=== PATIENT | male | born 1950 | race Caucasian/White ===

== ENCOUNTER 2023-04-26 14:16 | Inpatient (IN) | payer OTHER, SELFPAY ==
[2023-04-26 14:17] VITALS: BP 133/81; PULSE 74; RESP 14; TEMP 36.2; O2SAT 98; BMI 23.1
--- NOTE | 2023-04-26 14:26 | RAD_ITS ---
INDICATION: injury EXAMINATION/TECHNIQUE: X-RAY - XR Hip Unilateral with Pelvis when performed; 2-3 Views COMPARISON: No relevant prior comparison study available FINDINGS: PELVIC BONES: No displaced fracture, destructive or sclerotic lesions. Note that overlapping bowel shadows may however obscure fine detail. Sacroiliac joints are unremarkable. No widening of the pubic symphysis. HIPS: Intertrochanteric impacted displaced fracture of the right hip. No evidence of dislocation. SOFT TISSUES: No soft tissue swelling or gas. RAD/HIP, UNI W/ Pelvis 2-3 Views IMPRESSION: Intertrochanteric fracture of the right hip. Electronically Signed: Oleg Reyes MD at 15:08 EST ,
--- NOTE | 2023-04-26 14:26 | EKG12_ITS ---
Test Reason : FALL Blood Pressure : / mmHG Vent. Rate : 073 BPM Atrial Rate : 073 BPM P-R Int : 148 ms QRS Dur : 106 ms QT Int : 414 ms P-R-T Axes : 055 -11 095 degrees QTc Int : 456 ms Sinus rhythm with occasional Premature ventricular complexes Inferior infarct , age undetermined Abnormal ECG Confirmed by NICOLÁS COOK, KAREN ([id number]), index editor JERMAINE ZAVALA ([id number]) on 04/28/2023 6:08:39 AM Referred By: Confirmed By:KAREN MONZON MD
--- NOTE | 2023-04-26 14:27 | RAD_ITS ---
INDICATION: preop clearance EXAMINATION/TECHNIQUE: X-RAY - XR Chest 1 View COMPARISON: No relevant prior comparison study available FINDINGS: LINES/DEVICES: None. LUNGS: No consolidation, edema or effusion. No pneumothorax. Right retrocardiac opacity difficult to evaluate on this exam. Could represent confluence of pulmonary veins. No evidence of pleural effusions. MEDIASTINUM AND CARDIOVASCULAR STRUCTURES: Normal cardiac silhouette. BONES AND SOFT TISSUES: Unremarkable. RAD/Chest 1 View (Portable) IMPRESSION: Right retrocardiac opacity could represent confluence of pulmonary veins better evaluated with CT scan. Otherwise no active pulmonary disease. Electronically Signed: Oleg Reyes MD at 15:07 EST ,
--- NOTE | 2023-04-26 14:28 | EDS_ITS ---
HPI HPI - Fall History of Present Illness Chief Complaint: Fall Informant: patient Occured/Mechanism Occurred: Today (JPTA) Mechanism/Context: Yes same level fall Narrative: fell while indoor-roller skating Usually ambulates: Without assistance Pain/Injury Location: R hip Narrative Narrative: Fell onto his right hip while rollerskating, not able to move it or ambulate subsequently, requiring EMS to bring him to the hospital. Denies any other pain or injury did not hit his head. Takes no anticoagulants or antiplatelets that he knows of. PFSH PFS Medical History CHF (congestive heart failure) Enlarged prostate Suprapubic catheter Allergy/AdvReac Type Severity Reaction Status Date / Time No Known Allergies Allergy Verified 04/26/23 14:21 Social History Smoking Status: Never smoker ROS ROS ED Constitutional Constitutional ED: Denies chills or fever(s) Musculoskeletal Musculoskeletal: Reports extremity pain; Denies neck pain Integumentary Denies Abrasions, rash or wounds Neurologic Neurologic: Denies paresthesias or weakness EXAM Physical Exam Const Vital Signs: 04/26/23 14:17 04/26/23 14:29 Temperature 97.1 F L Temperature Source Temporal Pulse Rate 74 Respiratory Rate 14 Respiratory Effort Normal Non-Labored Respiratory Depth Normal Respiratory Pattern Normal Blood Pressure 133/81 H Blood Pressure Mean 98 Pulse Ox 98 Oxygen Delivery Method Room Air Positive well nourished and well developed General Appearance ED: well developed and NAD HEENT Reports normocephalic atraumatic Eyes PERRL and EOMs intact bilaterally Neck full ROM and supple Chest Wall inspection of chest normal and palpation of chest normal Resp normal respiratory effort, no retractions and clear to auscultation bilaterally Cardio regular rate and regular rhythm Rate: Negative for tachycardic GI non-tender and non-distended Back/Spine normal ROM and normal to inspection Extremity Extremity Narrative: Limited range of motion right hip due to pain, there is shortening of the extremity and it is externally rotated. Tender to greater trochanter, nontender at the ASIS, pelvis is stable. Limited range of motion of the knee due to pain as well, but the ankle moves well, and the other 3 extremities move fully without difficulty. The right thigh compartments are soft and nondistended and nontender otherwise. Neuro oriented x3, no focal motor deficits and no sensory deficits noted Anoop Coma Scale: document GCS findings Spontaneous Obeys Commands Oriented 15 Sensorium / Orientation: alert Psych mental status grossly normal and thought process normal Skin no wounds Rashes: no rashes MDM MDM MDM Narrative Medical decision making narrative: Three-view right hip series of my interpretation shows displaced trochanteric hip fracture. 1 view preoperative chest x-ray my interpretation shows no acute CHF or pneumonia. His EKG is noted, shows sinus rhythm with a PVC. His pain was treated with morphine. Discussed with [facility] who will see the patient consultation, discussed with hospitalist for admission. Lab Data Attestation: I reviewed the patient's lab results. Labs: Laboratory Results - last 24 hr 04/26/23 14:40 WBC 5.8 RBC 5.30 Hgb 16.1 Hct 47.8 MCV 90.2 MCH 30.4 MCHC 33.7 RDW Std Deviation 43.1 RDW Coeff of Vicente 13.0 Plt Count 306 MPV 10.0 Immature Gran % (Auto) 0.300 Neut % (Auto) 55.0 Lymph % (Auto) 30.1 [place] % (Auto) 11.3 H Eos % (Auto) 2.4 Baso % (Auto) 0.9 Absolute Neuts (auto) 3.2 Absolute Lymphs (auto) 1.75 Nucleated RBC % 0 Rhythm Strip Rhythm Strip: Sinus Rhythm Rate: 75 Ectopy: PVC(s) EKG Initial EKG: Attestation: I personally reviewed and interpreted this EKG as follows: Interpretation: Sinus Rhythm and No Acute Injury Pattern Comments: PVC Prior: No Prior Management Discussion w/another healthcare provider: Hospitalist and Telephone [employer] ([facility]) Discharge Plan Triage Chief Complaint: Fall ED Provider: Ganga Loco Dx/Rx/DC Orders Clinical Impression: Closed intertrochanteric fracture of right hip Primary Care Provider: Hesham Andrade Referrals: Hesham Andrade DO [Primary Care Provider] - Disposition Disposition: Acute Care [facility]
[2023-04-26] MEDS: Ondansetron 4 MG/2 ML Vial IV (14:35)
[2023-04-26] MEDS: Morphine 4 MG/ML Syringe IV ×2 (14:35→15:33)
[2023-04-26 14:48] LABS: Absolute Lymphocyte Count 1.75 X10^3/uL (0.83-4.51); Absolute Neutrophil Count 3.2 X10^3/uL (2.0-7.7); Basophil# 0.05 X10^3/uL; Basophil% 0.9 % (0-1); Eosinophil# 0.14 X10^3/uL; Eosinophils% 2.4 % (0-5); Hematocrit 47.8 % (40-54); Hemoglobin 16.1 g/dL (13.0-16.5); Lymphocyte # 1.75 X10^3/ul (0.83-4.51); Lymphocyte % 30.1 % (19-41); Mean Corp Hgb Conc 33.7 g/dL (32-36); Mean Corpuscular Hgb 30.4 pg (27.0-32.0); Mean Corpuscular Volume 90.2 fL (80-94); Monocyte# 0.66 X10^3/uL; Monocyte% 11.3 % (0-10); NRBC Flagged by Analyzer 0 % (0-5); Platelet Count 306 K/mm3 (150-450); RBC Distribution Width SD 43.1 fl (35.1-43.9); White Blood Count 5.8 K/mm3 (4.4-11.0)
[2023-04-26 15:08] LABS: Anion Gap 6 (5-15); BUN 15 mg/dL (7-18); BUN/Creat Ratio 11.9 RATIO (10-20); Chloride 103 mmol/L (98-107); Creatinine, Serum 1.26 mg/dL (0.70-1.30); EST Glomerular Filtration Rate 60 mL/min (>60); Est Glom Filt Rate - Afr Amer 72 mL/min (>60); Estimated Creatinine Clearance 52.99 ml/min; Glucose 101 mg/dL (74-106); Potassium 4.1 mmol/L (3.5-5.1); Sodium Level 139 mmol/L (136-145)
[2023-04-26 15:51] VITALS: BP 115/50; PULSE 75; RESP 13; O2SAT 96
--- NOTE | 2023-04-26 15:53 | HP.PCM.HOS_ITS ---
HPI - General General Date of Admission: 04/26/23 Date of Service: 04/26/23 Chief Complaint: Fall, R hip pain HPI Narrative The patient is a 72 y/o M w/ PMHx: HF unclear type, BPH, HTN, HLD, BPH w/ outlet obstruction s/p suprapubic catheter and s/p TURP from description presents to the [facility] ED on 04/26/2023 with history of mechanical fall at same level while indoor roller skating normally walking without assistance or issue however falling and significant right hip pain and debility as well as external rotation prompting EMS call with no reported head trauma or loss of consciousness. Patient does report discomfort as expected to the right hip but notes it is less if he does not move however if he moves it is at least 6-7 out of 10 in severity. He has been roller skating several times a week for nearly 70 years he reports and has had no issues with dyspnea or chest pain. Workup in the ED included T97.1, heart rate 74, BP 133/81, respiratory rate 14, 98% on room air, CBC with WBC 5.8, DOMINGO 16.1, platelet 306 without marked shift, unremarkable BMP, chest x-ray with right retrocardiac opacity possibly confluence of pulmonary ve ins otherwise no acute cardiopulmonary disease, plain film with an intertrochanteric impacted displaced fracture of the right hip with no evidence of dislocation, EKG SR with PVC without acute evidence of ischemia. In the ED patient ministered morphine 4 mg IV x 2 as well as Zofran 4 mg IV x 1. ED discussed case with Dr. Anna. [facility] Medical History (Updated 04/26/23 @ 17:[address] Sachi Urias MD) BPH (benign prostatic hyperplasia) Heart failure HLD (hyperlipidemia) HTN (hypertension) Suprapubic catheter Home Medications atorvastatin 10 mg tablet mg PO QHS HLD 04/26/23 [History Last Taken Unknown] carvedilol 3.125 mg tablet mg PO BID HTN, CHF 04/26/23 [History Last Taken Unknown] furosemide 20 mg tablet mg PO DAILY HTN, CHF 04/26/23 [History Last Taken Unknown] lisinopril 2.5 mg tablet mg PO DAILY HTN, CHF 04/26/23 [History Last Taken Unknown] Allergy/AdvReac Type Severity Reaction Status Date / Time No Known Allergies Allergy Verified 04/26/23 14:21 Family History (Updated 04/26/23 @ 17:[address] Sachi Urias MD) Mother Heart disease Hypertension Heart failure Father Heart failure Hypertension Heart disease Surgical History (Updated 04/26/23 @ 17:[address] Sachi Urias MD) History of suprapubic catheter S/P TURP Social History (Updated 04/26/23 @ 17:[address] Sachi Urias MD) household members: other details: Lives with his brother. Smoking Status: Never smoker alcohol intake: current alcohol intake frequency: holidays/special occasions only substance use type: does not use ROS ROS Narrative Admission Review of Systems: CONSTITUTIONAL: No weight loss, fever, chills, + weakness or fatigue. HEENT: Eyes: No visual loss, blurred vision, double vision or yellow sclerae. Ears, Nose, Throat: No hearing loss, sneezing, congestion, runny nose or sore throat. SKIN: No rash or itching, lesions, wounds. CARDIOVASCULAR: No chest pain, chest pressure or chest discomfort, palpitations, edema, orthopnea, syncopal events. RESPIRATORY: No shortness of breath, cough or sputum, wheezing, hemoptysis. GASTROINTESTINAL: No anorexia, nausea, vomiting or diarrhea, abdominal pain, melena, BRBPR. GENITOURINARY: + History of outlet obstruction with BPH status post suprapubic catheter placement, functioning appropriately. NEUROLOGICAL: No headache, dizziness, syncope, paralysis, ataxia, numbness or tingling in the extremities, focal weakness, change in bowel or bladder control, seizure. MUSCULOSKELETAL: + muscle, back pain, joint pain or stiffness. HEMATOLOGIC: No anemia, bleeding or bruising. LYMPHATICS: No enlarged nodes. No history of splenectomy. PSYCHIATRIC: No history of depression or anxiety. ENDOCRINOLOGIC: No reports of sweating, cold or heat intolerance. No polyuria or polydipsia. ALLERGIES: No history of asthma, hives, eczema or rhinitis. Vital Signs Vital Signs Vital Signs: 04/26/23 14:17 04/26/23 14:29 04/26/23 15:51 Temperature 97.1 F L Temperature Source Temporal Pulse Rate 74 75 Respiratory Rate 14 13 Respiratory Effort Normal Non-Labored Respiratory Depth Normal Respiratory Pattern Normal Blood Pressure 133/81 H 115/50 L Blood Pressure Mean 98 71 Pulse Ox 98 96 Oxygen Delivery Method Room Air Weight Weight: 157 lb Body Mass Index (BMI) 23.1 Physical Exam Narrative Physical Examination: General: Awake, alert, oriented x 3 and cooperative, seated upright in the ED bed, well-appearing, currently notes without movement pain is controlled and not severe. Skin: Normal color, normal turgor, no icterus, no cyanosis except for occasional staged ecchymoses. HEENT: AT/NC, EOMI, PERRLA, mildly dry MM, no carotid bruits or JVD noted. Lungs: CTA bilaterally, moderate effort, mild decrease BL bases, no rales, ronchi or wheezing. Heart: Regular rate and rhythm; no gallop, rub audible. Abdomen: Soft, NTTP, ND, mildly hyperactive BS, no HSM. Extremities: No cyanosis, no clubbing, mild peripheral ankle not markedly pitting edema, peripheral pulses intact, right lower extremity externally rotated with hip fracture. Neurological: Patient awake, alert, oriented as noted, cognitive function intact; pupils equally reactive to light and accommodation, cranial nerves grossly normal, moving extremities except expected limitation right lower extremity given fall with right hip fracture, strength accordingly severely globally decreased. Psychiatric: Affect appears normal, no acute evidence of depressive or anxiety feelings. Results Lab / Micro Data 04/26/23 14:40 04/26/23 14:40 Labs: Laboratory Results - last 24 hr 04/26/23 14:40: WBC 5.8, RBC 5.30, Hgb 16.1, Hct 47.8, MCV 90.2, MCH 30.4, MCHC 33.7, RDW Std Deviation 43.1, RDW Coeff of Vicente 13.0, Plt Count 306, MPV 10.0, Immature Gran % (Auto) 0.300, Neut % (Auto) 55.0, Lymph % (Auto) 30.1, [place] % (Auto) 11.3 H, Eos % (Auto) 2.4, Baso % (Auto) 0.9, Absolute Neuts (auto) 3.2, Absolute Lymphs (auto) 1.75, Nucleated RBC % 0, Sodium 139, Potassium 4.1, Chloride 103, Carbon Dioxide 30.0, Anion Gap 6, BUN 15, Creatinine 1.26, Estim Creat Clear Calc 52.99, Est GFR (MDRD) Af Amer 72, Est GFR (MDRD) Non-Af 60, BUN/Creatinine Ratio 11.9, Glucose 101, Calcium 9.0 Rhythm Strip Rhythm Strip: Sinus Rhythm Rate: 75 Ectopy: PVC(s) Imagaing Radiology Impression Hip/Pelvis X-Ray 04/26/23 14:26 IMPRESSION: Intertrochanteric fracture of the right hip. Electronically Signed: Oleg Reyes MD at 15:08 EST , Chest X-Ray 04/26/23 14:27 IMPRESSION: Right retrocardiac opacity could represent confluence of pulmonary veins better evaluated with CT scan. Otherwise no active pulmonary disease. Electronically Signed: Oleg Reyes MD at 15:07 EST , Assessment & Plan Assessment/Plan (1) Closed intertrochanteric fracture of right hip: PLAN: Plan The patient is a 72 y/o M w/ PMHx: HF unclear type, BPH, HTN, HLD, BPH w/ outlet obstruction s/p suprapubic catheter and s/p TURP from description presents to the [facility] ED on 04/26/2023 with history of mechanical fall at same level while indoor roller skating normally walking without assistance or issue however falling and significant right hip pain and debility as well as external rotation prompting EMS call with no reported head trauma or loss of consciousness. #1. General debility, R hip pain s/p mechanical fall w/ intertrochanteric impacted displaced fracture of the right hip: Orthopedic surgery consulted from ED. Will admit to MS, maintain NPO, continue gentle IVFs, continue suprapubic catheter Gerardo care, monitor I/Os, frequent positioning, fall precautions, as needed pain, anti-emetic regimen. PT/OT following operative intervention. CM consulted for discharge planning. Per NSQIP patient given history does carry at least moderate risk however he is extremely active and has no concerning symptoms of shortness of breath or chest discomfort and appears well-managed with an appropriate blood pressure and well- appearing labs as well as EKG with no acute concerning findings. Discussed with patient and also updated orthopedic surgery that BMP and troponin would be obtained and if these were unremarkable then would agree to proceed to OR. If they were considerably abnormal then echocardiogram and further cardiology workup would be obtained. #2. HF unclear type: Will temporally hold aspirin, continue patient home statin , Coreg, lisinopril, Lasix home regimen with judicious hydration only if necessary but still clarifying regimen. BNP and trop requested as noted. EKG with sinus rhythm with PVC with nonspecific changes with no comparison. #3. Hypertension: Continue home regimen including Coreg, Lasix, lisinopril once clarified, PRN hydralazine. #4. Hyperlipidemia: We will continue patient on statin therapy. #5. BPH with history of outlet obstruction: Status post from description TURP and eventual suprapubic catheter placement, will continue routine catheter care. #6. DVT prophylaxis: SCDs given presentation with need for OR. #7. CODE status: Patient HCPOA and living will are not in place currently but he notes his brother with whom he lives would be his decision maker if necessary. Discussed CODE status at length including difference between FULL code, DNR-CCA and DNR-CC status. Following discussions about the differences in these status, requested Full Code status. Advanced Care Planning Face to Face Time: 16 minutes. Charges/Coding Visit Charges Inpatient E&M: 66253 Init Hosp L3 Procedures Hospitalists Procedures: 69211 Advncd Care Plan 30 Min
--- NOTE | 2023-04-26 15:54 | CON.PCM.OR_ITS ---
HPI Consult Data Date of Consult: 04/26/23 HPI Narrative HPI Narrative: KAUSHIK MARINELLI, is a 72 M who presents with a right hip fracture, fell roller skating today at [employer]. no HI/loc/cp /sob. Lives with his brother, no ambulatory aids. [facility] Medical History CHF (congestive heart failure) Enlarged prostate Suprapubic catheter Allergy/AdvReac Type Severity Reaction Status Date / Time No Known Allergies Allergy Verified 04/26/23 14:21 Social History Smoking Status: Never smoker Vital Signs Vital Signs Vital Signs: 04/26/23 14:17 04/26/23 14:29 04/26/23 15:51 Temperature 97.1 F L Temperature Source Temporal Pulse Rate 74 75 Respiratory Rate 14 13 Respiratory Effort Normal Non-Labored Respiratory Depth Normal Respiratory Pattern Normal Blood Pressure 133/81 H 115/50 L Blood Pressure Mean 98 71 Pulse Ox 98 96 Oxygen Delivery Method Room Air Weight Weight: 157 lb Body Mass Index (BMI) 23.1 Physical Exam Const alert, oriented x3, no apparent distress and well nourished Extremity normal capillary refill, no clubbing, cyanosis or edema, no calf tenderness and no pedal edema Extremity Narrative: closed, externally rotated and short, pain to right hip, normal motor and sens to foot, df and pf the foot, normal sens plantar and dorsum, strong pedal pulses, foot warm well perfused. Lab / Micro Data 04/26/23 14:40 04/26/23 14:40 Labs: Laboratory Results - last 24 hr 04/26/23 14:40: WBC 5.8, RBC 5.30, Hgb 16.1, Hct 47.8, MCV 90.2, MCH 30.4, MCHC 33.7, RDW Std Deviation 43.1, RDW Coeff of Vicente 13.0, Plt Count 306, MPV 10.0, Immature Gran % (Auto) 0.300, Neut % (Auto) 55.0, Lymph % (Auto) 30.1, [place] % (Auto) 11.3 H, Eos % (Auto) 2.4, Baso % (Auto) 0.9, Absolute Neuts (auto) 3.2, Absolute Lymphs (auto) 1.75, Nucleated RBC % 0, Sodium 139, Potassium 4.1, Chloride 103, Carbon Dioxide 30.0, Anion Gap 6, BUN 15, Creatinine 1.26, Estim Creat Clear Calc 52.99, Est GFR (MDRD) Af Amer 72, Est GFR (MDRD) Non-Af 60, BUN/Creatinine Ratio 11.9, Glucose 101, Calcium 9.0 Rhythm Strip Rhythm Strip: Sinus Rhythm Rate: 75 Ectopy: PVC(s) Imagaing Radiology Impression Hip/Pelvis X-Ray 04/26/23 14:26 IMPRESSION: Intertrochanteric fracture of the right hip. Electronically Signed: Oleg Reyes MD at 15:08 EST , agree 3 part unstable IT fracture right hip Chest X-Ray 04/26/23 14:27 IMPRESSION: Right retrocardiac opacity could represent confluence of pulmonary veins better evaluated with CT scan. Otherwise no active pulmonary disease. Electronically Signed: Oleg Reyes MD at 15:07 EST , Assessment & Plan Assessment/Plan (1) Closed intertrochanteric fracture of right hip: PLAN: 72 yr M with right hip IT fracture, indicated for open reduction internal fixation with long cephalomedullary nail. I have talked to the anesthesia on- call provider let them know about the case and the hospitalist is currently seeing and assessing the patient for suitability to proceed to the OR. I talked the patient about the pros and cons risk and benefits of doing nothing versus surgical intervention here. Typically surgery is indicated due to lower risk profile the nonoperative treatment that being said there is risks involved with surgery like infection damage to other structures anesthetic complications and other risks detailed below. Patient wished to proceed with a right hip open r eduction internal fixation signed the consent form for surgery possible need for blood products. I marked the right hip. They can be diet as tolerated currently and n.p.o. overnight in preparation for surgery tomorrow ideally at 8 AM. Pros and cons risks and benefits were discussed with the patient including but not limited to infection, pain, stiffness, bleeding, damage to surrounding structures, neurovascular injury, recurrence or retear, failure or wear of hardware or fixation, instability, fracture, deep vein thrombosis and pulmonary embolism, anesthetic risks, , patient dissatisfaction, need for further surgery and other risks. Patient understood and wished to proceed with surgery, and signed the informed consent documentation.
[2023-04-26 17:00] VITALS: BP 115/70; PULSE 84; RESP 18; TEMP 37.2; O2SAT 96; BMI 23.2
--- NOTE | 2023-04-26 17:00 | ED.RN ---
CALLED [facility] TO MAKE [facility] AWARE [facility] AD[facility], WAS NOT ABLE TO SPEAK TO ANYONE. THERE WAS NO OPTION TO LEAVE A CONFIDENTIAL VOICEMAIL, SO I LEFT A CALLBACK NUMBER.
[2023-04-26 17:07] LABS: BNP,B-Type NATRIURETIC PEPTIDE 57.9 pg/mL (0-100)
[2023-04-26 17:20] LABS: Magnesium 1.9 mg/dL (1.6-2.6); Troponin-I HS 18 pg/mL (3.0-78.0)
--- NOTE | 2023-04-26 18:24 | NURSING ---
pt received influenza and covid booster both in 01/2023
[2023-04-26 19:30] VITALS: O2SAT 97
[2023-04-26] MEDS: Acetaminophen 325 MG Tablet 650 MG PO (19:45)
[2023-04-26] MEDS: oxyCODONE 5 MG Tablet PO (19:45)
[2023-04-26] MEDS: Morphine 2 MG/ML Syringe IV (20:57)
[2023-04-26 21:00] VITALS: BP 122/63; PULSE 107; RESP 16; TEMP 36.6; O2SAT 96
--- NOTE | 2023-04-26 21:06 | NURSING ---
called pts brother for pts med list to be verified. no answer, left a voicemail.
[2023-04-26] MEDS: Carvedilol 3.125 MG TABLET PO (23:01)
[2023-04-26] MEDS: 0.9% Normal Saline (1000mL) 1,000 ML 60 ML IV (23:02)
[2023-04-27] VITALS (15 sets, daily range): BP systolic 98–112; BP diastolic 54–73; PULSE 72–97; RESP 16–20; TEMP 36.6–37.5; O2SAT 92–99; BMI 23.9; BMI 23.8
[2023-04-27] MEDS: Morphine 2 MG/ML Syringe IV (03:21)
[2023-04-27 06:25] LABS: Absolute Lymphocyte Count 1.27 X10^3/uL (0.83-4.51); Absolute Neutrophil Count 7.2 X10^3/uL (2.0-7.7); Basophil# 0.06 X10^3/uL; Basophil% 0.6 % (0-1); Eosinophil# 0.06 X10^3/uL; Eosinophils% 0.6 % (0-5); Hemoglobin 13.7 g/dL (13.0-16.5); Lymphocyte # 1.27 X10^3/ul (0.83-4.51); Lymphocyte % 13.1 % (19-41); Mean Corp Hgb Conc 32.6 g/dL (32-36); Mean Corpuscular Hgb 29.6 pg (27.0-32.0); Mean Corpuscular Volume 90.7 fL (80-94); Mean Platelet Vol. 10.5 fl (6.2-12.0); Monocyte% 11.3 % (0-10); NRBC Flagged by Analyzer 0 % (0-5); Neutrophil # 7.19 X10^3/uL (2.7-7.7); Neutrophil % 74.1 % (47-70); Platelet Count 249 K/mm3 (150-450); RBC Distribution Width CV 13.1 % (11.6-14.6); RBC Distribution Width SD 42.9 fl (35.1-43.9); Red Blood Count 4.63 M/mm3 (4.6-6.2); White Blood Count 9.7 K/mm3 (4.4-11.0)
[2023-04-27] MEDS: Carvedilol 3.125 MG TABLET PO ×2 (06:38→17:40)
[2023-04-27 06:41] LABS: ALB/GLOB Ratio 1.1 RATIO (0.9-2.4); AST(SGOT) 23 U/L (15-37); Alanine Aminotransfer ALT/SGPT 23 U/L (16-61); Alkaline Phosphatase 55 U/L (45-117); Anion Gap 6 (5-15); BUN 16 mg/dL (7-18); Calcium,Total 8.4 mg/dL (8.5-10.1); Chloride 105 mmol/L (98-107); Creatinine, Serum 1.07 mg/dL (0.70-1.30); EST Glomerular Filtration Rate 72 mL/min (>60); Est Glom Filt Rate - Afr Amer 87 mL/min (>60); Globulin 2.7 g/dL (2.2-4.2); Glucose 103 mg/dL (74-106); Potassium 4.1 mmol/L (3.5-5.1); Protein, Total 5.7 g/dL (6.4-8.2); Sodium Level 137 mmol/L (136-145)
--- NOTE | 2023-04-27 07:34 | EKG12_ITS ---
Test Reason : R/O AFIB Blood Pressure : / mmHG Vent. Rate : 078 BPM Atrial Rate : 078 BPM P-R Int : 154 ms QRS Dur : 106 ms QT Int : 420 ms P-R-T Axes : 032 -18 040 degrees QTc Int : 478 ms Sinus rhythm with occasional Premature ventricular complexes Otherwise normal ECG When compared with ECG of 26-APR-2023 14:39, MANUAL COMPARISON REQUIRED, DATA IS UNCONFIRMED Confirmed by NICOLÁS COOK, KAREN ([id number]), electronic news gathering editor JAVON PARDO ([id number]) on 04/28/2023 1:59:09 PM Referred By: TASHA Confirmed By:KAREN MONZON MD
--- NOTE | 2023-04-27 07:36 | NURSING ---
DAWSON , spoke with Neena for stat EKG.
--- NOTE | 2023-04-27 07:50 | RAD_ITS ---
EXAM: XR RIGHT HIP WITH PELVIS WHEN PERFORMED, 2 OR 3 VIEWS CLINICAL INDICATION: FX TECHNIQUE: Two or three views of the right hip with pelvis when performed. COMPARISON: 04/26/2019 FINDINGS: BONES/JOINTS: Helical blade with long trochanteric nail following open reduction of the acute right femoral intertrochanteric fracture. There is improvement of the alignment of the fracture fragments. No destructive or sclerotic lesions. Note that overlapping bowel shadows may however obscure fine detail. Sacroiliac joint is unremarkable. No widening of the pubic symphysis. The articular structures are unremarkable. SOFT TISSUES: Unremarkable. No soft tissue swelling or gas. RAD/Hip Min 2 Views (Portable) IMPRESSION: Successful open reduction and fixation of the right femoral intertrochanteric fracture using helical blade and trochanteric nail. Electronically Signed: Kenan Orozco MD at 12:12 EST ,
[2023-04-27] MEDS: Cefazolin 2 GM in 0.9% Normal Saline (100mL Bag) 100 ML IV (08:18)
[2023-04-27] MEDS: TRANEXAMIC ACID 1,000 MG in 0.9% Normal Saline (100mL Bag) 100 ML 440 MG IV (08:37)
--- NOTE | 2023-04-27 09:41 | OP.PCM_ITS ---
Problems Associated Problem List Diagnoses (1) Closed intertrochanteric fracture of right hip: Report of Operation Date of Procedure: 04/27/23 Pre-Operative Diagnosis: Right hip intertrochanteric fracture Post-Operative Diagnosis: Same Surgery/Procedure Performed:: Right hip open reduction internal fixation long nail Surgeon: Tashi Anna Type of Anesthesia: General Anesthesiologist: Mateus Soliman Estimated Blood Loss (mL): 100 Description of Procedure: Patient brought to the operating room theater. Placed supine on the fracture table. General anesthesia induced. 2 g IV Ancef given prior to the start of the case. 1 g of tranexamic acid given prior to the start of the case. Right lower extremity in traction and internal rotation. Left lower extremity attached to the center post the bed scissoring position appropriately padded on both sides. Right lower extremity prepped and draped in usual sterile fashion with chlorhexidine-based prep solution allowing over 3 minutes drying time prior to draping. Shower curtain style Ioban drape was used. Preoperative timeout performed to confirm the site patient and surgery. Began by taking AP and lateral radiographs to ensure appropriate reduction. Use the partially-threaded guidewire to begin the entry point at the tip of the gre ater trochanter and down to the towards the lesser trochanter on the AP radiograph and in line with the femur on the lateral radiograph. Used a soft tissue protector. Reamed to an appropriate depth. Past ball-tipped guidewire down to the distal aspect of the femur at the superior pole the patella. Put a slight bend of the guidewire. Guide removed. I measured this to be 380 long nail. I used sequential reaming up to a size 13.5 with good chatter. I then attached the nail size twelve 380 mm long to the guide inserted this in the femur following the bow. Inserted this to an appropriate depth. Use the drop- down guide with the sleeve insert. Removed the ball-tipped guidewire. Passed a partially-threaded guide wire up into the center of the femoral head on both AP and lateral radiographs keeping the guidewire slightly inferior and posterior in the femoral neck. This measured 118 mm. I reamed to 115 mm and inserted a 150 mm helical blade. Fixated this proximally and backed off the set screw by quarter turn to allow for some compression and then used the hockey-stick tool to then apply some gentle compression across the fracture site. This achieved good reduction and no varus at the fracture. I then turned my attention distally. The guides were removed. I used perfect cahto technique to insert 2 fully threaded cortical screws through the oblong hole and the proximal hole at the distal end of the nail. This was 48 mm long and 42 mm long. I took final radiographs AP and lateral. This achieved good reduction of the fracture and securing the nail distally. All guides were removed. Final radiographs taken proximally and distally. Wound thoroughly irrigated. Subcutaneous tissue closed with 2-0 Vicryl suture and skin with 3-0 Monocryl. Skin cleaned with wet and dry dressing followed application of Steri-Strips and gauze dressing. Patient woken up from the general anesthetic transferred off the operating table and taken to postanesthetic care unit in stable condition. All sponge needle instrument counts were correct complications. Plan for the patient weightbearing as tolerated readmitted under the hospitalist service PT and OT to assess send Xarelto 10 mg once daily starting 24 hours after surgery for the next 30 days for VTE prophylaxis. cpt 84063 Complications none Admit VTE Documentation VTE Present on Admission: No VTE Mechan Device Prophylaxis: SCD's VTE Pharm Prophylaxis ordered?: Yes Procedures Musculoskeletal 20xxx-29xxx: Other Procedure See Report
[2023-04-27] MEDS: Acetaminophen 325 MG Tablet 650 MG PO ×2 (12:55→21:13)
[2023-04-27] MEDS: Furosemide 20 MG Tablet PO (14:40)
[2023-04-27] MEDS: Lisinopril 2.5 MG Tablet PO (14:40)
[2023-04-27] MEDS: oxyCODONE 5 MG Tablet PO (16:25)
--- NOTE | 2023-04-27 18:40 | PCM.PN.HOSP ---
Reason for Visit Reason for Visit: Diagnoses Displaced intertrochanteric fracture of right femur, initial encounter for closed fracture (04/26/23) Subjective Subjective Patient was seen and examined today, he underwent ORIF of his right intertrochanteric fracture using an internal fixation long nail. Patient tolerated the procedure well, he is alert and appropriate. I talked him about possibly going to a rehab unit or custodial for skilled care, I told him it would depend on how well he did with physical therapy and Occupational Therapy tomorrow. Patient initially told me he had no medical problems but then he told me he takes medication, it appears he has essential hypertension and hyperlipidemia. Objective Data Objective Data Vital Signs: Vital Signs Temp Pulse Resp BP Pulse Ox O2 Del Method O2 Flow Rate 98.5 F 91 20 H 105/64 96 Room Air 3.5 04/27/23 17:31 04/27/23 17:31 04/27/23 17:31 04/27/23 17:31 04/27/23 17:31 04/27/23 17:31 04/27/23 12:33 Oxygen Flow Rate (L/min) 3.5 Oxygen Delivery Method Room Air Weight: 73.298 kg Body Mass Index (BMI) 23.8 Intake & Output: Intake and Output for Last 24 Hours 04/25/23 04/26/23 04/27/23 23:59 23:59 23:59 Intake Total 550 / 550 1046 / 1046 Output Total 250 / 675 1200 / 1200 Balance 300 / -125 -154 / -154 Lab / Micro Data 04/27/23 05:42 04/27/23 05:42 Labs: Laboratory Results - last 24 hr 04/27/23 05:42: WBC 9.7, RBC 4.63, Hgb 13.7, Hct 42.0, MCV 90.7, MCH 29.6, MCHC 32.6, RDW Std Deviation 42.9, RDW Coeff of Vicente 13.1, Plt Count 249, MPV 10.5, Immature Gran % (Auto) 0.300, Neut % (Auto) 74.1 H, Lymph % (Auto) 13.1 L, Maverick % (Auto) 11.3 H, Eos % (Auto) 0.6, Baso % (Auto) 0.6, Absolute Neuts (auto) 7.2, Absolute Lymphs (auto) 1.27, Nucleated RBC % 0, Sodium 137, Potassium 4.1, Chloride 105, Carbon Dioxide 26.0, Anion Gap 6, BUN 16, Creatinine 1.07, Estim Creat Clear Calc 62.40, Est GFR (MDRD) Af Amer 87, Est GFR (MDRD) Non-Af 72, BUN/Creatinine Ratio 15.0, Glucose 103, Calcium 8.4 L, Total Bilirubin 2.70 H, AST 23, ALT 23, Alkaline Phosphatase 55, Total Protein 5.7 L, Albumin 3.0 L, Globulin 2.7, Albumin/Globulin Ratio 1.1, Blood Type O POSITIVE, Antibody Screen NEGATIVE Radiography Diagnostic Testing: Radiology Impression Hip X-Ray 04/27/23 07:50 IMPRESSION: Successful open reduction and fixation of the right femoral intertrochanteric fracture using helical blade and trochanteric nail. Electronically Signed: Kenan Orozco MD at 12:12 EST Reading Location ID and State: [address] [place] [address] , Service support , Rhythm Strip Rhythm Strip: Sinus Rhythm Rate: 75 Ectopy: PVC(s) Physical Exam Const alert, oriented x3, no apparent distress, average body habitus and healthy appearing General Appearance: cooperative, well kempt and well developed Orientation / Consciousness: awake, oriented to person, oriented to place and oriented to time HEENT normocephalic and moist oral mucous membranes Eyes PERRL, EOMs intact bilaterally and conjunctivae normal Neck supple, no JVD, thyroid normal and no carotid bruits General: trachea midline Resp normal respiratory effort and clear to auscultation bilaterally Auscultation: Negative for rales, rhonchi or wheezes Cardio regular rate, regular rhythm, no murmurs, no rub and no gallops GI normal to inspection, nondistended, normoactive bowel sounds, soft to palpation, non-tender and non-distended Neuro oriented x3, CN's II-XII intact bilaterally, no focal motor deficits and no sensory deficits noted Sensorium / Orientation: awake and alert Speech: speech normal Psych affect normal Assessment & Plan Assessment/Plan (1) Closed intertrochanteric fracture of right hip: PLAN: Plan 1. Right intertrochanteric hip fracture-postop day 0 intramedullary nail insertion-PT and OT will see the patient, he may need to go to a skilled facility for short-term rehab services based on his performance after surgery. #2 hypertension-patient will remain on his present medications, blood pressure will be monitored #3 hyperlipidemia-patient is on a statin Total clinical time spent by myself addressing the patient's medical issues, reviewing all of his data, and collaborating with patient's care team: 35 minutes Charges/Coding Visit Charges Inpatient E&M: 50154 Subs Hosp L2
[2023-04-27] MEDS: Atorvastatin Calcium 10 MG Tablet PO (21:08)
[2023-04-28 02:35] VITALS: BP 99/53; PULSE 79; RESP 16; TEMP 36.6; O2SAT 95
[2023-04-28] MEDS: Acetaminophen 325 MG Tablet 650 MG PO ×2 (05:57→10:15)
[2023-04-28 06:30] VITALS: BP 100/60; PULSE 72; RESP 16; TEMP 36.8; O2SAT 96
[2023-04-28 08:43] VITALS: BMI 24.3
[2023-04-28 08:46] VITALS: BP 91/50; PULSE 74; RESP 16; TEMP 36.8; O2SAT 95
--- NOTE | 2023-04-28 09:52 | CASEMGMT ---
Discharge Planning A list of?SNF providers including quality and resource use data and consistent with the patient's preferred geographic region, medical needs, and insurance network was created in [employer]Port Guide.? This list was provided to the SW. Pinky Wheat Discharge Planning Asst.
[2023-04-28 09:53] VITALS: BP 92/62; PULSE 89
[2023-04-28] MEDS: Lisinopril 2.5 MG Tablet PO (10:15)
[2023-04-28] MEDS: Carvedilol 3.125 MG TABLET PO ×2 (10:17→17:09)
--- NOTE | 2023-04-28 11:24 | CASEMGMT ---
Addendum entered by Alka Parry 04/28/23 13:36: Social Work Return call from Cheryl in TCU and TCU is now able to accept pt. Pt notified and would prefer TCU. Referral to [facility] cancelled. Precrobert started for TCU. Plan: TCU, pending precert Y[facility]GENIY [facility] Original Note: Social Work SW?to room to meet with patient for initial transition planning/care coordination?assessment.?SW?introduced self and role at [facility].? Pt voices understanding and consents to?assessment.? Pt is A/Ox4 and answers all questions appropriately.?? Care providers, pharmacy, and demographics verified. PCP: Lupe Specialists: [facility] Preferred Pharmacy: [facility] Insurance: [employer] Prescription Benefit:? yes Living Will/HPOA:? none. Pt educated that SW can assist pt in completing if pt so desires. Pt not interested at this time. LNOK: Thomas Rosales, brother Living Arrangements: Pt lives in a two story home with his brother. 7 steps into his home and first floor living. pts bathroom is on the lower level with 6 steps down. Pt is independent with ADLS and IADLS except brother does the cooking. Transportation:? Pt drives self DME: ? none HHC/SNF: none SW spoke with pt regarding discharge plan. Physician and therapy is recommending short term rehab prior to return home. A list of SNF providers including quality and resource use data and consistent with the patient?s preferred geographic region, medical needs, and insurance network were provided from the CarePort Guide. Pt preferred provider is 1. TCU and 2. [facility]. Referral to TCU and they are unable to accept. DC assistant business manager updated and to send referral to [facility]. PLAN: [facility], pending acceptance and precert YEVGENI[facility]
--- NOTE | 2023-04-28 12:44 | CASEMGMT ---
Discharge Planning Referral sent to [facility] then cancelled d/t patient choosing another snf. Pinky Wheat, Discharge Planning Asst.
[2023-04-28 13:10] VITALS: O2SAT 95
--- NOTE | 2023-04-28 15:00 | TREXTCAR_ITS ---
Diet Diet Order/Speech Therapy: 04/27/23 12:45 Diet: Regular - General Is pt able to select menu?: Yes Routine Orders/Code Status Change Gerardo Catheter: do not remove suprapubic catheter Routine Lab Work: - (liver profile on 05/01/23) Code Status: Full Code Wound(s) right elbow: Wound Type: Skin Tear RIGHT HIP: Wound Type: Surgical Incision Therapies Weight Bearing: Weight bearing as tolerated Physical Therapy: Eval and Treat Occupational Therapy: Eval and Treat Problem/Diagnosis (1) Closed intertrochanteric fracture of right hip: Status: Acute Code(s): S72.141A - Displaced intertrochanteric fracture of right femur, initial encounter for closed fracture Plan 1. Right intertrochanteric hip fracture-postop day 1 intramedullary nail insertion-PT and OT will see the patient, he may need to go to a skilled facility for short-term rehab services based on his performance after surgery. #2 hypertension-patient will remain on his present medications, blood pressure will be monitored #3 hyperlipidemia-patient is on a statin Total clinical time spent by myself addressing the patient's medical issues, reviewing all of his data, and collaborating with patient's care team: 35 minutes Allergies/Procedures Done in Hospital Allergies No Known Allergies Allergy (Verified 04/26/23 14:21) Procedures: - (ORIF right hip 04/27/23) Type of Care/Length of Stay Estimated LOS: Convalescent Care Less Than 30 days Type of Care Needed: Skilled Rehab Potential: Good Prognosis: Good Additional Orders/Day of Discharge H&P will serve as current which was dated: 04/26/23 Day of Discharge: 04/28/23 Discharge Plan Admission Admit Date/Time: 04/26/23 16:11 Primary Reason for Your Visit: right hip fracture Attending Provider: Quinton Waller Primary Care Provider: Hesham Andrade Consulting Providers: Tashi Anna; Sachi Urias Discharge Orders/Prescriptions Prescriptions: New acetaminophen 325 mg Tablet 650 mg PO Q4H PRN PRN (Reason: Fever, pain 1-10/10) Qty: 0 0RF oxycodone 5 mg Tablet 2.5 - 5 mg PO Q4H PRN PRN (Reason: Pain Score 4-10) 3 Days Qty: 6 0RF Xarelto 10 mg Tablet 10 mg PO DINNER Qty: 0 0RF Continued atorvastatin 10 mg tablet 10 mg PO DAILY Patient Comments: TAKE 1 TABLET (10 MG) BY MOUTH DAILY. carvedilol 3.125 mg tablet 3.125 mg PO BID Patient Comments: TAKE 1 TABLET BY MOUTH TWICE DIALY furosemide 20 mg tablet 20 mg PO DAILY Patient Comments: TAKE 1 TABLET BY MOUTH EVERY DAY lisinopril 2.5 mg tablet 2.5 mg PO DAILY Patient Comments: TAKE 1 TABLET BY MOUTH EVERY DAY Referrals / Follow Up: Hesham Andrade DO [Primary Care Provider] - Tashi Anna MD [Med Staff - Active Staff] - See Referral Note (in two weeks) Disposition Disposition (needs filled in before D/C Order can be placed): Residential Facility
--- NOTE | 2023-04-28 15:11 | PCM.PN.ORT ---
Subjective Subjective POD 1 right hip IM nail. doing well per Dr. Cunningham hospitalist. Objective Data Objective Data Vital Signs: Vital Signs Temp Pulse Resp BP Pulse Ox O2 Del Method O2 Flow Rate 98.2 F 89 16 92/62 95 Room Air 3.5 04/28/23 08:46 04/28/23 09:53 04/28/23 08:46 04/28/23 09:53 04/28/23 13:10 04/28/23 13:10 04/27/23 12:33 Oxygen Flow Rate (L/min) 3.5 Oxygen Delivery Method Room Air Weight: 165 lb 1.6 oz Body Mass Index (BMI) 24.3 Intake & Output: Intake and Output for Last 24 Hours 04/26/23 04/27/23 04/28/23 23:59 23:59 23:59 Intake Total 550 / 550 1046 / 1046 300 / 300 Output Total 250 / 675 1200 / 1500 875 / 875 Balance 300 / -125 -154 / -454 -575 / -575 Lab / Micro Data 04/27/23 05:42 04/27/23 05:42 Rhythm Strip Rhythm Strip: Sinus Rhythm Rate: 75 Ectopy: PVC(s) Assessment & Plan Assessment/Plan (1) Closed intertrochanteric fracture of right hip: PLAN: 72 M right hip IM nail ORIF for IT hip fracture, ok to transfer to TCU. WBAT. FU [address] Cunningham hospitalist will arrange and in agreement with plan. OK to change dressing q2-3 days. Capacity Legal Outside Plant Field Engineer Reflex Medical hold order details:: IF a medical hold is selected below, a suggested order for a MEDICAL HOLD will reflex upon signing the document. Next of kin: [place] law dictates a PRIORITY LIST for identifying legal decision-maker/legal next of kin in the following order (LNOK): 1st: The patient?s legal guardian, if any 2nd: The patient's spouse (if status is questionable, consult Risk Management) 3rd: The patient?s adult child(phan) (majority, if multiple children) 4th: The patient?s parents 5th: The patient?s adult siblings (majority, if multiple children siblings)
--- NOTE | 2023-04-28 15:26 | PCM.DC.SUM ---
Providers Date of Admission: 04/26/23 Date of Discharge: 04/28/23 Primary Care Physician: Dr. Hesham Andrade, Consultations 04/26/23 17:44 Consult: Orthopedics Routine Consulting Provider: Tashi Anna Reason for Consult: Fall, hip fracture EMERGENT Consult: No MD Notified: Yes Date Notified: 04/26/23 Time Notified: 16:13 Method of Notification: ED Physician Initiated Reason For Visit: FALL, R HIP FRACTURE Diagnosis Discharge Diagnosis (1) Closed intertrochanteric fracture of right hip: Status: Acute Code(s): S72.141A - Displaced intertrochanteric fracture of right femur, initial encounter for closed fracture Plan 1. Right intertrochanteric hip fracture-postop day 1 intramedullary nail insertion-PT and OT will see the patient, he may need to go to a skilled facility for short-term rehab services based on his performance after surgery. #2 hypertension-patient will remain on his present medications, blood pressure will be monitored #3 hyperlipidemia-patient is on a statin Total clinical time spent by myself addressing the patient's medical issues, reviewing all of his data, and collaborating with patient's care team: 35 minutes Medications at Discharge Home Medications atorvastatin 10 mg tablet 10 mg PO DAILY HLD 04/26/23 carvedilol 3.125 mg tablet 3.125 mg PO BID HTN, CHF 04/26/23 furosemide 20 mg tablet 20 mg PO DAILY HTN, CHF 04/26/23 lisinopril 2.5 mg tablet 2.5 mg PO DAILY HTN, CHF 04/26/23 acetaminophen 325 mg tablet 650 mg (2 x 325 mg) PO Q4H PRN PRN Fever, pain 1-10/10 #0 tabs 04/28/23 oxycodone 5 mg tablet 2.5 - 5 mg (0.5 - 1 x 5 mg) PO Q4H PRN PRN Pain Score 4-10 3 days #6 tabs 04/28/23 rivaroxaban 10 mg tablet (Xarelto) 10 mg PO DINNER Anticoagulant #0 tabs 04/28/23 Hospital Course Operations None Procedures - (ORIF right hip) Summary of Care Provided Minutes Spent on Discharge: 31 Hospital Course: This 72-year-old white male was seen in the emergency room at [facility] after sustaining a fall while rollAccess [employer], he landed on his right hip and he was unable to ambulate. Workup in the emergency room showed an intertrochanteric fracture of the right hip, patient was admitted to [place] [address], seen by orthopedic surgery in consultation and he underwent intramedullary nail insertion in the right hip. Patient was seen by PT and OT postop, he did well during his hospital stay but it was felt he would benefit from inpatient skilled services at TCU, patient agreed. On 04/27/2023, patient was seen and examined: On examination he appeared in good health and spirits. Vital signs as documented. Skin warm and dry and without overt rashes. Neck without JVD, neck was supple, trachea midline, thyroid was normal. Lungs clear bilaterally, normal air movement was noted. Heart exam notable for regular rhythm, normal sounds and absence of murmurs, rubs or gallops. Abdomen unremarkable and without evidence of organomegaly, masses, or abdominal aortic enlargement. Patient has a chronic indwelling suprapubic catheter. Bowel sounds are present, abdomen is not distended. Extremities nonedematous, no cyanosis was noted, no clubbing was noted. Neuro: Cranial nerves II through XII are grossly intact, no focal motor deficits were noted, sensation to light touch and pinprick intact, motor exam 5/5 throughout. Psych: Patient is alert and oriented x3, he does not appear anxious or depressed, he does not appear agitated. Patient was transferred to TCU in stable condition on 04/27/2023 Weight / BMI Weight Weight: 74.888 kg Body Mass Index (BMI) 24.3 ABG / Lab / Microbiology Data 04/27/23 05:42 04/27/23 05:42 Meaningful Use Info Meaningful Use Diagnoses (Choose all that apply): None applicable Discharge Plan Admission Admit Date/Time: 04/26/23 16:11 Primary Reason for Your Visit: right hip fracture Attending Provider: Quinton Waller Primary Care Provider: Hesham Andrade Consulting Providers: Tashi Anna; Sachi Urias Discharge Orders/Prescriptions Prescriptions: New acetaminophen 325 mg Tablet 650 mg PO Q4H PRN PRN (Reason: Fever, pain 1-10/10) Qty: 0 0RF oxycodone 5 mg Tablet 2.5 - 5 mg PO Q4H PRN PRN (Reason: Pain Score 4-10) 3 Days Qty: 6 0RF Xarelto 10 mg Tablet 10 mg PO DINNER Qty: 0 0RF Continued atorvastatin 10 mg tablet 10 mg PO DAILY Patient Comments: TAKE 1 TABLET (10 MG) BY MOUTH DAILY. carvedilol 3.125 mg tablet 3.125 mg PO BID Patient Comments: TAKE 1 TABLET BY MOUTH TWICE DIALY furosemide 20 mg tablet 20 mg PO DAILY Patient Comments: TAKE 1 TABLET BY MOUTH EVERY DAY lisinopril 2.5 mg tablet 2.5 mg PO DAILY Patient Comments: TAKE 1 TABLET BY MOUTH EVERY DAY Referrals / Follow Up: Hesham Andrade DO [Primary Care Provider] - Tashi Anna MD [Med Staff - Active Staff] - See Referral Note (in two weeks) Disposition Disposition (needs filled in before D/C Order can be placed): [facility] Charges/Coding Visit Charges Inpatient E&M: 69711 Disch Hosp >30min
--- NOTE | 2023-04-28 15:35 | CASEMGMT ---
Social Work Precert has been obtained for pt to admit to the TCU. Physician updated and pt is ready for dc. SW met with pt and updated that he will move to TCU today and pt is agreeable. With pt request, phone call to pt brother and updated on dc plan and he is agreeable. DC orders faxed to TCU. Disposition: TCU, skilled level of care YEVGENIY Griffith
--- NOTE | 2023-04-28 15:41 | PHA.DC_ITS ---
Pharmacy [place] Med Reconciliation Pharmacy Service has performed discharge medication reconciliation for this patient. The patient's discharge medication list was reviewed for discrepancies and discrepancies were resolved. Medications at Discharge Home Medications atorvastatin 10 mg tablet 10 mg PO DAILY HLD 04/26/23 carvedilol 3.125 mg tablet 3.125 mg PO BID HTN, CHF 04/26/23 furosemide 20 mg tablet 20 mg PO DAILY HTN, CHF 04/26/23 lisinopril 2.5 mg tablet 2.5 mg PO DAILY HTN, CHF 04/26/23 acetaminophen 325 mg tablet 650 mg (2 x 325 mg) PO Q4H PRN PRN Fever, pain 1- 10/10 #0 tabs 04/28/23 oxycodone 5 mg tablet 2.5 - 5 mg (0.5 - 1 x 5 mg) PO Q4H PRN PRN Pain Score 4-10 3 days #6 tabs 04/28/23 rivaroxaban 10 mg tablet (Xarelto) 10 mg PO DINNER #0 tabs 04/28/23
--- NOTE | 2023-04-28 15:48 | CHAPLAIN ---
Type of Pastoral Visit _x__ Initial Visit ___ Follow-up Visit ___ On-call Visit ___ General Patient Visit ___ Spiritual Assessment ___ Family Conference ___ Bereavement ___ Rapid Response ___ Code Blue ___ Other (describe below) Pastoral Care Referral From _x__ Patient ___ Family ___ Nurse ___ Physician ___ Combine Operator ___ Duplex Trimmer ___ Other (describe below) Sacrament/Intervention _x__ Active listening ___ Anointing ___ Restorationist ___ Bereavement ___ Communion ___ Kanchan exploration ___ _x__ Life review _x__ Prayer ___ Reconciliation ___ Sacrament of Sick _x__ Supportive presence ___ Wedding ___ Other (describe below) Pastoral Comments patient is quiet and soft spoken but answers all the questions appropriately; pt is able to speak about his issue and admits to falling down roller skating; pt has a brother that is helpful and they live together; pt is waiting on confirmation about rehab and expects to spend some days/weeks in therapy for his healing and recovery; pt is appropriate in his understanding and expectations; pt welcomes prayer for his support
[2023-04-28 16:54] VITALS: BP 98/66; PULSE 82; RESP 16; TEMP 36.5; O2SAT 99
[2023-04-28] MEDS: Rivaroxaban 10 MG Tablet PO (17:09)
== END 2023-04-28 17:15 | DRG 482 ==
LOC: ED 15:33 → MS3 16:12
PROVIDERS: Orthopaedic Surgery Sports Medicine; Admitting Provider Family Medicine; Emergency Provider Emergency Medicine; PCP Family Medicine; Visit Provider Internal Medicine
PROC: 0QS606Z Reposition Right Upper Femur with Intramedullary Internal Fixation Device, Open Approach (ICD-10-PCS; CPT 27245; principal; 2023-04-27 08:00)
DX: S72.141A Displaced intertrochanteric fracture of right femur, initial encounter for closed fracture (principal); I11.0 Hypertensive heart disease with heart failure; E78.5 Hyperlipidemia, unspecified; I50.9 Heart failure, unspecified; V00.121A Fall from non-in-line roller-skates, initial encounter; I49.3 Ventricular premature depolarization; R53.81 Other malaise; Z90.79 Acquired absence of other genital organ(s)
CPT/HCPCS: 36415; 71045; 73502; 76000; 80048; 80053; 83735; 83880; 84484; 85025; 86850; 86900; 86901; 93005; 94668; 97162; 97166; 99284; C1776; J7030; J7120; A4216; J2405

== ENCOUNTER 2023-04-28 17:44 | Inpatient (IN) | payer MEDICARE, MEDICAID, SELFPAY ==
--- OUTSIDE RECORDS SUMMARY | 2023-04-28 17:50 | XMS RPT_ITS | CCD ---
Author Name Unknown Address [address] [place] [address] Organization [facility] Care Team Providers Care Technology Coordinator Name Role Phone No Doctor Assigned, Nodr Unavailable Unavail able Sarthak Claudio Unavailable Unavailable Sarthak Claudio Unavailable Unavailable Sander Hanna Primary Care Provider Ivána, Hesham F Primary Care Provider Sander Hanna Primary Care Provider SARTHAK CLAUDIO Attending Unavailable SANDER HANNA Primary Care Unavailable Petrilla, Hesham F Primary Care Provider Petrilla DO, Hesham F Primary Care Provider Petrilla, Hesham Primary Care Unavailable PROVIDER, UNKNOWN Referring Unavailable Kurt Hodges Attending Unavailable Petrilla, Hesham Primary Care Unavailable PROVIDER, UNKNOWN Referring Unavailable BARRETT WEBER Attending Unavailable Petrilla, Hesham Primary Care Unavailable SHERIE BURKS Attending Unavailable PROVIDER, UNKNOWN Referring Unavailable Petrilla DO, Hesham F Primary Care Provider [phone] Dale Sepulveda MD Unavailable Petrilla DO, Hesham F Primary Care Provider Dale Sepulveda MD Unavailable Petrilla DO, Hesham F Primary Care Provider MARGARITA BERRY Attending Unavailable PETRILLA, HESHAM Primary Care Unavailable PETRILLA, HESHAM Primary Care Unavailable SHERIE BURKS Attending Unavailable PETRILLA, HESHAM Primary Care Unavailable SHERIE BURKS Attending Unavailable PETRILLA, HESHAM Primary Care Unavailable MARGARITA BERRY Attending Unavailable MARGARITA BERRY Attending Unavailable PETRILLA, HESHAM Primary Care Unavailable TED HOLDEN Attending Unavailable PETRILLA, HESHAM Primary Care Unavailable SHERIE BURKS Attending Unavailable PETRILLA, HESHAM Primary Care Unavailable ANTONELLA GUY Attending Unavailable PETRILLA, [facility] Primary Care Unavailable RONAN BLACK Attending Unavailable PETRILLA, HESHAM Referring Unavailable PETRILLA, HESHAM Primary Care Unavailable PETRILLA, HESHAM Attending Unavailable PETRILLA, HESHAM Referring Unavailable PETRILLA, HESHAM Primary Care Unavailable DAXA, ALEXANDRO Attending Unavailable DAXA, ALEXANDRO Referring Unavailable PETRILLA, HESHAM Primary Care Unavailable GUYANTONELLA Camacho Attending Unavailable PETRILLA, HESHAM Primary Care Unavailable PETRILLA, HESHAM Primary Care Unavailable PETRILLA, HESHAM Attending Unavailable PETRILLA, HESHAM Primary Care Unavailable PETRILLA, HESHAM Attending Unavailable PETRILLA, HESHAM Primary Care Unavailable PETRILLA, HESHAM Attending Unavailable PETRILLA, [facility] Primary Care Unavailable VITALIY, SHERIE Attending Unavailable PETRILLA, HESHAM Primary Care Unavailable PETRILLA, HESHAM Attending Unavailable PETRILLA, HESHAM Primary Care Unavailable PETRILLA, [facility] Primary Care Unavailable ZHAO HE Attending Unavailable Allergies Allergy Classification Reported Allergen(s) Allergy Type Date of Onset Reaction(s) Facility (1 source) No Known Allergies; Translations: [No Known Allergies] Propensity to adverse reactions to drug (disorder) [facility] Repository (1 source) No Known Medication Allergies; Translations: [No Known Medication Allergies] Propensity to adverse reactions to drug (disorder) [facility] Repository Medications Current Medications Medication Drug Class(es) Dates Sig (Normalized) Sig (Original) Acetaminophen (2 sources) Start: 02-04-2020 acetaminophen (TYLENOL) tablet 650 mg Completed/Discontinued Medications Medication Drug Class(es) Dates Sig (Normalized) Sig (Original) b complex vitamins capsule (1 source) End: 04-27-2018 take 1 capsule by mouth once daily b complex vitamins capsule Take 1 capsule by mouth daily. 0 04/27/2018 Discontinued betamethasone 3 mg/ml / betamethasone acetate 3 mg/ml injectable suspension (6 sources) Corticosteroid Start: 01-30-2023 End: 01-30-2023 betamethasone acetate-betamethas one sodium phosphate (Celestone) injection 12 mg bupivacaine hydrochloride 5 mg/ml injectable solution (6 sources) Amide Local Anesthetic Start: 01-30-2023 End: 01-30-2023 bupivacaine (Marcaine) 0.5 % injection 8 mL famotidine 20 mg oral tablet (1 source) Histamine-2 Receptor Antagonist Start: 02-04-2020 End: 02-04-2020 famotidine (PEPCID) tablet 20 mg Problems Active Problems Problem Classification Problem Date Documented Da te Episodic/Chronic Congestive heart failure; nonhypertensive (20 sources) Congestive heart failure; Translations: [Heart failure, unspecified] Onset: 02-08-2015 02-08-2015 Chronic Disorders of lipid metabolism (20 sources) Hypercholesterolemia ; Translations: [Pure hypercholesterolemia , unspecified] Onset: 05-03-2021 05-03-2021 Chronic Genitourinary symptoms and ill-defined conditions (20 sources) Other cystostomy status; Translations: [Suprapubic urinary catheter in situ] Onset: 01-28-2022 Chronic Hyperplasia of prostate (20 sources) Benign prostatic hypertrophy with outflow obstruction; Translations: [Benign prostatic hyperplasia with lower urinary tract symptoms] Onset: 01-06-2019 Resolved: 12-27-2020 05-26-2019 Chronic Hypertension with complications and secondary hypertension (2 sources) Hypertensive heart disease with heart failure; Translations: [Hypertensive heart disease with heart failure] Onset: 01-28-2022 Chronic Other diseases of bladder and urethra (20 sources) Neurogenic bladder; Translations: [Neuromuscular dysfunction of bladder, unspecified] Onset: 05-26-2019 05-26-2019 Chronic Other diseases of bladder and urethra (2 sources) Neuromuscular dysfunction of bladder, unspecified; Translations: [Neuromuscular dysfunction of bladder, unspecified] Onset: 01-25-2022 Chronic Other nervous system disorders (4 sources) Chronic pain; Translations: [Other chronic pain] Onset: 01-30-2023 12-30-2022 Chronic Other nervous system disorders (1 source) Other chronic pain; Translations: [Other chronic pain] Onset: 01-30-2023 Chronic Other non-traumatic joint disorders (12 sources) Pain in left knee; Translations: [Pain in joint, lower leg] Onset: 01-30-2023 12-24-2022 Episodic Other screening for suspected conditions (not mental disorders or infectious disease) (20 sources) Raised prostate specific antigen; Translations: [Elevated prostate specific antigen [PSA]] Onset: 01-06-2019 01-06-2019 Episodic Other skin disorders (1 source) Ingrowing nail of toe of right foot; Translations: [Ingrowing nail] 01-08-2023 Episodic Nyla-; endo-; and myocarditis; cardiomyopathy (except that caused by tuberculosis or sexually transmitted disease) (20 sources) Cardiomyopathy; Translations: [Dilated cardiomyopathy] Onset: 06-26-2015 06-26-2015 Chronic Past or Other Problems Problem Classification Problem Date Documented Date Episodic/Chronic Complication of device; implant or graft (4 sources) Mechanical complication of suprapubic catheter; Translations: [Breakdown (mechanical) of cystostomy catheter, initial encounter] Onset: 08-24-2022 Episodic Complications of surgical procedures or medical care (3 sources) Drug-induced hypotension; Translations: [Hypotension due to drugs] Onset: 06-20-2022 Episodic Genitourinary symptoms and ill-defined conditions (20 sources) Nocturia; Translations: [Retention of urine] Onset: 01-06-2019 Resolved: 12-27-2020 01-06-2019 Episodic Other and unspecified benign neoplasm (7 sources) Benign neoplasm of skin of trunk; Translations: [Melanocytic nevi of trunk] Onset: 10-22-2018 Resolved: 12-27-2020 10-22-2018 Episodic Other circulatory disease (2 sources) Hypotension, unspecified; Translations: [Hypotension, unspecified] Onset: 08-06-2022 Episodic Other connective tissue disease (2 sources) Other bursitis of knee, left knee; Translations: [Other bursitis of knee, left knee] Onset: 10-23-2022 Episodic Other diseases of kidney and ureters (3 sources) Hydronephrosis; Translations: [Other hydronephrosis] Onset: 05-26-2019 Resolved: 12-27-2020 05-26-2019 Episodic Other diseases of kidney and ureters (1 source) Bilateral hydronephrosis ; Translations: [Bilateral hydronephrosis] Episodic Other skin disorders (2 sources) Ingrowing nail; Translations: [Ingrowing nail] Onset: 01-08-2023 Episodic Results Test Name Value Interpretation Reference Range Facil ity Vital Signs Date Time Vital Sign Value Performing Clinician Facgaby woodsy 04-24-2023 13:19-0500 Body height 175.3 cm Sherie Claudio CNP Work Phone: [facility] 04-24-2023 13:19-0500 Body mass index (BMI) [Ratio] 23.18 kg/m2 Sherie Burks FINISHED CARPET INSPECTOR - INDUSTRIAL EDUCATION TEACHER Work Phone: [facility] 04-24-2023 13:19-0500 Body weight 71.22 kg Sherie Burks FINISHED CARPET INSPECTOR - INDUSTRIAL EDUCATION TEACHER Work Phone: [facility] 03-03-2023 14:12-0500 Body height 175.3 cm Ted Holden FINISHED CARPET INSPECTOR - INDUSTRIAL EDUCATION TEACHER Work Phone: [facility] 03-03-2023 14:12-0500 Body mass index (BMI) [Ratio] 23.18 kg/m2 Ted Holden FINISHED CARPET INSPECTOR - INDUSTRIAL EDUCATION TEACHER Work Phone: [facility] 03-03-2023 14:12-0500 Body weight 71.22 kg Ted Holden FINISHED CARPET INSPECTOR - INDUSTRIAL EDUCATION TEACHER Work Phone: [facility] 03-03-2023 14:12-0500 Diastolic blood pressure 66 mm[Hg] Ted Holden FINISHED CARPET INSPECTOR - INDUSTRIAL EDUCATION TEACHER Work Phone: [facility] 03-03-2023 14:12-0500 Heart rate 76 /min Ted Holden FINISHED CARPET INSPECTOR - INDUSTRIAL EDUCATION TEACHER Work Phone: [facility] 03-03-2023 14:12-0500 Systolic blood pressure 121 mm[Hg] Ted Holden FINISHED CARPET INSPECTOR - INDUSTRIAL EDUCATION TEACHER Work Phone: [facility] 02-06-2023 14:41-0400 Body height 175.3 cm Antonella HONG-C Work Phone: [facility] 02-06-2023 14:41-0400 Body mass index (BMI) [Ratio] 24.07 kg/m2 Antonella HONG-C Work Phone: [facility] 02-06-2023 14:41-0400 Body temperature 98.01 [degF] Antonella Guy PA-C Work Phone: [facility] 02-06-2023 14:41-0400 Body weight 73.94 kg Antonella HONG-C Work Phone: [facility] 02-06-2023 14:41-0400 Diastolic blood pressure 71 mm[Hg] Antonella HONG-C Work Phone: [facility] 02-06-2023 14:41-0400 Heart rate 73 /min Antonella HONG-C Work Phone: [facility] 02-06-2023 14:41-0400 SaO2% (BldA) [Mass fraction] 97 % Antonella HONG-C Work Phone: [facility] 02-06-2023 14:41-0400 Systolic blood pressure 117 mm[Hg] Antonella HONG-C Work Phone: [facility] 01-30-2023 13:02-0400 Diastolic blood pressure 80 mm[Hg] Ronan Black MD Work Phone: [facility] 01-30-2023 13:02-0400 Systolic blood pressure 122 mm[Hg] Ronan Black MD Work Phone: [facility] 01-30-2023 12:53-0400 Body height 175.3 cm Ronan Black MD Work Phone: [facility] 01-30-2023 12:53-0400 Body mass index (BMI) [Ratio] 22.89 kg/m2 Ronan Black MD Work Phone: [facility] 01-30-2023 12:53-0400 Body weight 70.31 kg Ronan Black MD Work Phone: [facility] 01-16-2023 14:40-0400 Body height 175.3 cm Sherie Burks APRN - INDUSTRIAL EDUCATION TEACHER Work Phone: [facility] 01-16-2023 14:40-0400 Body mass index (BMI) [Ratio] 22.89 kg/m2 Sherie Burks APRN - INDUSTRIAL EDUCATION TEACHER Work Phone: [facility] 01-16-2023 14:40-0400 Body weight 70.31 kg Thapasya Vitaliy FINISHED CARPET INSPECTOR - INDUSTRIAL EDUCATION TEACHER Work Phone: [facility] 01-16-2023 14:40-0400 Diastolic blood pressure 68 mm[Hg] Sherie Burks FINISHED CARPET INSPECTOR - INDUSTRIAL EDUCATION TEACHER Work Phone: [facility] 01-16-2023 14:40-0400 Heart rate 80 /min Sherie Burks FINISHED CARPET INSPECTOR - INDUSTRIAL EDUCATION TEACHER Work Phone: [facility] 01-16-2023 14:40-0400 Systolic blood pressure 110 mm[Hg] Sherie Burks FINISHED CARPET INSPECTOR - INDUSTRIAL EDUCATION TEACHER Work Phone: [facility] 01-08-2023 08:11-0400 Body height 175.3 cm Antonella Matthewso PA-C Work Phone: [facility] 01-08-2023 08:11-0400 Body mass index (BMI) [Ratio] 23.78 kg/m2 Antonella Guy PA-C Work Phone: [facility] 01-08-2023 08:11-0400 Body temperature 99.5 [degF] Antonella Guy PA-C Work Phone: [facility] 01-08-2023 08:11-0400 Body weight 73.03 kg Antonella Guy PA-C Work Phone: [facility] 01-08-2023 08:11-0400 Diastolic blood pressure 79 mm[Hg] Antonella Guy PA-C Work Phone: [facility] 01-08-2023 08:11-0400 Heart rate 83 /min Antonella Guy PA-C Work Phone: [facility] 01-08-2023 08:11-0400 SaO2% (BldA) [Mass fraction] 97 % Antonella Guy PA-C Work Phone: [facility] 01-08-2023 08:11-0400 Systolic blood pressure 118 mm[Hg] Antonella Guy PA-C Work Phone: [facility] 12-24-2022 16:09-0400 Body height 175.3 cm Hesham Andrade DO Work Phone: [facility] 12-24-2022 16:09-0400 Body mass index (BMI) [Ratio] 24.07 kg/m2 Hesham Andrade DO Work Phone: [facility] 12-24-2022 16:09-0400 Body temperature 97.11 [degF] Hesham Andrade DO Work Phone: [facility] 12-24-2022 16:09-0400 Body weight 73.94 kg Hesham Andrade DO Work Phone: [facility] 12-24-2022 16:09-0400 Diastolic blood pressure 76 mm[Hg] Hesham Andrade DO Work Phone: [facility] 12-24-2022 16:09-0400 Heart rate 81 /min Hesham Andrade DO Work Phone: [facility] 12-24-2022 16:09-0400 SaO2% (BldA) [Mass fraction] 96 % Hesham Andrade DO Work Phone: [facility] 12-24-2022 16:09-0400 Systolic blood pressure 113 mm[Hg] Hesham Andrade DO Work Phone: [facility] 11-21-2022 13:09-0400 Body height 175.3 cm Sherie Burks FINISHED CARPET INSPECTOR - INDUSTRIAL EDUCATION TEACHER Work Phone: [facility] [place] 11-21-2022 13:09-0400 Body mass index (BMI) [Ratio] 22.45 kg/m2 Sherie Burks FINISHED CARPET INSPECTOR - INDUSTRIAL EDUCATION TEACHER Work Phone: [facility] 11-21-2022 13:09-0400 Body weight 68.95 kg Sherie Burks FINISHED CARPET INSPECTOR - INDUSTRIAL EDUCATION TEACHER Work Phone: [facility] 11-21-2022 13:09-0400 Diastolic blood pressure 78 mm[Hg] Sherie Burks FINISHED CARPET INSPECTOR - INDUSTRIAL EDUCATION TEACHER Work Phone: [facility] 11-21-2022 13:09-0400 Heart rate 78 /min Sherie Burks FINISHED CARPET INSPECTOR - INDUSTRIAL EDUCATION TEACHER Work Phone: [facility] 11-21-2022 13:09-0400 Systolic blood pressure 121 mm[Hg] Sherie Burks FINISHED CARPET INSPECTOR - INDUSTRIAL EDUCATION TEACHER Work Phone: [facility] 09-26-2022 09:46-0400 Body height 175.3 cm Sherie Burks FINISHED CARPET INSPECTOR - INDUSTRIAL EDUCATION TEACHER Work Phone: [facility] 09-26-2022 09:46-0400 Body mass index (BMI) [Ratio] 22.59 kg/m2 Sherie Burks FINISHED CARPET INSPECTOR - INDUSTRIAL EDUCATION TEACHER Work Phone: [facility] 09-26-2022 09:46-0400 Body weight 69.4 kg Sherie Burks FINISHED CARPET INSPECTOR - INDUSTRIAL EDUCATION TEACHER Work Phone: [facility] 09-26-2022 09:46-0400 Diastolic blood pressure 57 mm[Hg] Sherie Burks FINISHED CARPET INSPECTOR - INDUSTRIAL EDUCATION TEACHER Work Phone: [facility] 09-26-2022 09:46-0400 Heart rate 80 /min Sherie Burks FINISHED CARPET INSPECTOR - INDUSTRIAL EDUCATION TEACHER Work Phone: [facility] 09-26-2022 09:46-0400 Systolic blood pressure 116 mm[Hg] Sherie Burks FINISHED CARPET INSPECTOR - INDUSTRIAL EDUCATION TEACHER Work Phone: [facility] 08-24-2022 09:16-0400 Diastolic blood pressure 63 mm[Hg] Zhao He MD Work Phone: [facility] 08-24-2022 09:16-0400 Heart rate 88 /min Zhao He MD Work Phone: [facility] 08-24-2022 09:16-0400 Respiratory rate 16 /min Zhao He MD Work Phone: [facility] 08-24-2022 09:16-0400 SaO2% (BldA) [Mass fraction] 99 % Zhao He MD Work Phone: [facility] 08-24-2022 09:16-0400 Systolic blood pressure 100 mm[Hg] Zhao He MD Work Phone: [facility] 08-24-2022 08:12-0400 Body height 175.3 cm Zhao He MD Work Phone: [facility] 08-24-2022 08:12-0400 Body mass index (BMI) [Ratio] 22.59 kg/m2 Zhao He MD Work Phone: [facility] 08-24-2022 08:12-0400 Body temperature 97.5 [degF] Zhao He MD Work Phone: [facility] 08-24-2022 08:12-0400 Body weight 69.4 kg Zhao He MD Work Phone: [facility] 08-07-2022 13:02-0400 Body height 175.3 cm Margarita Berry FINISHED CARPET INSPECTOR - SEWING SUPERVISOR Work Phone: [facility] 08-07-2022 13:02-0400 Body mass index (BMI) [Ratio] 22.3 kg/m2 Margarita Berry FINISHED CARPET INSPECTOR - SEWING SUPERVISOR Work Phone: [facility] 08-07-2022 13:02-0400 Body weight 68.49 kg Margarita Monastowski FINISHED CARPET INSPECTOR - SEWING SUPERVISOR Work Phone: [facility] 08-07-2022 13:02-0400 Diastolic blood pressure 65 mm[Hg] Margarita Monastowski FINISHED CARPET INSPECTOR - SEWING SUPERVISOR Work Phone: [facility] 08-07-2022 13:02-0400 Heart rate 81 /min Margarita Berry FINISHED CARPET INSPECTOR - SEWING SUPERVISOR Work Phone: [facility] 08-07-2022 13:02-0400 Systolic blood pressure 108 mm[Hg] Margarita Dunnstowski FINISHED CARPET INSPECTOR - SEWING SUPERVISOR Work Phone: [facility] 06-20-2022 12:12-0500 Body height 175.3 cm Hesham Andrade DO Work Phone: [facility] 06-20-2022 12:12-0500 Body mass index (BMI) [Ratio] 23.18 kg/m2 Hesham Andrade DO Work Phone: [facility] 06-20-2022 12:12-0500 Body temperature 97.3 [degF] Hesham Andrade DO Work Phone: [facility] 06-20-2022 12:12-0500 Body weight 71.22 kg Hesham Andrade DO Work Phone: [facility] 06-20-2022 12:12-0500 Diastolic blood pressure 56 mm[Hg] Hesham Andrade DO Work Phone: [facility] 06-20-2022 12:12-0500 Heart rate 70 /min Hesham Andrade DO Work Phone: [facility] 06-20-2022 12:12-0500 SaO2% (BldA) [Mass fraction] 98 % Hesham Andrade DO Work Phone: [facility] 06-20-2022 12:12-0500 Systolic blood pressure 96 mm[Hg] Hesham Andrade DO Work Phone: [facility] 02-05-2020 10:30-0400 BP Diastolic 66 mm[Hg] [employer] [place] 02-05-2020 10:30-0400 BP Systolic 100 mm[Hg] [facility] [place] 02-05-2020 05:58-0400 Body Temperature 98.4 [degF] [facility], [place] 02-05-2020 05:58-0400 Pulse (Heart Rate) 72 /min Dale [facility] [place] 02-05-2020 05:58-0400 Pulse Oximetry 92 % Dale [facility] [place] 02-05-2020 05:58-0400 Respiratory Rate 18 /min DaleReDent [employer] PriceBaba [facility], [place] 02-04-2020 14:15-0400 BMI (Body Mass Index) 23.04 kg/m2 Dale Data [facility] [place] 02-04-2020 14:15-0400 Body weight 70.[address] [facility] [place] 02-04-2020 14:15-0400 [facility] [place] 01-28-2020 12:20-0400 Height 175.[address] [facility] [place] 01-28-2020 12:18-0400 BMI (Body Mass Index) 24.1 kg/m2 [facility] [place] 01-28-2020 12:18-0400 Body Temperature 96.91 [degF] [facility] [place] 01-28-2020 12:18-0400 Body weight 74.03 [facility] [place] 01-28-2020 12:18-0400 BP Diastolic 69 mm[Hg] [facility] , [place] 01-28-2020 12:18-0400 BP Systolic 116 mm[Hg] [facility] [place] 01-28-2020 12:18-0400 Pulse (Heart Rate) 73 /min [facility], [place] 01-28-2020 12:18-0400 Pulse Oximetry 96 % [facility] [place] 01-28-2020 12:18-0400 Respiratory Rate 16 /min Chi [facility], [place] 01-26-2019 10:40-0400 BP Diastolic 79 mm[Hg] [facility] , [place] 01-26-2019 10:40-0400 BP Systolic 138 mm[Hg] [facility] , [place] 01-26-2019 10:40-0400 Pulse (Heart Rate) 67 /min [facility], [place] 01-26-2019 10:40-0400 Pulse Oximetry 97 % [facility] [place] 01-26-2019 10:15-0400 Body Temperature 98.8 [degF] [facility], [place] 01-26-2019 10:09-0400 Respiratory Rate 16 /min [facility], [place] 04-27-2018 13:19-0500 BMI (Body Mass Index) 23.33 kg/m2 Sarthak Claudio [facility] 04-27-2018 13:19-0500 BP Diastolic 78 mm[Hg] Sarthak Claudio [facility] 04-27-2018 13:19-0500 BP Systolic 126 mm[Hg] Sarthak Claudio [facility] 04-27-2018 13:19-0500 Height 175.3 cm Sarthak Claudio [facility] 04-27-2018 13:19-0500 Pulse (Heart Rate) 72 /min Sarthak Claudio [facility] 04-27-2018 13:19-0500 Pulse Oximetry 98 % Sarthak Claudio [facility] 04-27-2018 13:19-0500 Weight 71.67 kg Sarthak Steven [facility] Encounters Encounter Date Encounter Type Care Provider Facility Start: 04-24-2023 End: 04-24-2023 ambulatory SHERIE BURKS [facility] Start: 04-24-2023 End: 04-24-2023 Office outpatient visit 15 minutes Sherie Burks FINISHED CARPET INSPECTOR - INDUSTRIAL EDUCATION TEACHER Work Phone: [facility] Urology Procedures Date Procedure Procedure Detail Performing Clinician Start: 02-06-2023 Adult depression scr eening assessment Antonella Guy PA-C Work Phone: Start: 01-27-2023 Colonoscopy Ronan cornejo MD Work Phone: Start: 10-21-2022 Colonoscopy Sherie griffith FINISHED CARPET INSPECTOR - INDUSTRIAL EDUCATION TEACHER Work Phone: Start: 08-24-2022 Basic metabolic pane l calcium total Zhao He MD Work Phone: Start: 07-24-2022 Lipid 1996 panel - S julian or Plasma Margarita Berry FINISHED CARPET INSPECTOR - SEWING SUPERVISOR Work Phone: Start: 12-29-2020 Lipid 1996 panel - S julian or Plasma Hesham Andrade DO Work Phone: Start: 02-04-2020 OPERATIVE REPORT 3m Sca nning Start: 01-28-2020 Blood count hemoglobin Luly Lynnette Plascencia Work Phone: Start: 01-28-2020 BASIC METABOLIC PANE L W/ REFLEX TO MG FOR LOW K Luly Plascencia Work Phone: Start: 01-28-2020 Ecg routine ecg w/le ast 12 lds w/i&r Luly Plascencia Work Phone: Start: 03-22-2019 Colonoscopy Barrett wiggins MD Work Phone: Start: 02-22-2019 Us retroperitoneal r eal time w/image limited Hugh Van Work Phone: Start: 01-26-2019 Colonoscopy 3m Scannin g Start: 12-24-2018 Us abdominal real ti me w/image documentation Sofie Deshpandeyear Work Phone: Start: 04-27-2018 12 lead ECG Sarthak hill Work Phone: Plan of Treatment Date Care Activity Detail Author Start: 01-27-2033 Screening for malign ant neoplasm of colon [facility] Start: 10-21-2032 Screening for malign ant neoplasm of colon [facility] Start: 03-22-2029 Screening for malign ant neoplasm of colon [facility] Start: 01-26-2029 Colon cancer screen colonoscopy Colon cancer screen colonoscopy [place], [place] Start: 07-25-2027 Lipid panel Lipid Panel [facility] Start: 12-29-2025 Lipid panel Lipid Panel [facility] Start: 03-08-2024 Medicare Advantage Annual Wellness Visit (AWV) Medicare Advantage Annual Wellness Visit (AWV) [facility] Start: 02-09-2024 End: 02-09-2024 Patient encounter procedure 02/09/2024 1:00 PM EDT Office Visit [facility] [address] [place] [address] Antonella Guy PA-C [address] [place] [address] [facility] Start: 02-07-2024 Depression Screening Depression Scre ening [facility] Start: 10-24-2023 Lipid panel Lipid screen [place], [place] Start: 10-24-2023 Lipid screen Lipid screen Mercsharon Louis th- [place], [place] Start: 08-25-2023 Creatinine measurement Creatinine Le sarwat [facility] [place] Start: 08-25-2023 Potassium measurement Potassium Leve l [facility] Start: 07-25-2023 Creatinine measurement Creatinine Le sarwat [facility] Start: 07-25-2023 Potassium measurement Potassium Leve l [facility] [place] Start: 06-09-2023 End: 06-09-2023 Patient encounter procedure 06/09/2023 8:30 AM EST Office Visit [facility] [address] [place] [id number] Ted Holden FINISHED CARPET INSPECTOR - INDUSTRIAL EDUCATION TEACHER [address] [place] [address] [facility] Start: 05-22-2023 COVID-19 Vaccine (5 - Moderna series) COVID-19 Vaccine (5 - Moderna series) [facility] Start: 04-24-2023 End: 04-24-2024 Non-Indwelling Bladder Cath Insertion Non-Indwelling Bladder Cath Insertion Procedures Routine Encounter for care or replacement of suprapubic tube (HCC) Neurogenic bladder Urinary retention Expected: 04/24/2023 (Approximate), Expires: 04/24/2024 [facility] Immunizations Immunization Date Immunization Notes Care Provider Fa cility 01-23-2022 Covid-19, Moderna Bivalent Booster, (Age 18y+), Im, 50 Mcg/d Hesham Andrade DO Work Phone: [facility] 01-23-2022 Influenza, High-dose Seasonal, Quadrivalent, Preservative Free Hesham Andrade DO Work Phone: [facility] 01-23-2022 influenza virus vacc ine, unspecified formulation Sherie Burks FINISHED CARPET INSPECTOR - INDUSTRIAL EDUCATION TEACHER Work Phone: [facility] 12-28-2021 zoster vaccine recombinant Hesham Andrade DO Work Phone: [facility] 06-28-2021 zoster vaccine recombinant Hesham Andrade DO Work Phone: [facility] 05-02-2021 Pfizer SARS-CoV-2 Vaccination Hesham Andrade DO Work Phone: [facility] 09-13-2020 COVID-19, Moderna, Primary or Immunocompromised, PF, 100mcg/0.5mL Barrett Weber MD Work Phone: [facility] 08-11-2020 COVID-19, Moderna, Primary or Immunocompromised, PF, 100mcg/0.5mL Barrett Weber MD Work Phone: [facility] Work Phone: 06-15-2020 pneumococcal polysaccharide vaccine, 23 valent Barrett Weber MD Work Phone: [facility] Work Phone: 01-22-2020 Influenza, High-dose , Quadv, 65 yrs +, IM (Fluzone) Barrett Weber MD Work Phone: [facility] 04-24-2019 influenza, high dose seasonal, preservative-free Barrett Weber MD Work Phone: [facility] Work Phone: 10-22-2018 pneumococcal conjuga te vaccine, 13 valent Shb [facility] 01-16-2018 influenza, high dose seasonal, preservative-free Barrett Weber MD Work Phone: [facility] Work Phone: Payers Date Payer Category Payer Medicare [employer] [id number] 2021-Present [address] [place] [address] Medicare HMO [id number] 2018 Medicare [id number] 2018 Unknown xxxxxxxxxxx [id number] 2016 Unknown 1950 Unknown [id number] 1950 Unknown [id number] 1950 Unknown [id number] 1950 Unknown [id number] Social History Date Type Detail Facility Start: 04-27-2018 End: 01-26-2019 Tobacco smoking status MEIS Never smoker [facility] Start: 06-26-2015 Alcohol Comment occasional [facility] Start: 1950 Sex Assigned At Not on file [facility] Start: 10-22-2018 End: 02-06-2023 Alcohol intake Yes [place], [place] Start: 10-22-2018 History SDOH Alcohol Frequency 4 [place] Start: 10-22-2018 History SDOH Alcohol Std Drinks 2 [place] Start: 10-22-2018 History SDOH Social Connections Get Together 3 [place] Start: 10-22-2018 End: 12-27-2020 History SDOH Social Connections Religious 1 [place] Start: 10-22-2018 History SDOH Physica l Activity MPS 10 [place] Start: 10-22-2018 End: 12-27-2020 History SDOH Financial 5 [place] Start: 08-16-2019 End: 02-06-2023 Alcohol intake Current drinker of alcohol (finding) [place] Start: 07-02-2021 End: 12-30-2022 Exposure to SARS-CoV-2 (event) Not sure [facility] Start: 01-28-2020 End: 07-31-2022 Tobacco smoking status MEIS [facility] End: 04-14-1974 History of tobacco use Current smoker [place] Start: 01-28-2020 End: 02-06-2023 Cigarettes smoked current (pack per day) - Reported [place] Start: 01-28-2020 End: 07-31-2022 Tobacco use and exposure Never used [place], [place] Start: 03-22-2019 Alcohol Comment 4 beers/week [facility]erie [facility]- [place], [place] End: 04-14-1974 History of tobacco use Cigarette Smoker [facility] How often to you hav e a drink containing alcohol? 2-3 time sa week [facility] How many standard dr inks containing alcohol do you have on a typical day? 1 or 2 [facility] How often do you hav e 6 or more drinks on 1 occasion? [facility] Go[facility] Date Patient Goal Desired Activity /State Clinical Notes 06-20-2022 to 04-24-2023 Sherie Burks APRN - JANINE - 04/24/2023 1:20 PM Caleb Cantu RN - 04/24/2023 1:20 PM WON Tejada CNP - 03/03/2023 2:20 PM Caleb Cantu RN - 03/03/2023 2:20 PM EST Note Date & Type Note Facility 04-24-2023 History of Present illness Narrative Images from the original note were not included. Sherie Burks CNP, WON 04/24/2023 at 1:30 PM Urology Office Visit PATIENT NAME: Kaushik Rosales DATE OF : 1950 TODAY'S DATE: 04/24/2023 Chief Complaint: Chief Complaint Patient presents with catheter change 8 week cathter change. No current concerns. Subjective: Mr. Rosales is a 72 y.o. male who presents to the office for suprapubic catheter change. Catheter was last changed on 03/03/2023. Since last visit he has been doing well. No gross blood. No clogging of the catheter. Denies fevers or chills. Negative prostate biopsy 08/02/2021. Hx of elevated PSA Lab Results Component Value Date PSA 5.626 (A) 05/03/2021 PSA 5.794 (A) 12/29/2020 PSA 5.033 (A) 04/01/2019 Last PSA 5.626 05/03/2021 Review of Systems Constitutional: Negative for chills and fever. Genitourinary: Negative for decreased urine volume, difficulty urinating, dysuria, flank pain, frequency, hematuria and urgency. Medications Prior to Admission medications Medication Sig Start Date End Date Taking? Authorizing Provider atorvastatin (Lipitor) 10 MG tablet Take 1 tablet by mouth in the morning. 12/27/21 03/27/22 Yes Historical Provider, carvedilol (Coreg) 3.125 MG tablet Decrease to 3.125 mg BID 12/27/21 Yes Historical Provider, Cod Liver Oil capsule Take 1 capsule by mouth in the morning. Yes Historical Provider, furosemide (Lasix) 40 MG tablet Take 1 tablet by mouth in the morning. 12/27/21 Yes Historical Provider, lisinopril 2.5 MG tablet Take 1 tablet by mouth in the morning. 12/27/21 Yes Historical Provider, omega-3 (Fish Oil) 1000 MG capsule Take 2,000 mg by mouth. Yes Historical Provider, tamsulosin (Flomax) 0.4 MG 24 hr capsule Take 2 capsules by mouth in the morning. 02/28/21 Yes Historical Provider, therapeutic multivitamin-minerals (Theragran-M) tablet Take 1 tablet by mouth every other day. Yes Historical Provider, Vitals: Ht 5' 9 (1.753 m) Wt 157 lb (71.2 kg) BMI 23.18 kg/m Physical Exam Vitals and nursing note reviewed. Constitutional: General: He is not in acute distress. Appearance: Normal appearance. Cardiovascular: Pulses: Normal pulses. Pulmonary: Effort: Pulmonary effort is normal. Abdominal: General: There is no distension. Palpations: There is no mass. Tenderness: There is no abdominal tenderness. There is no right CVA tenderness or left CVA tenderness. Genitourinary: Comments: 16 togolese SPT with clear and yellow urine. No clots, no sediments, no hematuria Musculoskeletal: General: Normal range of motion. Skin: General: Skin is warm and dry. Neurological: Mental Status: He is alert and oriented to person, place, and time. Labs: Lab Results Component Value Date CREATININE 0.87 08/24/2022 Lab Results Component Value Date PSA 5.626 (A) 05/03/2021 PSA 5.794 (A) 12/29/2020 PSA 5.033 (A) 04/01/2019 Radiology Review: N/A Procedure: 16 togolese suprapubic catheter changed without difficulty, return of clear urine. Patient tolerated procedure well. Impression/Plan Diagnoses and all orders for this visit: Encounter for care or replacement of suprapubic tube (HCC) - Non-Indwelling Bladder Cath Insertion; Future Neurogenic bladder - Non-Indwelling Bladder Cath Insertion; Future Urinary retention - Non-Indwelling Bladder Cath Insertion; Future Elevated PSA - PSA Screening; Future - Suprapubic catheter changed today without difficulty. - No more hematuria, or other catheter malfunction. - Continue w/ catheter changes every 8 weeks. - The patient was instructed to call the office or go to the nearest ER if worsening symptoms such as fever > 101F, inability to urinate, intractable nausea or vomiting, or uncontrolled pain. The patient verbalizes understanding. - Follow up in 8 weeks. - Plan for repeat PSA given hx of elevated PSA. Follow Up Follow up in about 8 weeks (around 06/19/2023), or if symptoms worsen or fail to improve. --Sherie uBrks CNP, FINISHED CARPET INSPECTOR on 04/24/2023 at 1:30 PM An electronic signature was used to authenticate this note. 16 Fr SPT catheter removed after deflating 10 cc balloon. Site prepped with 3 povidone-iodine swabs prior to new catheter insertion. 16 Fr SPT catheter placed, inflated 10 cc balloon, rec'd urine return. Pt tolerated well. Capped. UROJET 6 ML [facility] [id number] LOT # [id number] EXPIRES 05/2025 Administered by Feliz Cantu Pt tolerated well documented in this encounter [facility] 03-03-2023 History of Present illness Narrative Images from the original note were not included. WON Fox CNP 03/03/2023 at 2:19 PM Urology Office Visit PATIENT NAME: Kaushik Rosales DATE OF : 1950 TODAY'S DATE: 03/03/2023 CHIEF COMPLAINT: Chief Complaint Patient presents with Other SPT exchange and 8 week follow up. No current concerns. Subjective: Mr. Rosales is a 72 y.o. male who presents to the office regarding follow up. HPI He was last seen in office on 01/16/2023 for SPT exchange Catheter was last changed on 01/16/2023. Since last visit he has been doing well. No gross blood. No clogging of the catheter. Denies fevers or chills. Negative prostate biopsy 08/02/2021. Hx of elevated PSA Last PSA 5.626 05/03/2021 Review of Systems Constitutional: Negative for chills and fever. Genitourinary: Positive for difficulty urinating. Negative for dysuria, flank pain, frequency, hematuria and urgency. Chronic SPT Past Medical History: Past Medical History: Diagnosis Date Benign prostatic hyperplasia with urinary retention 01/2020 suprapubic cath nec after TURP Cardiomyopathy (HCC) 2013 Dr. Claudio, [facility]- EF 25 % ? etiol CHF (congestive heart failure) (HCC) 2013 Defers recheck echocardiogram Elevated PSA, less than 10 ng/ml 2020 [facility]- neg Bx 08/03 H/O colonoscopy with polypectomy 01/2023 Dr. Potts-divert ds also- due ? Hypercholesterolemia 2021 Prostate cancer screening 04/2021 Dr. Sepulveda- f/u per urology- ? timing of repeat PSA exam Past Surgical History: Past Surgical History: Procedure Laterality Date COLON[facility] 03[facility] COL[facility]OSCOPY 2004 med COLONOSCOPY W/ POLYPECTOMY 01/2023 Delroy-just ds also- due ? FLEXIBLE SIGMOIDOSCOPY 01/2019 Dr. Potts PROSTATE BIOPSY 07/2021 f/u per Uro TRANSURETHRAL RESECTION OF PROSTATE 01/2020 Dr. Sepulveda Medications Prior to Admission medications Medication Sig Start Date End Date Taking? Authorizing Provider atorvastatin (Lipitor) 10 MG tablet Take 1 tablet (10 mg) by mouth daily. 12/30/22 06/28/23 Hesham Andrade DO carvedilol (Coreg) 3.125 MG tablet One 3.125 mg tab BID 12/24/22 Hesham Andrade DO Cod Liver Oil capsule Take 1 capsule by mouth in the morning. Historical Provider, furosemide (Lasix) 20 MG tablet Take 1 tablet (20 mg) by mouth daily. 12/24/22 03/24/23 Hesham Andrade DO omega-3 (Fish Oil) 1000 MG capsule Take 2,000 mg by mouth. Historical Provider, therapeutic multivitamin-minerals (Theragran-M) tablet Take 1 tablet by mouth daily. Historical Provider, Vitals: BP 121/66 Pulse 76 Ht 5' 9 (1.753 m) Wt 157 lb (71.2 kg) BMI 23.18 kg/m Physical Exam Constitutional: General: He is not in acute distress. Appearance: Normal appearance. He is not ill-appearing. Abdominal: General: Abdomen is flat. Tenderness: There is no right CVA tenderness or left CVA tenderness. Neurological: Mental Status: He is alert and oriented to person, place, and time. Labs: Lab Results Component Value Date CREATININE 0.87 08/24/2022 HEMOGLOBIN Date Value Ref Range Status 07/24/2022 15.4 13.2 - 17.1 g/dL Final Hemoglobin Date Value Ref Range Status 12/29/2020 15.8 13.0 - 18.0 g/dL Final 01/28/2020 16.1 13.0 - 18.0 g/dL Final HEMATOCRIT Date Value Ref Range Status 07/24/2022 46.7 38.5 - 50.0 % Final PSA Total Date Value Ref Range Status 05/03/2021 5.626 (A) <4.000 ng/mL Final Comment: Testing performed on the [employer] 5600 using an immunometric methodology. Results obtained by different methods should not be used interchangeably. 12/29/2020 5.794 (A) <4.000 ng/mL Final Comment: Testing performed on the [employer] 5600 using an immunometric methodology. Results obtained by different methods should not be used interchangeably. 04/01/2019 5.033 (A) <4.000 ng/mL Final Comment: Testing performed on the [employer] 5600 using an immunometric methodology. Results obtained by different methods should not be used interchangeably. Radiology Review: N/A Procedure: 16 togolese suprapubic catheter changed without difficulty, return of clear urine. Patient tolerated procedure well. Impression/Plan Diagnoses and all orders for this visit: Encounter for care or replacement of suprapubic tube (HCC) - Insert,temp indwelling blad cath,simple; Future - Suprapubic catheter changed today without difficulty. - No more hematuria, or other catheter malfunction. - Continue w/ catheter changes every 8 weeks. - The patient was instructed to call the office or go to the nearest ER if worsening symptoms such as fever > 101F, inability to urinate, intractable nausea or vomiting, or uncontrolled pain. The patient verbalizes understanding. - Follow up in 8 weeks. Follow Up: No follow-ups on file. --Ted Holden CNP, WON on 03/03/2023 at 2:19 PM An electronic signature was used to authenticate this note. 16 Fr spt catheter removed after deflating 10 cc balloon. Site prepped with 3 povidone-iodine swabs prior to new catheter insertion. 16 Fr spt catheter placed, inflated 10 cc balloon, rec'd urine return. Pt tolerated well. Capped. UROJET 6 ML [facility] [id number] LOT # [id number] EXPIRES 01/2025 Administered by Feliz Cantu Pt tolerated well documented in this encounter [facility] 02-06-2023 History of Present illness Narrative Images from the original note were not included. [facility] [address] [place] [address] [address] [facility] [address] Dept: [phone] Dept Chief Complaint: Kaushik Rosales is an 72 y.o. male here for an annual wellness visit. Assessment/Plan : Problem List Items Addressed This Visit None Visit Diagnoses Routine general medical examination at health care facility - Primary I have reviewed and reconciled the medication list with the patient today. Current Outpatient Medications Medication Sig Dispense Refill atorvastatin (Lipitor) 10 MG tablet Take 1 tablet (10 mg) by mouth daily. 90 tablet 1 carvedilol (Coreg) 3.125 MG tablet One 3.125 mg tab BID 180 tablet 1 Cod Liver Oil capsule Take 1 capsule by mouth in the morning. furosemide (Lasix) 20 MG tablet Take 1 tablet (20 mg) by mouth daily. 90 tablet 1 omega-3 (Fish Oil) 1000 MG capsule Take 2,000 mg by mouth. therapeutic multivitamin-minerals (Theragran-M) tablet Take 1 tablet by mouth daily. No current facility-administered medications for this visit. Also reviewed during this visit: Tobacco Allergies Meds Problems Med Hx Surg Hx Fam Hx The following health maintenance schedule was reviewed with the patient and provided in printed form in the after visit summary: Health Maintenance Topic Date Due Echocardiogram Never done Medicare Advantage Annual Wellness Visit (AWV) Never done Depression Screening Never done Hepatitis C Screening Never done Diabetes Screening Never done DTaP/Tdap/Td Vaccines (1 - Tdap) Never done COVID-19 Vaccine (5 - Moderna series) 05/22/2023 Creatinine Level 08/25/2023 Potassium Level 08/25/2023 Lipid Panel 07/25/2027 Colorectal Cancer Screening 01/27/2033 Influenza Vaccine Completed Pneumococcal Vaccine: 65+ Years Completed Zoster Vaccines Completed HIB Vaccines Aged Out Hepatitis B Vaccines Aged Out IPV Vaccines Aged Out Hepatitis A Vaccines Aged Out Meningococcal Vaccine Aged Out Rotavirus Vaccines Aged Out HPV Vaccines Aged Out List of current healthcare providers: Patient Care Team: Hesham Andrade DO as PCP - General Dale Sepulveda MD as Surgeon (Urology) No orders of the defined types were placed in this encounter. Subjective : This is a 72-year-old male with an underlying history of enlarged prostate with a neurogenic bladder requiring suprapubic catheter. Also has underlying history of congestive heart failure hyperlipidemia who presents to the office today for MAWV. Patient denies any acute concerns or complaints no recent illnesses no cough cold flulike symptoms nausea vomiting fever chills. Continues to follow-up with urology he is scheduled to be seen in the next couple weeks to have his catheter changed. Does not require any refill of his medications at this point time. He had blood work done within the last 6 months was normal at that time. Denies any shortness breath dyspnea exertion orthopnea PND no chest pain palpitations no abdominal pain otherwise reports his health is well he stays active he Roller states 3-4 times a week no acute concerns. He was seen about a month ago for concern of ingrown toenail he states that is completely resolved and healed without issues. Review of Systems Constitutional: Negative for chills and fever. HENT: Negative for congestion and sore throat. Respiratory: Negative for cough and shortness of breath. Cardiovascular: Negative for chest pain. Gastrointestinal: Negative for abdominal pain, diarrhea, nausea and vomiting. Genitourinary: Negative for difficulty urinating. Musculoskeletal: Negative for back pain and neck pain. Neurological: Negative for dizziness and light-headedness. All other systems reviewed and are negative. Physical Exam Vitals reviewed. Constitutional: General: He is not in acute distress. Appearance: Normal appearance. He is not toxic-appearing. HENT: Right Ear: Tympanic membrane and ear canal normal. Left Ear: Tympanic membrane and ear canal normal. Mouth/Throat: Mouth: Mucous membranes are moist. Pharynx: No oropharyngeal exudate or posterior oropharyngeal erythema. Eyes: General: No scleral icterus. Conjunctiva/sclera: Conjunctivae normal. Pupils: Pupils are equal, round, and reactive to light. Neck: Vascular: No carotid bruit. Cardiovascular: Rate and Rhythm: Normal rate and regular rhythm. Heart sounds: Normal heart sounds. Pulmonary: Effort: Pulmonary effort is normal. No respiratory distress. Breath sounds: Normal breath sounds. No wheezing or rales. Abdominal: General: Bowel sounds are normal. There is no distension. Palpations: Abdomen is soft. Tenderness: There is no abdominal tenderness. There is no guarding. Comments: Suprapubic cath Musculoskeletal: Cervical back: Normal range of motion and neck supple. No rigidity or tenderness. Lymphadenopathy: Cervical: No cervical adenopathy. Skin: General: Skin is warm and dry. Neurological: Mental Status: He is alert. Psychiatric: Mood and Affect: Mood normal. Health Risk Assessment: General: General In general, how would you say your health is?: Very good In the past 7 days, have you experienced any of the following: New or Increased Pain, New or Increased Fatigue, Loneliness, Social Isolation, Stress or Anger?: No Do you get the social and emotional suppport you need?: Yes Health Habits/Nutrition: Health Habits / Nutrition On average, how many days per week do you engage in moderate to strenous exercise (like a brisk walk)?: 4 days On average, how man minutes do you engage in exercise at this level?: 150 + min Have you lost any weight without trying in the past 3 months? : No Have you seen the dentist within the past year?: Yes Roller skating 3-4 times a week. Hearing/ Vision: Hearing / Vision Do you or your family notice any trouble with your hearing that hasn't been managed with hearing aids?: No Do you have difficulty driving, watching TV, or doing any of your daily activities because of your eyesight?: No Have you had an eye exam within the past year?: (!) No No results found. Interventions: Vision concerns: Patient encouraged to make appointment with his / her market specialist Safety: Safety Do you have a working smoke detector?: Yes Do you have any tripping hazards - loose or unsecured carpets or rugs?: No Do you have any tripping hazards - clutter in doorways, halls, or stairs?: No Do you have either shower bars, grab bars, non-slip mats or non-slip surfaces in your shower or bathtub? : (!) No Do all your stairways have a railing or banister? : Yes Do you fasten your seatbelt when you are in a car?: Yes Interventions: ADL: ADL In the past 7 days, did you need help from others to perform any of the following everyday activities: Eating, dressing, grooming,bathing, toileting, or walking / balance? : No In the past 7 days, did you need help from others to take care of any of the following: laundry, housekeeping, banking / finances,shopping, telephone use, food preparation, transportation, or taking medications? : No Living Will: Living Will Do you have a living will?: No Interventions: Cognitive: Cognitive Screening: Mini-Cog Clock Drawing Test (CDT): (!) 0 Words Recalled: 3 Total Score: 3 Total Score Interpretation: Normal Mini-Cog Fall Risk: Fall Risk One or more falls in the last year:: No Advised to use a cane or walker to get around safely:: No Feels unsteady when walking:: No Steadies self on furniture while walking at home:: No Worried about falling:: No Depression Screening: Over the past 2 weeks, how often have you been bothered by any of the following problems? Little interest or pleasure in doing things: Not at all Feeling down, depressed, or hopeless: Not at all Patient Health Questionnaire-2 Score: 0 Interventions: Tobacco Use: Social History Tobacco Use Smoking Status Former Packs/day: .25 Types: Cigarettes Quit date: 04/14/1974 Years since quittin.8 Smokeless Tobacco Never Alcohol Use: Audit Alcohol Screening Q1: How often do you have a drink containing alcohol?: 2-3 times a week Q2: How many drinks containing alcohol do you have on a typical day when you are drinking?: 1 or 2 Q3: How often do you have six or more drinks on one occasion?: Never Audit-C Score: 3 Skip to questions 9-10?: 1 Q4: How often during the last year have you found that you were not able to stop drinking once you had started?: Never Q5: How often during the last year have you failed to do what was normally expected from you because of drinking?: Never Q6: How often during the last year have you needed an alcoholic drink first thing in the morning to get yourself going after a night of heavy drinking?: Never Q7: How often during the last year have you had a feeling of guilt or remorse after drinking?: Never Q8: How often during the last year have you been unable to remember what happened the night before because you had been drinking?: Never Q9: Have you or someone else been injured as a result of your drinking?: No Q10: Has a relative, friend, doctor, or another health professional expressed concern about your drinking or suggested you cut down?: No Audit Total Score: 3 Interventions: Objective : BP 117/71 (BP Location: Left arm, Patient Position: Sitting, BP Cuff Size: Large adult) Pulse 73 Temp 36.7 C (98 F) (Temporal) Ht 5' 9 (1.753 m) Wt 163 lb (73.9 kg) SpO2 97% BMI 24.07 kg/m No results found. documented in this encounter [facility] [place] 02-06-2023 Instructions Antonella Guy PA-C - 02/06/2023 3:00 PM EDT Personalized Preventative Plan for Kaushik Rosales - 02/06/2023 Medicare offers a range of preventative health benefits. Some of the tests and screenings are paid in full while others may be subject to a deductible, co-insurance, and / or copay. Some of these benefits include a comprehensive review of your medical history including lifestyle, illnesses that may run in your family, and various assessments and screenings as appropriate. After reviewing your medical record and screening and assessments performed today, your provider may have ordered immunizations, labs, imaging, and / or referrals for you. A list of these orders (if applicable) as well as your Preventative Care list are included within your After Visit Summary for your review. Other Preventative Recommendations: A preventive eye exam by an market specialist is recommended every 1-2 years to screen for glaucoma, cataracts, macular degeneration, and other eye disorders. A preventive dental visit is recommended every 6 months. Try to get at least 150 minutes of exercise per week or 10,000 steps per day on a pedometer. You need 1200-1500mg of calcium and [id number] international units of vitamin D per day. It is possible to meet your calcium requirement with diet alone, but a vitamin D supplement is usually necessary to meet this goal. When exposed to the sun, use a sunscreen that protects against both UVA and UVB radiation with an SPF of 30 or greater. Reapply every 2-3 hours or after sweating, drying off with a towel, or swimming. Always wear a seat belt when traveling in a car. Always wear a helmet when riding a bicycle or a motorcycle documented in this encounter [facility] 01-30-2023 History of Present illness Narrative Images from the original note were not included. 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 male who presents for evaluation of the Left knee. Symptoms began suddenly about a year . Kaushik describes the symptoms as aching. Symptoms improve with rest. The symptoms are exacerbated by stair climbing long walks. The knee has not given out or felt unstable. The patient can bend and straighten the knee fully. The patient is able to walk 2-3 blocks and is able to use stairs. Non-operative treatment to date has consisted of: NSAIDS: No Assembler Fluorescent Lights Brace: No knee sleeve Cortisone injections: No Viscosupplementation: No Assistive Devices: none Therapy: No Narcotics: No Review of Systems Constitutional: Negative for activity change. HENT: Negative for congestion. Cardiovascular: Negative for leg swelling. Musculoskeletal: Positive for arthralgias, gait problem and joint swelling. Skin: Negative for wound. Neurological: Negative for weakness. Past Medical History: Diagnosis Date Benign prostatic hyperplasia with urinary retention 01/2020 suprapubic cath nec after TURP Cardiomyopathy (HCC) 2013 Dr. Claudio, [facility]- EF 25 % ? etiol CHF (congestive heart failure) ([facility]) 2013 Defers recheck echocardiogram Elevated PSA, less than 10 ng/ml 2020 Coco- neg Bx 08/03 H/O colonoscopy 2018 Dr. Potts 2018, incomplete study. Recheck pending Hypercholesterolemia 2021 Prostate cancer screening 04/2021 Dr. Sepulveda- f/u per urology- ? timing of repeat PSA exam Past Surgical History: Procedure Laterality Date COLONOSCOPY 03/2019 diverticulosis/hemorrhoids- Dr. Potts- subpar, scheduled for repeat 2020 COLONOSCOPY 2004 [facility] FLEXIBLE SIGMOIDOSCOPY 01/2019 Dr. Potts PROSTATE BIOPSY 07/2021 f/u per U[facility] TRANSURETHRAL RESECTION OF PROSTATE 01/2020 Dr. Sepulveda Social History Socioeconomic History Marital status: Single Spouse name: Not on file Number of children: Not on file Years of education: Not on file Highest education level: Not on file Occupational History Not on file Tobacco Use Smoking status: Former Packs/day: .25 Types: Cigarettes Quit date: 04/14/1974 Years since quittin.8 Smokeless tobacco: Never Substance and Sexual Activity Alcohol use: Yes Alcohol/week: 10.0 standard drinks of alcohol Drug use: Never Sexual activity: Not on file Other Topics Concern Not on file Social History Narrative Single, No children, lives with brother Thomas. Retired from [employer] in [place] in 06/2016. NS, some beer intake. Enjoys roller skating for exercise. Social Determinants of Health Financial Resource Strain: Not on file Food Insecurity: Not on file Transportation Needs: Not on file Physical Activity: Not on file Stress: Not on file Social Connections: Not on file Intimate Partner Violence: Not on file Housing Stability: Not on file Family History Problem Relation Name Age of Onset Other (16272) Mother Karyn natural causes, age 93 Lymphoma Father Catracho nasopharyngeal , age 97 Heart failure Father Catracho COPD Sister Eva Coffman smoker, ECF Atrial fibrillation Brother Steven MV dis COPD Brother Steven No Known Problems Brother Rich No Known Problems Brother Andrew No Known Problems Brother Reg No Known Allergies Objective: There were no vitals taken for this visit. Pt is a WD/WN male in no acute distress. Kaushik appears stated age. Mood and affect are normal. Kaushik is A&O x 3. Gait: normal. Left hip range of motion is not painful. LEFT KNEE: Inspection shows skin is warm, dry and intact. Alignment is significant valgus. ROM shows extension is 0, flexion 120. The knee is stable to varus/valgus stress <6 degrees. Additional findings include lateral joint line tenderness, no effusion and no erythema. Pedal pulses are 2+ (normal), +PF/DF/EHL XRAYS: Reviewed by myself Indication: Left knee pain Exam Ordered: Radiographs of the Left knee include a standing anteroposterior view, a standing posterioanterior view, a lateral view in full flexion, and a sunrise view Details of Examination: Todays exam shows evidence of joint space narrowing, bone on bone, osteophyte formation, and subchondral sclerosis, all consistent with degenerative arthritis of the knee. No other significant findings are noted Impression: Moderate Degenerative Arthritis, Left knee Assessment 1. Chronic pain of left knee This treatment will consist of... ~ Activity modification ~ NSAID's (OTC preferred) - The risks and benefits of NSAID medications were discussed. NSAID's can have potential renal/cardiac/gastric side effects. ~ Tylenol ~ Corticosteroid injection - Procedure(s) Note: After risks and benefits of intra-articular injection were reviewed with the patient, they elected to proceed. After a triple alcohol sterile preparation, a mixture of 2 mL Celestone and 8cc of 1% lidocaine was given through a anterolateral portal of the left knee. The patient tolerated the injection(s) well. A band-aid was placed. Post-injection instructions were reviewed. The risks, benefits, and alternatives to all of the treatment options were thoroughly explained. Patient will call us with any questions or concerns regarding this plan or if any significant issues arise. Electronically signed by Ronan Black M.D. 01/30/2023 at 12:53 PM. Dictated using Plix Version 2.4 Proof read however unrecognized voice recognition errors may have occurred documented in this encounter [facility] 01-16-2023 History of Present illness Narrative Images from the original note were not included. Sherie Burks CNP, FINISHED CARPET INSPECTOR 01/16/2023 at 2:55 PM Urology Office Visit PATIENT NAME: Kaushik Rosales DATE OF : 1950 TODAY'S DATE: 01/16/2023 Chief Complaint: Chief Complaint Patient presents with Other SPT change, denies leakage of urine around the tubing at the site, states he did have some gross hematuria last night, patient states he did some heavy lifting yesterday, however that has resolved today Subjective: Mr. Rosales is a 72 y.o. male who presents to the office for suprapubic catheter change. Catheter was last changed on 11/21/2022. Since last visit he has been doing well. No gross blood. No clogging of the catheter. Denies fevers or chills. Negative prostate biopsy 08/02/2021. Hx of elevated PSA Review of Systems Constitutional: Negative for chills and fever. Genitourinary: Negative for decreased urine volume, difficulty urinating, dysuria, flank pain, frequency, hematuria and urgency. Medications Prior to Admission medications Medication Sig Start Date End Date Taking? Authorizing Provider atorvastatin (Lipitor) 10 MG tablet Take 1 tablet by mouth in the morning. 12/27/21 03/27/22 Yes Historical Provider, carvedilol (Coreg) 3.125 MG tablet Decrease to 3.125 mg BID 12/27/21 Yes Historical Provider, Cod Liver Oil capsule Take 1 capsule by mouth in the morning. Yes Historical Provider, furosemide (Lasix) 40 MG tablet Take 1 tablet by mouth in the morning. 12/27/21 Yes Historical Provider, lisinopril 2.5 MG tablet Take 1 tablet by mouth in the morning. 12/27/21 Yes Historical Provider, omega-3 (Fish Oil) 1000 MG capsule Take 2,000 mg by mouth. Yes Historical Provider, MD tamsulosin (Flomax) 0.4 MG 24 hr capsule Take 2 capsules by mouth in the morning. 02/28/21 Yes Historical Provider, therapeutic multivitamin-minerals (Theragran-M) tablet Take 1 tablet by mouth every other day. Yes Historical Provider, Vitals: BP 110/68 Pulse 80 Ht 5' 9 (1.753 m) Wt 155 lb (70.3 kg) BMI 22.89 kg/m Physical Exam Vitals and nursing note reviewed. Constitutional: General: He is not in acute distress. Appearance: Normal appearance. Cardiovascular: Pulses: Normal pulses. Pulmonary: Effort: Pulmonary effort is normal. Abdominal: General: There is no distension. Palpations: There is no mass. Tenderness: There is no abdominal tenderness. There is no right CVA tenderness or left CVA tenderness. Genitourinary: Comments: 16 togolese SPT with clear and yellow urine. No clots, no sediments, no hematuria Musculoskeletal: General: Normal range of motion. Skin: General: Skin is warm and dry. Neurological: Mental Status: He is alert and oriented to person, place, and time. Labs: Lab Results Component Value Date CREATININE 0.87 08/24/2022 Lab Results Component Value Date PSA 5.626 (A) 05/03/2021 PSA 5.794 (A) 12/29/2020 PSA 5.033 (A) 04/01/2019 Radiology Review: N/A Procedure: 16 togolese suprapubic catheter changed without difficulty, return of clear urine. Patient tolerated procedure well. Impression/Plan Diagnoses and all orders for this visit: Neurogenic bladder - Insert,temp indwelling blad cath,simple; Future Urinary retention - Insert,temp indwelling blad cath,simple; Future Encounter for care or replacement of suprapubic tube (HCC) - Insert,temp indwelling blad cath,simple; Future - Suprapubic catheter changed today without difficulty. - No more hematuria, or other catheter malfunction. - Continue w/ catheter changes every 8 weeks. - The patient was instructed to call the office or go to the nearest ER if worsening symptoms such as fever > 101F, inability to urinate, intractable nausea or vomiting, or uncontrolled pain. The patient verbalizes understanding. - Follow up in 8 weeks. Follow Up Follow up in about 8 weeks (around 03/13/2023), or if symptoms worsen or fail to improve. --Sherie Burks CNP, FINISHED CARPET INSPECTOR on 01/16/2023 at 2:55 PM An electronic signature was used to authenticate this note. 16 Fr SPT catheter removed after deflating 10cc balloon. Site prepped with 3 povidone-iodine swabs prior to new catheter insertion. 16 Fr SPT catheter placed, inflated 10cc balloon, rec'd urine return. Pt tolerated well. Cap placed. Extra caps and leg bag given for home use. UROJET 6 ML [facility] [id number] LOT # [id number] EXPIRES 01/2025 Administered by ERIK Nelson Pt tolerated well documented in this encounter [facility] 01-08-2023 History of Present illness Narrative Images from the original note were not included. [facility] [address] [place] [address] [address] [facility] [id number] Dept: [phone] Dept Loc: [phone] Visit type: Established Patient Reason for Visit: Ingrown Toenail Assessment and Plan 1. Ingrown toenail of right foot - External referral to Podiatry -Patient has a ingrowing toenail on the lateral aspect of right great toe there is no signs of purulent drainage discharge is very minimally tender at the very tip of the tissue and the free edge of the nail does not acutely appear to be infected or inflamed only mildly tender. We did discuss pros cons benefits of removal of the nails the nails fungated and hyperkeratotic and overgrown. Options were given to the patient is continue soak and gently work freeing the edge of the skin as it does not appear acutely infected versus complete removal of the nail as it would not be amenable to taking the lateral edge off due to the overgrowth of the nail itself versus follow-up with podiatry. We did discuss residual pain associate with removing the nail as he Roller states 3 times a week. He states at this point time he does try to continue soaking it using Band-Aids and padding on it and then either follow-up back in the office if he gets worse or follow-up with podiatry Follow up if symptoms worsen or fail to improve. Subjective HPI this is a 72-year-old male was just seen in the office 2 weeks ago for his Medicare annual wellness. He has an underlying history of nonischemic cardiomyopathy, congestive heart failure, BPH, HLD, HTN. He contacted [facility] 2 days ago for concerns that he started developing an ingrown toenail on the right great toe. He states he has some chronic nail thickening of the toes. He endorses similar problem approximate 3 years ago and went to a foot and ankle specialist in [place] but since he has not been seen there they would consider in the new patient and are not excepting new patients at this time. Patient states he has been messing with the toe trying to free up the nail edge the nail is overgrown and fungating he is proximal [id number] medicine to try to help soften it up has not been successful and he is having difficult time getting his nail clippers underneath the toenail itself because it so enlarged and overgrown. Otherwise he is doing well denies any other illnesses at this time the recent cough cold flulike symptoms fever chills. Review of Systems Constitutional: Negative for chills and fever. HENT: Negative for congestion and sore throat. Respiratory: Negative for cough and shortness of breath. Cardiovascular: Negative for chest pain. Gastrointestinal: Negative for abdominal pain, diarrhea, nausea and vomiting. Musculoskeletal: Negative for back pain and neck pain. Skin: Ingrown toenail on the right great toe as described Neurological: Negative for dizziness and light-headedness. All other systems reviewed and are negative. No Known Allergies Outpatient Medications Prior to Visit Medication Sig Dispense Refill atorvastatin (Lipitor) 10 MG tablet Take 1 tablet (10 mg) by mouth daily. 90 tablet 1 carvedilol (Coreg) 3.125 MG tablet One 3.125 mg tab BID 180 tablet 1 Cod Liver Oil capsule Take 1 capsule by mouth in the morning. furosemide (Lasix) 20 MG tablet Take 1 tablet (20 mg) by mouth daily. 90 tablet 1 omega-3 (Fish Oil) 1000 MG capsule Take 2,000 mg by mouth. therapeutic multivitamin-minerals (Theragran-M) tablet Take 1 tablet by mouth daily. No facility-administered medications prior to visit. Past Medical History: Diagnosis Date Benign prostatic hyperplasia with urinary retention 01/2020 suprapubic cath nec after TURP Cardiomyopathy (HCC) 2013 Dr. Claudio, [facility]- EF 25 % ? etiol CHF (congestive heart failure) (CMS/HCC) (HCC) 2013 Defers recheck echocardiogram Elevated PSA, less than 10 ng/ml 2020 [facility]- neg Bx 08/03 H/O colonoscopy 2018 Dr. Potts 2018, incomplete study. Recheck pending Hypercholesterolemia 2021 Prostate cancer screening 04/2021 Dr. Sepulveda- f/u per urology- ? timing of repeat PSA exam Social History Tobacco Use Smoking status: Former Packs/day: .25 Types: Cigarettes Quit date: 04/14/1974 Years since quittin.7 Smokeless tobacco: Never Substance Use Topics Alcohol use: Yes Alcohol/week: 10.0 standard drinks of alcohol Past Surgical History: Procedure Laterality Date COLONOSCOPY 03/2019 diverticulosis/hemorrhoids- Dr. Potts- subpar, scheduled for repeat 2020 COLONOSCOPY 2004 [facility] FLEXIBLE SIGMOIDOSCOPY 01/2019 Dr. Potts PROSTATE BIOPSY 07/2021 f/u per [facility] TRANSURETHRAL RESECTION OF PROSTATE 01/2020 Dr. Sepulveda Family History Problem Relation Name Age of Onset Other (50858) Mother Karyn natural causes, age 93 Lymphoma Father Catracho nasopharyngeal , age 97 Heart failure Father Catracho COPD Sister Eva Coffman smoker, ECF Atrial fibrillation Brother Steven MV dis COPD Brother Steven No Known Problems Brother Rich No Known Problems Brother Andrew No Known Problems Brother Bill Objective BP 118/79 (BP Location: Left arm, Patient Position: Sitting, BP Cuff Size: Large adult) Pulse 83 Temp 37.5 C (99.5 F) (Temporal) Ht 5' 9 (1.753 m) Wt 161 lb (73 kg) SpO2 97% BMI 23.78 kg/m Physical Exam Vitals reviewed. Constitutional: General: He is not in acute distress. Appearance: Normal appearance. He is not toxic-appearing. Eyes: General: No scleral icterus. Conjunctiva/sclera: Conjunctivae normal. Pupils: Pupils are equal, round, and reactive to light. Cardiovascular: Rate and Rhythm: Normal rate and regular rhythm. Heart sounds: Normal heart sounds. Pulmonary: Effort: Pulmonary effort is normal. No respiratory distress. Breath sounds: Normal breath sounds. No wheezing or rales. Musculoskeletal: Cervical back: Normal range of motion and neck supple. Skin: General: Skin is warm and dry. Comments: Evaluation of right great toe does show hyper keratitis to the nail plate with a fungating component the lateral aspect of the free edge appears to be close to the tissue itself is mildly tender to touch but it does not appear significantly granulated or inflamed is not red is not purulent and no signs of paronychia no signs of felon there is no significant degenerative streaking there is no obvious indication that there is actively infected toenail Neurological: Mental Status: He is alert. Psychiatric: Mood and Affect: Mood normal. Data Reviewed and Summarized Labs: Imaging/Testing: Antonella Guy PA-C 01/08/2023 Please note that portions of this note may have been completed with voice recognition software. Documentation reviewed prior to signing but minor errors in docketing specialist may have occurred. documented in this encounter [facility] 01-06-2023 Note Referral pended for dx and doctor's signature [facility] 01-06-2023 Telephone encounter Note Referral pended for dx and doctor's signature [facility] 01-06-2023 Miscellaneous Notes Referral pended for dx and doctor's signature documented in this encounter [facility] 12-30-2022 Telephone encounter Note Rx loaded [facility] 12-30-2022 Miscellaneous Notes Rx loaded documented in this encounter [facility] 12-27-2022 Telephone encounter Note Patient called to r/s SPT change with Ted at [facility] on 01/13/23 as he will be camping. R/s patient to 01/16/23 in [facility] office. Pt aware of new D/T/L. [facility] 12-27-2022 Miscellaneous Notes Patient called to r/s SPT change with Ted at [facility] on 01/13/23 as he will be camping. R/s patient to 01/16/23 in [facility] office. Pt aware of new D/T/L. documented in this encounter [facility] 12-24-2022 History of Present illness Narrative Images from the original note were not included. [facility] [address] [place] [address] [address] [facility] [id number] Visit type: Established Patient Reason for Visit: Follow-up (6 month med check) Assessment / Plan: Kaushik was seen today for follow-up. Diagnoses and all orders for this visit: Chronic pain of left knee (Primary) Comments: Recurrent pain and giveaway. Check x-ray. Anticipate Ortho eval OTC analgesic creams. Orders: - XR knee 3 views left; Future Hypercholesterolemia Nonischemic cardiomyopathy (CMS/HCC) (HCC) Comments: Stable, no evidence of heart failure continue current meds Benign prostatic hyperplasia with urinary retention Congestive heart failure, unspecified HF chronicity, unspecified heart failure type (HCC) Other orders - carvedilol (Coreg) 3.125 MG tablet; One 3.125 mg tab BID - furosemide (Lasix) 20 MG tablet; Take 1 tablet (20 mg) by mouth daily. - atorvastatin (Lipitor) 10 MG tablet; Take 1 tablet (10 mg) by mouth daily. Subjective: Patient ID: Kaushik Rosales is a 72 y.o. male. HPI patient with history of nonischemic cardiomyopathy with chronic heart failure has been stable on meds. No recurrent lightheadedness unless heart failure meds. His only complaint is ongoing left knee stiffness and pain and sense of give way. Interestingly has still been able to be very active around the house and enjoys rollerskating often. Pain and swelling in the posterior lateral aspect of the left knee persist. Prednisone orally was not beneficial. He did not get x-rays recommended in the summer. Review of Systems cannot take NSAIDs. Feels well on cardiac meds. Off lisinopril due to hypotension. Of note he had prostate biopsy in August 03 but no recent PSA. Prefers to urology to do follow-up. Suprapubic catheter in place No chest pain palpitations PND orthopnea or change in mild pedal edema. Eating and voiding well. Weight is stable. Pain along the lateral posterior aspect of the left knee. Intermittent giveaway and inability to flex the lower leg. Of note cannot take NSAIDs Of note will be getting a recheck colonoscopy per Dr. Potts in January after not having a complete exam due to poor prep earlier this summer. No Known Allergies Current Outpatient Medications on File Prior to Visit Medication Sig Dispense Refill Cod Liver Oil capsule Take 1 capsule by mouth in the morning. omega-3 (Fish Oil) 1000 MG capsule Take 2,000 mg by mouth. therapeutic multivitamin-minerals (Theragran-M) tablet Take 1 tablet by mouth every other day. [DISCONTINUED] atorvastatin (Lipitor) 10 MG tablet Take 1 tablet (10 mg) by mouth daily. 90 tablet 1 [DISCONTINUED] carvedilol (Coreg) 3.125 MG tablet One 3.125 mg tab BID 180 tablet 1 [DISCONTINUED] furosemide (Lasix) 20 MG tablet Take 1 tablet (20 mg) by mouth daily. 90 tablet 1 [DISCONTINUED] predniSONE (Deltasone) 10 MG tablet 5 qday for 3 days, then 3 qday for 3 days, then one qday till gone (Patient not taking: Reported on 12/24/2022) 27 tablet 0 No current facility-administered medications on file prior to visit. Patient Active Problem List Diagnosis Neurogenic bladder Elevated PSA, less than 10 ng/ml Urinary retention Benign prostatic hyperplasia with urinary retention Nonischemic cardiomyopathy (CMS/HCC) (HCC) Hypercholesterolemia Congestive heart failure (CMS/HCC) (HCC) Encounter for care or replacement of suprapubic tube ([facility]) Social History Tobacco Use Smoking status: Former Packs/day: 0.25 Types: Cigarettes Quit date: 04/14/1974 Years since quittin.7 Smokeless tobacco: Never Substance Use Topics Alcohol use: Yes Alcohol/week: 10.0 standard drinks of alcohol Past Surgical History: Procedure Laterality Date COLONOSCOPY 03/22/2019 diverticulosis/hemorrhoids- Dr. Potts- [facility] [facility], scheduled for repeat 2020 COLONOSCOPY 2004 Ahmed FLEXIBLE SIGMOIDOSCOPY 01/26/2019 Dr. Potts PROSTATE BIOPSY 07/2021 f/u per [facility] TRANSURETHRAL RESECTION OF PROSTATE 01/2020 Dr. Sepulveda Family History Problem Relation Name Age of Onset Other (40686) Mother Karyn natural causes, age 93 Cancer Father Catracho lymphoma, age 97 Heart failure Father Catracho COPD Sister Eva Coffman smoker, ECF Atrial fibrillation Brother Steven COPD Brother Steven No Known Problems Brother Rich No Known Problems Brother Andrew No Known Problems Brother Bill Objective: BP 113/76 Pulse 81 Temp 36.2 C (97.1 F) (Temporal) Ht 5' 9 (1.753 m) Wt 163 lb (73.9 kg) SpO2 96% BMI 24.07 kg/m Physical Exam Very pleasant cooperative. Recheck blood pressure stable. No JVD adenopathy or carotid bruits. Heart is regular without gallops murmurs or ectopy. Lungs are clear. Abdomen slightly obese without pain hepatosplenomegaly masses adenopathy or ascites. No bruits. Some OA changes of the left knee medially. Patella has some crepitance. There is positive Apley's with pain along the posterior lateral knee space. Mild popliteal space effusion. Negative Moody's and drawers. Negative Johanna's. documented in this encounter [facility] 12-24-2022 Instructions Hesham Andrade DO - 12/24/2022 4:30 PM EDT Flu and covid vac in January. documented in this encounter [facility] 11-21-2022 History of Present illness Narrative Images from the original note were not included. Sherie Burks, JANINE, FINISHED CARPET INSPECTOR 11/21/2022 at 1:16 PM Urology Office Visit PATIENT NAME: Kaushik Rosales DATE OF : 1950 TODAY'S DATE: 11/21/2022 Chief Complaint: Chief Complaint Patient presents with Other 8 week SPT change. No concerns. Subjective: Mr. Rosales is a 72 y.o. male who presents to the office for suprapubic catheter change. Catheter was last changed on 09/26/2022. Since last visit he has been doing well. No gross blood. No clogging of the catheter. Denies fevers or chills. Negative prostate biopsy 08/02/2021. Hx of elevated PSA Review of Systems Constitutional: Negative for chills and fever. Genitourinary: Negative for decreased urine volume, difficulty urinating, dysuria, flank pain, frequency, hematuria and urgency. Medications Prior to Admission medications Medication Sig Start Date End Date Taking? Authorizing Provider atorvastatin (Lipitor) 10 MG tablet Take 1 tablet by mouth in the morning. 12/27/21 03/27/22 Yes Historical Provider, carvedilol (Coreg) 3.125 MG tablet Decrease to 3.125 mg BID 12/27/21 Yes Historical Provider, Cod Liver Oil capsule Take 1 capsule by mouth in the morning. Yes Historical Provider, furosemide (Lasix) 40 MG tablet Take 1 tablet by mouth in the morning. 12/27/21 Yes Historical Provider, lisinopril 2.5 MG tablet Take 1 tablet by mouth in the morning. 12/27/21 Yes Historical Provider, omega-3 (Fish Oil) 1000 MG capsule Take 2,000 mg by mouth. Yes Historical Provider, tamsulosin (Flomax) 0.4 MG 24 hr capsule Take 2 capsules by mouth in the morning. 02/28/21 Yes Historical Provider, therapeutic multivitamin-minerals (Theragran-M) tablet Take 1 tablet by mouth every other day. Yes Historical Provider, Vitals: BP 121/78 Pulse 78 Ht 5' 9 (1.753 m) Wt 152 lb (68.9 kg) BMI 22.45 kg/m Physical Exam Vitals and nursing note reviewed. Constitutional: General: He is not in acute distress. Appearance: Normal appearance. Cardiovascular: Pulses: Normal pulses. Pulmonary: Effort: Pulmonary effort is normal. Abdominal: General: There is no distension. Palpations: There is no mass. Tenderness: There is no abdominal tenderness. There is no right CVA tenderness or left CVA tenderness. Genitourinary: Comments: 16 togolese SPT with clear and yellow urine. No clots, no sediments, no hematuria Musculoskeletal: General: Normal range of motion. Skin: General: Skin is warm and dry. Neurological: Mental Status: He is alert and oriented to person, place, and time. Labs: Lab Results Component Value Date CREATININE 0.87 08/24/2022 Lab Results Component Value Date PSA 5.626 (A) 05/03/2021 PSA 5.794 (A) 12/29/2020 PSA 5.033 (A) 04/01/2019 Radiology Review: N/A Procedure: 16 togolese suprapubic catheter changed without difficulty, return of clear urine. Patient tolerated procedure well. Impression/Plan Diagnoses and all orders for this visit: Encounter for care or replacement of suprapubic tube (HCC) - Insert,temp indwelling blad cath,simple; Future Urinary retention - Insert,temp indwelling blad cath,simple; Future Neurogenic bladder - Insert,temp indwelling blad cath,simple; Future - Suprapubic catheter changed today without difficulty. - No more hematuria, or other catheter malfunction. - Continue w/ catheter changes every 8 weeks. - The patient was instructed to call the office or go to the nearest ER if worsening symptoms such as fever > 101F, inability to urinate, intractable nausea or vomiting, or uncontrolled pain. The patient verbalizes understanding. - Follow up in 8 weeks. Follow Up Follow up in about 8 weeks (around 01/16/2023), or if symptoms worsen or fail to improve. --Sherie Burks CNP, APRN on 11/21/2022 at 1:16 PM An electronic signature was used to authenticate this note. 16 Fr SPT catheter removed after deflating 10 cc balloon. Site prepped with 3 povidone-iodine swabs prior to new catheter insertion. 16 Fr SPT catheter placed, inflated 10 cc balloon, rec'd urine return (100 ml out) . Pt tolerated well. Capped. Pt given extra leg bags and 1 extra cap. UROJET 6 ML [facility] [id number] LOT # [id number] S3 EXPIRES 08/2024 Administered by Feliz Cantu Pt tolerated well documented in this encounter [facility] 09-26-2022 History of Present illness Narrative Images from the original note were not included. Sherie Burks CNP, FINISHED CARPET INSPECTOR 09/26/2022 at 10:09 AM Urology Office Visit PATIENT NAME: Kaushik Rosales DATE OF : 1950 TODAY'S DATE: 09/26/2022 Chief Complaint: Chief Complaint Patient presents with Other SPT change, 8 weeks, denies urine leakage around catheter, denies gross hematuria Subjective: Mr. Rosales is a 72 y.o. male who presents to the office for suprapubic catheter change. Catheter was last changed on 08/07/2022. Since last visit he has been doing well. No gross blood. No clogging of the catheter. Denies fevers or chills. Negative prostate biopsy 08/02/2021. Hx of elevated PSA Lab Results Component Value Date PSA 5.626 (A) 05/03/2021 PSA 5.794 (A) 12/29/2020 PSA 5.033 (A) 04/01/2019 Review of Systems Constitutional: Negative for chills and fever. Genitourinary: Negative for decreased urine volume, difficulty urinating, dysuria, flank pain, frequency, hematuria and urgency. Medications Prior to Admission medications Medication Sig Start Date End Date Taking? Authorizing Provider atorvastatin (Lipitor) 10 MG tablet Take 1 tablet by mouth in the morning. 12/27/21 03/27/22 Yes Historical Provider, carvedilol (Coreg) 3.125 MG tablet Decrease to 3.125 mg BID 12/27/21 Yes Historical Provider, Cod Liver Oil capsule Take 1 capsule by mouth in the morning. Yes Historical Provider, furosemide (Lasix) 40 MG tablet Take 1 tablet by mouth in the morning. 12/27/21 Yes Historical Provider, lisinopril 2.5 MG tablet Take 1 tablet by mouth in the morning. 12/27/21 Yes Historical Provider, omega-3 (Fish Oil) 1000 MG capsule Take 2,000 mg by mouth. Yes Historical Provider, tamsulosin (Flomax) 0.4 MG 24 hr capsule Take 2 capsules by mouth in the morning. 02/28/21 Yes Historical Provider, therapeutic multivitamin-minerals (Theragran-M) tablet Take 1 tablet by mouth every other day. Yes Historical Provider, Vitals: BP 116/57 Pulse 80 Ht 5' 9 (1.753 m) Wt 153 lb (69.4 kg) BMI 22.59 kg/m Physical Exam Vitals and nursing note reviewed. Constitutional: General: He is not in acute distress. Appearance: Normal appearance. Cardiovascular: Pulses: Normal pulses. Pulmonary: Effort: Pulmonary effort is normal. Abdominal: General: There is no distension. Palpations: There is no mass. Tenderness: There is no abdominal tenderness. There is no right CVA tenderness or left CVA tenderness. Genitourinary: Comments: 16 togolese SPT with clear and yellow urine. No clots, no sediments, no hematuria Musculoskeletal: General: Normal range of motion. Skin: General: Skin is warm and dry. Neurological: Mental Status: He is alert and oriented to person, place, and time. Labs: Lab Results Component Value Date CREATININE 0.87 08/24/2022 Lab Results Component Value Date PSA 5.626 (A) 05/03/2021 PSA 5.794 (A) 12/29/2020 PSA 5.033 (A) 04/01/2019 Radiology Review: N/A Procedure: 16 togolese suprapubic catheter changed without difficulty, return of clear urine. Patient tolerated procedure well. Impression/Plan Diagnoses and all orders for this visit: Encounter for care or replacement of suprapubic tube (HCC) - Insert,non-indwelling bladder catheter; Future Urinary retention - Insert,non-indwelling bladder catheter; Future Neurogenic bladder - Insert,non-indwelling bladder catheter; Future - Suprapubic catheter changed today without difficulty. - No more hematuria, or other catheter malfunction. - Continue w/ catheter changes every 8 weeks. - The patient was instructed to call the office or go to the nearest ER if worsening symptoms such as fever > 101F, inability to urinate, intractable nausea or vomiting, or uncontrolled pain. The patient verbalizes understanding. - Follow up in 8 weeks. Follow Up Follow up in about 8 weeks (around 11/21/2022), or if symptoms worsen or fail to improve. --Sherie Burks CNP, WON on 09/26/2022 at 10:09 AM An electronic signature was used to authenticate this note. 16 Fr SPT catheter removed after deflating 10cc balloon. Site prepped with 3 povidone-iodine swabs prior to new catheter insertion. 16 Fr SPT catheter placed, inflated 10cc balloon, rec'd urine return. Pt tolerated well. Cap placed. Patient requested 2 leg bags to take home. UROJET 6 ML NDC [id number] LOT # [id number] S3 EXPIRES 10/2024 Administered by Leslie Forrest RN Pt tolerated well documented in this encounter [facility] 08-24-2022 Emergency department Note Output of 100 ml orange colored urine. Elis Figueroa RN 08/24/[address] [facility] 08-24-2022 Emergency department Note Output of 100 ml orange colored urine. Elis Figueroa RN 08/24/22 0922 Suprapubic catheter irrigated with 20mls of saline with immediate return of 700 ml orange colored urine. Elis Figueroa RN 08/24/22 0853 Elis Figueroa RN 08/24/22 0835 EMERGENCY DEPARTMENT ENCOUNTER Pt Name: Kaushik Rosales Birthdate 1950 Date of evaluation: 08/24/2022 ED Provider: Zhao He MD CHIEF COMPLAINT Chief Complaint Patient presents with Urinary Retention History from patient HISTORY OF PRESENT ILLNESS (Location/Symptom, Timing/Onset, Context/Setting, Quality, Duration, Modifying Factors, Severity) Note limiting factors. I wore appropriate PPE for the entirety of this encounter. HPI Kaushik Rosales is a 72 y.o. male who presents to the emergency department with chief complaint of inability to urinate. Began this morning. Has not happened before. No fever, no blood. He has had a suprapubic catheter for some time because of prostate issues. Catheter last replaced on August 07, 2022 previous was June 19, 2022. No other complaint. Nursing Notes were reviewed. Limitations to history: None Outside historians: None REVIEW OF SYSTEMS Review of Systems Constitutional: Negative for chills, diaphoresis, fever and unexpected weight change. Eyes: Negative for visual disturbance. Respiratory: Negative for shortness of breath. Cardiovascular: Negative for chest pain. Gastrointestinal: Negative for abdominal pain. Genitourinary: Positive for decreased urine volume and difficulty urinating. Negative for dysuria, enuresis, flank pain, frequency, genital sores, hematuria, penile discharge, penile pain, penile swelling, scrotal swelling, testicular pain and urgency. Musculoskeletal: Negative for back pain and neck pain. Skin: Negative for rash. Neurological: Negative for headaches. PAST MEDICAL HISTORY Past Medical History: Diagnosis Date Benign prostatic hyperplasia with urinary retention 01/2020 suprapubic cath nec after TURP Cardiomyopathy ([facility]) 2013 [facility]- EF 25 % ? etiol CHF (congestive heart failure) ([facility]/HCC) ([facility]) 2013 Defers recheck echocardiogram Elevated PSA, less than 10 ng/ml 2020 [facility] H/O colonoscopy 2018 Dr. Potts 2019, incomplete study. Recheck pending Hypercholesterolemia 2021 Prostate cancer screening 12/2020 Dr. Sepulveda SURGICAL HISTORY Past Surgical History: Procedure Laterality Date COLONOSCOPY 03/22/2019 diverticulosis/hemorrhoids- Dr. Potts- subpar, scheduled for repeat 2020 COLONOSCOPY 2004 [facility] FLEXIBLE SIGMOIDOSCOPY 01/26/2019 Dr. Potts TRANSURETHRAL RESECTION OF PROSTATE 01/2020 Dr. Sepulveda CURRENT MEDICATIONS Previous Medications ATORVASTATIN (LIPITOR) 10 MG TABLET Take 1 tablet (10 mg) by mouth daily. CARVEDILOL (COREG) 3.125 MG TABLET One 3.125 mg tab BID COD LIVER OIL CAPSULE Take 1 capsule by mouth in the morning. FUROSEMIDE (LASIX) 20 MG TABLET Take 1 tablet (20 mg) by mouth daily. OMEGA-3 (FISH OIL) 1000 MG CAPSULE Take 2,000 mg by mouth. THERAPEUTIC MULTIVITAMIN-MINERALS (THERAGRAN-M) TABLET Take 1 tablet by mouth every other day. ALLERGIES Patient has no known allergies. FAMILY HISTORY Family History Problem Relation Name Age of Onset Other (21882) Mother Karyn natural causes, age 93 Cancer Father Catracho lymphoma, age 97 Heart failure Father Catracho COPD Sister Eva Coffman smoker, ECF Atrial fibrillation Brother Steven COPD Brother Steven No Known Problems Brother Luis No Known Problems Brother Andrew No Known Problems Brother Reg SOCIAL HISTORY Social History Socioeconomic History Marital status: Single Tobacco Use Smoking status: Former Packs/day: 0.25 Types: Cigarettes Quit date: 04/14/1974 Years since quittin.3 Smokeless tobacco: Never Substance and Sexual Activity Alcohol use: Yes Alcohol/week: 10.0 standard drinks Drug use: Never Social History Narrative Single, No children, lives with brother Thomas. Retired from [employer] in [place] in 06/2016. NS, some beer intake. Enjoys roller skating for exercise. SCREENINGS PHYSICAL EXAM ED Triage Vitals Temp Pulse Resp BP -- -- -- -- SpO2 Temp src Heart Rate Source Patient Position -- -- -- -- BP Location FiO2 (%) -- -- Physical Exam Constitutional: Appearance: Normal appearance. HENT: Head: Normocephalic and atraumatic. Mouth/Throat: Mouth: Mucous membranes are moist. Pharynx: No oropharyngeal exudate. Eyes: Extraocular Movements: Extraocular movements intact. Pupils: Pupils are equal, round, and reactive to light. Cardiovascular: Rate and Rhythm: Normal rate and regular rhythm. Pulmonary: Effort: Pulmonary effort is normal. Musculoskeletal: General: Normal range of motion. Cervical back: Normal range of motion. Skin: General: Skin is warm and dry. Capillary Refill: Capillary refill takes less than 2 seconds. Neurological: General: No focal deficit present. Mental Status: He is alert. Gait: Gait normal. Febrile not toxic Abdomen -suprapubic catheter, mild suprapubic tenderness, no McBurney point tenderness no Payne sign no ascites no peritoneal signs DIAGNOSTIC RESULTS ED BEDSIDE ULTRASOUND: Performed by ED Physician -bladder Indication -urinary retention Imaging -sagittal and coronal views of the bladder showed distended fluid-filled bladder Image quality good Impression urinary retention Images saved to PACS LABS: Labs Reviewed BASIC METABOLIC PANEL - Abnormal Result Value SODIUM 139 POTASSIUM 4.1 CHLORIDE 107 CARBON DIOXIDE 27 UREA NITROGEN 18 CREATININE 0.87 GLUCOSE 128 (*) CALCIUM 8.9 ANION GAP 5 eGFR >90.0 All other labs were within normal range or not returned as of this dictation. EMERGENCY DEPARTMENT COURSE and DIFFERENTIAL DIAGNOSIS/MDM: Vitals: Vitals: 08/24/22 0812 BP: 124/82 Pulse: 81 Resp: 16 Temp: 36.4 C (97.5 F) TempSrc: Oral SpO2: 96% Weight: 69.4 kg (153 lb) Height: 1.753 m (5' 9 ) Medical Decision Making and ED Course The patient presented with a chief complaint of inability urinate. The differential diagnosis associated with this patient's presentation includes urinary retention neurogenic bladder dysfunctioning catheter renal failure. Our workup consisted of ordering/reviewing labs. No evidence of local or systemic infection. Nonsurgical abdomen on initial repeat examination. No evidence of renal failure on laboratory studies. We were able to irrigate his catheter and obtain urine, which flowed easily after our procedure. Discussion with the patient of option of replacing the catheter now or waiting until after the weekend to have his urologist do that. He elects to wait to have his urologist replaced the catheter and knows that he can return at any time should he have an issue before then. He agrees with plan. Diagnostic tests and medications considered but not ordered: Renal ultrasound would probably show mild hydronephrosis will not change the outcome Review of prior external records: Creatinine today compares favorably to February 08, 2022 Independent test interpretation by me: pocus Chronic conditions impacting care: Suprapubic catheter urinary retention hypercholesterolemia neurogenic bladder BPH nonischemic cardiomyopathy congestive heart failure Social determinants of health affecting care: Suprapubic catheter Consideration of hospitalization or de-escalation of care: Evidence of infection or renal failure so does not meet criteria for hospitalization REVAL: 8:52 AM Catheter irrigated and almost 1 liter urine obtained. Patient feels better. 9:01 AM All data now available and reviewed with patient. FINAL IMPRESSION 1. Suprapubic catheter dysfunction, initial encounter ([facility]) DISPOSITION Discharge 08/24/2022 09:10:08 AM PATIENT REFERRED TO: Hesham Andrade, DO [address] [id number] as previously scheduled Dale Sepulveda MD [address] [facility] [address] [facility] [id number] In 2 days DISCHARGE MEDICATIONS: New Prescriptions No medications on file (Comment: Please note this report has been produced using speech recognition software and may contain errors related to that system including errors in grammar, punctuation, and spelling, as well as words and phrases that may be inappropriate. If there are any questions or concerns please feel free to contact the dictating provider for clarification.) Zhao He MD (electronically signed) Emergency Medicine Provider Zhao He MD 08/24/22 1342 Patient taken to room 3 with c/o blocked suprapubic catheter since 0100 this am. V/S obtained, call light within reach. Dr. He at bedside for an ultrasound. documented in this encounter [facility] 08-24-2022 Emergency department Note Suprapubic catheter irrigated with 20mls of saline with immediate return of 700 ml orange colored urine. Elis Figueroa RN 08/24/[address] [facility] 08-24-2022 Emergency department Note Elis Figueroa RN 08/24/[address] [facility] 08-24-2022 Emergency department Triage note Patient taken to room 3 with c/o blocked suprapubic catheter since 0100 this am. V/S obtained, call light within reach. Dr. He at bedside for an ultrasound. [facility] 08-24-2022 Physician Emergency department Note EMERGENCY DEPARTMENT ENCOUNTER Pt Name: Kaushik Rosales Birthdate 1950 Date of evaluation: 08/24/2022 ED Provider: Zhao He MD CHIEF COMPLAINT Chief Complaint Patient presents with Urinary Retention History from patient HISTORY OF PRESENT ILLNESS (Location/Symptom, Timing/Onset, Context/Setting, Quality, Duration, Modifying Factors, Severity) Note limiting factors. I wore appropriate PPE for the entirety of this encounter. HPI Kaushik Rosales is a 72 y.o. male who presents to the emergency department with chief complaint of inability to urinate. Began this morning. Has not happened before. No fever, no blood. He has had a suprapubic catheter for some time because of prostate issues. Catheter last replaced on August 07, 2022 previous was June 19, 2022. No other complaint. Nursing Notes were reviewed. Limitations to history: None Outside historians: None REVIEW OF SYSTEMS Review of Systems Constitutional: Negative for chills, diaphoresis, fever and unexpected weight change. Eyes: Negative for visual disturbance. Respiratory: Negative for shortness of breath. Cardiovascular: Negative for chest pain. Gastrointestinal: Negative for abdominal pain. Genitourinary: Positive for decreased urine volume and difficulty urinating. Negative for dysuria, enuresis, flank pain, frequency, genital sores, hematuria, penile discharge, penile pain, penile swelling, scrotal swelling, testicular pain and urgency. Musculoskeletal: Negative for back pain and neck pain. Skin: Negative for rash. Neurological: Negative for headaches. PAST MEDICAL HISTORY Past Medical History: Diagnosis Date Benign prostatic hyperplasia with urinary retention 01/2020 suprapubic cath nec after TURP Cardiomyopathy ([facility]) 2013 Dr. Claudio [place] Cardiology/Bam- EF 25 % ? etiol CHF (congestive heart failure) (CMS/HCC) (HCC) 2014 Defers recheck echocardiogram Elevated PSA, less than 10 ng/ml 2020 [facility] H/O colonoscopy 2018 Dr. Potts 2018, incomplete study. Recheck pending Hypercholesterolemia 2021 Prostate cancer screening 12/2020 Dr. Sepulveda SURGICAL HISTORY Past Surgical History: Procedure Laterality Date COLONOSCOPY 03/22/2019 diverticulosis/hemorrhoids- Dr. Potts- subpar, scheduled for repeat 2020 COLONOSCOPY 2004 [facility] FLEXIBLE SIGMOIDOSCOPY 01/26/2019 Dr. Potts TRANSURETHRAL RESECTION OF PROSTATE 01/2020 Dr. Sepulveda CURRENT MEDICATIONS Previous Medications ATORVASTATIN (LIPITOR) 10 MG TABLET Take 1 tablet (10 mg) by mouth daily. CARVEDILOL (COREG) 3.125 MG TABLET One 3.125 mg tab BID COD LIVER OIL CAPSULE Take 1 capsule by mouth in the morning. FUROSEMIDE (LASIX) 20 MG TABLET Take 1 tablet (20 mg) by mouth daily. OMEGA-3 (FISH OIL) 1000 MG CAPSULE Take 2,000 mg by mouth. THERAPEUTIC MULTIVITAMIN-MINERALS (THERAGRAN-M) TABLET Take 1 tablet by mouth every other day. ALLERGIES Patient has no known allergies. FAMILY HISTORY Family History Problem Relation Name Age of Onset Other (94162) Mother Karyn natural causes, age 93 Cancer Father Catracho lymphoma, age 97 Heart failure Father Catracho COPD Sister Eva Coffman smoker, ECF Atrial fibrillation Brother Steven COPD Brother Steven No Known Problems Brother Rich No Known Problems Brother Andrew No Known Problems Brother Reg SOCIAL HISTORY Social History Socioeconomic History Marital status: Single Tobacco Use Smoking status: Former Packs/day: 0.25 Types: Cigarettes Quit date: 04/14/1974 Years since quittin.3 Smokeless tobacco: Never Substance and Sexual Activity Alcohol use: Yes Alcohol/week: 10.0 standard drinks Drug use: Never Social History Narrative Single, No children, lives with brother Thomas. Retired from [employer] in [place] in 06/2016. NS, some beer intake. Enjoys archifyating for exercise. SCREENINGS PHYSICAL EXAM ED Triage Vitals Temp Pulse Resp BP -- -- -- -- SpO2 Temp src Heart Rate Source Patient Position -- -- -- -- BP Location FiO2 (%) -- -- Physical Exam Constitutional: Appearance: Normal appearance. HENT: Head: Normocephalic and atraumatic. Mouth/Throat: Mouth: Mucous membranes are moist. Pharynx: No oropharyngeal exudate. Eyes: Extraocular Movements: Extraocular movements intact. Pupils: Pupils are equal, round, and reactive to light. Cardiovascular: Rate and Rhythm: Normal rate and regular rhythm. Pulmonary: Effort: Pulmonary effort is normal. Musculoskeletal: General: Normal range of motion. Cervical back: Normal range of motion. Skin: General: Skin is warm and dry. Capillary Refill: Capillary refill takes less than 2 seconds. Neurological: General: No focal deficit present. Mental Status: He is alert. Gait: Gait normal. Febrile not toxic Abdomen -suprapubic catheter, mild suprapubic tenderness, no McBurney point tenderness no Payne sign no ascites no peritoneal signs DIAGNOSTIC RESULTS ED BEDSIDE ULTRASOUND: Performed by ED Physician -bladder Indication -urinary retention Imaging -sagittal and coronal views of the bladder showed distended fluid-filled bladder Image quality good Impression urinary retention Images saved to PACS LABS: Labs Reviewed BASIC METABOLIC PANEL - Abnormal Result Value SODIUM 139 POTASSIUM 4.1 CHLORIDE 107 CARBON DIOXIDE 27 UREA NITROGEN 18 CREATININE 0.87 GLUCOSE 128 (*) CALCIUM 8.9 ANION GAP 5 eGFR >90.0 All other labs were within normal range or not returned as of this dictation. EMERGENCY DEPARTMENT COURSE and DIFFERENTIAL DIAGNOSIS/MDM: Vitals: Vitals: 08/24/22 0812 BP: 124/82 Pulse: 81 Resp: 16 Temp: 36.4 C (97.5 F) TempSrc: Oral SpO2: 96% Weight: 69.4 kg (153 lb) Height: 1.753 m (5' 9 ) Medical Decision Making and ED Course The patient presented with a chief complaint of inability urinate. The differential diagnosis associated with this patient's presentation includes urinary retention neurogenic bladder dysfunctioning catheter renal failure. Our workup consisted of ordering/reviewing labs. No evidence of local or systemic infection. Nonsurgical abdomen on initial repeat examination. No evidence of renal failure on laboratory studies. We were able to irrigate his catheter and obtain urine, which flowed easily after our procedure. Discussion with the patient of option of replacing the catheter now or waiting until after the weekend to have his urologist do that. He elects to wait to have his urologist replaced the catheter and knows that he can return at any time should he have an issue before then. He agrees with plan. Diagnostic tests and medications considered but not ordered: Renal ultrasound would probably show mild hydronephrosis will not change the outcome Review of prior external records: Creatinine today compares favorably to February 08, 2022 Independent test interpretation by me: pocus Chronic conditions impacting care: Suprapubic catheter urinary retention hypercholesterolemia neurogenic bladder BPH nonischemic cardiomyopathy congestive heart failure Social determinants of health affecting care: Suprapubic catheter Consideration of hospitalization or de-escalation of care: Evidence of infection or renal failure so does not meet criteria for hospitalization REVAL: 8:52 AM Catheter irrigated and almost 1 liter urine obtained. Patient feels better. 9:01 AM All data now available and reviewed with patient. FINAL IMPRESSION 1. Suprapubic catheter dysfunction, initial encounter ([facility]) DISPOSITION Discharge 08/24/2022 09:10:08 AM PATIENT REFERRED TO: Hesham Andrade, DO [address] [place], [place] [id number] as previously scheduled Dale Sepulveda MD [address] [facility] [address] [facility] [address] In 2 days DISCHARGE MEDICATIONS: New Prescriptions No medications on file (Comment: Please note this report has been produced using speech recognition software and may contain errors related to that system including errors in grammar, punctuation, and spelling, as well as words and phrases that may be inappropriate. If there are any questions or concerns please feel free to contact the dictating provider for clarification.) Zhao He MD (electronically signed) Emergency Medicine Provider Zhao He MD 08/24/22 1342 [email or web address] Phone: 08-07-2022 History of Present illness Narrative Images from the original note were not included. Margarita Berry CNP, FINISHED CARPET INSPECTOR 08/07/2022 at 1:22 PM Urology Office Visit PATIENT NAME: Kaushik Rosales DATE OF : 1950 TODAY'S DATE: 08/07/2022 Chief Complaint: Chief Complaint Patient presents with Other SP change, denies leakage at site, denies dysuria, denies redness or drainage at site Subjective: Mr. Rosales is a 72 y.o. male who presents to the office for history of BPH/ROBIN, urinary retention, neurogenic bladder. Presents today for suprapubic catheter change. Catheter was last changed on 06/19/2022. Since last visit he has been doing well. Denies any hematuria or issues w/ catheter draining. Denies any sign/symptom of acute cystitis. He does endorse a rash around gauze for SPT, no drainage, pruritis, or other difficulty. Review of Systems Constitutional: Negative for chills and fever. Gastrointestinal: Negative for abdominal pain, nausea and vomiting. Erythematous rash around SPT site Genitourinary: Positive for difficulty urinating. Negative for decreased urine volume, dysuria, flank pain, frequency, hematuria and urgency. Medications Prior to Admission medications Medication Sig Start Date End Date Taking? Authorizing Provider atorvastatin (Lipitor) 10 MG tablet Take 1 tablet (10 mg) by mouth daily. 08/06/22 02/02/23 Hesham Andrade DO carvedilol (Coreg) 3.125 MG tablet One 3.125 mg tab BID 08/06/22 Hesham Andrade DO Cod Liver Oil capsule Take 1 capsule by mouth in the morning. Historical Provider, furosemide (Lasix) 20 MG tablet Take 1 tablet (20 mg) by mouth daily. 08/06/22 11/04/22 Hesham Andrade DO omega-3 (Fish Oil) 1000 MG capsule Take 2,000 mg by mouth. Historical Provider, therapeutic multivitamin-minerals (Theragran-M) tablet Take 1 tablet by mouth every other day. Historical Provider, atorvastatin (Lipitor) 10 MG tablet Take 1 tablet by mouth in the morning. 12/27/21 08/06/22 Historical Provider, carvedilol (Coreg) 3.125 MG tablet One 3.125 mg tab BID 06/20/22 08/06/22 Hesham Andrade DO furosemide (Lasix) 20 MG tablet Take 1 tablet (20 mg) by mouth daily for 90 doses. 06/20/22 08/06/22 Hesham Andrade DO Past Medical History: Diagnosis Date Benign prostatic hyperplasia with urinary retention 01/2020 suprapubic cath nec after TURP Cardiomyopathy (HCC) 2013 Dr. Claudio, [facility]- EF 25 % ? etiol CHF (congestive heart failure) (CMS/HCC) (HCC) 2014 Defers recheck echocardiogram Elevated PSA, less than 10 ng/ml 2020 [place] H/O colonoscopy 2018 Dr. Potts 2018, incomplete study. Recheck pending Hypercholesterolemia 2021 Prostate cancer screening 12/2020 Dr. Sepulveda Past Surgical History: Procedure Laterality Date COLONOSCOPY 03/22/2019 diverticulosis/hemorrhoids- Dr. Potts- subpar, scheduled for repeat 2020 COLONOSCOPY 2004 [facility] FLEXIBLE SIGMOIDOSCOPY 01/26/2019 Dr. Potts TRANSURETHRAL RESECTION OF PROSTATE 01/2020 Dr. Sepulveda Vitals: BP 108/65 Pulse 81 Ht 5' 9 (1.753 m) Wt 151 lb (68.5 kg) BMI 22.30 kg/m Physical Exam Vitals and nursing note reviewed. Constitutional: Appearance: Normal appearance. Abdominal: General: There is no distension. Palpations: There is no mass. Tenderness: There is no abdominal tenderness. There is no right CVA tenderness or left CVA tenderness. Genitourinary: Comments: 16 fr SPT draining clear yellow urine. Skin surrounding SPT with erythema, no warmth, tenderness, or drainage. Neurological: Mental Status: He is alert. Radiology Review: CT abdomen pelvis w and wo IV contrast Patient Name: KAUSHIK ROSALES Exam Date/Time: 02/11/2022 17:22 Procedure: CT ABDOMEN PELVIS W AND WO IV CONTRAST Ordering Provider: BURKS THAPASYA Reason For Exam: HISTORY: Gross hematuria Noncontrast sections are first performed through the abdomen and pelvis followed by contrast enhanced sections with delayed imaging through the kidneys. No comparison CT available. FINDINGS: 1. Marked prostatic enlargement with generalized urinary bladder wall thickness, particularly posteriorly with irregularity and underlying neoplastic process of prostate or urinary bladder cannot be excluded. Suprapubic catheter in place. No renal masses or calculi are seen with tiny urinary bladder calculi present (at least three). 2. Marked diverticulosis colon. Normal appendix 3. Moderate hypertrophic facet degenerative arthropathy lumbar spine with scoliosis and trace spinal listhesis at L5-S1. 4. Mild elevation left hemidiaphragm with acute or chronic increased lung markings left base, focal posterior eventration containing fat right hemidiaphragm. Small fluid density area at the diaphragm hiatus level adjacent to the aorta right side. 5. Diverticuli second portion duodenum. Mild aortoiliac calcified plaquing with tortuosity. Report Dictated on Electronically Signed By: Jw Bhakta Electronically Signed Date/Time: 02/11/2022 9:47 PM EDT Procedure: 16 togolese suprapubic catheter changed without difficulty, return of clear urine. Patient tolerated procedure well. Exchanged by Leslie VALENCIA. Seen in conjunction with Zuri Waldron APRN. Impression/Plan Kaushik was seen today for other. Diagnoses and all orders for this visit: Urinary retention (Primary) Neurogenic bladder Encounter for care or replacement of suprapubic tube (HCC) - Suprapubic catheter changed today without difficulty. - No more hematuria, or other catheter malfunction. - Instructed to not cover SPT site with gauze for the next one week, open to air to permit healing of erythema. - Continue w/ catheter changes every 8 weeks. - The patient was instructed to call the office or go to the nearest ER if worsening symptoms such as fever > 101F, inability to urinate, intractable nausea or vomiting, or uncontrolled pain. The patient verbalizes understanding. - Follow up in 8 weeks. Follow Up Follow up in about 8 years (around 08/07/2030) for SPT change . --Margarita Berry APRN, INDUSTRIAL EDUCATION TEACHER on 08/07/2022 at 1:22 PM An electronic signature was used to authenticate this note. 16 Fr straight SP catheter removed after deflating 10cc balloon. Site prepped with 3 povidone-iodine swabs prior to new catheter insertion. 16 Fr straight SP catheter placed, inflated 10cc balloon, rec'd urine return. Pt tolerated well. Pale, yellow urine draining passively from SPT prior to capping. Cap placed. 2 leg bags given for patient home use UROJET 6 ML [facility] [id number] LOT # [id number] EXPIRES 01/2024 Administered by Leslie Forrest RN Pt tolerated well documented in this encounter [facility] 07-30-2022 Note Referral pended for dx and doctor's signature [facility] 06-20-2022 History of Present illness Narrative Images from the original note were not included. [facility] [address] [facility] [place] [address] Visit type: Established Patient Reason for Visit: Follow-up (6 month med check) Assessment / Plan: Kaushik was seen today for follow-up. Diagnoses and all orders for this visit: Hypotension due to medication (Primary) Comments: Noted, stop lisinopril and decrease Lasix to 20 mg daily. BP check with lab in a few weeks Orders: - CBC auto differential; Future - Comprehensive metabolic panel; Future - CBC auto differential - Comprehensive metabolic panel Nonischemic cardiomyopathy (CMS/HCC) (HCC) Comments: Stable, continue carvedilol Neurogenic bladder Hypercholesterolemia - Lipid panel; Future - Lipid panel Other orders - carvedilol (Coreg) 3.125 MG tablet; One 3.125 mg tab BID - furosemide (Lasix) 20 MG tablet; Take 1 tablet (20 mg) by mouth daily for 90 doses. Subjective: Patient ID: Kaushik Rosales is a 72 y.o. male. HPI patient with history of cardiomyopathy of unknown origin presents for checkup. Feels well overall. Still enjoys rollerskating 3 days a week. No complaints of lightheadedness chest pain palpitations dyspnea on exertion or edema. Has had suprapubic catheter for about 2-1/2 years. Gets a change every 6 to 8 weeks. Recently done without difficulty Review of Systems non-smoker drinker in excess. Denies recent cough phlegm or fever. Had a mild cold but without purulent rhinorrhea or chest pain. No PND orthopnea claudication or edema. No abdominal pain. No vomiting or diarrhea. Urine has been clear. Rare arthralgia. Overall feels well and enjoys traveling with his siblings. No Known Allergies Current Outpatient Medications on File Prior to Visit Medication Sig Dispense Refill atorvastatin (Lipitor) 10 MG tablet Take 1 tablet by mouth in the morning. Cod Liver Oil capsule Take 1 capsule by mouth in the morning. omega-3 (Fish Oil) 1000 MG capsule Take 2,000 mg by mouth. therapeutic multivitamin-minerals (Theragran-M) tablet Take 1 tablet by mouth every other day. [DISCONTINUED] carvedilol (Coreg) 3.125 MG tablet Decrease to 3.125 mg BID [DISCONTINUED] furosemide (Lasix) 40 MG tablet Take 1 tablet by mouth in the morning. [DISCONTINUED] lisinopril 2.5 MG tablet Take 1 tablet by mouth in the morning. No current facility-administered medications on file prior to visit. Patient Active Problem List Diagnosis Neurogenic bladder Elevated PSA, less than 10 ng/ml Urinary retention Benign prostatic hyperplasia with urinary retention Nonischemic cardiomyopathy (CMS/HCC) (HCC) Hypercholesterolemia Congestive heart failure (CMS/HCC) (HCC) Encounter for care or replacement of suprapubic tube (HCC) Social History Tobacco Use Smoking status: Former Packs/day: 0.25 Types: Cigarettes Quit date: 04/14/1974 Years since quittin.2 Smokeless tobacco: Never Substance Use Topics Alcohol use: Yes Alcohol/week: 10.0 standard drinks Past Surgical History: Procedure Laterality Date COLONOSCOPY 03/22/2019 diverticulosis/hemorrhoids- Dr. Potts- [facility], scheduled for repeat 2020 COLONOSCOPY 2004 [facility] FLEXIBLE SIGMOIDOSCOPY 01/26/2019 Dr. Potts TRANSURETHRAL RESECTION OF PROSTATE 01/2020 Dr. Sepulveda Family History Problem Relation Name Age of Onset Other ([address]) Mother Karyn natural causes, age 93 Cancer Father Catracho lymphoma, age 97 Heart failure Father Catracho COPD Sister Eva Coffman smoker, ECF Atrial fibrillation Brother Steven COPD Brother Steven No Known Problems Brother Rich No Known Problems Brother Anrdew No Known Problems Brother Bill Objective: BP 96/56 Pulse 70 Temp 36.3 C (97.3 F) (Temporal) Ht 5' 9 (1.753 m) Wt 157 lb (71.2 kg) SpO2 98% BMI 23.18 kg/m Physical Exam pressure 98/60. Alert and cooperative. No JVD adenopathy or carotid bruits. Nonicteric. Moist mucous membranes. Heart is regular without ectopy. No new murmurs or gallops. Lungs are clear. Abdomen soft scaphoid without pain hepatosplenomegaly masses or bruits. No adenopathy. Extremities are pink without change in trace pretibial edema documented in this encounter [facility]* Diagnosis Urinary retention- Primary Unspecified retention of urine Neurogenic bladder Neurogenic bladder, NOS Encounter for care or replacement of suprapubic tube (HCC) [facility] Diagnosis Suprapubic catheter dysfunction, initial encounter (HCC)- [facility] Diagnosis Encounter for care or replacement of suprapubic tube (HCC)- Primary Urinary retention Unspecified retention of urine Neurogenic bladder Neurogenic bladder, NOS [facility]* Diagnosis Encounter for care or replacement of suprapubic tube (HCC)- Primary Urinary retention Unspecified retention of urine Neurogenic bladder Neurogenic bladder, NOS [facility]* Diagnosis Chronic pain of left knee- Primary Hypercholesterolemia Pure hypercholesterolemia Nonischemic cardiomyopathy (CMS/HCC) (HCC) Other primary cardiomyopathies Benign prostatic hyperplasia with urinary retention Congestive heart failure, unspecified HF chronicity, unspecified heart failure type ([facility]) [facility]* Diagnosis Pain in left knee Other chronic pain [facility] Diagnosis Chronic pain of left knee- Primary [facility]* Diagnosis Ingrown toenail of right foot- Primary [facility] Diagnosis Neurogenic bladder- Primary Neurogenic bladder, NOS Urinary retention Unspecified retention of urine Encounter for care or replacement of suprapubic tube (HCC) [facility] Diagnosis Chronic pain of left knee- Primary [facility]* Diagnosis Chronic pain of left knee [facility] this [facility]* Diagnosis Chronic pain of left knee [facility] Diagnosis Routine general medical examination at health care facility- Primary Routine general medical examination at a health care facility [facility] Diagnosis Encounter for care or replacement of suprapubic tube (HCC)- Primary [facility] Diagnosis Pain in left knee- Primary Other chronic pain Pain in left knee Other chronic pain [facility] Diagnosis Encounter for care or replacement of suprapubic tube (HCC)- Primary Neurogenic bladder Neurogenic bladder, NOS Urinary retention Unspecified retention of urine Elevated PSA Elevated prostate specific antigen (PSA) [facility] Attachments The following attachments cannot be sent through Care Everywhere. * How to Care for Your Suprapubic Urinary Catheter (Armenian) [facility] Consultation (Routine) - Pending Review Specialty Diagnoses / Procedures Referred By Shelley saucedo Referred To Contact Orthopedic Surgery Diagnoses Chronic pain of left knee Hesham Andrade DO [address] [place] [address] Ronan Black MD [address] [facility] [address] [place] [id number] Referral ID Status Reason Start Date Expiration Date Visits Requested Visits Authorized [id number] Pending Review Specialty Services Required 01/06/2023 01/06/2024 1 1 [facility] for referral (narrative)* Consultation (Routine) - Pending Review Specialty Diagnoses / Procedures Referred By Shelley saucedo Referred To Contact Podiatry Diagnoses Ingrown toenail of right foot Procedures AL OFFICE/OUTPATIENT NEW HIGH MDM 60-74 MINUTES Antonella Guy PA-C [address] [place] [address] Shaan Goodson, VARGHESE [address] [address] Referral ID Status Reason Start Date Expiration Date Visits Requested Visits Authorized [id number] Pending Review Specialty Services Required 01/08/2023 01/08/[address] 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 Grinder Operator Expl anation ACP-Advance Directive ACP-Power of Air Conditioning Installer Latest Code Status on File Code Status Date Activated Date Inactivated Comments Full Code 01/26/2019 9:37 AM 01/27/2019 2:44 AM Latest Code Status on File Code Status Date Activated Date Inactivated Comments Full Code 02/04/2020 2:12 PM Full Code 02/04/2020 9:22 AM 02/04/2020 2:12 PM Full Code 01/26/2019 9:37 AM 01/27/2019 2:44 AM Documents on File Type Date Recorded 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 Grinder 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 Expl anation Advance Directives and Living Will Power of Air Conditioning Installer Latest Code Status on File Code Status Date Activated Date Inactivated Comments Full Code 01/26/2019 9:37 AM 01/27/2019 2:44 AM Latest Code Status on File Code Status Date Activated Date Inactivated Comments Full Code 01/26/2019 9:37 AM Latest Code Status on File Code Status Date Activated Date Inactivated Comments Full Code 02/04/2020 2:12 PM 02/05/2020 4:41 PM Reason for Referral Status Reason Specialty Diagnoses / Procedures Referred By Contact Referred To Contact Authorized Cardiology Diagnoses Cardiomyopathy, unspecified type (HCC) Procedures ECG 12 Lead Sarthak Claudio MD [address] [place] [address] Status Reason Specialty Diagnoses / Procedures Re ferred By Contact Referred To Contact Open Radiology Diagnoses Benign prostatic hyperplasia with urinary retention Bilateral hydronephrosis Procedures US RETROPERITONEAL LIMITED Hugh Van, FINISHED CARPET INSPECTOR - INDUSTRIAL EDUCATION TEACHER [address] [facility] [place] [id number] History of Present Illness * Caitlin Ackerman MA - 04/27/2018 1:15 PM EST Review of Systems Constitution: Negative for diaphoresis, malaise/fatigue, weight gain and weight loss. HENT: Positive for tinnitus. Negative for hearing loss and nosebleeds. Eyes: Negative for blurred vision and visual disturbance. Cardiovascular: Positive for leg swelling. Negative for chest pain, claudication, cyanosis, dyspneaon exertion, irregular heartbeat, near-syncope, orthopnea, palpitations, paroxysmal nocturnal dyspnea and syncope. Respiratory: Negative for hemoptysis, shortness of breath and snoring. Endocrine: Negative for cold intolerance and heat intolerance. Hematologic/Lymphatic: Does not bruise/bleed easily. Skin: Negative for flushing, poor wound healing and rash. Musculoskeletal: Negative for back pain, muscle weakness and myalgias. Gastrointestinal: Negative for abdominal pain, change in bowel habit, melena, nausea and vomiting. Genitourinary: Negative for decreased libido and hematuria. Neurological: Negative for loss of balance and numbness. Psychiatric/Behavioral: Negative for memory loss. The patient is not nervous/anxious. in this encounter* Sarthak Claudio MD - 08/16/2019 9:03 AM EDT Interventional Cardiology Telephone Visit Follow-up Heart & Vascular [facility] 08/16/2019 Sarthak Claudio MD [address] [place] [address] Patient: Kaushik Rosales Date of : 1950 (69 y.o.) Referring Provider: No ref. provider found PCP: Sander Hanna DO Patient location: home Patient phone : [phone] This visit has been fully reviewed with the patient and verbal consent has been obtained. Virtual Visit Consent Statement: I discussed risks, benefits and alternatives of telemedicine consultation with the patient (and any accompanying persons) including the risks that the patient s personal health details and medical records will be discussed over interactive video/audio/telecommunication technology, may be recorded, and that there are inherent diagnostic limitations compared to [id number] evaluations. They elected to proceed with the telemedicine consultation. Assessment & Plan Cardiomyopathy (HCC) Doing well, Medications reviewed and will continue current meds Followup prn--wants to F/U in [place] Follow-up: Return if symptoms worsen or fail to improve. Pt seen for: Problem Cardiomyopathy (Hcc) CM 2013 20% ef went to 25% in 05/2014. Pt not interested in AICD, or repeat echo HPI: No complaints, wants to f/u in [place] Objective ECG 12 Lead Final Result by Caitlin Ackerman MA (04/27/2018 1321) Review of Systems: ROS per MA list were reviewed--Pertinent positive and negative findings are also noted in the HPI Allergies: Patient has no known allergies. HOME Medications: Current Outpatient Medications on File Prior to Visit Medication Sig carvediloL (COREG) 25 MG tablet Take 1 (one) tablet (25 mg total) by mouth 2 (two) times a day withmeals . cod liver oil Oil Take 2 tablets by mouth 2 (two) times a day . furosemide (LASIX) 40 MG tablet Take 1 (one) tablet (40 mg total) by mouth daily . lisinopriL (PRINIVIL,ZESTRIL) 2.5 MG tablet Take 1 (one) tablet (2.5 mg total) by mouth daily . multivitamin with minerals tablet Take 1 tablet by mouth daily . omega-3 fatty acids-fish oil 340-1,000 mg cap Take 1 capsule by mouth 2 (two) times a day. No current facility-administered medications on file prior to visit. Provider location: [facility] [address] [place] [address] [facility] [id number] Patient location: [address] [place], [place] [id number] I have spent 5-10 minutes with the patient discussing current HPI. No results found for: CHOL, LDLCALC, LDLDIRECT, TRIG, HDL documented in this encounter* Horacio Hendricks - 01/28/2020 12:00 PM EDT Labs obtained on first attempt with 22 gauge needle at L site, patient tolerated well, site benign. documented in this encounter* Aurora Cobb RN - 02/05/2020 11:35 AM EDT Discharge instructions given with verbalized good understanding from patient. Pt denies any furtherquestions or concerns at this time. IV removed. Transport to be called when family member arrives. Pt to be discharged with all personal belongings. * Aurora Cobb RN - 02/05/2020 11:02 AM EDT Supra pubic catheter clamped. CBI stopped. Patient provided with necessary supplies to maintain urethral driver to drain. Leg bag fitted to patient. Patient verbalized understanding of instructions and demonstrated how to empty leg bag. Patient requested towels in order to get cleaned up. Towels provided. Patient ambulated into restroom to wash up independently. RN will return with printed discharge instructions when patient is finished. * Carmen King RN - 02/04/2020 8:35 PM EDT Patient due for nighttime dose of lisinopril. Lisinopril given this afternoon at 1430. BP [id number]/63 and HR 67. Paged gas collection system operator resident to see if we should hold med. Per Dr. Blake, hold nighttime dose of lisinopril. * Tess Lindo - 02/04/2020 3:44 PM EDT Belongings taken to pt admit room [address] documented in this encounter Assessments Diagnosis Cardiomyopathy, unspecified type (HCC) Diagnosis Elevated PSA, less than 10 ng/ml Elevated prostate specific antigen (PSA) Diagnosis Dilated cardiomyopathy (HCC) Other primary cardiomyopathies Diagnosis BPH with obstruction/lower urinary tract symptoms Hypertrophy of prostate with urinary obstruction and other lower urinary tract symptoms (LUTS) Diagnosis Benign prostatic hyperplasia with urinary retention Bilateral hydronephrosis Hydronephrosis Instructions * Patient Instructions* Caitlin Ackerman MA - 08/16/2019 10:00 AM EDT How to contact your Care Team: Provider: Dr. Claudio Nurse: Oly Rodriguez RN In case of an emergency please call 911. REFILLS: When in need for refills please call your care team or the office at [phone]. Please include medication name, pharmacy name, and specify 30-day or 90-day supply. Please check with your pharmacy within 24 hours of request for your refill. You must follow up as directed to continue current refills. Thank you! documented in this encounter Discharge Instructions * Instructions* Laura Chowdary RN - 01/28/[address] [facility] Surgical Information folder on the day of surgery. Please alia the last dose taken (date and time ) on your Daily Medications List provided in your After Visit Summary. Please bring a photo ID and insurance information TAKE the following medications the morning of your surgery Flomax, Coreg. You may take your prescription pain medications. You may take Tylenol (Acetaminophen) if needed forpain. No Motrin, Ibuprofen, or Advil 24 hours prior to surgery, or longer if instructed by your surgeon. No Aleve or Naprosyn 3 days prior to surgery, or longer if instructed by your surgeon. You will receive a reminder call the day before surgery with your Same Day Surgery arrival time. If you have specific questions, please call your surgeon. Please shower with an antibacterial soap( example DIAL OR SAFEGUARD) You may use the free roller printer parking at the main entrance on [address] [place] [address], or the free parking in the [facility] parking deck * Attachments The following attachments cannot be sent through Care Everywhere. * TURP: Post-op (Armenian) * Cystoscopy: Post-op (Armenian) documented in this encounter* Instructions* Aurora Cobb RN - 02/05/2020 Transurethral Resection of the Prostate (TURP): What to Expect at Home Your Recovery Transurethral resection of the prostate (TURP) is surgery to remove prostate tissue. It is done when an overgrown prostate gland is pressing on the urethra and making it hard to urinate. You may need a urinary catheter for a short time. It is a flexible plastic tube used to drain urinefrom your bladder when you can't urinate on your own. If it's still in place when you go home, yourdoctor will give you instructions on how to care for your catheter. For several days after surgery, you may feel burning when you urinate. Your urine may be pink for 1to 3 weeks after surgery. You also may have bladder cramps, or spasms. Your doctor may give you medicine to help control the spasms. You may still feel like you need to urinate often in the weeks after your surgery. It often takes up to 6 weeks for this to get better. After you have healed, you may have less trouble urinating. Youmay have better control over starting and stopping your urine stream. And you may feel like you getmore relief when you urinate. Most people can return to work or many of their usual tasks in 1 to 3 weeks. But for about 6 weeks,try to avoid heavy lifting and strenuous activities that might put extra pressure on your bladder. Most people still can have erections after surgery (if they were able to have them before surgery).But they may not ejaculate when they have an orgasm. Semen may go into the bladder instead of out through the penis. This is called retrograde ejaculation. It does not hurt and is not harmful to yourhealth. This care sheet gives you a general idea about how long it will take for you to recover. But each person recovers at a different pace. Follow the steps below to get better as quickly as possible. How can you care for yourself at home? Activity Rest when you feel tired. Be active. Walking is a good choice. Allow your body to heal. Don't move quickly or lift anything heavy until you are feeling better. Ask your doctor when you can drive again. Many people are able to return to work within 1 to 3 weeks after surgery. It depends on the type ofwork you do and how you feel. Do not put anything in your rectum, such as an enema or suppository, for 4 to 6 weeks after the surgery. You may shower and take baths when your doctor says it is okay. Ask your doctor when it is okay for you to have sex. Diet You can eat your normal diet. If your stomach is upset, try bland, low-fat foods like plain rice, broiled chicken, toast, and yogurt. If your bowel movements are not regular right after surgery, try to avoid constipation and straining. Drink plenty of water. Your doctor may suggest fiber, a stool softener, or a mild laxative. Medicines Your doctor will tell you if and when you can restart your medicines. He or she will also give you instructions about taking any new medicines. If you take aspirin or some other blood thinner, be sure to talk to your doctor. He or she will tell you if and when to start taking those medicines again. Make sure that you understand exactly what your doctor wants you to do. Be safe with medicines. Read and follow all instructions on the label. ? If the doctor gave you a prescription medicine for pain, take it as prescribed. ? If you are not taking a prescription pain medicine, ask your doctor if you can take an qwrd-ujz-uqbjtcm medicine. Take your antibiotics as directed. Do not stop taking them just because you feel better. You need to take the full course of antibiotics. Follow-up care is a sharpe part of your treatment and safety. Be sure to make and go to all appointments, and call your doctor if you are having problems. It's also a good idea to know your test resultsand keep a list of the medicines you take. When should you call for help? Call 911 anytime you think you may need emergency care. For example, call if: You passed out (lost consciousness). You have chest pain, are short of breath, or cough up blood. Call your doctor now or seek immediate medical care if: You have pain that does not get better after you take pain medicine. You have new or more blood clots in your urine. (It is normal for the urine to be pink for a few days.) You can't pass urine. You have symptoms of a urinary tract infection. These may include: ? Pain or burning when you urinate. ? A frequent need to urinate without being able to pass much urine. ? Pain in the flank, which is just below the rib cage and above the waist on either side of the back. ? Blood in your urine. ? A fever. You are sick to your stomach or can't keep down fluids. You have signs of a blood clot in your leg (called a deep vein thrombosis), such as: ? Pain in your calf, back of the knee, thigh, or groin. ? Redness or swelling in your leg. Watch closely for changes in your health, and be sure to contact your doctor if you have problems. Where can you learn more? Go to https://Gez[employer].org and sign in to your [email or web address] account. Enter W155 in the Search Health Information box to learn more about Transurethral Resection of the Prostate (TURP):What to Expect at Home. If you do not have an account, please click on the Sign Up Now link. Current as of: May 25, 2019 Content Version: 12.6 [employer]. Care instructions adapted under license by [employer]. If you have questions about a medical condition or this instruction, always ask your healthcare professional. [employer] disclaims any warranty or liability for your use of this information. Learning About Urinary Catheter Care to Prevent Infection What is a urinary catheter? A urinary catheter is a flexible plastic tube used to drain urine from your bladder when you can't urinate on your own. The catheter allows urine to drain from the bladder into a bag. Two types of drainage bags may be used with a urinary catheter. A bedside bag is a large bag that you can hang on the side of your bed or on a chair. You can use it overnight or anytime you will be sitting or lying down for a long time. A leg bag is a small bag that you can use during the day. It is usually attached to your thigh or calf and hidden under your clothes. Having a urinary catheter increases your risk of getting a urinary tract infection. Germs may get on the catheter and cause an infection in your bladder or kidneys. The longer you have a catheter, the more likely it is that you will get an infection. You can help prevent this problem with good hygiene and careful handling of your catheter and drainage bags. How can you help prevent infection? Take care to be clean Always wash your hands well before and after you handle your catheter. Clean the skin around the catheter twice a day using soap and water. Dry with a clean towel afterward. You can shower with your catheter and drainage bag in place unless your doctor told you not to. When you clean around the catheter, check the surrounding skin for signs of infection. Look for things like pus or irritated, swollen, red, or tender skin around the catheter. Be careful with your drainage bag Always keep the drainage bag below the level of your bladder. This will help keep urine from flowing back into your bladder. Check often to see that urine is flowing through the catheter into the drainage bag. Empty the drainage bag when it is half full. This will keep it from overflowing or backing up. When you empty the drainage bag, do not let the tubing or drain spout touch anything. Keep the cap that comes with the tubing and cover the tip of the tubing when not in use. Be careful with your catheter Do not unhook the catheter from the drain tube until you are ready to change the tubing and bag. That could let germs get into the tube. Make sure that the catheter tubing does not get twisted or kinked. Do not tug or pull on the catheter. And make sure that the drainage bag does not drag or pull on the catheter. Do not put powder or lotion on the skin around the catheter. Talk with your doctor about your options for sexual intercourse while wearing a catheter. How do you empty a urine drainage bag? If your doctor has asked you to keep a record, write down the amount of urine in the bag before youempty it. Wash your hands before and after you touch the bag. 1. Remove the drain spout from its sleeve at the bottom of the drainage bag. 2. Open the valve on the drain spout. Let the urine flow out into the toilet or a container. Be careful not to let the tubing or drain spout touch anything. 3. After you empty the bag, close the valve. Then put the drain spout back into its sleeve at the bottom of the collection bag. How do you switch to a bedside bag for overnight use? Wash your hands before and after you handle the bags. 1. Empty the leg bag that is attached to the tubing and catheter. 2. Put a clean towel under the tubing attached to the leg bag. 3. Use an alcohol wipe to clean the tip of the tubing attached to the bedside bag. 4. To stop the flow of urine, pinch the catheter with your fingers just above the tubing connection. 5. Use a twisting motion to disconnect the leg bag tubing from the catheter. 6. Then securely connect the catheter to the tubing from the bedside bag. How can you clean a bedside drainage bag? Many people clean their bedside bag in the morning if they switch to a leg bag. To clean a bedside drainage ba. Remove the bedside bag and attach the leg bag. 2. Fill the bedside bag with 2 parts vinegar and 3 parts water. Let it stand for 20 minutes. 3. Empty the bag, and let it air dry. When should you call for help? Call your doctor now or seek immediate medical care if: You have symptoms of a urinary infection. These may include: ? Pain or burning when you urinate. ? A frequent need to urinate without being able to pass much urine. ? Pain in the flank, which is just below the rib cage and above the waist on either side of the back. ? Blood in your urine. ? A fever. Your urine smells bad. You see large blood clots in your urine. No urine or very little urine is flowing into the bag for 4 or more hours. Watch closely for changes in your health, and be sure to contact your doctor if: The area around the catheter becomes irritated, swollen, red, or tender, or there is pus draining from it. Urine is leaking from the place where the catheter enters your body. Follow-up care is a sharpe part of your treatment and safety. Be sure to make and go to all appointments, and call your doctor if you are having problems. It's also a good idea to know your test resultsand keep a list of the medicines you take. Where can you learn more? Go to https://[email or web address] and sign in to your [email or web address] account. Enter U010 in the Search Health Information box to learn more about Learning About Urinary Catheter Care to PreventInfection. If you do not have an account, please click on the Sign Up Now link. Current as of: October 11, 2019 Content Version: 12.6 [employer]. Care instructions adapted under license by [employer]. If you have questions about a medical condition or this instruction, always ask your healthcare professional. [employer] disclaims any warranty or liability for your use of this information. Suprapubic Catheter Care: Care Instructions - THIS CATHETER WILL REMAIN PLUGGED/CAPPED. Your Care Instructions A suprapubic catheter is a thin tube placed into your bladder just above the pubic bone. The tube allows urine to drain out of your bladder. The urine collects in a bag attached to the tube. The bag is usually attached to your leg. Sometimes the catheter tube has a valve that lets you drain the urine into the toilet or other container. You may need a suprapubic catheter if you have nerve damage, a problem with your urinary tract, or a disease that weakens your muscles. Having a catheter for a long time increases the risk of getting a urinary tract infection. So catheter care focuses on preventing infection. Follow-up care is a sharpe part of your treatment and safety. Be sure to make and go to all appointments, and call your doctor if you are having problems. It's also a good idea to know your test resultsand keep a list of the medicines you take. How can you care for yourself at home? Wash your hands before you handle the catheter. Clean the area around the catheter with soap and water at least one time every day. Wash the area with soap and water after every bowel movement. Keep the drainage bag lower than your bladder to keep urine from backing up. Clean the bag every day after removing it from the catheter. Use another container while you clean the bag. To clean the bag, fill it with 2 parts vinegar to 3 parts water and let it stand for 20 minutes. Then empty it out, and let it air dry. Empty the drainage bag when it is full or at least every 8 hours. When should you call for help? Call your doctor now or seek immediate medical care if: Your catheter becomes blocked and urine does not collect in the drainage bag. Your catheter leaks. You have blood or pus in your urine. You have pain in your back just below your rib cage. This is called flank pain. You have a fever, chills, or body aches. You have groin or belly pain. Your urine is cloudy or smells bad. You have pain, increasing redness, or bleeding around the catheter. You have swelling around the catheter or in your belly. Watch closely for changes in your health, and be sure to contact your doctor if you have any problems. Where can you learn more? Go to [email or web address].[email or web address] and sign in to your [email or web address] account. Enter D213 in the Search Health Information box to learn more about Suprapubic Catheter Care: Care Instructions. If you do not have an account, please click on the Sign Up Now link. Current as of: October 11, 2019 Content Version: 12.6 [employer]. Care instructions adapted under license by [employer]. If you have questions about a medical condition or this instruction, always ask your healthcare professional. [employer] disclaims any warranty or liability for your use of this information. * Attachments The following attachments cannot be sent through Assignment Editor Everywhere. * Caregiver: Caring for an Indwelling Urinary Catheter: General Info (Armenian) documented in this encounter* Instructions* Bhargav Yancey RN - 01/26/2019 * Attachments The following attachments cannot be sent through Care Everywhere. * Sigmoidoscopy: Post-op (Armenian) documented in this encounter Hospital Course Note Patient ID: Kaushik Rosales 32 [id number] y.o. 1950 Admit date: 02/04/2020 Discharge date: 02/05/20 Admitting Physician: No admitting provider for patient encounter. Discharge Physician: No admitting provider for patient encounter. Admission Diagnoses: BPH with obstruction/lower urinary tract symptoms [N40.1, N13.8] Discharge Diagnoses: BPH with obstruction/lower urinary tract symptoms [N40.1, N13.8] Admission Condition: stable Discharged Condition: stable Indication for Admission: BPH with obstruction/lower urinary tract symptoms [N40.1, N13.8] Hospital Course: Patient taken to OR 02/03 for cystoscopy TURP, and SPT placement and tolerated procedure without any complications. Immediately post-op, patient was extubated and transferred to PACU in stable condition. After PACU criteria met and within 24 hours of procedure, patient was transferred to floor. Throughout nyla-operative course, there was monitoring of vital signs, urine output and clinical status of patient. Diet was subseque (more content not included)... Additional Source Comments (unrecognized sect ion and content) No Status Records FoundNo Status Records FoundNo Status Records FoundNo Status Records FoundNo Status Records Found INFORMATION SOURCE (unrecogn ized section and content) DATE CREATED AUTHOR AUTHOR'S ORGANIZ ATION 08/28/2019 [facility] DATE CREATED AUTHOR AUTHOR'S ORGANIZ ATION 02/08/2020 [facility] DATE CREATED AUTHOR AUTHOR'S ORGANIZ ATION 02/09/2022 [facility] DATE CREATED AUTHOR AUTHOR'S ORGANIZ ATION 04/27/2023 [facility] Assessment & Plan Note - Sarthak Claudio MD - 04/27/2018 1:27 PM ESTAssessment & Plan Note - Sarthak Claudio MD - 08/16/2019 9:02 AM EDT Miscellaneous Notes (unrecog nized section and content) Associated Problem(s): Cardiomyopathy (HCC) Looks great roller skating a lot Doing well, Medications reviewed and will continue current meds Followup 1 year in this encounter Associated Problem(s): Cardiomyopathy (HCC) Doing well, Medications reviewed and will continue current meds Followup prn--wants to F/U in [place] documented in this encounter Care Teams (unrecognized sec tion and content) Technology Coordinator Relationship Specialty Start Date End Date Hesham Andrade Malick DO [address] [place], [place] [id number] PCP - General 04/14/18 Dale Sepulveda MD [address] [place] [address] Surgeon Urology 03/27/22 Technology Coordinator Relationship Specialty Start Date End Date Hesham Andrade DO [address] [place], [place] [id number] PCP - General 04/14/18 Dale Sepulveda MD [address] [place] [address] Surgeon Urology 03/27/22 Technology Coordinator Relationship Specialty Start Date End Date Hesham Andrade MalickDO [address] [place] [address] PCP - General 04/14/18 Dale Sepulveda MD [address] [place] [address] Surgeon Urology 03/27/22 Technology Coordinator Relationship Specialty Start Date End Date Hesham Andrade MalickDO [address] [place] [address] PCP - General 04/14/18 Dale Sepulveda MD [address] [place] [address] Surgeon Urology 03/27/22 Technology Coordinator Relationship Specialty Start Date End Date Hesham Andrade DO [address] [place] [address] PCP - General 04/14/18 Dale Sepulveda MD [address] [place] [address] Surgeon Urology 03/27/22 Technology Coordinator Relationship Specialty Start Date End Date Hesham Andrade DO [address] [place] [address] PCP - General 04/14/18 Dale Sepulveda MD [address] [place] [address] Surgeon Urology 03/27/22 Technology Coordinator Relationship Specialty Start Date End Date Hesham Andrade DO [address] [place] [address] PCP - General 04/14/18 Dale Sepulveda MD [address] [place] [address] Surgeon Urology 03/27/22 Technology Coordinator Relationship Specialty Start Date End Date Hesham Andrade DO [address] [place] [address] PCP - General 04/14/18 Dale Sepulveda MD [address] [place] [address] Surgeon Urology 03/27/22 Technology Coordinator Relationship Specialty Start Date End Date Hesham Andrade DO [address] [place] [address] PCP - General 04/14/18 Dale Sepulveda MD [address] [place] [address] Surgeon Urology 03/27/22 Technology Coordinator Relationship Specialty Start Date End Date Hesham Andrade DO [address] [place] [address] [place] [phone] PCP - General 04/14/18 Dale Sepulveda MD [address] [place] [address] Surgeon Urology 03/27/22 Technology Coordinator Relationship Specialty Start Date End Date Hesham Andrade DO [address] [place] [address] [place] [phone] PCP - General 04/14/18 Dale Sepulveda MD [address] [place] [address] Surgeon Urology 03/27/22 Technology Coordinator Relationship Specialty Start Date End Date Hesham Andrade DO [address] [place] [address] [place] [phone] PCP - General 04/14/18 Dale Sepulveda MD [address] [place] [address] Surgeon Urology 03/27/22 Technology Coordinator Relationship Specialty Start Date End Date Hesham Andrade DO [address] [facility] [address] [place] [address] PCP - General 04/14/18 Dale Sepulveda MD [address] [facility] [place], [place] [id number] Surgeon Urology 03/27/22 Technology Coordinator Relationship Specialty Start Date End Date Hesham Andrade DO [address] [facility] [address] [place] [address] PCP - General 04/14/18 Dale Sepulveda MD [address] [facility] [address] [place] [address] Surgeon Urology 03/27/22 Technology Coordinator Relationship Specialty Start Date End Date Hesham Andrade DO [address] [facility] [address] [place] [address] PCP - General 04/14/18 Dale Sepulveda MD [address] [facility] [address] [place] [address] Surgeon Urology 03/27/22 Reason for Visit (unrecogniz ed section and content) Reason Comments Other SPT exchange and 8 w [place] follow up. No current concerns. 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 Specialty Diagnoses / Procedures Referred By Shelley t Referred To Contact Orthopedic Surgery Diagnoses Chronic pain of left knee Hesham Andrade DO [address] [facility] [address] [place] [address] Ronan Black MD [address] [place] [address] [address] [place] [address] Referral ID Status Reason Start Date Expiration Date V isits Requested Visits Authorized [id number] Closed Specialty Services Required 01/06/2023 01/06/2024 1 1 Reason Comments Other SPT change, denies l eakage of urine around the tubing at the site, states he did have some gross hematuria last night, patient states he did some heavy lifting yesterday, however that has resolved today Reason Comments Ingrown Toenail Reason Onset Date Comments Referral 01/06/2023 Dr Black Reason Onset Date Comments Med Refill 12/30/2022 Reason Comments Other 8 week SPT change. N o concerns. Reason Comments Other SPT change, 8 weeks, denies urine leakage around catheter, denies gross hematuria Reason Comments Urinary Retention Reason Comments Other SP change, denies le akage at site, denies dysuria, denies redness or drainage at site Reason Comments Follow-up 6 month med check FOR RECORDS PERTAINING TO PATIENTS WHO ARE OR HAVE BEEN ENROLLED IN A CHEMICAL DEPENDENCY/SUBSTANCEABUSE PROGRAM, SOME INFORMATION MAY BE OMITTED. This clinical summary was aggregated from multiple sources. Caution should be exercised in using it in the provision of clinical care. This summary normalizes information from multiple sources, and as a consequence, information in this document may materially change the coding, format and clinical context of patient data. In addition, data may be omitted in some cases. CLINICAL DECISIONS SHOULD BE BASED ON THE PRIMARY CLINICAL RECORDS. [employer] provides no warranty or guarantee of the accuracy or completeness of information in this document.
[2023-04-28 18:22] VITALS: BP 113/54; PULSE 88; RESP 16; TEMP 37; O2SAT 99
[2023-04-28 18:33] VITALS: BMI 24.3
--- NOTE | 2023-04-28 20:09 | HP.PCM_ITS ---
HPI - General General Date of Admission: 04/28/23 Date of Service: 04/29/23 Chief Complaint: Here for rehabilitation. HPI Narrative 04/26/2023 KAUSHIK MARINELLI, is a 72 Male who presents to [facility] ED with fall. Rollerskating indoors, fell on right hip. X-ray shows right hip fracture. Chest X-ray negative, EKG okay, morphine given. 04/26/2023 Admit to Hospital. Prepare for surgery. 04/27/2023 Dr. Anna performed right hip ORIF long nail. 04/27/2023 Alert, appropriate. PT/OT for SNF. 04/28/2023 Doing well. WBAT. Xarelto 10mg daily for DVT prophylaxis. 04/28/2023 Admit to TCU with debility, here for rehabilitation, strengthening, prior to discharge home with brother. [facility] Medical History (Updated 04/28/23 @ 20:[address] Chava Vidales MD) BPH (benign prostatic hyperplasia) Heart failure HLD (hyperlipidemia) HTN (hypertension) Suprapubic catheter Home Medications atorvastatin 10 mg tablet 10 mg PO DAILY HLD 04/26/23 [History Last Taken 04/26/23 07:30] carvedilol 3.125 mg tablet 3.125 mg PO BID HTN, CHF 04/26/23 [History Last Taken 04/26/23 07:30] furosemide 20 mg tablet 20 mg PO DAILY HTN, CHF 04/26/23 [History Last Taken 04/26/23 07:30] lisinopril 2.5 mg tablet 2.5 mg PO DAILY HTN, CHF 04/26/23 [History Last Taken 04/26/23 07:30] acetaminophen 325 mg tablet 650 mg (2 x 325 mg) PO Q4H PRN PRN Fever, pain 1- 10/10 #0 tabs 04/28/23 [Rx Last Taken Unknown] oxycodone 5 mg tablet 2.5 - 5 mg (0.5 - 1 x 5 mg) PO Q4H PRN PRN Pain Score 4-10 3 days #6 tabs 04/28/23 [Rx Last Taken Unknown] rivaroxaban 10 mg tablet (Xarelto) 10 mg PO DINNER Anticoagulant #0 tabs 04/28/23 [Rx Last Taken Unknown] Allergy/AdvReac Type Severity Reaction Status Date / Time No Known Allergies Allergy Verified 04/26/23 14:21 Family History Mother Heart disease Hypertension Heart failure Father Heart failure Hypertension Heart disease Surgical History (Updated 04/28/23 @ 20:[address] Chava Vidales MD) History of suprapubic catheter S/P TURP Social History household members: other details: Lives with his brother. Smoking Status: Never smoker alcohol intake: current alcohol intake frequency: holidays/special occasions only substance use type: does not use ROS Constitutional Constitutional: Denies chills, fever(s) or weight gain ENT HEENT: Denies headache(s), nasal congestion or nasal discharge Cardiovascular Cardiovascular: Denies chest pain or palpitations Respiratory/Chest Respiratory/Chest: Denies cough, excessive phlegm production or shortness of breath with exertion Gastrointestinal Gastrointestinal: Denies abdominal pain, nausea or vomiting Genitourinary Genitourinary: Denies dysuria Musculoskeletal Musculoskeletal: Denies joint pain or joint swelling Integumentary Integumentary: Denies rash or wounds Neurologic Neurologic: Denies focal weakness, numbness or tingling Psychiatric Psychiatric: Denies anxiety, auditory hallucinations, depression, homicidal ideation or suicidal ideation Vital Signs Vital Signs Vital Signs: 04/28/23 18:22 Temperature 98.6 F Temperature Source Temporal Pulse Rate 88 Respiratory Rate 16 Blood Pressure 113/54 L Blood Pressure Mean 73 Blood Pressure Source Monitor Blood Pressure Position Semi-Fowlers Blood Pressure Location Left Arm Pulse Ox 99 Oxygen Delivery Method Room Air Weight Weight: 74.707 kg Body Mass Index (BMI) 24.3 Physical Exam Const alert General Appearance: cooperative HEENT normocephalic Eyes PERRL and EOMs intact bilaterally Neck supple, no JVD and no carotid bruits Resp normal respiratory effort, normal air movement and clear to auscultation bilaterally Cardio regular rate and regular rhythm GI normal to inspection, nondistended, normoactive bowel sounds, non-tender and non-distended Bladder / Kidney Exam: catheter in place suprapubic Extremity normal capillary refill General Extremity: Negative for edema Skin no rashes or lesions noted General Skin Exam: no breakdown Psych affect normal Appearance: appropriate Results Lab / Micro Data 04/29/23 05:24 04/29/23 05:24 Assessment & Plan Assessment/Plan (1) Debility: (2) Closed intertrochanteric fracture of right hip: (3) Congestive heart failure: (4) BPH (benign prostatic hyperplasia): (5) History of suprapubic catheter: (6) HTN (hypertension): (7) HLD (hyperlipidemia): PLAN: Plan 72 year old male with below past medical history hospitalized for right hip fracture, underwent right hip ORIF long nail fixation 04/27/[address] Anna, admitted to TCU with debility, here for rehabilitation, strengthening, prior to discharge home with brother. * Debility - PT/OT. * Pain - Tylenol 1000mg q6 prn pain (1-3), Oxycodone 5mg q4 prn pain (4-10). * Bowel - senna/colace 2 tablets bid, Magnesium citrate 300ml daily prn. * Adult immunization - Administer pneumonia vaccine, covid vaccine, flu vaccine as appropriate. * DVT prophylaxis - Xarelto 10mg daily thru 06/01/2023. * Hyperlipidemia - Atorvastatin 10mg daily. * Congestive heart failure - Coreg 3.125mg bid, Lisinopril 2.5mg daily, F urosemide 20mg daily. * Hypertension - Coreg 3.125mg bid, Lisinopril 2.5mg daily.
[2023-04-28] MEDS: Acetaminophen 325 MG Tablet 650 MG PO (20:17)
[2023-04-28 20:20] VITALS: PULSE 88; RESP 16; O2SAT 93
[2023-04-29 06:05] LABS: Absolute Lymphocyte Count 1.13 X10^3/uL (0.83-4.51); Basophil# 0.02 X10^3/uL; Basophil% 0.2 % (0-1); Eosinophil# 0.07 X10^3/uL; Eosinophils% 0.7 % (0-5); Hemoglobin 11.1 g/dL (13.0-16.5); Lymphocyte # 1.13 X10^3/ul (0.83-4.51); Mean Corp Hgb Conc 33.6 g/dL (32-36); Mean Corpuscular Hgb 30.2 pg (27.0-32.0); Mean Corpuscular Volume 89.7 fL (80-94); Mean Platelet Vol. 10.6 fl (6.2-12.0); Monocyte# 1.21 X10^3/uL; Monocyte% 12.8 % (0-10); NRBC Flagged by Analyzer 0 % (0-5); Neutrophil # 6.97 X10^3/uL (2.7-7.7); Neutrophil % 73.9 % (47-70); Platelet Count 195 K/mm3 (150-450); RBC Distribution Width SD 42.9 fl (35.1-43.9); Red Blood Count 3.68 M/mm3 (4.6-6.2); White Blood Count 9.4 K/mm3 (4.4-11.0)
[2023-04-29 06:37] LABS: Anion Gap 7 (5-15); BUN 21 mg/dL (7-18); BUN/Creat Ratio 19.8 RATIO (10-20); Calcium,Total 8.2 mg/dL (8.5-10.1); Chloride 103 mmol/L (98-107); Creatinine, Serum 1.06 mg/dL (0.70-1.30); EST Glomerular Filtration Rate 73 mL/min (>60); Est Glom Filt Rate - Afr Amer 88 mL/min (>60); Estimated Creatinine Clearance 62.99 ml/min; Glucose 102 mg/dL (74-106); Potassium 3.8 mmol/L (3.5-5.1); Sodium Level 135 mmol/L (136-145)
[2023-04-29] MEDS: Atorvastatin Calcium 10 MG Tablet PO (09:13)
[2023-04-29] MEDS: Furosemide 20 MG Tablet PO (09:13)
[2023-04-29] MEDS: Acetaminophen 500 MG Tablet 1000 MG PO ×2 (09:13→15:13)
[2023-04-29] MEDS: Carvedilol 3.125 MG TABLET PO ×2 (09:13→16:51)
[2023-04-29] MEDS: Tuberculin,Purif.prot.deriv. 50 TU/ML Vial 0.100000000000000006 ML ID (09:18)
--- NOTE | 2023-04-29 11:04 | PHA.CONS_ITS ---
Documented by User: Khadijah Doll 04/29/23 11:06 TCU RX Drug Regimen Review Subjective/Objective Subjective/Objective: Subjective: TCU Admission. 72 YOM presented to the ER with a fall. Hospitalized for right hip fracture, underwent right hip ORIF long nail fixation 04/27/[address] Anna. Admitted to TCU with debility for strenthening and rehabilitation. Objective: Allergies No Known Allergies Allergy (Verified 04/26/23 14:21) Current Medications Generic Name Dose Route Start Last Admin Trade Name Freq PRN Reason Stop Dose Admin Acetaminophen 1,000 mg 04/28/23 20:25 04/29/23 09:13 Acetaminophen 500 Mg Tablet PO 1,000 mg Q6H PRN PRN Administration Pain Score 1-3 Atorvastatin Calcium 10 mg 04/29/23 10:00 04/29/23 09:13 Atorvastatin Calcium 10 Mg Tablet PO 10 mg DAILY STEWART Administration Carvedilol 3.125 mg 04/29/23 08:00 04/29/23 09:13 Carvedilol 3.125 Mg Tablet PO 3.125 mg BIDCM [facility] Administration Protocol Furosemide 20 mg 04/29/23 10:00 04/29/23 09:13 Furosemide 20 Mg Tablet PO 20 mg DAILY@1000 [facility] Administration Protocol Lisinopril 2.5 mg 04/29/23 10:00 Lisinopril 2.5 Mg Tablet PO DAILY [facility] Protocol Magnesium Citrate 300 ml 04/28/23 20:21 Magnesium Citrate 300 Ml PO DAILY PRN Constipation Oxycodone HCl 5 mg 04/28/23 20:22 Oxycodone 5 Mg Tablet PO Q4H PRN PRN Pain Score 4-10 Rivaroxaban 10 mg 04/29/23 17:00 Rivaroxaban 10 Mg Tablet PO 06/01/23 23:59 DINNER [facility] Senna/Docusate Sodium 2 tablet 04/28/23 22:00 04/29/23 09:14 Senna/Docusate Sodium 1 Tablet PO Not Given BID [facility] Sodium Chloride 10 - 40 ml 04/28/23 18:42 0.9% Saline Lock 10 Ml Syringe IV UD PRN SALINE FLUSH Tuberculin PPD 0.1 ml 05/06/23 10:00 Tuberculin,Purif.Prot.Deriv. 50 Tu/Ml Vial ID 05/06/23 10:01 X1 ONE Problem List (Updated 04/28/23 @ 20:[address] Chava Vidales MD) HLD (hyperlipidemia) (Acute) HTN (hypertension) (Chronic) History of suprapubic catheter (Acute) BPH (benign prostatic hyperplasia) (Acute) Congestive heart failure (Acute) Debility (Acute) Closed intertrochanteric fracture of right hip (Acute) Vital Signs Temp Pulse Resp BP Pulse Ox O2 Del Method 98.6 F 88 16 113/54 L 93 Room Air 04/28/23 18:22 04/28/23 20:20 04/28/23 20:20 04/28/23 18:22 04/28/23 20:20 04/28/23 20:20 Oxygen Delivery Method Room Air Weight: 74.707 kg Body Mass Index (BMI) 24.3 Sodium 135 mmol/L (136-145) L 04/29/23 05:24 Potassium 3.8 mmol/L (3.5-5.1) 04/29/23 05:24 Chloride 103 mmol/L (98-107) 04/29/23 05:24 Carbon Dioxide 25.0 mmol/L (21.0-32.0) 04/29/23 05:24 Anion Gap 7 (5-15) 04/29/23 05:24 BUN 21 mg/dL (7-18) H 04/29/23 05:24 Creatinine 1.06 mg/dL (0.70-1.30) 04/29/23 05:24 Est GFR (MDRD) Af Amer 88 mL/min (>60) 04/29/23 05:24 Est GFR (MDRD) Non-Af 73 mL/min (>60) 04/29/23 05:24 BUN/Creatinine Ratio 19.8 RATIO (10-20) 04/29/23 05:24 Glucose 102 mg/dL (74-106) 04/29/23 05:24 Assessment/Plan: 1. Pain: acetaminophen 1000mg PO Q6H PRN pain 1-3 and oxycodone 5mg PO Q4H PRN pain 4-10. Resident has had 2 doses of acetaminophen for pain scores of Assessment/Plan for indications treated with psychotropic medications: Medical chart and medication regimen reviewed. The following medication irr egularities or issues were identified: 72 year old male with below past medical history hospitalized for right hip fracture, underwent right hip ORIF long nail fixation 04/27/[address] Anna, admitted to TCU with debility, here for rehabilitation, strengthening, prior to discharge home with brother. * Debility - PT/OT. * Pain - Tylenol 1000mg q6 prn pain (1-3), Oxycodone 5mg q4 prn pain (4-10). * Bowel - senna/colace 2 tablets bid, Magnesium citrate 300ml daily prn. * Adult immunization - Administer pneumonia vaccine, covid vaccine, flu vaccine as appropriate. * DVT prophylaxis - Xarelto 10mg daily thru 06/01/2023. * Hyperlipidemia - Atorvastatin 10mg daily. * Congestive heart failure - Coreg 3.125mg bid, Lisinopril 2.5mg daily, Furosemide 20mg daily. * Hypertension - Coreg 3.125mg bid, Lisinopril 2.5mg daily. Date Date of Note:: 04/29/23 Documented by User: Dr. Chava Vidales MD 04/29/23 11:11 TCU RX Drug Regimen Review Provider Comments Provider responsibility Provider Comments to Recommendations by Pharmacy: Agree
--- NOTE | 2023-04-29 11:04 | PCM.PN.DRR ---
Documented by User: Khadijah Doll 04/29/23 11:18 TCU RX Drug Regimen Review Subjective/Objective Subjective/Objective: Subjective: TCU Admission. 72 YOM presented to the ER with a fall. Hospitalized for right hip fracture, underwent right hip ORIF long nail fixation 04/27/[address] Anna. Admitted to TCU with debility for strenthening and rehabilitation. Objective: Allergies No Known Allergies Allergy (Verified 04/26/23 14:21) Current Medications Generic Name Dose Route Start Last Admin Trade Name Freq PRN Reason Stop Dose Admin Acetaminophen 1,000 mg 04/28/23 20:25 04/29/23 09:13 Acetaminophen 500 Mg Tablet PO 1,000 mg Q6H PRN PRN Administration Pain Score 1-3 Atorvastatin Calcium 10 mg 04/29/23 10:00 04/29/23 09:13 Atorvastatin Calcium 10 Mg Tablet PO 10 mg DAILY STEWART Administration Carvedilol 3.125 mg 04/29/23 08:00 04/29/23 09:13 Carvedilol 3.125 Mg Tablet PO 3.125 mg BIDCM [facility] Administration Protocol Furosemide 20 mg 04/29/23 10:00 04/29/23 09:13 Furosemide 20 Mg Tablet PO 20 mg DAILY@1000 [facility] Administration Protocol Lisinopril 2.5 mg 04/29/23 10:00 Lisinopril 2.5 Mg Tablet PO DAILY [facility] Protocol Magnesium Citrate 300 ml 04/28/23 20:21 Magnesium Citrate 300 Ml PO DAILY PRN Constipation Oxycodone HCl 5 mg 04/28/23 20:22 Oxycodone 5 Mg Tablet PO Q4H PRN PRN Pain Score 4-10 Rivaroxaban 10 mg 04/29/23 17:00 Rivaroxaban 10 Mg Tablet PO 06/01/23 23:59 DINNER [facility] Senna/Docusate Sodium 2 tablet 04/28/23 22:00 04/29/23 09:14 Senna/Docusate Sodium 1 Tablet PO Not Given BID [facility] Sodium Chloride 10 - 40 ml 04/28/23 18:42 0.9% Saline Lock 10 Ml Syringe IV UD PRN SALINE FLUSH Tuberculin PPD 0.1 ml 05/06/23 10:00 Tuberculin,Purif.Prot.Deriv. 50 Tu/Ml Vial ID 05/06/23 10:01 X1 ONE Problem List (Updated 04/28/23 @ 20:[address] Chava Vidales MD) HLD (hyperlipidemia) (Acute) HTN (hypertension) (Chronic) History of suprapubic catheter (Acute) BPH (benign prostatic hyperplasia) (Acute) Congestive heart failure (Acute) Debility (Acute) Closed intertrochanteric fracture of right hip (Acute) Vital Signs Temp Pulse Resp BP Pulse Ox O2 Del Method 98.6 F 88 16 113/54 L 93 Room Air 04/28/23 18:22 04/28/23 20:20 04/28/23 20:20 04/28/23 18:22 04/28/23 20:20 04/28/23 20:20 Oxygen Delivery Method Room Air Weight: 74.707 kg Body Mass Index (BMI) 24.3 Sodium 135 mmol/L (136-145) L 04/29/23 05:24 Potassium 3.8 mmol/L (3.5-5.1) 04/29/23 05:24 Chloride 103 mmol/L (98-107) 04/29/23 05:24 Carbon Dioxide 25.0 mmol/L (21.0-32.0) 04/29/23 05:24 Anion Gap 7 (5-15) 04/29/23 05:24 BUN 21 mg/dL (7-18) H 04/29/23 05:24 Creatinine 1.06 mg/dL (0.70-1.30) 04/29/23 05:24 Est GFR (MDRD) Af Amer 88 mL/min (>60) 04/29/23 05:24 Est GFR (MDRD) Non-Af 73 mL/min (>60) 04/29/23 05:24 BUN/Creatinine Ratio 19.8 RATIO (10-20) 04/29/23 05:24 Glucose 102 mg/dL (74-106) 04/29/23 05:24 Assessment/Plan: 1. Pain: acetaminophen 1000mg PO Q6H PRN pain 1-3 and oxycodone 5mg PO Q4H PRN pain 4-10. Resident has had 2 doses of acetaminophen (for pain scores of 4 and 5 in the hip) and no doses of oxycodone. Please continue to monitor for increased pain and PRN usage. 2. Bowel: senna/docusate 2T PO BID and magnesium citrate 300mL PO daily PRN constipation. Resident has not had any doses of senna/docusate or magnesium citrate. Please continue to monitor for constipation and PRN usage. Last documented bowel movement 04/28. 3. DVT prophylaxis: rivaroxaban 10mg PO daily thru 06/01/23. Please continue to monitor for S/S of bleeding/DVT and hemoglobin (last 11.1g/dL). 4. Hyperlipidemia: atorvastatin 10mg PO daily. Please consider ordering a lipid panel as there is no panel in the chart. Thanks. Please continue to monitor LFTs (last WNL 04/27/23) and muscle pain. 5. CHF/hypertension: carvedilol 3.125mg PO BID, lisinopril 2.5mg PO daily and furosemide 20mg PO daily. Please continue to monitor BP (last 113/54), HR (last 88), potassium (last 3.8mmol/L), cough, swelling and renal function. Assessment/Plan for indications treated with psychotropic medications: None Medical chart and medication regimen reviewed. The following medication irregularities or issues were identified: 1. Atorvastatin 10mg PO daily. Please consider ordering a lipid panel as there is no panel in the chart. Thanks. Date Date of Note:: 04/29/23 Documented by User: Dr. Chava Vidales MD 04/29/23 11:11 TCU RX Drug Regimen Review Provider Comments Provider responsibility Provider Comments to Recommendations by Pharmacy: Agree
[2023-04-29] MEDS: 0.9% Saline Lock 10 ML Syringe IV (15:14)
[2023-04-29 16:00] VITALS: BP 98/56; PULSE 82; RESP 14; TEMP 36.5; O2SAT 95
[2023-04-29] MEDS: Rivaroxaban 10 MG Tablet PO (16:51)
--- NOTE | 2023-04-29 17:01 | NURSING ---
Dressing changed on right lower leg. Small red drainage noted. Wound intact without and s/s of infection.
[2023-04-29 21:10] VITALS: PULSE 83; RESP 16; O2SAT 95
[2023-04-30] MEDS: Furosemide 20 MG Tablet PO (08:25)
[2023-04-30] MEDS: Lisinopril 2.5 MG Tablet PO (08:25)
[2023-04-30] MEDS: Carvedilol 3.125 MG TABLET PO ×2 (08:25→16:31)
[2023-04-30] MEDS: Atorvastatin Calcium 10 MG Tablet PO (08:25)
[2023-04-30 09:20] VITALS: BP 104/60; PULSE 84; RESP 17; O2SAT 95
[2023-04-30] MEDS: oxyCODONE 5 MG Tablet PO (10:16)
[2023-04-30 10:25] VITALS: BMI 24.3
[2023-04-30 14:13] VITALS: BP 100/53; PULSE 89; RESP 16; TEMP 36.4; O2SAT 95
--- NOTE | 2023-04-30 14:44 | NURSING ---
Substation Operator Chief Note; Activity Asset: Sushma Delarosa is independent in his choice of daily activities. He has stated he welcomes visits from the medical administrative assistant and therapy dog when available. His brother will visits and bring him items from home he may need. [place] enjoys reading the newspaper and working on word search puzzles. Staff will remind him of daily activities and respect his right to say no.
--- NOTE | 2023-04-30 15:25 | CHAPLAIN ---
Type of Pastoral Visit ___ Initial Visit _x__ Follow-up Visit ___ On-call Visit ___ General Patient Visit ___ Spiritual Assessment ___ Family Conference ___ Bereavement ___ Rapid Response ___ Code Blue ___ Other (describe below) Pastoral Care Referral From _x__ Patient ___ Family ___ Nurse ___ Physician ___ Concrete Mixer Operator ___ Zipper Trimmer Hand ___ Other (describe below) Sacrament/Intervention _x__ Active listening ___ Anointing ___ Amish ___ Bereavement ___ Communion ___ Kanchan exploration ___ ___ Life review _x__ Prayer ___ Reconciliation ___ Sacrament of Sick _x__ Supportive presence ___ Wedding ___ Other (describe below) Pastoral Comments follow up to this patient that was seen on Friday in [facility]; pt is welcoming and describes his initial time of therapy; pt is concerned about his recovery; discussion looked at the positives and the hope for improvement; pt also engaged with life review and in particular his service and work history; pt is helped by his kanchan and acknowledges this today; pt welcomes presence and prayer
[2023-04-30] MEDS: Rivaroxaban 10 MG Tablet PO (16:31)
[2023-05-01] MEDS: oxyCODONE 5 MG Tablet PO ×2 (05:59→22:11)
[2023-05-01 06:06] LABS: AST(SGOT) 34 U/L (15-37); Alanine Aminotransfer ALT/SGPT 32 U/L (16-61); Albumin, Serum 2.7 g/dL (3.2-5.0); Alkaline Phosphatase 45 U/L (45-117); Bilirubin, Direct 0.49 mg/dL (0.00-0.30); Protein, Total 5.7 g/dL (6.4-8.2)
[2023-05-01] MEDS: Carvedilol 3.125 MG TABLET PO ×2 (08:12→16:45)
[2023-05-01] MEDS: Atorvastatin Calcium 10 MG Tablet PO (09:44)
[2023-05-01] MEDS: Furosemide 20 MG Tablet PO (09:44)
[2023-05-01] MEDS: Lisinopril 2.5 MG Tablet PO (09:45)
[2023-05-01 14:25] VITALS: BP 110/44; PULSE 96; RESP 18; TEMP 37; O2SAT 96
[2023-05-01] MEDS: Rivaroxaban 10 MG Tablet PO (16:45)
--- NOTE | 2023-05-01 16:59 | CASEMGMT ---
Social Work Met with patient to complete initial assessment. Introduced self and role. Verified/updated contacts. Pt confirmed code status as full code and wishes to complete advanced directives. Educated to [facility] insurance with NRD 05/02 and continued stay is not guaranteed with each review. Pt's goal is to return home with brother at [facility]. Brother works party plan sales director and pt has flights of stairs to access shower and bedroom. SW will continue to follow for DC planning. BOO ArroyoW
[2023-05-02] MEDS: Furosemide 20 MG Tablet PO (09:32)
[2023-05-02] MEDS: Atorvastatin Calcium 10 MG Tablet PO (09:32)
[2023-05-02] MEDS: Carvedilol 3.125 MG TABLET PO ×2 (09:32→17:36)
[2023-05-02] MEDS: Senna/Docusate Sodium 1 Tablet 2 TABLET PO (09:33)
[2023-05-02] MEDS: Lisinopril 2.5 MG Tablet PO (09:33)
[2023-05-02] MEDS: oxyCODONE 5 MG Tablet PO ×2 (09:51→20:42)
[2023-05-02 14:36] LABS: Bacteria 0 SEEN /hpf (None Seen); Mucous, Urine 0 SEEN /hpf (<or=2+); Red Blood Cells-Urine 0 SEEN /hpf (0-5); Squamous Epithelial Cells - UA 0 SEEN /hpf (0-5)
[2023-05-02 14:48] LABS: Color, Urine Yellow (Yellow); Glucose, Dipstick Normal (Normal); Ketone-Dipstick Negative (Negative); Leukocyte Esterase-Dipstick 100 /ul (Negative); Nitrite-Dipstick Positive (Negative); Occult Blood-Urine 25 /ul (Negative); Protein-Dipstick 15 mg/dl (Negative); Urine Bilirubin Dipstick Negative (Negative); Urine Clarity Cloudy (Clear); Urine Urobilinogen Normal (Normal)
[2023-05-02 14:53] LABS: Amorphous Sediment 2+; White Blood Cells 0 SEEN /hpf (0-5)
[2023-05-02 14:54] LABS: Triple Phosphate Crystals Ur 2+ /hpf (<or=1+)
[2023-05-02 16:00] VITALS: BP 104/56; PULSE 97; RESP 16; TEMP 36.4; O2SAT 95
[2023-05-02] MEDS: Rivaroxaban 10 MG Tablet PO (17:36)
[2023-05-02] MEDS: MELATONIN 10 MG TABLET PO (20:42)
[2023-05-03] MEDS: Lisinopril 2.5 MG Tablet PO (08:29)
[2023-05-03] MEDS: Carvedilol 3.125 MG TABLET PO ×2 (08:30→18:06)
[2023-05-03] MEDS: Furosemide 20 MG Tablet PO (08:30)
[2023-05-03] MEDS: Atorvastatin Calcium 10 MG Tablet PO (08:30)
[2023-05-03 08:31] VITALS: BP 105/58; PULSE 96; RESP 16; O2SAT 93
[2023-05-03] MEDS: oxyCODONE 5 MG Tablet PO ×2 (13:54→20:59)
[2023-05-03 16:00] VITALS: BP 110/63; PULSE 89; RESP 20; TEMP 36.8; O2SAT 95
[2023-05-03] MEDS: Rivaroxaban 10 MG Tablet PO (18:06)
--- NOTE | 2023-05-03 20:03 | NURSING ---
Dr. Vidales notified of preliminary urine culture results at this time. No new orders at this time unless patient becomes symptomatic due to chronic suprapubic catheter.
[2023-05-03] MEDS: MELATONIN 10 MG TABLET PO (21:00)
[2023-05-04] MEDS: Carvedilol 3.125 MG TABLET PO ×2 (08:37→17:33)
[2023-05-04] MEDS: Lisinopril 2.5 MG Tablet PO (08:38)
[2023-05-04] MEDS: Furosemide 20 MG Tablet PO (08:38)
[2023-05-04] MEDS: Atorvastatin Calcium 10 MG Tablet PO (08:38)
[2023-05-04] MEDS: Acetaminophen 500 MG Tablet 1000 MG PO (08:40)
[2023-05-04 16:00] VITALS: BP 106/52; PULSE 80; RESP 18; TEMP 36.8; O2SAT 96
[2023-05-04] MEDS: Rivaroxaban 10 MG Tablet PO (17:33)
[2023-05-04] MEDS: Senna/Docusate Sodium 1 Tablet 2 TABLET PO (17:33)
[2023-05-04] MEDS: MELATONIN 10 MG TABLET PO (22:10)
[2023-05-05] MEDS: Lisinopril 2.5 MG Tablet PO (08:15)
[2023-05-05] MEDS: Furosemide 20 MG Tablet PO (08:15)
[2023-05-05] MEDS: Atorvastatin Calcium 10 MG Tablet PO (08:15)
[2023-05-05] MEDS: Carvedilol 3.125 MG TABLET PO ×2 (08:15→17:31)
[2023-05-05 08:16] VITALS: BP 110/61; PULSE 93
--- NOTE | 2023-05-05 09:00 | NURSING ---
Addendum entered by Elis Joya 05/05/23 09:03: Date charted in error should be 2023 Original Note: Senior Cost Analyst Note: MDS for 05/05/2020 Complete
[2023-05-05 13:42] VITALS: BP 102/58; PULSE 89; RESP 16; TEMP 36.5; O2SAT 97
--- NOTE | 2023-05-05 14:46 | CASEMGMT ---
Supervisor Shed Workers: BIMS score (15/15) and PHQ-(3/9) completed for MDS assessment. YEVGENIY Yanes
[2023-05-05] MEDS: Rivaroxaban 10 MG Tablet PO (17:31)
[2023-05-05 17:33] VITALS: BP 101/58; PULSE 82
[2023-05-05] MEDS: oxyCODONE 5 MG Tablet PO (19:34)
[2023-05-05] MEDS: Doxepin Hydrochloride 10 MG Capsule PO (19:36)
[2023-05-06 05:53] LABS: Absolute Lymphocyte Count 1.46 X10^3/uL (0.83-4.51); Absolute Neutrophil Count 5.3 X10^3/uL (2.0-7.7); Basophil# 0.08 X10^3/uL; Eosinophil# 0.27 X10^3/uL; Eosinophils% 3.3 % (0-5); Hematocrit 33.1 % (40-54); Hemoglobin 10.8 g/dL (13.0-16.5); Lymphocyte # 1.46 X10^3/ul (0.83-4.51); Lymphocyte % 17.9 % (19-41); Mean Corp Hgb Conc 32.6 g/dL (32-36); Mean Corpuscular Hgb 29.6 pg (27.0-32.0); Mean Corpuscular Volume 90.7 fL (80-94); Mean Platelet Vol. 9.1 fl (6.2-12.0); Monocyte# 0.97 X10^3/uL; Monocyte% 11.9 % (0-10); NRBC Flagged by Analyzer 0 % (0-5); Neutrophil # 5.28 X10^3/uL (2.7-7.7); Neutrophil % 64.6 % (47-70); Platelet Count 453 K/mm3 (150-450); RBC Distribution Width SD 42.9 fl (35.1-43.9); Red Blood Count 3.65 M/mm3 (4.6-6.2); White Blood Count 8.2 K/mm3 (4.4-11.0)
[2023-05-06 06:09] LABS: Anion Gap 4 (5-15); BUN 20 mg/dL (7-18); BUN/Creat Ratio 20.2 RATIO (10-20); Calcium,Total 8.6 mg/dL (8.5-10.1); Chloride 104 mmol/L (98-107); Creatinine, Serum 0.99 mg/dL (0.70-1.30); EST Glomerular Filtration Rate 79 mL/min (>60); Est Glom Filt Rate - Afr Amer 95 mL/min (>60); Estimated Creatinine Clearance 67.45 ml/min; Glucose 94 mg/dL (74-106); Potassium 4.1 mmol/L (3.5-5.1); Sodium Level 136 mmol/L (136-145)
[2023-05-06] MEDS: oxyCODONE 5 MG Tablet PO ×2 (08:01→21:44)
[2023-05-06] MEDS: Carvedilol 3.125 MG TABLET PO ×2 (08:02→16:54)
[2023-05-06] MEDS: Senna/Docusate Sodium 1 Tablet 2 TABLET PO ×2 (08:02→20:41)
[2023-05-06] MEDS: Atorvastatin Calcium 10 MG Tablet PO (08:02)
[2023-05-06] MEDS: Furosemide 20 MG Tablet PO (08:02)
[2023-05-06] MEDS: Lisinopril 2.5 MG Tablet PO (08:02)
[2023-05-06] MEDS: Tuberculin,Purif.prot.deriv. 50 TU/ML Vial 0.100000000000000006 ML ID (09:49)
[2023-05-06 09:52] VITALS: BMI 24.4
[2023-05-06 15:45] VITALS: BP 102/57; PULSE 88; RESP 14; TEMP 37.1; O2SAT 96
[2023-05-06] MEDS: Rivaroxaban 10 MG Tablet PO (16:54)
--- NOTE | 2023-05-06 19:27 | PCA ---
This COLLECTION ADMINISTRATOR assisted patient into bed. offered to help patient get washed for the night and patient stated that they would like to wait until the morning and just wanted to lay down
[2023-05-06] MEDS: Doxepin Hydrochloride 10 MG Capsule PO (20:41)
[2023-05-07] MEDS: Atorvastatin Calcium 10 MG Tablet PO (08:25)
[2023-05-07] MEDS: Furosemide 20 MG Tablet PO (08:25)
[2023-05-07] MEDS: Lisinopril 2.5 MG Tablet PO (08:26)
[2023-05-07 08:28] VITALS: BP 103/52; PULSE 90; RESP 16; TEMP 36.8; O2SAT 100
--- NOTE | 2023-05-07 09:13 | CASEMGMT ---
Social Work IDT met with patient and brother for care plan meeting. Discussed patient's progress in PT/OT/SN. Educated to [facility] insurance with NRD 05/08 and continued stay is not guaranteed with each review. IDT recommending continued therapy if insurance issues DC at this review. Pt still needing assistance with daily tasks and needs to complete steps to enter and function in his home. SW discussed SNF stay until able to return home. Educated to room and board financial liability, Medicaid and INN/OON SNFs with insurance. Pt and brother agreeable to SNF placement if needed. Pt has no assets and may be eligible for [facility]. Pt and brother agreed to completing [facility] application. SW provided brother with printed SNF lists that are in [facility] with INN and OON providers with quality and resource data via [employer]. Brother to review options and notify this worker with choices. SW sent referral to [facility] via email. Will continue to follow for DC planning. BOO ArroyoW
[2023-05-07] MEDS: Carvedilol 3.125 MG TABLET PO ×2 (09:48→17:36)
[2023-05-07] MEDS: oxyCODONE 5 MG Tablet PO ×3 (10:19→21:33)
[2023-05-07 14:55] VITALS: BP 96/54; PULSE 96; RESP 18; TEMP 36.8; O2SAT 96
[2023-05-07 15:28] VITALS: BP 107/54
--- NOTE | 2023-05-07 16:54 | RAD_ITS ---
STUDY: X-RAY - PELVIS AND RIGHT HIP REASON FOR EXAM: Male, 72 years old. Pain TECHNIQUE: 3 views of the pelvis and hip. COMPARISON: April 27, 2023 9:14 AM FINDINGS: Postsurgical changes status post open reduction internal fixation of intertrochanteric fracture involving orthopedic hardware.. There is persistent diffuse avulsion of the lesser trochanteric with increased separation of fracture fragments. RAD/HIP, UNI W/ Pelvis 2-3 Views IMPRESSION: Status post ORIF intertrochanteric fracture with avulsion of the lesser trochanter and increased separation of fracture fragments since earlier study. Electronically Signed: Prabhu Díaz MD at 20:30 EST ,
--- NOTE | 2023-05-07 17:13 | RAD_ITS ---
STUDY: X-RAY - RIGHT TIBIA AND FIBULA REASON FOR EXAM: Male, 72 years old. Leg pain. TECHNIQUE: 3 view(s) of the tibia and fibula were obtained. COMPARISON: None. FINDINGS: Normal visualized tibia. Normal visualized fibula. Mild nonspecific diffuse soft tissue swelling RAD/Tibia & Fibula 2 Views IMPRESSION: Mild soft tissue swelling. No acute fracture or other significant bony pathology Electronically Signed: Prabhu Díaz MD at 17:40 EST ,
[2023-05-07] MEDS: Rivaroxaban 10 MG Tablet PO (17:36)
[2023-05-07] MEDS: Senna/Docusate Sodium 1 Tablet 2 TABLET PO (21:33)
[2023-05-07] MEDS: Doxepin Hydrochloride 10 MG Capsule PO (21:33)
[2023-05-08] MEDS: Furosemide 20 MG Tablet PO (08:26)
[2023-05-08] MEDS: Atorvastatin Calcium 10 MG Tablet PO (08:26)
[2023-05-08] MEDS: Carvedilol 3.125 MG TABLET PO ×2 (08:26→17:02)
[2023-05-08] MEDS: Lisinopril 2.5 MG Tablet PO (08:27)
[2023-05-08 08:29] VITALS: BP 110/62; PULSE 85
--- NOTE | 2023-05-08 09:10 | NURSING ---
Spoke with Claudia at Dr. Anna's office, they will have him look at xrays. Asked for follow-up to know if ok to continue therapy. Await return call.
[2023-05-08 10:30] VITALS: BP 107/58; PULSE 86; RESP 16; TEMP 37.1; O2SAT 96
--- NOTE | 2023-05-08 13:19 | MDS.RN ---
Information for the mds was obtained from review of the clinical record, interview of resident, staff, and direct observation of resident's care.
[2023-05-08] MEDS: Rivaroxaban 10 MG Tablet PO (17:02)
[2023-05-08] MEDS: Acetaminophen 500 MG Tablet 1000 MG PO (17:04)
[2023-05-08] MEDS: Doxepin Hydrochloride 10 MG Capsule PO (21:38)
[2023-05-08] MEDS: oxyCODONE 5 MG Tablet PO (21:38)
[2023-05-09] MEDS: Atorvastatin Calcium 10 MG Tablet PO (08:50)
[2023-05-09] MEDS: Lisinopril 2.5 MG Tablet PO (08:50)
[2023-05-09] MEDS: Carvedilol 3.125 MG TABLET PO ×2 (08:51→17:39)
[2023-05-09] MEDS: Furosemide 20 MG Tablet PO (08:51)
[2023-05-09] MEDS: Senna/Docusate Sodium 1 Tablet 2 TABLET PO (08:51)
[2023-05-09] MEDS: oxyCODONE 5 MG Tablet PO ×2 (08:55→22:00)
--- NOTE | 2023-05-09 11:35 | NURSING ---
Addendum entered by Danitza Leon 05/09/23 12:52: Clarification, patient can be weight bearing as tolerated on fractured side per Claudia for Dr. Anna. Original Note: Call from Claudia at [facility]. Per Claudia for Dr. Anna, patient can be weight bearing as tolerated and he will follow up with patient in office on Friday at his follow up appointment.
--- NOTE | 2023-05-09 11:56 | CASEMGMT ---
Addendum entered by Kezia Dominguez 05/09/23 14:56: Brother returned call and inquired further about INN and OON and Medicaid coverage for room and board. SW reexplained the differences and coverage. Brother expressed understanding and provided SNF preferences acknowledging the INN/OON facilities: [facility], [facility], [facility]. Brother stated he is continuing to work with Giana from [facility] on MICHAEL. SW sent referrals to SNFs via [facility]. Original Note: Social Work SW left VM with pt's brother to inquire about questions of MICHAEL process and SNF choices. Will await return phone call. BOO ArroyoW
[2023-05-09 15:21] VITALS: BP 101/63; PULSE 92; RESP 16; TEMP 37; O2SAT 94
[2023-05-09] MEDS: Rivaroxaban 10 MG Tablet PO (17:39)
[2023-05-09] MEDS: Doxepin Hydrochloride 10 MG Capsule PO (22:02)
[2023-05-10 09:55] VITALS: BP 107/49; PULSE 86; RESP 18; O2SAT 99
[2023-05-10] MEDS: Atorvastatin Calcium 10 MG Tablet PO (09:57)
[2023-05-10] MEDS: Lisinopril 2.5 MG Tablet PO (09:57)
[2023-05-10] MEDS: Furosemide 20 MG Tablet PO (09:57)
[2023-05-10] MEDS: Carvedilol 3.125 MG TABLET PO ×2 (09:57→16:25)
[2023-05-10] MEDS: Senna/Docusate Sodium 1 Tablet 2 TABLET PO (09:57)
[2023-05-10] MEDS: Acetaminophen 500 MG Tablet 1000 MG PO (14:12)
[2023-05-10 14:15] VITALS: TEMP 37.3
[2023-05-10] MEDS: Rivaroxaban 10 MG Tablet PO (16:25)
[2023-05-10] MEDS: Doxepin Hydrochloride 10 MG Capsule PO (21:34)
[2023-05-10] MEDS: oxyCODONE 5 MG Tablet PO (21:38)
[2023-05-11] MEDS: Furosemide 20 MG Tablet PO (09:50)
[2023-05-11] MEDS: Carvedilol 3.125 MG TABLET PO ×2 (09:50→16:22)
[2023-05-11] MEDS: Atorvastatin Calcium 10 MG Tablet PO (09:50)
[2023-05-11] MEDS: Senna/Docusate Sodium 1 Tablet 2 TABLET PO (09:51)
[2023-05-11] MEDS: Lisinopril 2.5 MG Tablet PO (09:51)
[2023-05-11] MEDS: oxyCODONE 5 MG Tablet PO ×2 (09:56→21:47)
[2023-05-11 15:00] VITALS: BP 111/65; PULSE 94; RESP 16; TEMP 36.6; O2SAT 92
[2023-05-11] MEDS: Rivaroxaban 10 MG Tablet PO (16:22)
[2023-05-11] MEDS: Doxepin Hydrochloride 10 MG Capsule PO (21:48)
[2023-05-12] MEDS: oxyCODONE 5 MG Tablet PO ×3 (06:06→22:02)
[2023-05-12 08:04] VITALS: BP 102/62; PULSE 86; RESP 18; O2SAT 97
[2023-05-12] MEDS: Furosemide 20 MG Tablet PO (08:06)
[2023-05-12] MEDS: Atorvastatin Calcium 10 MG Tablet PO (08:06)
[2023-05-12] MEDS: Carvedilol 3.125 MG TABLET PO ×2 (08:06→17:14)
[2023-05-12] MEDS: Lisinopril 2.5 MG Tablet PO (08:07)
--- NOTE | 2023-05-12 10:13 | NURSING ---
Addendum entered by Marlen Mar 05/12/23 10:17: Correction: order is for a UA, complete. Original Note: Hematuria and sediment noted to catheter tubing and bag.No blood clots noted. Suprapubic insertion site clean, dressing changed today. Pt denies feelings of pain/discomfort. Dr. Vidales updated, entered orders for UA with C&S, and hold Xarelto until 05/15. Urine specimen collected and sent to lab @1010. Awaiting results.
[2023-05-12 10:17] LABS: Bacteria 0 SEEN /hpf (None Seen); Mucous, Urine 0 SEEN /hpf (<or=2+); Squamous Epithelial Cells - UA 0 SEEN /hpf (0-5)
[2023-05-12 10:20] LABS: Color, Urine Red (Yellow); Glucose, Dipstick Normal (Normal); Ketone-Dipstick Negative (Negative); Leukocyte Esterase-Dipstick 500 /ul (Negative); Nitrite-Dipstick Negative (Negative); Occult Blood-Urine 250 /ul (Negative); Protein-Dipstick 100 mg/dl (Negative); Urine Bilirubin Dipstick Negative (Negative); Urine Clarity Turbid (Clear); Urine Urobilinogen 4 mg/dl (Normal)
[2023-05-12 10:26] LABS: Red Blood Cells-Urine > 100 SEEN /hpf (0-5)
[2023-05-12 10:28] LABS: White Blood Cells 0-5 SEEN /hpf (0-5)
[2023-05-12 10:29] LABS: Amorphous Sediment 1+
--- NOTE | 2023-05-12 12:50 | NURSING ---
Addendum entered by Marlen Mar 05/12/23 16:02: Pt returns to unit ~1520 with brother. Received instructions (Dr. Anna) for pt to follow-up in 6 weeks, [06/23/23] and okay for WBAT and okay to shower over incisions. No new orders. Per pt request, wallet returned to lockbox in room. Pt and brother in agreement with plan of care. Original Note: Pt leaves unit with brother for Dr. Anna follow-up appointment. Pt takes wallet along per request.
[2023-05-12 15:40] VITALS: TEMP 36.7
[2023-05-12 17:15] VITALS: BP 114/55; PULSE 88
[2023-05-12] MEDS: Doxepin Hydrochloride 10 MG Capsule PO (22:02)
[2023-05-13 05:49] LABS: Absolute Lymphocyte Count 1.44 X10^3/uL (0.83-4.51); Basophil# 0.05 X10^3/uL; Basophil% 0.6 % (0-1); Eosinophil# 0.14 X10^3/uL; Eosinophils% 1.6 % (0-5); Hematocrit 35.5 % (40-54); Hemoglobin 11.6 g/dL (13.0-16.5); Lymphocyte # 1.44 X10^3/ul (0.83-4.51); Lymphocyte % 16.3 % (19-41); Mean Corp Hgb Conc 32.7 g/dL (32-36); Mean Corpuscular Hgb 29.5 pg (27.0-32.0); Mean Corpuscular Volume 90.3 fL (80-94); Mean Platelet Vol. 8.9 fl (6.2-12.0); Monocyte# 1.15 X10^3/uL; NRBC Flagged by Analyzer 0 % (0-5); Neutrophil # 6.03 X10^3/uL (2.7-7.7); Platelet Count 448 K/mm3 (150-450); Red Blood Count 3.93 M/mm3 (4.6-6.2); White Blood Count 8.9 K/mm3 (4.4-11.0)
[2023-05-13 06:22] LABS: Anion Gap 4 (5-15); BUN 18 mg/dL (7-18); Calcium,Total 8.7 mg/dL (8.5-10.1); Chloride 106 mmol/L (98-107); Creatinine, Serum 1.06 mg/dL (0.70-1.30); EST Glomerular Filtration Rate 73 mL/min (>60); Est Glom Filt Rate - Afr Amer 88 mL/min (>60); Estimated Creatinine Clearance 62.99 ml/min; Glucose 98 mg/dL (74-106); Potassium 4.1 mmol/L (3.5-5.1); Sodium Level 138 mmol/L (136-145)
[2023-05-13] MEDS: Furosemide 20 MG Tablet PO (08:40)
[2023-05-13] MEDS: Lisinopril 2.5 MG Tablet PO (08:40)
[2023-05-13] MEDS: Senna/Docusate Sodium 1 Tablet 2 TABLET PO (08:40)
[2023-05-13] MEDS: Carvedilol 3.125 MG TABLET PO ×2 (08:40→17:53)
[2023-05-13] MEDS: Atorvastatin Calcium 10 MG Tablet PO (08:41)
[2023-05-13 08:42] VITALS: BP 115/63; PULSE 89
[2023-05-13 10:00] VITALS: BMI 24.2
[2023-05-13] MEDS: oxyCODONE 5 MG Tablet PO ×2 (10:07→22:05)
--- NOTE | 2023-05-13 12:44 | CASEMGMT ---
Social Work: BIMS score (15/15) PHQ (0/3) completed for MDS assessment. YEVGENIY Yanes
[2023-05-13 15:26] VITALS: BP 126/65; PULSE 95; RESP 12; TEMP 36.7; O2SAT 93
--- NOTE | 2023-05-13 16:48 | CASEMGMT ---
Social Work SW completed advanced directives with pt. Original and copy provided to pt. Copies placed on chart. Kezia Dominguez, BULK STATION AGENT GIS PHYSICAL SCIENTIST
[2023-05-13 17:54] VITALS: BP 120/64; PULSE 94
[2023-05-13] MEDS: Doxepin Hydrochloride 10 MG Capsule PO (22:01)
[2023-05-14] MEDS: Furosemide 20 MG Tablet PO (08:22)
[2023-05-14] MEDS: Senna/Docusate Sodium 1 Tablet 2 TABLET PO (08:22)
[2023-05-14] MEDS: Lisinopril 2.5 MG Tablet PO (08:22)
[2023-05-14] MEDS: Atorvastatin Calcium 10 MG Tablet PO (08:22)
[2023-05-14] MEDS: Carvedilol 3.125 MG TABLET PO ×2 (08:23→16:13)
[2023-05-14] MEDS: Acetaminophen 500 MG Tablet 1000 MG PO ×3 (08:26→22:00)
[2023-05-14 08:28] VITALS: BP 126/68; PULSE 88
[2023-05-14 14:26] VITALS: BP 118/67; PULSE 87; RESP 18; TEMP 36.7; O2SAT 95
[2023-05-14 16:14] VITALS: BP 113/59; PULSE 89
--- NOTE | 2023-05-14 16:15 | NURSING ---
Updated pt on Positive covid pt does not need brother updated at this time.
--- NOTE | 2023-05-14 16:23 | CASEMGMT ---
Addendum entered by Kezia Dominguez 05/15/23 10:20: Appeal filed. PASRR completed. Original Note: Social Work Insurance issued LCD 05/16, DC 2. SW spoke with pt and confirmed DC to [facility]. Pt agreeable but might be interested in appealing. Pt requested this worker contact brother. SW agreed. SW phoned brother to update on DC date and explain appeal rights. Brother is wanting to appeal and request an additional week or two with the goal of pt improving further to return home from TCU vs needing another SNF. SW agreed. If pt loses appeal, he will DC to [facility] and brother can transport. SW updated [facility] to confirm admission with MCDP. SW to follow for DC outcome. Plan: DC 2/3 pending appeal, to [facility], intermediate, Medicaid pending, part B therapies OR remain skilled in TCU. Kezia Dominguez, BOO VUONG
--- NOTE | 2023-05-14 19:15 | PCM.DC.SUM ---
Providers Date of Admission: 04/28/23 Primary Care Physician: Dr. Hesham Andrade DO Reason For Visit: FALL/ R HIP FRACTURE Diagnosis Discharge Diagnosis (1) Debility: Status: Acute Code(s): R53.81 - Other malaise (2) Closed intertrochanteric fracture of right hip: Status: Inactive Code(s): S72.141A - Displaced intertrochanteric fracture of right femur, initial encounter for closed fracture (3) Congestive heart failure: Status: Acute Code(s): I50.9 - Heart failure, unspecified (4) BPH (benign prostatic hyperplasia): Status: Acute Code(s): N40.0 - Benign prostatic hyperplasia without lower urinary tract symptoms (5) History of suprapubic catheter: Status: Acute Code(s): Z98.890 - Other specified postprocedural states (6) HTN (hypertension): Status: Chronic Code(s): I10 - Essential (primary) hypertension (7) HLD (hyperlipidemia): Status: Acute Code(s): E78.5 - Hyperlipidemia, unspecified Plan 72 year old male with below past medical history hospitalized for right hip fracture, underwent right hip ORIF long nail fixation 04/27/[address] Anna, admitted to TCU with debility, here for rehabilitation, strengthening, prior to discharge home with brother. Debility - PT/OT. Pain - Tylenol 1000mg q6 prn pain (1-3), Oxycodone 5mg q4 prn pain (4-10). Bowel - senna/colace 2 tablets bid, Magnesium citrate 300ml daily prn. Adult immunization - Administer pneumonia vaccine, covid vaccine, flu vaccine as appropriate. DVT prophylaxis - Xarelto 10mg daily thru 06/01/2023. Hyperlipidemia - Atorvastatin 10mg daily. Congestive heart failure - Coreg 3.125mg bid, Lisinopril 2.5mg daily, Furosemide 20mg daily. Hypertension - Coreg 3.125mg bid, Lisinopril 2.5mg daily. Medications at Discharge Home Medications atorvastatin 10 mg tablet 10 mg PO DAILY HLD 04/26/23 carvedilol 3.125 mg tablet 3.125 mg PO BID HTN, CHF 04/26/23 furosemide 20 mg tablet 20 mg PO DAILY HTN, CHF 04/26/23 lisinopril 2.5 mg tablet 2.5 mg PO DAILY HTN, CHF 04/26/23 acetaminophen 500 mg tablet 1,000 mg (2 x 500 mg) PO Q6H PRN PRN Pain Score 1-3 #0 tabs 05/14/23 doxepin 10 mg capsule 10 mg PO QHS #0 caps 05/14/23 oxycodone 5 mg tablet 5 mg PO Q4H PRN PRN Pain Score 4-10 3 days #18 tabs 05/14/23 sennosides 8.6 mg-docusate sodium 50 mg tablet (Stool Softener-Stimulant Laxative) 2 tab PO BID #0 tabs 05/14/23 Hospital Course Operations - (See below.) Procedures None Summary of Care Provided Minutes Spent on Discharge: 35 Hospital Course: 72 year old male with below past medical history hospitalized for right hip fracture, underwent right hip ORIF long nail fixation 04/27/[address] Anna, admitted to TCU with debility, here for rehabilitation, strengthening, prior to discharge home with brother. 05/12/2023 Dr. Anna saw resident, doing well. DC 2/3 pending appeal, to [facility], intermediate, Medicaid pending, part B therapies OR remain skilled in TCU. Physical Exam Const alert General Appearance: cooperative HEENT normocephalic Eyes PERRL and EOMs intact bilaterally Neck supple, no JVD and no carotid bruits Resp normal respiratory effort, normal air movement and clear to auscultation bilaterally Cardio regular rate and regular rhythm GI normal to inspection, nondistended, normoactive bowel sounds, non-tender and non-distended Bladder / Kidney Exam: catheter in place suprapubic Extremity normal capillary refill General Extremity: Negative for edema Skin no rashes or lesions noted General Skin Exam: no breakdown Psych affect normal Appearance: appropriate Weight / BMI Weight Weight: 74.389 kg Body Mass Index (BMI) 24.2 ABG / Lab / Microbiology Data 05/13/23 05:25 05/13/23 05:25 Laboratory: Laboratory Results - last 24 hr 05/12/23 10:07: Urine Color Red, Urine Clarity Turbid, Urine pH 7.0, Ur Specific [place] 1.010, Urine Protein 100 H, Urine Glucose (UA) Normal, Urine Ketones Negative, Urine Occult Blood 250 H, Urine Nitrite Negative, Urine Bilirubin Negative, Urine Urobilinogen 4 H, Ur Leukocyte Esterase 500 H, Urine RBC > 100 SEEN, Urine WBC 0-5 SEEN, Ur Squamous Epith Cells 0 SEEN, Amorphous Sediment 1+, Urine Bacteria 0 SEEN, Urine Mucus 0 SEEN Microbiology: Microbiology 05/12/23 10:07 Suprapubic Tap Urine Culture - Preliminary Gram negative rosalina GNR lactose machine fastener 05/02/23 13:45 Urine Catheter - Gerardo Urine Culture - Final Klebsiella pneumoniae sp pneum Providencia rettgeri Morganella morganii sp morgani 04/29/23 04:40 Nasal Secretion SARS-CoV-2 Antigen (Rapid) - Final D/C Instructions Discharge Diet: No restrictions Discharge Activity: Return to Normal Activity, May Shower and Use Walker Weight Bearing Status: Weight bearing as tolerated Call your doctor if you observe: Fever of 101 or Higher, Inability to urinate, Inability to have a bowel movement, Shortness of breath, Dizziness, Fainting spells, Swelling in the ankles, Chest pain and Uncontrolled pain Additional Instructions: DC 2/3 pending appeal, to [facility], [facility], Medicaid pending, part B therapies OR remain skilled in TCU. Please Follow Up With: Tashi Anna MD When: As scheduled. Meaningful Use Info Meaningful Use Diagnoses (Choose all that apply): None applicable Discharge Plan Admission Admit Date/Time: 04/28/23 17:44 Primary Reason for Your Visit: Debility. Attending Provider: Chava Vidales Chi Primary Care Provider: Hesham Andrade Instructions Additional Instructions / Restrictions: DC 2/3 pending appeal, to [facility], [facility], Medicaid pending, part B therapies OR remain skilled in TCU. Discharge Orders/Prescriptions Prescriptions: New acetaminophen 500 mg Tablet 1,000 mg PO Q6H PRN PRN (Reason: Pain Score 1-3) Qty: 0 0RF sennosides-docusate sodium [Stool Softener-Stimulant Laxat] 8.6-50 mg Tablet 2 tab PO BID Qty: 0 0RF doxepin 10 mg Capsule 10 mg PO QHS Qty: 0 0RF oxycodone 5 mg Tablet 5 mg PO Q4H PRN PRN (Reason: Pain Score 4-10) 3 Days Qty: 18 0RF Continued atorvastatin 10 mg tablet 10 mg PO DAILY Patient Comments: TAKE 1 TABLET (10 MG) BY MOUTH DAILY. carvedilol 3.125 mg tablet 3.125 mg PO BID Patient Comments: TAKE 1 TABLET BY MOUTH TWICE DIALY furosemide 20 mg tablet 20 mg PO DAILY Patient Comments: TAKE 1 TABLET BY MOUTH EVERY DAY lisinopril 2.5 mg tablet 2.5 mg PO DAILY Patient Comments: TAKE 1 TABLET BY MOUTH EVERY DAY Discontinued acetaminophen 325 mg Tablet 650 mg PO Q4H PRN PRN (Reason: Fever, pain 1-10/10) Qty: 0 0RF oxycodone 5 mg Tablet 2.5 - 5 mg PO Q4H PRN PRN (Reason: Pain Score 4-10) 3 Days Qty: 6 0RF Xarelto 10 mg Tablet 10 mg PO DINNER Qty: 0 0RF Referrals / Follow Up: Hesham Andrade DO [Primary Care Provider] - Tashi Anna MD [Med Staff - Active Staff] - 06/23/23 2:00 pm (*brother to transport) Disposition Disposition (needs filled in before D/C Order can be placed): NonSkilled NH/Intermed Care
--- NOTE | 2023-05-14 19:20 | TREXTCAR_ITS ---
Diet Diet Order/Speech Therapy: 04/28/23 18:00 Diet: Regular - General Food consistency:: Regular Liquid Consistency:: Regular/Thin Is pt able to select menu?: Yes Routine Orders/Code Status Code Status: Full Code Wound(s) right hip proximal incision: Wound Type: Surgical Incision Dressing Change: Dry Sterile Dressing Right thigh medial incision: Wound Type: Surgical Incision Dressing Change: Dry Sterile Dressing Right thigh distal incision: Wound Type: Surgical Incision Dressing Change: Dry Sterile Dressing Therapies Weight Bearing: Weight bearing as tolerated Extremity Affected:: Bilateral Lower Physical Therapy: Eval and Treat Occupational Therapy: Eval and Treat Problem/Diagnosis (1) Debility: Status: Acute Code(s): R53.81 - Other malaise (2) Closed intertrochanteric fracture of right hip: Status: Inactive Code(s): S72.141A - Displaced intertrochanteric fracture of right femur, initial encounter for closed fracture (3) Congestive heart failure: Status: Acute Code(s): I50.9 - Heart failure, unspecified (4) BPH (benign prostatic hyperplasia): Status: Acute Code(s): N40.0 - Benign prostatic hyperplasia without lower urinary tract symptoms (5) History of suprapubic catheter: Status: Acute Code(s): Z98.890 - Other specified postprocedural states (6) HTN (hypertension): Status: Chronic Code(s): I10 - Essential (primary) hypertension (7) HLD (hyperlipidemia): Status: Acute Code(s): E78.5 - Hyperlipidemia, unspecified Plan 72 year old male with below past medical history hospitalized for right hip fracture, underwent right hip ORIF long nail fixation 04/27/[address] Parish johnson, admitted to TCU with debility, here for rehabilitation, strengthening, prior to discharge home with brother. * Debility - PT/OT. * Pain - Tylenol 1000mg q6 prn pain (1-3), Oxycodone 5mg q4 prn pain (4-10). * Bowel - senna/colace 2 tablets bid, Magnesium citrate 300ml daily prn. * Adult immunization - Administer pneumonia vaccine, covid vaccine, flu vaccine as appropriate. * DVT prophylaxis - Xarelto 10mg daily thru 06/01/2023. * Hyperlipidemia - Atorvastatin 10mg daily. * Congestive heart failure - Coreg 3.125mg bid, Lisinopril 2.5mg daily, Furosemide 20mg daily. * Hypertension - Coreg 3.125mg bid, Lisinopril 2.5mg daily. Allergies/Procedures Done in Hospital Allergies No Known Allergies Allergy (Verified 05/12/23 13:17) Procedures: None Type of Care/Length of Stay Estimated LOS: Convalescent Care Less Than 30 days Type of Care Needed: Intermediate Rehab Potential: Good Prognosis: Good Additional Orders/Day of Discharge Day of Discharge: 05/17/23 Dietary and Speech Recommendations Dietitian Recommendations/Changes: Continue liberal regular diet per res request Follow Up Care Please Follow Up With: Tashi Anna MD Please Follow Up With: Tashi Anna MD When: 6 weeks Discharge Plan Admission Admit Date/Time: 04/28/23 17:44 Primary Reason for Your Visit: Debility. Attending Provider: Chava Vidales Chi Primary Care Provider: Hesham Andrade Instructions Additional Instructions / Restrictions: DC 2/3 pending appeal, to [facility], intermediate, Medicaid pending, part B therapies OR remain skilled in TCU. Discharge Orders/Prescriptions Prescriptions: New acetaminophen 500 mg Tablet 1,000 mg PO Q6H PRN PRN (Reason: Pain Score 1-3) Qty: 0 0RF sennosides-docusate sodium [Stool Softener-Stimulant Laxat] 8.6-50 mg Tablet 2 tab PO BID Qty: 0 0RF doxepin 10 mg Capsule 10 mg PO QHS Qty: 0 0RF oxycodone 5 mg Tablet 5 mg PO Q4H PRN PRN (Reason: Pain Score 4-10) 3 Days Qty: 18 0RF Continued atorvastatin 10 mg tablet 10 mg PO DAILY Patient Comments: TAKE 1 TABLET (10 MG) BY MOUTH DAILY. carvedilol 3.125 mg tablet 3.125 mg PO BID Patient Comments: TAKE 1 TABLET BY MOUTH TWICE DIALY furosemide 20 mg tablet 20 mg PO DAILY Patient Comments: TAKE 1 TABLET BY MOUTH EVERY DAY lisinopril 2.5 mg tablet 2.5 mg PO DAILY Patient Comments: TAKE 1 TABLET BY MOUTH EVERY DAY Discontinued acetaminophen 325 mg Tablet 650 mg PO Q4H PRN PRN (Reason: Fever, pain 1-10/10) Qty: 0 0RF oxycodone 5 mg Tablet 2.5 - 5 mg PO Q4H PRN PRN (Reason: Pain Score 4-10) 3 Days Qty: 6 0RF Xarelto 10 mg Tablet 10 mg PO DINNER Qty: 0 0RF Referrals / Follow Up: Hesham Andrade DO [Primary Care Provider] - Tashi Anna MD [Med Staff - Active Staff] - 06/23/23 2:00 pm (*brother to transport) Disposition Disposition (needs filled in before D/C Order can be placed): NonSkilled NH/Int ermed Care
[2023-05-14] MEDS: Doxepin Hydrochloride 10 MG Capsule PO (22:01)
[2023-05-15] MEDS: Carvedilol 3.125 MG TABLET PO ×2 (08:19→16:26)
[2023-05-15] MEDS: Furosemide 20 MG Tablet PO (08:20)
[2023-05-15] MEDS: Atorvastatin Calcium 10 MG Tablet PO (08:20)
[2023-05-15] MEDS: Senna/Docusate Sodium 1 Tablet 2 TABLET PO (08:21)
[2023-05-15] MEDS: Lisinopril 2.5 MG Tablet PO (08:21)
[2023-05-15] MEDS: oxyCODONE 5 MG Tablet PO ×2 (11:53→21:00)
--- NOTE | 2023-05-15 13:44 | MDS.RN ---
Pain interview for mds completed.
[2023-05-15 16:00] VITALS: BP 123/76; PULSE 97; RESP 16; TEMP 36.9; O2SAT 95
[2023-05-15] MEDS: Rivaroxaban 10 MG Tablet PO (16:26)
[2023-05-15] MEDS: Doxepin Hydrochloride 10 MG Capsule PO (21:00)
[2023-05-16] MEDS: oxyCODONE 5 MG Tablet PO ×2 (08:48→22:30)
[2023-05-16] MEDS: Lisinopril 2.5 MG Tablet PO (08:49)
[2023-05-16] MEDS: Furosemide 20 MG Tablet PO (08:49)
[2023-05-16] MEDS: Carvedilol 3.125 MG TABLET PO ×2 (08:49→17:04)
[2023-05-16] MEDS: Atorvastatin Calcium 10 MG Tablet PO (08:49)
[2023-05-16] MEDS: Senna/Docusate Sodium 1 Tablet 2 TABLET PO (08:50)
--- NOTE | 2023-05-16 12:05 | CASEMGMT ---
Social Work BIMS () and PHQ-2 () completed for MDS assessment. Brother visiting with pt. SW confirmed with pt and brother, if pt loses appeal, pt will DC to [facility] and agreed to pay patient liability. Brother does want to wait all day Friday until an appeal outcome is given, but cannot pay OOP to stay longer for an outcome. Discussed pt DCing home, but pt is still unable to complete a flight of steps to enter the home. SW updated [facility]. Will continue to follow. Kezia Dominguez, MANAGER PHOTO APPRAISER
--- NOTE | 2023-05-16 15:21 | CASEMGMT ---
Social Work Received fax from [employer] - pt lost his appeal. SW left with brother, updated pt and [facility]. Kezia Dominguez CUSTOMER SERVICE ANALYST SOLE [employer]ER
[2023-05-16 16:00] VITALS: BP 118/56; PULSE 83; RESP 16; TEMP 37.1; O2SAT 95
[2023-05-16] MEDS: Rivaroxaban 10 MG Tablet PO (17:04)
[2023-05-16] MEDS: Doxepin Hydrochloride 10 MG Capsule PO (22:25)
[2023-05-16] MEDS: Acetaminophen 500 MG Tablet 1000 MG PO (22:30)
[2023-05-17 09:16] VITALS: BP 131/61; PULSE 94; RESP 18; O2SAT 98
[2023-05-17] MEDS: Lisinopril 2.5 MG Tablet PO (09:17)
[2023-05-17] MEDS: Acetaminophen 500 MG Tablet 1000 MG PO (09:17)
[2023-05-17] MEDS: Carvedilol 3.125 MG TABLET PO (09:17)
[2023-05-17] MEDS: Senna/Docusate Sodium 1 Tablet 2 TABLET PO (09:17)
[2023-05-17] MEDS: Furosemide 20 MG Tablet PO (09:18)
[2023-05-17] MEDS: Atorvastatin Calcium 10 MG Tablet PO (09:18)
[2023-05-17 10:10] VITALS: BP 119/61; PULSE 92; RESP 18; TEMP 36.6; O2SAT 97
--- NOTE | 2023-05-17 10:42 | NURSING ---
Pt discharges from facility with brother. [facility]
== END 2023-05-17 10:45 | disposition intermediate care facility (04) | DRG 561 ==
PROVIDERS: Admitting Provider Family Medicine Geriatric Medicine; PCP Family Medicine; Visit Provider Family Medicine Geriatric Medicine
DX: S72.141D Displaced intertrochanteric fracture of right femur, subsequent encounter for closed fracture with routine healing (principal); I11.0 Hypertensive heart disease with heart failure; I50.9 Heart failure, unspecified; E78.5 Hyperlipidemia, unspecified; W19.XXXD Unspecified fall, subsequent encounter; N40.0 Benign prostatic hyperplasia without lower urinary tract symptoms; Z79.899 Other long term (current) drug therapy; Z79.01 Long term (current) use of anticoagulants; G47.00 Insomnia, unspecified
CPT/HCPCS: 36415; 73502; 73590; 80048; 80076; 81001; 85025; 87077; 87086; 87088; 87186; 87811; 97110; 97116; 97162; 97166; 97530; 97535; 97802; A4216

== ENCOUNTER → 2023-05-08 | Outpatient (CLI) | payer MEDICARE, SELFPAY ==
--- NOTE | 2023-05-08 09:49 | VDLE_ITS ---
Reason For Study: pain RIGHT LEFT GSV is normal. CFV is compressible, spontaneous, phasic, CFV is compressible, spontaneous, phasic, competent, and demonstrates normal competent and demonstrates normal augmentation. augmentation. FV is compressible, spontaneous, phasic, competent and demonstrates normal augmentation. POP V is compressible, spontaneous, phasic, competent and demonstrates normal augmentation. T/P Trunk is compressible. PTV is compressible. RT PerV is compressible. Procedure Exam performed portable in patient room. This is a venous duplex using B-mode, color flow and spectral Doppler. The exam was diagnostic. A preliminary report was called and/or faxed to [facility]. VL/Venous Duplex US, Unilateral Interpretation Summary Deep veins of the right lower extremity are patent and compressible segmentally . There is no evidence of right lower extremity deep vein thrombosis. The right great sapheno us vein appears patent and compressible segmentally. Ordering Physician: Chava Vidales Chi Performed By: Jonah Mercer RVT
== END | disposition home or self-care (01) ==
LOC: CVS 09:47
PROVIDERS: PCP Family Medicine; Referring Provider Family Medicine Geriatric Medicine; Visit Provider Family Medicine Geriatric Medicine
DX: M79.661 Pain in right lower leg (principal)
CPT/HCPCS: 93971

== ENCOUNTER → 2023-05-19 | Outpatient (REF) | payer MEDICARE, MEDICAID, SELFPAY ==
[2023-05-19 08:22] LABS: Absolute Lymphocyte Count 1.26 X10^3/uL (0.83-4.51); Absolute Neutrophil Count 3.5 X10^3/uL (2.0-7.7); Basophil# 0.05 X10^3/uL; Basophil% 0.9 % (0-1); Eosinophil# 0.15 X10^3/uL; Eosinophils% 2.7 % (0-5); Hematocrit 38.1 % (40-54); Hemoglobin 12.1 g/dL (13.0-16.5); Lymphocyte # 1.26 X10^3/ul (0.83-4.51); Lymphocyte % 22.8 % (19-41); Mean Corp Hgb Conc 31.8 g/dL (32-36); Mean Corpuscular Hgb 28.9 pg (27.0-32.0); Mean Corpuscular Volume 91.1 fL (80-94); Mean Platelet Vol. 9.5 fl (6.2-12.0); Monocyte# 0.55 X10^3/uL; Monocyte% 9.9 % (0-10); NRBC Flagged by Analyzer 0 % (0-5); Neutrophil % 63.3 % (47-70); Platelet Count 429 K/mm3 (150-450); RBC Distribution Width SD 42.7 fl (35.1-43.9); Red Blood Count 4.18 M/mm3 (4.6-6.2); White Blood Count 5.5 K/mm3 (4.4-11.0)
[2023-05-19 08:42] LABS: Anion Gap 5 (5-15); BUN 15 mg/dL (7-18); BUN/Creat Ratio 16.4 RATIO (10-20); Calcium,Total 9.2 mg/dL (8.5-10.1); Chloride 105 mmol/L (98-107); Creatinine, Serum 0.92 mg/dL (0.70-1.30); EST Glomerular Filtration Rate 86 mL/min (>60); Est Glom Filt Rate - Afr Amer 104 mL/min (>60); Glucose 94 mg/dL (74-106); Magnesium 2.4 mg/dL (1.6-2.6); Potassium 3.6 mmol/L (3.5-5.1); Sodium Level 137 mmol/L (136-145)
[2023-05-19 12:01] LABS: Hemoglobin A1c 5.2 % (3.8-5.6)
== END ==
LOC: OLS.SW 05:00
PROVIDERS: PCP Family Medicine; Visit Provider Family Medicine
DX: Z79.899 Other long term (current) drug therapy
CPT/HCPCS: 36415; 80048; 83036; 83735; 85025

== ENCOUNTER 2023-08-05 08:07 | Inpatient (IN) | payer OTHER, SELFPAY ==
[2023-08-05] VITALS (15 sets, daily range): BP systolic 81–100; BP diastolic 47–67; PULSE 80–102; RESP 14–24; TEMP 36.2–37.1; O2SAT 90–99; BMI 24.6; BMI 25.2
--- NOTE | 2023-08-05 08:40 | ED.VIS.LOWEX ---
HPI History of Present Illness HPI Narrative: Patient presents with bleeding from his right hip that began today. Patient states he has been having some pain and swelling to his right hip over the past week. Patient states his pain is mild. Patient states it is worse with movement and ambulation. Patient states it is better with rest. Patient denies any recent trauma or injury. Patient did have surgery for a hip fracture 3 months ago. Patient states that he was standing today and felt some fluid going down his leg. Patient looked and noted the hip incision was open and bleeding. Patient denies any fevers or chills. Chief Complaint: Wound Check Informant: patient Onset/Context/Timing Onset: Weeks (1) Context: Gradual Onset Timing: Continuous Quality of Pain: Dull Location: Right hip Worsened by: Movement, ambulation Relieved by: Rest Associated Symptoms Associated Symptoms: Negative for Parasthesia, Weakness or Loss of [facility]untion [facility] History (Updated 08/05/23 @ 12:[address] Maninder Mercedes, DO) BPH (benign prostatic hyperplasia) Closed intertrochanteric fracture of right hip Heart failure HLD (hyperlipidemia) HTN (hypertension) Impaired wound healing Suprapubic catheter Home Medications atorvastatin 10 mg tablet 10 mg PO DAILY HLD 04/26/23 [History Last Taken 04/26/23 07:30] carvedilol 3.125 mg tablet 3.125 mg PO BID HTN, CHF 04/26/23 [History Last Taken 04/26/23 07:30] furosemide 20 mg tablet 20 mg PO DAILY HTN, CHF 04/26/23 [History Last Taken 04/26/23 07:30] lisinopril 2.5 mg tablet 2.5 mg PO DAILY HTN, CHF 04/26/23 [History Last Taken 04/26/23 07:30] acetaminophen 500 mg tablet 1,000 mg (2 x 500 mg) PO Q6H PRN PRN Pain Score 1-3 #0 tabs 05/14/23 [Rx Last Taken Unknown] doxepin 10 mg capsule 10 mg PO QHS #0 caps 05/14/23 [Rx Last Taken Unknown] sennosides 8.6 mg-docusate sodium 50 mg tablet (Stool Softener-Stimulant Laxative) 2 tab PO BID PRN constipation 08/05/23 [History Last Taken Unknown] Allergy/AdvReac Type Severity Reaction Status Date / Time No Known Allergies Allergy Verified 06/23/23 14:06 Family History Mother Heart disease Hypertension Heart failure Father Heart failure Hypertension Heart disease Surgical History (Updated 08/05/23 @ 09:[address] Maninder Mercedes DO) History of suprapubic catheter S/P ORIF (open reduction internal fixation) fracture S/P TURP Social History household members: other details: Lives with his brother. Smoking Status: Never smoker alcohol intake: current alcohol intake frequency: holidays/special occasions only substance use type: does not use ROS ROS ED Constitutional Constitutional ED: Reports chills and subjective; Denies fever(s) Eyes Eyes: Denies blurry vision or change in vision ENT ENT ED: Denies rhinorrhea or sore throat Cardiovascular Cardiovascular: Denies chest pain or palpitations Respiratory/Chest Respiratory/Chest: Denies cough or dyspnea Gastrointestinal Gastrointestinal: Denies nausea or vomiting Genitourinary Genitourinary ED: Denies dysuria or hematuria Musculoskeletal Musculoskeletal: Denies back pain or neck pain Integumentary Denies abscess or rash Neurologic Neurologic: Denies headache(s) or weakness Allergic/Immunologic Allergic/Immunologic ED: Denies mouth swelling or urticaria EXAM Physical Exam Const Vital Signs: 08/05/23 08:09 08/05/23 08:14 08/05/23 09:14 Temperature 98.4 F 98.4 F 98.1 F Temperature Source Temporal Temporal Temporal Pulse Rate 102 H 98 99 Respiratory Rate 14 14 14 Blood Pressure 98/59 L 95/55 L 81/47 L Blood Pressure Mean 72 68 58 Pulse Ox 94 93 94 Oxygen Delivery Method Room Air 08/05/23 10:00 08/05/23 11:00 08/05/23 12:00 Temperature 97.5 F L 98.6 F 97.2 F L Temperature Source Temporal Temporal Temporal Pulse Rate 89 89 88 Respiratory Rate 16 16 24 H Blood Pressure 89/57 L 82/52 L 81/48 L Blood Pressure Mean 67 62 59 Pulse Ox 90 93 93 Oxygen Delivery Method Room Air Room Air Room Air 08/05/23 12:20 08/05/23 13:00 08/05/23 14:00 Temperature 97.2 F L 97.3 F L 98 F Temperature Source Temporal Temporal Pulse Rate 84 85 80 Respiratory Rate 17 17 18 Blood Pressure 89/55 L 93/64 85/53 L Blood Pressure Mean 66 73 63 Pulse Ox 96 98 Oxygen Delivery Method Room Air Room Air 08/05/23 14:00 Temperature Temperature Source Pulse Rate 80 Respiratory Rate 18 Blood Pressure 85/53 L Blood Pressure Mean 63 Pulse Ox 98 Oxygen Delivery Method Room Air Positive well nourished and well developed General Appearance ED: well developed and NAD HEENT Reports moist mucous membranes Neck full ROM and supple Resp normal respiratory effort and clear to auscultation bilaterally Cardio regular rate and regular rhythm GI non-tender and non-distended Palpation: soft Extremity Extremity Narrative: The incision over the lateral aspect of the right hip has a 1 cm opening and a second 5 mm opening just distal to the other opening with active bleeding coming from the wound. There is mild surrounding erythema. There is no purulent discharge or drainage noted. Neuro oriented x3, CN's II-XII intact bilaterally, moves all extremities and no sensory deficits noted Sensorium / Orientation: alert Motor Exam: strength 5/5 throughout Psych mental status grossly normal MDM MDM MDM Narrative Medical decision making narrative: Differential diagnosis includes postoperative wound infection, sepsis, wound dehiscence, coagulopathy, prosthesis complication, and occult fracture. X-rays of the right hip will be obtained to assess for prosthesis complication and occult fracture. Chest x-ray will be obtained to assess for pneumonia. CBC will be obtained to assess for leukocytosis and anemia. Basic metabolic profile will be obtained to assess for electrolyte abnormality and renal function. PT with INR and PTT will be obtained to assess for coagulopathy. Serum lactate will be obtained to assess for sepsis. Urinalysis will be obtained to assess for urinary tract infection. Blood cultures will be obtained to assess for sepsis. Urine culture will be obtained to assess for urinary tract infection. Lab Data Attestation: I reviewed the patient's lab results. Lab results narrative: CBC was reviewed. Hemoglobin was slightly low at 11.2 and hematocrit was 34.2. This is stable compared to previous result. PT with INR and PTT were reviewed. Pro time was 17.1 and INR is 1.4. PTT was normal at 34. Basic metabolic profile was reviewed. BUN was slightly elevated at 36. Creatinine was normal at 1.25. Serum lactate was reviewed and was normal. Labs: Laboratory Results - last 24 hr 08/05/23 08/05/23 08:57 10:04 WBC 8.1 RBC 4.18 L Hgb 11.2 L Hct 34.2 L MCV 81.8 MCH 26.8 L MCHC 32.7 RDW Std Deviation 45.4 H RDW Coeff of Vicente 15.1 H Plt Count 319 MPV 10.1 Immature Gran % (Auto) 0.500 Neut % (Auto) 81.6 H Lymph % (Auto) 6.3 L Ross % (Auto) 9.9 Eos % (Auto) 1.2 Baso % (Auto) 0.5 Absolute Neuts (auto) 6.6 Absolute Lymphs (auto) 0.51 L Nucleated RBC % 0 PT 17.1 H INR 1.4 APTT 34.0 Sodium 135 L Potassium 3.3 L Chloride 101 Carbon Dioxide 27.0 Anion Gap 7 BUN 36 H Creatinine 1.25 Estim Creat Clear Calc 52.63 Est GFR (MDRD) Af Amer 73 Est GFR (MDRD) Non-Af 60 BUN/Creatinine Ratio 28.8 H Glucose 115 H Lactic Acid 1.5 Calcium 8.5 Urine Color Yellow Urine Clarity Sl. Cloudy Urine pH 7.0 Ur Specific [place] 1.010 Urine Protein 30 H Urine Glucose (UA) Normal Urine Ketones Negative Urine Occult Blood 50 H Urine Nitrite Negative Urine Bilirubin 1 H Urine Urobilinogen 4 H Ur Leukocyte Esterase 500 H Urine RBC 0-5 SEEN Urine WBC 25-50 SEEN Ur Squamous Epith Cells 0-5 SEEN Urine Bacteria 3+ Urine Mucus 0 SEEN Radiography Chest X-Ray - ED: 1 View, Read by ED Physician, Read by Radiologist, Chronic Changes and Left Infiltrate (Questionable left basilar atelectasis versus infiltrate) Diagnostic Testing: Clinical Impression(s) from Imaging Studies Chest X-Ray 08/05/23 09:15 IMPRESSION: Increased markings at the left lung base with blunting of the left costophrenic angle. This may represent either left basilar atelectasis and/or infiltrate. Follow-up recommended. Electronically Signed: Alvaro Sim MD at 9:47 EDT , Hip/Pelvis X-Ray 08/05/23 09:15 IMPRESSION: Stable examination with evidence of healing fracture of the right intertrochanteric fracture. Electronically Signed: Alvaro Sim MD at 9:44 EDT , X-rays of the right hip were obtained. There are 4 views. On my independent interpretation, there is no acute fracture. There is no loosening of the hardware. Radiologist also interpreted the x-ray and agrees. Portable 1 view chest x-ray was obtained. On my independent interpretation, lung lawson show increased markings at the left lung base with blunting of the left costophrenic angle. This may be represent atelectasis versus infiltrate. There is normal cardiac silhouette. Bony thorax is normal. Radiologist also interpreted the x-ray and agrees. Management Discussion w/another healthcare provider: Hospitalist and Call Or Contact Centre Coach (Dr. Anna from orthopedics) Treatment and Re-Evaluation Narrative: Patient was given IV fluids. Patient's blood pressure remains somewhat low. Patient was given a repeat bolus of normal saline. Patient was started on Zosyn. Patient was given a third bolus of normal saline. This was 500 cc. Is completed his 30 cc/kg bolus. Case was discussed with Dr. Anna from orthopedics. He was in to evaluate the patient. He does not feel the patient needs to go back to the operating room to have this closed. It does not look infected. He agrees with admission to the hospitalist service. Case was discussed with the hospitalist. He was in to evaluate the patient and felt that the patient's right lower leg was more swollen than the left. He recommended getting a venous duplex. This was ordered. Patient does have a DVT in the soleus vein. Patient's blood pressure was 92/58. He will admit the patient to PCU. Patient understood and was agreeable with the plan. All questions were answered. Discharge Plan Dx/Rx/DC Orders Clinical Impression: Urinary tract infection, Postoperative bleeding from incision, Hypotension Disposition Disposition: Located within [facility]
[2023-08-05] MEDS: 0.9% Normal Saline (1000mL) 1,000 ML 1000 ML IV ×3 (09:10→12:42)
--- NOTE | 2023-08-05 09:15 | RAD_ITS ---
STUDY: X-RAY CHEST REASON FOR EXAM: Male, 73 years old. Cough TECHNIQUE: Single AP portable view of the chest. COMPARISON: Comparison is made with prior study dated April 26, 2023. FINDINGS: EKG electrodes are seen. Stable elevation of the left hemidiaphragm. Mild increased markings at the left lung base suggestive of atelectasis and/or early infiltrate. There is blunting of the left costo phrenic angle. Normal size heart. Normal mediastinum and clifford. Normal visualized pulmonary arteries. There is atherosclerotic tortuosity of the aortic arch and descending thoracic aorta. Normal visualized thoracic spine. Normal visualized ribs, clavicles, and shoulders. There is no demonstrated abnormality of the visualized soft tissue structures of the upper abdomen. RAD/Chest 1 View (Portable) IMPRESSION: Increased markings at the left lung base with blunting of the left costophrenic angle. This may represent either left basilar atelectasis and/or infiltrate. Follow-up recommended. Electronically Signed: Alvaro Sim MD at 9:47 EDT ,
--- NOTE | 2023-08-05 09:15 | RAD_ITS ---
STUDY: X-RAY - PELVIS AND RIGHT HIP REASON FOR EXAM: Male, 73 years old. Injury/Pain TECHNIQUE: 3 views of the pelvis and hip. COMPARISON: Comparison is made with prior study dated June 23, 2023. FINDINGS: Moderate amount of fecal material is seen in the colon. Normal visualized soft tissue structures. There is narrowing with cortical sclerosis and osteophyte formation of the sacroiliac joint consistent with degenerative osteoarthritic changes. Normal bilateral superior and inferior pubic rami. Normal pubic symphysis. Normal bilateral ischial tuberosities. Once again, the patient is status post intramedullary rosalina fixation and femoral neck nail extending from the neck to the proximal femur. There is healing of the right intertrochanteric fracture. No acute abnormality is seen. RAD/HIP, UNI W/ Pelvis 2-3 Views IMPRESSION: Stable examination with evidence of healing fracture of the right intertrochanteric fracture. Electronically Signed: Alvaro Sim MD at 9:44 EDT ,
[2023-08-05 09:19] LABS: Absolute Lymphocyte Count 0.51 X10^3/uL (0.83-4.51); Absolute Neutrophil Count 6.6 X10^3/uL (2.0-7.7); Basophil# 0.04 X10^3/uL; Basophil% 0.5 % (0-1); Eosinophils% 1.2 % (0-5); Hematocrit 34.2 % (40-54); Hemoglobin 11.2 g/dL (13.0-16.5); Lymphocyte # 0.51 X10^3/ul (0.83-4.51); Lymphocyte % 6.3 % (19-41); Mean Corp Hgb Conc 32.7 g/dL (32-36); Mean Corpuscular Hgb 26.8 pg (27.0-32.0); Mean Corpuscular Volume 81.8 fL (80-94); Mean Platelet Vol. 10.1 fl (6.2-12.0); Monocyte% 9.9 % (0-10); NRBC Flagged by Analyzer 0 % (0-5); Neutrophil # 6.59 X10^3/uL (2.7-7.7); Neutrophil % 81.6 % (47-70); POSITIVE DIFFERENTIAL YES; Platelet Count 319 K/mm3 (150-450); RBC Distribution Width CV 15.1 % (11.6-14.6); RBC Distribution Width SD 45.4 fl (35.1-43.9); Red Blood Count 4.18 M/mm3 (4.6-6.2); White Blood Count 8.1 K/mm3 (4.4-11.0)
[2023-08-05 09:33] LABS: Anion Gap 7 (5-15); BUN 36 mg/dL (7-18); BUN/Creat Ratio 28.8 RATIO (10-20); Calcium,Total 8.5 mg/dL (8.5-10.1); Chloride 101 mmol/L (98-107); Creatinine, Serum 1.25 mg/dL (0.70-1.30); EST Glomerular Filtration Rate 60 mL/min (>60); Est Glom Filt Rate - Afr Amer 73 mL/min (>60); Estimated Creatinine Clearance 52.63 ml/min; Glucose 115 mg/dL (74-106); Potassium 3.3 mmol/L (3.5-5.1); Sodium Level 135 mmol/L (136-145)
[2023-08-05 09:48] LABS: International Normalized Ratio 1.4; Lactic Acid 1.5 mmol/L (0.4-1.9); Prothrombin Time (Protime)PT. 17.1 SECONDS (11.7-14.9)
[2023-08-05 10:19] LABS: Mucous, Urine 0 SEEN /hpf (<or=2+)
[2023-08-05 10:54] LABS: Color, Urine Yellow (Yellow); Glucose, Dipstick Normal (Normal); Ketone-Dipstick Negative (Negative); Leukocyte Esterase-Dipstick 500 /ul (Negative); Nitrite-Dipstick Negative (Negative); Occult Blood-Urine 50 /ul (Negative); Protein-Dipstick 30 mg/dl (Negative); Urine Clarity Sl. Cloudy (Clear); Urine Urobilinogen 4 mg/dl (Normal)
[2023-08-05 11:06] LABS: Urine Bilirubin Dipstick 1 mg/dL (Negative)
[2023-08-05 11:09] LABS: Bacteria 3+ /hpf (None Seen); Red Blood Cells-Urine 0-5 SEEN /hpf (0-5); Squamous Epithelial Cells - UA 0-5 SEEN /hpf (0-5); White Blood Cells 25-50 SEEN /hpf (0-5)
[2023-08-05] MEDS: Piperacil/Tazobactam 4.5 GM in 0.9% Normal Saline (100mL MB+) 100 ML IV (11:28)
--- NOTE | 2023-08-05 12:14 | CONS.ORTHO ---
HPI Consult Data Date of Consult: 08/05/23 HPI Narrative HPI Narrative: KAUSHIK MARINELLI, is a 73 M who presents 3 months postop right hip intramedullary nailing for intertrochanteric hip fracture. Patient states he has had about a week of swelling and then just today the incision opened up proximally and drained out quite a bit of blood. No pus no fevers did feel little bit of chills over the last couple days denies trauma but the patient does have a UTI today. Not having any difficulty ambulating. He has not said that he is doing anything out of the ordinary. [facility] Medical History (Updated 08/05/23 @ 12:17 by Tashi Anna MD) BPH (benign prostatic hyperplasia) Closed intertrochanteric fracture of right hip Heart failure HLD (hyperlipidemia) HTN (hypertension) Impaired wound healing Suprapubic catheter Home Medications atorvastatin 10 mg tablet 10 mg PO DAILY HLD 04/26/23 [History Last Taken 04/26/23 07:30] carvedilol 3.125 mg tablet 3.125 mg PO BID HTN, CHF 04/26/23 [History Last Taken 04/26/23 07:30] furosemide 20 mg tablet 20 mg PO DAILY HTN, CHF 04/26/23 [History Last Taken 04/26/23 07:30] lisinopril 2.5 mg tablet 2.5 mg PO DAILY HTN, CHF 04/26/23 [History Last Taken 04/26/23 07:30] acetaminophen 500 mg tablet 1,000 mg (2 x 500 mg) PO Q6H PRN PRN Pain Score 1-3 #0 tabs 05/14/23 [Rx Last Taken Unknown] doxepin 10 mg capsule 10 mg PO QHS #0 caps 05/14/23 [Rx Last Taken Unknown] sennosides 8.6 mg-docusate sodium 50 mg tablet (Stool Softener-Stimulant Laxative) 2 tab PO BID PRN constipation 08/05/23 [History Last Taken Unknown] Allergy/AdvReac Type Severity Reaction Status Date / Time No Known Allergies Allergy Verified 06/23/23 14:06 Family History Mother Heart disease Hypertension Heart failure Father Heart failure Hypertension Heart disease Surgical History (Updated 08/05/23 @ 09:[address] Maninder Mercedes, DO) History of suprapubic catheter S/P ORIF (open reduction internal fixation) fracture S/P TURP Social History household members: other details: Lives with his brother. Smoking Status: Never smoker alcohol intake: current alcohol intake frequency: holidays/special occasions only substance use type: does not use Vital Signs Vital Signs Vital Signs: 08/05/23 08:09 08/05/23 08:14 08/05/23 09:14 Temperature 98.4 F 98.4 F 98.1 F Temperature Source Temporal Temporal Temporal Pulse Rate 102 H 98 99 Respiratory Rate 14 14 14 Blood Pressure 98/59 L 95/55 L 81/47 L Blood Pressure Mean 72 68 58 Pulse Ox 94 93 94 Oxygen Delivery Method Room Air 08/05/23 10:00 08/05/23 11:00 08/05/23 12:00 Temperature 97.5 F L 98.6 F 97.2 F L Temperature Source Temporal Temporal Temporal Pulse Rate 89 89 88 Respiratory Rate 16 16 24 H Blood Pressure 89/57 L 82/52 L 81/48 L Blood Pressure Mean 67 62 59 Pulse Ox 90 93 93 Oxygen Delivery Method Room Air Room Air Room Air Weight Weight: 166 lb 14.239 oz Body Mass Index (BMI) 24.6 Physical Exam Const alert and no apparent distress General Appearance: cooperative; Negative for well developed Extremity Extremity Narrative: At the proximal end of the hip on the lateral side where the incision was looks to be opened up and 2 small areas 1 about a centimeter and a half and 1 about a centimeter. This is draining blood but it is slow down after express a little bit of more darker and looks like old hematoma and serous fluid. There is no white purulent material draining out otherwise the edges of the incision look good normal no redness warmth or any other concern but there is a firmness around there it feels like a old hematoma on the lateral proximal aspect of the thigh and just anterior to this. Otherwise limb is neurovascularly intact normal sensation the foot foot is warm and well-perfused able to dorsiflex and plantarflex the foot. Lab / Micro Data 08/05/23 08:57 08/05/23 08:57 Labs: Laboratory Results - last 24 hr 08/05/23 08:57: WBC 8.1, RBC 4.18 L, Hgb 11.2 L, Hct 34.2 L, MCV 81.8, MCH 26.8 L, MCHC 32.7, RDW Std Deviation 45.4 H, RDW Coeff of Vicente 15.1 H, Plt Count 319, MPV 10.1, Immature Gran % (Auto) 0.500, Neut % (Auto) 81.6 H, Lymph % (Auto) 6.3 L, [place] % (Auto) 9.9, Eos % (Auto) 1.2, Baso % (Auto) 0.5, Absolute Neuts (auto) 6.6, Absolute Lymphs (auto) 0.51 L, Nucleated RBC % 0, PT 17.1 H, INR 1.4, APTT 34.0, Sodium 135 L, Potassium 3.3 L, Chloride 101, Carbon Dioxide 27.0, Anion Gap 7, BUN 36 H, Creatinine 1.25, Estim Creat Clear Calc 52.63, Est GFR (MDRD) Af Amer 73, Est GFR (MDRD) Non-Af 60, BUN/Creatinine Ratio 28.8 H, Glucose 115 H, Lactic Acid 1.5, Calcium 8.5 08/05/23 10:04: Urine Color Yellow, Urine Clarity Sl. Cloudy, Urine pH 7.0, Ur Specific [place] 1.010, Urine Protein 30 H, Urine Glucose (UA) Normal, Urine Ketones Negative, Urine Occult Blood 50 H, Urine Nitrite Negative, Urine Bilirubin 1 H, Urine Urobilinogen 4 H, Ur Leukocyte Esterase 500 H, Urine RBC 0-5 SEEN, Urine WBC 25-50 SEEN, Ur Squamous Epith Cells 0-5 SEEN, Urine Bacteria 3+, Urine Mucus 0 SEEN Imaging Radiology Impression Chest X-Ray 08/05/23 09:15 IMPRESSION: Increased markings at the left lung base with blunting of the left costophrenic angle. This may represent either left basilar atelectasis and/or infiltrate. Follow-up recommended. Electronically Signed: Alvaro Sim MD at 9:47 EDT , Hip/Pelvis X-Ray 08/05/23 09:15 IMPRESSION: Stable examination with evidence of healing fracture of the right intertrochanteric fracture. Electronically Signed: Alvaro Sim MD at 9:44 EDT , I independently reviewed the imaging. Concur with radiologist report. The fracture looks healed the nail appears well aligned. Assessment & Plan Assessment/Plan (1) Closed intertrochanteric fracture of right hip: PLAN: 73-year-old man with a what looks to be a hematoma and opened up a surgical wound at the proximal end of the right hip. The fracture appears healed the nail appears stable. There is no signs of an active infection the white blood cell count is 8 he does have positive urinary findings a UTI he will be treated for that. We will have him admitted under the hospitalist service. I would not recommend any acute irrigation debridement I think this is more consistent with the patient likely had a fall about a week ago and some confusion I think and then due to the slowly expanding hematoma with his INR of 1.4 eventually that put some pressure on the incision that despite being healed was obviously the weak part of the upper end of the hip and then this had a dehiscence today over 3 months out from surgery. We will use some ABD dressings on this today so that it drains out and then tomorrow I will consider bedside debridement and/or closure. For now the patient can be weightbearing as tolerated diet as tolerated and dressing changes as needed. (2) Impaired wound healing:
[2023-08-05] MEDS: 0.9% Normal Saline (500mL Bag) 500 ML 1000 ML IV (12:19)
[2023-08-05] MEDS: Potassium Chloride Oral Tablet 20 MEQ 60 MEQ PO (12:42)
--- NOTE | 2023-08-05 13:42 | VDLE_ITS ---
Reason For Study: sweelling RIGHT LEFT GSV is normal. CFV is compressible, spontaneous, competent, CFV is compressible, spontaneous, competent and demonstrates pulsatile venous flow. and demonstrates pulsatile venous flow. FV is compressible, spontaneous, competent and demonstrates pulsatile venous flow. POP V is compressible, spontaneous, competent and demonstrates pulsatile venous flow. T/P Trunk is compressible. PTV is compressible. RT PerV is compressible. Acute deep vein thrombosis is noted in the right soleus vein. Procedure This is a venous duplex using B-mode, color flow and spectral Doppler. Exam performed portable in ED. The exam was diagnostic. A preliminary report was called and/or faxed to Dr. Mercedes. VL/Venous Duplex US, Unilateral Interpretation Summary Acute deep vein thrombosis is noted in the right soleus vein. Ordering Physician: Maninder Mercedes Performed By: Moy Mercer RVT and Student
[2023-08-05] MEDS: 0.9% Normal Saline (1000mL) 1,000 ML 100 ML IV (17:06)
[2023-08-05] MEDS: Ceftriaxone 1 GM/50 ML BAG IV (17:06)
--- NOTE | 2023-08-05 19:19 | HP.PCM.HOS_ITS ---
HPI - General General Date of Admission: 08/05/23 Date of Service: 08/05/23 Chief Complaint: Bleeding from previous surgery site HPI Narrative KAUSHIK MARINELLI, is a 73 M who presents to the emergency room at [facility] with concerns of bleeding from a previous surgical incision site from a hip fracture repair which had been done in April of this year. Workup in the emergency room included a UA which appeared to indicate a urinary tract infection-patient has a chronic suprapubic Gerardo catheter, patient's white blood cell count was normal at 8.1 and his hemoglobin was 11.2. Chemistry profile was remarkable for potassium of 3.3, patient's surgery site on his right hip area was draining a small amount of blood, patient's orthopedic surgeon was contacted and he came over to inspect the wound area and did not feel that the area was infected and he did not recommend any acute irrigation or debridement of the area. He felt that perhaps the bleeding was coming from a fall the patient sustained a week ago and the patient had a hematoma in the area. It was noted that the patient's blood pressure was low in the emergency room and he was given a bolus of several liters of fluid with partial response and elevating his blood pressure. Patient will be admitted to PCU for hypotension and acute cystitis, patient was given Zosyn and I will continue this in the hospital. Patient will continue fluid administration. [facility] Medical History (Updated 08/05/23 @ 15:[address] Maninder Mercedes, DO) BPH (benign prostatic hyperplasia) Closed intertrochanteric fracture of right hip Heart failure HLD (hyperlipidemia) HTN (hypertension) Impaired wound healing Suprapubic catheter Home Medications atorvastatin 10 mg tablet 10 mg PO DAILY HLD 04/26/23 [History Last Taken 08/05/23 08:00] carvedilol 3.125 mg tablet 3.125 mg PO BID HTN, CHF 04/26/23 [History Last Taken 08/05/23 08:00] furosemide 20 mg tablet 20 mg PO DAILY HTN, CHF 04/26/23 [History Last Taken 08/05/23 08:00] sennosides 8.6 mg-docusate sodium 50 mg tablet (Stool Softener-Stimulant Laxative) 2 tab PO BID PRN constipation 08/05/23 [History Last Taken Unknown] Allergy/AdvReac Type Severity Reaction Status Date / Time No Known Allergies Allergy Verified 06/23/23 14:06 Family History Mother Heart disease Hypertension Heart failure Father Heart failure Hypertension Heart disease Surgical History (Updated 08/05/23 @ 09:[address] Maninder Mercedes DO) History of suprapubic catheter S/P ORIF (open reduction internal fixation) fracture S/P TURP Social History household members: other details: Lives with his brother. Smoking Status: Never smoker alcohol intake: current alcohol intake frequency: holidays/special occasions only substance use type: does not use ROS Constitutional Constitutional: Reports chills, fatigue and weakness; Denies anorexia, change in weight, fever(s) or night sweats Eyes Eyes: Denies blurry vision, change in vision, discharge from eye(s) or eye pain Cardiovascular Cardiovascular: Denies chest pain, claudication, dyspnea on exertion, edema or palpitations Respiratory/Chest Respiratory/Chest: Denies cough, hemoptysis, shortness of breath at rest or shortness of breath with exertion Gastrointestinal Gastrointestinal: Denies abdominal pain, constipation, diarrhea, hematemesis, hematochezia, melena, nausea or vomiting Genitourinary Genitourinary: Denies dysuria, hematuria, urinary frequency, urinary hesitancy, urinary incontinence or urinary urgency Musculoskeletal Musculoskeletal: Denies back pain, joint pain, joint stiffness, joint swelling, myalgias or neck pain Neurologic Neurologic: Denies abnormal gait, abnormal speech, dizziness, focal weakness, headache(s), loss of vision, numbness, other visual disturbances, paresthesias, syncope or tingling Psychiatric Psychiatric: Denies anxiety, cognitive impairment, depression, irritability, mood swings or suicidal ideation Endocrine Endocrinology: Denies change in body appearance, cold intolerance, excessive sweating, heat intolerance, polydipsia or polyuria Hematologic/Lymphatic Hematologic/Lymphatic: Denies none, anemia, easy bleeding, easy bruising or lymphadenopathy Allergic/Immunologic Allergic/Immunologic: Denies rhinitis, urticaria, eczemia or asthma Vital Signs Vital Signs Vital Signs: 08/05/23 08:09 08/05/23 08:14 08/05/23 09:14 Temperature 98.4 F 98.4 F 98.1 F Temperature Source Temporal Temporal Temporal Pulse Rate 102 H 98 99 Respiratory Rate 14 14 14 Respiratory Effort Respiratory Depth Respiratory Pattern Blood Pressure 98/59 L 95/55 L 81/47 L Blood Pressure Mean 72 68 58 Blood Pressure Source Blood Pressure Position Blood Pressure Location Pulse Ox 94 93 94 Oxygen Delivery Method Room Air 08/05/23 10:00 08/05/23 11:00 08/05/23 12:00 Temperature 97.5 F L 98.6 F 97.2 F L Temperature Source Temporal Temporal Temporal Pulse Rate 89 89 88 Respiratory Rate 16 16 24 H Respiratory Effort Respiratory Depth Respiratory Pattern Blood Pressure 89/57 L 82/52 L 81/48 L Blood Pressure Mean 67 62 59 Blood Pressure Source Blood Pressure Position Blood Pressure Location Pulse Ox 90 93 93 Oxygen Delivery Method Room Air Room Air Room Air 08/05/23 12:20 08/05/23 13:00 08/05/23 14:00 Temperature 97.2 F L 97.3 F L 98 F Temperature Source Temporal Temporal Pulse Rate 84 85 80 Respiratory Rate 17 17 18 Respiratory Effort Respiratory Depth Respiratory Pattern Blood Pressure 89/55 L 93/64 85/53 L Blood Pressure Mean 66 73 63 Blood Pressure Source Blood Pressure Position Blood Pressure Location Pulse Ox 96 98 Oxygen Delivery Method Room Air Room Air 08/05/23 14:00 08/05/23 15:00 08/05/23 16:28 Temperature 97.6 F L Temperature Source Temporal Pulse Rate 80 83 Respiratory Rate 18 16 Respiratory Effort Normal Non-Labored Respiratory Depth Normal Respiratory Pattern Normal Blood Pressure 85/53 L 92/60 Blood Pressure Mean 63 70 Blood Pressure Source Blood Pressure Position Blood Pressure Location Pulse Ox 98 94 Oxygen Delivery Method Room Air Room Air Room Air 08/05/23 16:55 08/05/23 17:00 08/05/23 18:06 Temperature 97.4 F L 97.4 F L 98.7 F Temperature Source Oral Oral Oral Pulse Rate 80 80 85 Respiratory Rate 20 H 18 16 Respiratory Effort Respiratory Depth Respiratory Pattern Blood Pressure 87/61 L 97/61 91/65 Blood Pressure Mean 69 73 73 Blood Pressure Source Monitor Blood Pressure Position Semi-Fowlers Blood Pressure Location Right Arm Pulse Ox 97 97 98 Oxygen Delivery Method Room Air Room Air Room Air Weight Weight: 77.6 kg Body Mass Index (BMI) 25.2 Physical Exam Const alert, oriented x3 and no apparent distress Constitutional Narrative: Patient appears a stated age General Appearance: cooperative, well kempt and well developed Orientation / Consciousness: awake, oriented to person, oriented to place and oriented to time HEENT normocephalic, head/scalp atraumatic and moist oral mucous membranes Eyes PERRL, EOMs intact bilaterally and conjunctivae normal Neck supple, no JVD, thyroid normal and no carotid bruits General: trachea midline Resp normal respiratory effort and clear to auscultation bilaterally Auscultation: Negative for rales, rhonchi or wheezes Cardio regular rate, regular rhythm, no murmurs, no rub and no gallops GI normal to inspection, nondistended, normoactive bowel sounds, soft to palpation, non-tender and non-distended Extremity Extremity Narrative: Patient's right leg has generalized edema present, there is no redness present Skin no rashes or lesions noted General Skin Exam: no breakdown Neuro oriented x3, CN's II-XII intact bilaterally, moves all extremities, no focal motor deficits and no sensory deficits noted Sensorium / Orientation: awake and alert Speech: speech normal Psych affect normal Results Lab / Micro Data 08/05/23 08:57 08/05/23 08:57 Labs: Laboratory Results - last 24 hr 08/05/23 08:57: WBC 8.1, RBC 4.18 L, Hgb 11.2 L, Hct 34.2 L, MCV 81.8, MCH 26.8 L, MCHC 32.7, RDW Std Deviation 45.4 H, RDW Coeff of Vicente 15.1 H, Plt Count 319, MPV 10.1, Immature Gran % (Auto) 0.500, Neut % (Auto) 81.6 H, Lymph % (Auto) 6.3 L, [place] % (Auto) 9.9, Eos % (Auto) 1.2, Baso % (Auto) 0.5, Absolute Neuts (auto) 6.6, Absolute Lymphs (auto) 0.51 L, Nucleated RBC % 0, PT 17.1 H, INR 1.4, APTT 34.0, Sodium 135 L, Potassium 3.3 L, Chloride 101, Carbon Dioxide 27.0, Anion Gap 7, BUN 36 H, Creatinine 1.25, Estim Creat Clear Calc 52.63, Est GFR (MDRD) Af Amer 73, Est GFR (MDRD) Non-Af 60, BUN/Creatinine Ratio 28.8 H, Glucose 115 H , Lactic Acid 1.5, Calcium 8.5 08/05/23 10:04: Urine Color Yellow, Urine Clarity Sl. Cloudy, Urine pH 7.0, Ur Specific [place] 1.010, Urine Protein 30 H, Urine Glucose (UA) Normal, Urine Ketones Negative, Urine Occult Blood 50 H, Urine Nitrite Negative, Urine Bilirubin 1 H, Urine Urobilinogen 4 H, Ur Leukocyte Esterase 500 H, Urine RBC 0- 5 SEEN, Urine WBC 25-50 SEEN, Ur Squamous Epith Cells 0-5 SEEN, Urine Bacteria 3+, Urine Mucus 0 SEEN Imaging Radiology Impression Chest X-Ray 08/05/23 09:15 IMPRESSION: Increased markings at the left lung base with blunting of the left costophrenic angle. This may represent either left basilar atelectasis and/or infiltrate. Follow-up recommended. Electronically Signed: Alvaro Sim MD at 9:47 EDT , Hip/Pelvis X-Ray 08/05/23 09:15 IMPRESSION: Stable examination with evidence of healing fracture of the right intertrochanteric fracture. Electronically Signed: Alvaro Sim MD at 9:44 EDT , Venous Doppler Study 08/05/23 13:42 Interpretation Summary Acute deep vein thrombosis is noted in the right soleus vein. Ordering Physician: Maninder Mercedes Performed By: Moy Mercer RVT and Student Assessment & Plan Assessment/Plan (1) Postoperative bleeding from incision: PLAN: Plan 1. 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
[2023-08-05] MEDS: Atorvastatin Calcium 10 MG Tablet PO (21:07)
[2023-08-05] MEDS: MELATONIN 3 MG TABLET 6 MG PO (21:07)
[2023-08-05 21:10] LABS: Absolute Lymphocyte Count 0.58 X10^3/uL (0.83-4.51); Absolute Neutrophil Count 4.3 X10^3/uL (2.0-7.7); Basophil# 0.04 X10^3/uL; Basophil% 0.7 % (0-1); Eosinophil# 0.12 X10^3/uL; Eosinophils% 2.1 % (0-5); Hematocrit 31.1 % (40-54); Hemoglobin 9.9 g/dL (13.0-16.5); Lymphocyte # 0.58 X10^3/ul (0.83-4.51); Lymphocyte % 10.1 % (19-41); Mean Corp Hgb Conc 31.8 g/dL (32-36); Mean Corpuscular Hgb 26.3 pg (27.0-32.0); Mean Corpuscular Volume 82.7 fL (80-94); Mean Platelet Vol. 9.9 fl (6.2-12.0); Monocyte# 0.68 X10^3/uL; Monocyte% 11.8 % (0-10); NRBC Flagged by Analyzer 0 % (0-5); Neutrophil # 4.29 X10^3/uL (2.7-7.7); Neutrophil % 74.6 % (47-70); POSITIVE DIFFERENTIAL YES; POSITIVE MORPHOLOGY YES; Platelet Count 282 K/mm3 (150-450); RBC Distribution Width CV 15.2 % (11.6-14.6); RBC Distribution Width SD 46.3 fl (35.1-43.9); Red Blood Count 3.76 M/mm3 (4.6-6.2); White Blood Count 5.8 K/mm3 (4.4-11.0)
[2023-08-05 21:11] LABS: Differential Indicated SCAN CRITERIA MET
[2023-08-05 21:42] LABS: Differential Comment SCANNED
[2023-08-05 21:43] LABS: Crenated RBC 2+
[2023-08-06] MEDS: 0.9% Normal Saline (1000mL) 1,000 ML 100 ML IV ×3 (03:05→22:46)
[2023-08-06 07:06] LABS: Absolute Lymphocyte Count 0.85 X10^3/uL (0.83-4.51); Absolute Neutrophil Count 4.5 X10^3/uL (2.0-7.7); Basophil# 0.06 X10^3/uL; Basophil% 0.9 % (0-1); Eosinophil# 0.19 X10^3/uL; Eosinophils% 2.9 % (0-5); Hematocrit 30.7 % (40-54); Lymphocyte # 0.85 X10^3/ul (0.83-4.51); Lymphocyte % 12.9 % (19-41); Mean Corp Hgb Conc 32.6 g/dL (32-36); Mean Corpuscular Hgb 26.7 pg (27.0-32.0); Mean Corpuscular Volume 81.9 fL (80-94); Mean Platelet Vol. 10.4 fl (6.2-12.0); Monocyte% 15.1 % (0-10); NRBC Flagged by Analyzer 0 % (0-5); Neutrophil # 4.46 X10^3/uL (2.7-7.7); Neutrophil % 67.4 % (47-70); Platelet Count 289 K/mm3 (150-450); RBC Distribution Width CV 15.1 % (11.6-14.6); RBC Distribution Width SD 44.9 fl (35.1-43.9); Red Blood Count 3.75 M/mm3 (4.6-6.2); White Blood Count 6.6 K/mm3 (4.4-11.0)
--- NOTE | 2023-08-06 07:35 | PN.ORTHO_ITS ---
Subjective Subjective Doing well, no concerns. PAD 1 right hip hematoma, drainage. Objective Data Objective Data Vital Signs: Vital Signs Temp Pulse Resp BP Pulse Ox O2 Del Method 98.0 F 91 16 100/67 99 Room Air 08/05/23 21:10 08/05/23 21:10 08/05/23 21:10 08/05/23 21:10 08/05/23 21:10 08/06/23 06:35 Oxygen Delivery Method Room Air Weight: 171 lb 1.259 oz Body Mass Index (BMI) 25.2 Intake & Output: Intake and Output for Last 24 Hours 08/04/23 08/05/23 08/06/23 23:59 23:59 23:59 Intake Total 3908.33 / 4148.33 1386.67 / 1386.67 Output Total 0 / 500 900 / 900 Balance 3908.33 / 3648.33 486.67 / 486.67 Lab / Micro Data Attestation: I reviewed the patient's lab results. 08/06/23 06:35 08/05/23 08:57 Labs: Laboratory Results - last 24 hr 08/05/23 08:57: WBC 8.1, RBC 4.18 L, Hgb 11.2 L, Hct 34.2 L, MCV 81.8, MCH 26.8 L, MCHC 32.7, RDW Std Deviation 45.4 H, RDW Coeff of Vicente 15.1 H, Plt Count 319, MPV 10.1, Immature Gran % (Auto) 0.500, Neut % (Auto) 81.6 H, Lymph % (Auto) 6.3 L, Carbon % (Auto) 9.9, Eos % (Auto) 1.2, Baso % (Auto) 0.5, Absolute Neuts (auto) 6.6, Absolute Lymphs (auto) 0.51 L, Nucleated RBC % 0, PT 17.1 H, INR 1.4, APTT 34.0, Sodium 135 L, Potassium 3.3 L, Chloride 101, Carbon Dioxide 27.0, Anion Gap 7, BUN 36 H, Creatinine 1.25, Estim Creat Clear Calc 52.63, Est GFR (MDRD) Af Amer 73, Est GFR (MDRD) Non-Af 60, BUN/Creatinine Ratio 28.8 H, Glucose 115 H , Lactic Acid 1.5, Calcium 8.5 08/05/23 10:04: Urine Color Yellow, Urine Clarity Sl. Cloudy, Urine pH 7.0, Ur Specific [place] 1.010, Urine Protein 30 H, Urine Glucose (UA) Normal, Urine Ketones Negative, Urine Occult Blood 50 H, Urine Nitrite Negative, Urine Bilirubin 1 H, Urine Urobilinogen 4 H, Ur Leukocyte Esterase 500 H, Urine RBC 0- 5 SEEN, Urine WBC 25-50 SEEN, Ur Squamous Epith Cells 0-5 SEEN, Urine Bacteria 3+, Urine Mucus 0 SEEN 08/05/23 20:55: WBC 5.8, RBC 3.76 L, Hgb 9.9 L, Hct 31.1 L, MCV 82.7, MCH 26.3 L , MCHC 31.8 L, RDW Std Deviation 46.3 H, RDW Coeff of Vicente 15.2 H, Plt Count 282, MPV 9.9, Immature Gran % (Auto) 0.700, Neut % (Auto) 74.6 H, Lymph % (Auto) 10.1 L, Carbon % (Auto) 11.8 H, Eos % (Auto) 2.1, Baso % (Auto) 0.7, Absolute Neuts (auto) 4.3, Absolute Lymphs (auto) 0.58 L, Nucleated RBC % 0, Differential Comment SCANNED, Crenated Cell 2+ 08/06/23 06:35: WBC 6.6, RBC 3.75 L, Hgb 10.0 L, Hct 30.7 L, MCV 81.9, MCH 26.7 L, MCHC 32.6, RDW Std Deviation 44.9 H, RDW Coeff of Vicente 15.1 H, Plt Count 289, MPV 10.4, Immature Gran % (Auto) 0.800, Neut % (Auto) 67.4, Lymph % (Auto) 12.9 L, Carbon % (Auto) 15.1 H, Eos % (Auto) 2.9, Baso % (Auto) 0.9, Absolute Neuts (au to) 4.5, Absolute Lymphs (auto) 0.85, Nucleated RBC % 0 Radiography Diagnostic Testing: Radiology Impression Chest X-Ray 08/05/23 09:15 IMPRESSION: Increased markings at the left lung base with blunting of the left costophrenic angle. This may represent either left basilar atelectasis and/or infiltrate. Follow-up recommended. Electronically Signed: Alvaro Sim MD at 9:47 EDT , Hip/Pelvis X-Ray 08/05/23 09:15 IMPRESSION: Stable examination with evidence of healing fracture of the right intertrochanteric fracture. Electronically Signed: Alvaro Sim MD at 9:44 EDT , Venous Doppler Study 08/05/23 13:42 Interpretation Summary Acute deep vein thrombosis is noted in the right soleus vein. Ordering Physician: Maninder Mercedes Performed By: Moy Mercer RVT and Student Physical Exam Narrative alert appropriate. pressure dressing. taken down, smaller ulcer area, closing. less drainage today. nvi. no redness or warmth, just bloody drainage on the dressing. Assessment & Plan Assessment/Plan (1) Impaired wound healing: PLAN: 73 yr M with hematoma right hip. Spoke with hospitalist on yesterday and nurse Lily, asked to hold eliquis, despite DVT would recommend to continue to hold that until bleeding from hip stops and wound closes, then ok to treat the DVT. If more than a couple days, hospitalist recommended to consider olman filter. Will leave that up to hospitalist team, but from ortho persepctive his bleeding should take priority. Will continue pressure dressings. HG stabilized this AM after a drop. OK for PAULY, no immediate plans for OR. (2) Postoperative bleeding from incision:
[2023-08-06 08:08] LABS: Anion Gap 4 (5-15); BUN 30 mg/dL (7-18); BUN/Creat Ratio 31.5 RATIO (10-20); Calcium,Total 8.4 mg/dL (8.5-10.1); Chloride 112 mmol/L (98-107); Creatinine, Serum 0.95 mg/dL (0.70-1.30); EST Glomerular Filtration Rate 82 mL/min (>60); Est Glom Filt Rate - Afr Amer 100 mL/min (>60); Estimated Creatinine Clearance 69.25 ml/min; Glucose 106 mg/dL (74-106); Potassium 3.8 mmol/L (3.5-5.1); Sodium Level 139 mmol/L (136-145)
[2023-08-06 10:31] VITALS: BP 103/69; PULSE 102; RESP 17; TEMP 36.6; O2SAT 95
[2023-08-06] MEDS: Ceftriaxone 2 GM in 0.9% Normal Saline (50mL MB+) 50 ML IV (10:33)
--- NOTE | 2023-08-06 14:54 | CHAPLAIN ---
Type of Pastoral Visit _x__ Initial Visit ___ Follow-up Visit ___ On-call Visit ___ General Patient Visit ___ Spiritual Assessment ___ Family Conference ___ Bereavement ___ Rapid Response ___ Code Blue ___ Other (describe below) Pastoral Care Referral From _x__ Patient ___ Family ___ Nurse ___ Physician ___ Carbonation Equipment Tender ___ Oil Lease Operator ___ Other (describe below) Sacrament/Intervention _x__ Active listening ___ Anointing ___ Mandaen ___ Bereavement ___ Communion ___ Kanchan exploration ___ _x__ Life review _x__ Prayer ___ Reconciliation ___ Sacrament of Sick _x__ Supportive presence ___ Wedding ___ Other (describe below) Pastoral Comments 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
--- NOTE | 2023-08-06 15:02 | CASEMGMT ---
ERIK EWING Assessment: Face to Face with pt for initial transition planning/care coordination assessment. RN KAYLIN introduced self and role at [facility], pt voices understanding and consents to assessment. Pt is A&O x4 and answers all questions appropriately at this time. Pt lying in bed watching tv in no distress. Care providers, pharmacy, and demographics verified/updated. Admitting Dx: UTI, hypotension PCP:Lpue Specialists:maria eugenia Anna; Urologist in [place]- pt unaware of name Preferred Pharmacy: [facility] Insurance: [employer] [facility] Prescription Benefit: yes LNOK: Thomas Rosales, brother; Steven Rosales, brother Living Arrangements: Pt lives with brother Thomas in a two story home with 3 steps to enter. Pt reports he is I in ADL's and denies concerns at home. Transportation: Pt drives self and denies concerns with transportation. DME:shower chair, FWW, suprapubic cath supplies from urology office HHC/SNF: Pt has had HHC in the past, cannot recall name of agency. Pt [facility]. Pt states no concerns with going home at time of dc. Pt states no further concerns/needs. CM to follow. Advised pt to ask CM if any further question/concerns/needs arise, voices understanding. Pt Goal: Home Plan: Home Lyndsay VALENCIA CM
[2023-08-06 16:27] VITALS: BP 106/59; PULSE 95; RESP 17; TEMP 36.7; O2SAT 97
--- NOTE | 2023-08-06 18:58 | PN.HOSP_ITS ---
Reason for Visit Reason for Visit: Diagnoses Displaced intertrochanteric fracture of right femur, initial encounter for clos ed fracture (08/05/23) Subjective Subjective Patient was seen and examined today, his blood pressure has improved, his urine culture is growing out gram-negative lactose splash line operator and a gram-negative rosalina. Objective Data Objective Data Vital Signs: Vital Signs Temp Pulse Resp BP Pulse Ox O2 Del Method 98.0 F 95 17 106/59 L 97 Room Air 08/06/23 16:27 08/06/23 16:27 08/06/23 16:27 08/06/23 16:27 08/06/23 16:27 08/06/23 16:32 Oxygen Delivery Method Room Air Weight: 77.6 kg Body Mass Index (BMI) 25.2 Intake & Output: Intake and Output for Last 24 Hours 08/04/23 08/05/23 08/06/23 23:59 23:59 23:59 Intake Total 3908.33 / 4148.33 3236.67 / 3236.67 Output Total 0 / 500 1400 / 1400 Balance 3908.33 / 3648.33 1836.67 / 1836.67 Lab / Micro Data 08/06/23 06:35 08/06/23 06:35 Labs: Laboratory Results - last 24 hr 08/05/23 20:55: WBC 5.8, RBC 3.76 L, Hgb 9.9 L, Hct 31.1 L, MCV 82.7, MCH 26.3 L , MCHC 31.8 L, RDW Std Deviation 46.3 H, RDW Coeff of Vicente 15.2 H, Plt Count 282, MPV 9.9, Immature Gran % (Auto) 0.700, Neut % (Auto) 74.6 H, Lymph % (Auto) 10.1 L, [place] % (Auto) 11.8 H, Eos % (Auto) 2.1, Baso % (Auto) 0.7, Absolute Neuts (auto) 4.3, Absolute Lymphs (auto) 0.58 L, Nucleated RBC % 0, Differential Comment SCANNED, Crenated Cell 2+ 08/06/23 06:35: WBC 6.6, RBC 3.75 L, Hgb 10.0 L, Hct 30.7 L, MCV 81.9, MCH 26.7 L, MCHC 32.6, RDW Std Deviation 44.9 H, RDW Coeff of Vicente 15.1 H, Plt Count 289, MPV 10.4, Immature Gran % (Auto) 0.800, Neut % (Auto) 67.4, Lymph % (Auto) 12.9 L, [place] % (Auto) 15.1 H, Eos % (Auto) 2.9, Baso % (Auto) 0.9, Absolute Neuts (auto) 4.5, Absolute Lymphs (auto) 0.85, Nucleated RBC % 0, Sodium 139, Potassium 3.8, Chloride 112 H, Carbon Dioxide 23.0, Anion Gap 4 L, BUN 30 H, Creatinine 0.95, Estim Creat Clear Calc 69.25, Est GFR (MDRD) Af Amer 100, Est GFR (MDRD) Non-Af 82, BUN/Creatinine Ratio 31.5 H, Glucose 106, Calcium 8.4 L Micro: Microbiology 08/05/23 10:04 Suprapubic Tap Urine Culture - Preliminary GNR lactose splash line operator Gram negative rosalina Physical Exam Narrative alert, oriented x3 and no apparent distress Constitutional Narrative: Patient appears a stated age General Appearance: cooperative, well kempt and well developed Orientation / Consciousness: awake, oriented to person, oriented to place and oriented to time HEENT normocephalic, head/scalp atraumatic and moist oral mucous membranes Eyes PERRL, EOMs intact bilaterally and conjunctivae normal Neck supple, no JVD, thyroid normal and no carotid bruits General: trachea midline Resp normal respiratory effort and clear to auscultation bilaterally Auscultation: Negative for rales, rhonchi or wheezes Cardio regular rate, regular rhythm, no murmurs, no rub and no gallops GI normal to inspection, nondistended, normoactive bowel sounds, soft to palpation, non-tender and non-distended Extremity Extremity Narrative: Patient's right leg has generalized edema present, there is no redness present Skin no rashes or lesions noted General Skin Exam: no breakdown Neuro oriented x3, CN's II-XII intact bilaterally, moves all extremities, no focal motor deficits and no sensory deficits noted Sensorium / Orientation: awake and alert Speech: speech normal Psych affect normal Assessment & Plan Assessment/Plan (1) Urinary tract infection: PLAN: Plan 1. Urinary tract infection-exact etiology unclear at this point, await final culture results, patient will be maintained on his present antibiotic- ceftriaxone #2 deep venous thrombosis of the right leg-patient's Eliquis had to be stopped due to bleeding from his previous hip fracture operative site on his right leg. I will reevaluate starting Eliquis after a short time. #3 hypokalemia-corrected at this time #4 essential hypertension-patient's medications are being held due to his hypotension yesterday #5 hyperlipidemia-patient remains on atorvastatin Total clinical time spent by myself addressing the patient's medical issues, reviewing his data, and collaborating with patient's care team: 35 minutes Charges/Coding Visit Charges Inpatient E&M: 48789 Subs Hosp L2
[2023-08-06] MEDS: Acetaminophen 325 MG Tablet 650 MG PO (20:14)
[2023-08-06] MEDS: Atorvastatin Calcium 10 MG Tablet PO (21:58)
[2023-08-06 21:59] VITALS: BP 115/75; PULSE 100; RESP 18; TEMP 36.7; O2SAT 93
[2023-08-06] MEDS: MELATONIN 3 MG TABLET 6 MG PO (22:46)
[2023-08-07 04:00] VITALS: BP 130/90; PULSE 106; RESP 18; TEMP 36.5; O2SAT 94
[2023-08-07] MEDS: 0.9% Normal Saline (1000mL) 1,000 ML 100 ML IV ×2 (08:46→18:17)
--- NOTE | 2023-08-07 08:54 | PCM.PN.ORT ---
Subjective Subjective Doing well. PAD 2 right hip hematoma. drainage slowing, no pain. no new symptoms. Objective Data Objective Data Vital Signs: Vital Signs Temp Pulse Resp BP Pulse Ox O2 Del Method 97.7 F L 106 H 18 130/90 H 94 Room Air 08/07/23 04:00 08/07/23 04:00 08/07/23 04:00 08/07/23 04:00 08/07/23 04:00 08/07/23 04:08 Oxygen Delivery Method Room Air Weight: 171 lb 1.259 oz Body Mass Index (BMI) 25.2 Intake & Output: Intake and Output for Last 24 Hours 08/05/23 08/06/23 08/07/23 23:59 23:59 23:59 Intake Total 3908.33 / 4148.33 4113.34 / 4313.34 440 / 440 Output Total 0 / 500 1400 / 1900 1150 / 1150 Balance 3908.33 / 3648.33 2713.34 / 2413.34 -710 / -710 Lab / Micro Data Attestation: I reviewed the patient's lab results. 08/06/23 06:35 08/06/23 06:35 Labs: Laboratory Results - last 24 hr 08/06/23 22:30: Magnesium 2.0 Micro: Microbiology 08/05/23 10:04 Suprapubic Tap Urine Culture - Preliminary Klebsiella pneumoniae sp pneum Providencia rettgeri Gram negative rosalina 08/05/23 09:05 Blood Culture (Wb) - Anticubital Left Blood Culture - Preliminary No growth in 48 hours. 08/05/23 08:57 Blood Culture (Wb) - Anticubital Right Blood Culture - Preliminary No growth in 48 hours. Physical Exam Const alert HEENT normocephalic Extremity Extremity Narrative: drainage slowing, open area nearly fully closed. no redness or warmth, still some serous fluid, no pus Assessment & Plan Assessment/Plan (1) Postoperative bleeding from incision: PLAN: Would still recommend to hold the anticoagulation for 1 more day or until drainage fully resolved and wound closed, then OK to treat the DVT. Will continue to follow. Out of state until tomorrow evening, so call Dr. Cuellar my colleague with acute concerns, otherwise plan the same and I will have my cell phone on me as [phone] or page switchboard as well for questions. If wound closed and drainage stops, ok to see as an outpatient.
[2023-08-07 09:52] VITALS: O2SAT 94
[2023-08-07] MEDS: Ceftriaxone 2 GM in 0.9% Normal Saline (50mL MB+) 50 ML IV (09:58)
[2023-08-07 10:00] VITALS: BP 110/75; PULSE 102; RESP 16; TEMP 37; O2SAT 94
[2023-08-07] MEDS: 0.9% Saline Lock 10 ML Syringe IV (10:02)
[2023-08-07] MEDS: Carvedilol 3.125 MG TABLET PO ×2 (10:02→18:17)
--- NOTE | 2023-08-07 14:55 | VDLE_ITS ---
Reason For Study: swelling RIGHT LEFT GSV is normal. CFV is compressible, spontaneous, competent, CFV is compressible, spontaneous, competent and demonstrates pulsatile venous flow. and demonstrates pulsatile venous flow. FV is compressible, spontaneous, competent and demonstrates pulsatile venous flow. POP V is compressible, spontaneous, competent and demonstrates pulsatile venous flow. T/P Trunk is compressible. PTV is compressible. Acute deep vein thrombosis is noted in the Per V. It is dilated and NONCOMPRESSIBLE. Acute deep vein thrombosis is noted in the Soleus V. It is dilated and NONCOMPRESSIBLE. Procedure This is a venous duplex using B-mode, color flow and spectral Doppler. Exam performed portable in patient room. The exam was diagnostic. A preliminary report was called and/or faxed to the pt's RN. VL/Venous Duplex US, Unilateral Interpretation Summary Acute deep vein thrombosis is noted in the right peroneal vein, soleus vein. Ordering Physician: Quinton Waller Performed By: Jonah Mercer RVT
[2023-08-07 16:00] VITALS: BP 104/72; PULSE 97; RESP 18; TEMP 36.8; O2SAT 96
--- NOTE | 2023-08-07 20:44 | PN.HOSP_ITS ---
Reason for Visit Reason for Visit: Diagnoses Urinary tract infection, site not specified (08/05/23) Displaced intertrochanteric fracture of right femur, initial encounter for closed fracture (08/05/23) Subjective Subjective Patient was seen and examined today, his urine culture grew out procidentia and Klebsiella, I have elected to leave him on Rocephin at this time and change him tomorrow to oral antibiotics when he is hopefully discharged home. He was seen by orthopedic surgery who felt that his incisional hip wound was healing adequately, I have decided to place the patient on Lovenox at this time and when he is an outpatient, he can go on Eliquis. Repeat duplex scan of his right leg showed a right peroneal vein DVT in the soleus vein VTE. Due to the patient's bleeding problem from his incision site on his hip I have elected not to fully anticoagulate him at this time. Objective Data Objective Data Vital Signs: Vital Signs Temp Pulse Resp BP Pulse Ox O2 Del Method 98.2 F 97 18 104/72 96 Room Air 08/07/23 16:00 08/07/23 16:00 08/07/23 16:00 08/07/23 16:00 08/07/23 16:00 08/07/23 19:30 Oxygen Delivery Method Room Air Weight: 77.6 kg Body Mass Index (BMI) 25.2 Intake & Output: Intake and Output for Last 24 Hours 08/05/23 08/06/23 08/07/23 23:59 23:59 23:59 Intake Total 3908.33 / 4148.33 4113.34 / 4313.34 3841.67 / 3841.67 Output Total 0 / 500 1400 / 1900 1974 / 1974 Balance 3908.33 / 3648.33 2713.34 / 2413.34 1866.67 / 1866.67 Lab / Micro Data 08/06/23 06:35 08/06/23 06:35 Labs: Laboratory Results - last 24 hr 08/06/23 22:30: Magnesium 2.0 Micro: Microbiology 08/06/23 23:20 Wound - Hip Gram Stain - Final 08/05/23 10:04 Suprapubic Tap Urine Culture - Preliminary Klebsiella pneumoniae sp pneum Providencia rettgeri Gram negative rosalina 08/05/23 09:05 Blood Culture (Wb) - Anticubital Left Blood Culture - Preliminary No growth in 48 hours. 08/05/23 08:57 Blood Culture (Wb) - Anticubital Right Blood Culture - Preliminary No growth in 48 hours. Radiography Diagnostic Testing: Radiology Impression Venous Doppler Study 08/07/23 14:55 Interpretation Summary Acute deep vein thrombosis is noted in the right peroneal vein, soleus vein. Ordering Physician: Quinton Waller Performed By: Jonah Mercer RVT Physical Exam Narrative alert, oriented x3 and no apparent distress Constitutional Narrative: Patient appears a stated age General Appearance: cooperative, well kempt and well developed Orientation / Consciousness: awake, oriented to person, oriented to place and oriented to time HEENT normocephalic, head/scalp atraumatic and moist oral mucous membranes Eyes PERRL, EOMs intact bilaterally and conjunctivae normal Neck supple, no JVD, thyroid normal and no carotid bruits General: trachea midline Resp normal respiratory effort and clear to auscultation bilaterally Auscultation: Negative for rales, rhonchi or wheezes Cardio regular rate, regular rhythm, no murmurs, no rub and no gallops GI normal to inspection, nondistended, normoactive bowel sounds, soft to palpation, non-tender and non-distended Extremity Extremity Narrative: Patient's right leg has generalized edema present, there is no redness present Skin no rashes or lesions noted General Skin Exam: no breakdown Neuro oriented x3, CN's II-XII intact bilaterally, moves all extremities, no focal motor deficits and no sensory deficits noted Sensorium / Orientation: awake and alert Speech: speech normal Psych affect normal Assessment & Plan Assessment/Plan (1) Urinary tract infection: PLAN: Plan 1. Urinary tract infection-due to Klebsiella and procidentia, await final culture results, patient will be maintained on his present antibiotic- ceftriaxone #2 deep venous thrombosis of the right leg-patient's Eliquis had to be stopped d ue to bleeding from his previous hip fracture operative site on his right leg. Again I have placed him on Lovenox at this point and he will need to go on full anticoagulation as an outpatient, I am trying to give his surgical incision time to heal before I start full anticoagulation. #3 hypokalemia-corrected at this time #4 essential hypertension-patient's medications are being held due to his hypotension yesterday #5 hyperlipidemia-patient remains on atorvastatin Total clinical time spent by myself addressing the patient's medical issues, reviewing his data, and collaborating with patient's care team: 35 minutes Charges/Coding Visit Charges Inpatient E&M: 70535 Subs Hosp L2
[2023-08-07] MEDS: Enoxaparin 40 MG/0.4 ML Syringe SC (21:43)
[2023-08-07] MEDS: Atorvastatin Calcium 10 MG Tablet PO (21:44)
[2023-08-07 22:00] VITALS: BP 122/75; PULSE 95; RESP 18; TEMP 36.8; O2SAT 95
[2023-08-08 04:00] VITALS: BP 116/75; PULSE 93; RESP 18; TEMP 36.6; O2SAT 93
[2023-08-08] MEDS: 0.9% Normal Saline (1000mL) 1,000 ML 100 ML IV ×2 (04:11→14:40)
[2023-08-08] MEDS: Enoxaparin 40 MG/0.4 ML Syringe SC (05:37)
[2023-08-08 07:51] VITALS: RESP 16
[2023-08-08] MEDS: Ceftriaxone 2 GM in 0.9% Normal Saline (50mL MB+) 50 ML IV (09:16)
[2023-08-08] MEDS: Carvedilol 3.125 MG TABLET PO ×2 (09:16→18:13)
[2023-08-08 09:23] VITALS: BP 108/76; PULSE 103; RESP 17; TEMP 36.9; O2SAT 94
[2023-08-08] MEDS: Acetaminophen 325 MG Tablet 650 MG PO (09:37)
--- NOTE | 2023-08-08 13:38 | DCINST_ITS ---
Discharge Instructions Diet Discharge Diet: No restrictions Activity Discharge Activity: Return to Normal Activity Weight Bearing Status: Full weight bearing Follow Up Care Test Results: Test results from this visit will be discussed in further detail at your follow- up appointment, if applicable. Discharge Plan Admission Admit Date/Time: 08/05/23 15:28 Primary Reason for Your Visit: Urinary tract infection Attending Provider: Quinton Waller Primary Care Provider: Hesham Andrade Instructions Additional Instructions / Restrictions: Do not take any ibuprofen or Aleve for pain, take only Tylenol Discharge Orders/Prescriptions Prescriptions: New cefdinir 300 mg capsule 300 mg PO BID Qty: 10 0RF Xarelto DVT-PE Treat 30d Start 15 mg (42)- 20 mg (9) tablets,dose pack See Rx Instructions .ROUTE .COMPLEX Qty: 51 0RF Rx Instructions: take one-15 mg tablet twice daily for 21 days, then one-20 mg tablet once daily; must take with meal/food start on 08/08/23 Continued atorvastatin 10 mg tablet 10 mg PO DAILY Patient Comments: TAKE 1 TABLET (10 MG) BY MOUTH DAILY. carvedilol 3.125 mg tablet 3.125 mg PO BID Patient Comments: TAKE 1 TABLET BY MOUTH TWICE DIALY sennosides-docusate sodium [Stool Softener-Stimulant Laxat] 8.6-50 mg Tablet 2 tab PO BID PRN (Reason: constipation) Discontinued furosemide 20 mg tablet 20 mg PO DAILY Patient Comments: TAKE 1 TABLET BY MOUTH EVERY DAY Referrals / Follow Up: Hesham Andrade DO [Primary Care Provider] - Within 2 Weeks (For follow-up on your right leg blood clot) Tashi Anna MD [Med Staff - Active Staff] - See Referral Note (next week- call for an appointment) Disposition Disposition (needs filled in before D/C Order can be placed): Home, Self Care
[2023-08-08] MEDS: Piperacil/Tazobactam 3.375 GM in 0.9% Normal Saline (50mL MB+) 50 ML IV (14:50)
--- NOTE | 2023-08-08 15:13 | PCM.PN.ORT ---
Subjective Subjective I was called to evaluate the patient as he continues to have some drainage from his hip and his lower extremity. This is a patient of Dr. Toscano who had a long cephalomedullary fixation of the right femur back in April. Patient developed a hematoma on the side of his hip that opened up he denies having any purulence he subsequently was admitted to the hospital with hypotension and UTI he was found to have a DVT right lower extremity he has not had any fevers his white count is normal there is no left shift anticoagulation has been held since he had bleeding at the hip site. Dr. Anna did evaluate the patient yesterday 08/07/2023 did not have any concern. Objective Data Objective Data Vital Signs: Vital Signs Temp Pulse Resp BP Pulse Ox O2 Del Method 98.4 F 103 H 17 108/76 94 Room Air 08/08/23 09:23 08/08/23 09:23 08/08/23 09:23 08/08/23 09:23 08/08/23 09:23 08/08/23 09:23 Oxygen Delivery Method Room Air Weight: 171 lb 1.259 oz Body Mass Index (BMI) 25.2 Intake & Output: Intake and Output for Last 24 Hours 08/06/23 08/07/23 08/08/23 23:59 23:59 23:59 Intake Total 4113.34 / 4313.34 3841.67 / 3841.67 2850 / 2850 Output Total 1400 / 1900 2225 / 2225 600 / 600 Balance 2713.34 / 2413.34 1616.67 / 1616.67 2250 / 2250 Lab / Micro Data 08/06/23 06:35 08/06/23 06:35 Micro: Microbiology 08/06/23 23:20 Wound - Hip Gram Stain - Final 08/06/23 23:20 Wound - Hip Wound Culture - Preliminary GNR lactose fabrication lead 08/05/23 10:04 Suprapubic Tap Urine Culture - Final Klebsiella pneumoniae sp pneum Providencia rettgeri Providencia rettgeri#2 08/05/23 09:05 Blood Culture (Wb) - Anticubital Left Blood Culture - Preliminary No growth in 48 hours. 08/05/23 08:57 Blood Culture (Wb) - Anticubital Right Blood Culture - Preliminary No growth in 48 hours. Radiography Diagnostic Testing: Radiology Impression Venous Doppler Study 08/07/23 14:55 Interpretation Summary Acute deep vein thrombosis is noted in the right peroneal vein, soleus vein. Ordering Physician: Quinton Waller Performed By: Jonah Mercer RVT Physical Exam Const alert, oriented x3 and no apparent distress Extremity Extremity Narrative: Bilateral lower extremity edema is present worse on the right lower extremity he does have some tenderness in his calf the wound on the right hip had 2 small open areas that are draining serous fluid when expressed. No blood no pus his compartments are soft. Assessment & Plan Assessment/Plan (1) DVT (deep venous thrombosis): (2) Postoperative bleeding from incision: PLAN: Plan Patient has no fever no white blood count no left shift no signs of infection around the hip however he is draining serous fluid likely from the void that was created after hematoma was expressed, resulting in a seroma creation, which is visible and superficial on his x-ray. He does have right lower extremity DVT I think it is reasonable for him to go ahead and start anticoagulation, would recommend continued pressure dressing to the hip. Superficial wound cultures are often unreliable however oral antibiotic coverage would be fine. Patient should follow-up with Dr. Anna if symptoms do not improve.
--- NOTE | 2023-08-08 15:30 | PCM.DC.SUM ---
Providers Date of Admission: 08/05/23 Date of Discharge: 08/08/23 Primary Care Physician: Dr. Hesham Andrade, Reason For Visit: URINARY TRACT INFECTIONS, HYPOTENSION, Diagnosis Discharge Diagnosis (1) DVT (deep venous thrombosis): Status: Acute Code(s): I82.409 - Acute embolism and thrombosis of unspecified deep veins of unspecified lower extremity (2) Postoperative bleeding from incision: Status: Acute Plan 1. Urinary tract infection-due to Klebsiella and procidentia, await final culture results, patient will be maintained on his present antibiotic-ceftriaxone #2 deep venous thrombosis of the right leg-patient's Eliquis had to be stopped due to bleeding from his previous hip fracture operative site on his right leg. Again I have placed him on Lovenox at this point and he will need to go on full anticoagulation as an outpatient, I am trying to give his surgical incision time to heal before I start full anticoagulation. #3 hypokalemia-corrected at this time #4 essential hypertension-patient's medications are being held due to his hypotension yesterday #5 hyperlipidemia-patient remains on atorvastatin Total clinical time spent by myself addressing the patient's medical issues, reviewing his data, and collaborating with patient's care team: 35 minutes Medications at Discharge Home Medications atorvastatin 10 mg tablet 10 mg PO DAILY HLD 04/26/23 carvedilol 3.125 mg tablet 3.125 mg PO BID HTN, CHF 04/26/23 sennosides 8.6 mg-docusate sodium 50 mg tablet (Stool Softener-Stimulant Laxative) 2 tab PO BID PRN constipation 08/05/23 cefdinir 300 mg capsule 300 mg PO BID #10 caps 08/08/23 rivaroxaban 15 mg (42)-20 mg (9) tablets in a starter pack (Xarelto DVT-PE Treatment 30-Day Starter) See Rx Instructions PO .COMPLEX #51 tabs 08/08/23 Hospital Course Operations None Procedures None Summary of Care Provided Minutes Spent on Discharge: 32 Hospital Course: This 73-year-old white male was seen in the emergency room at [facility] with complaints of bleeding from an incision site he had over an area on his right hip due to ORIF of a right hip fracture in April 2023. Upon examination in the emergency room, he was noted to be hypotensive, labs were obtained which showed a normal white blood cell count, hemoglobin was 11.2, chemistry profile showed a potassium of 3.3, orthopedic surgery was contacted and saw the patient in the emergency room to examine his wound area and did not feel the area was infected, they felt that the area had a hematoma present and that he may have bumped the area recently at home. Urinalysis was obtained which was grossly positive for urinary tract infection, patient did have a chronic suprapubic catheter inserted however. I requested a venous duplex scan be done of the right leg, it showed a VTE below the calf on the right leg. Patient was admitted to PCU, he had been given multiple fluid boluses in the emergency room and an attempt to bring up his blood pressure and fluids were continued on PCU and his home blood pressure medications were held. Patient's blood pressure stabilized, urine culture grew out Klebsiella and Providencia rettgeri. Eliquis was started on the patient but he had an episode of bleeding from his right hip wound and this was stopped. Repeat duplex scan was performed on 08/07/2023 which showed the presence of a solea's VTE and a DVT in the peroneal vein. On 08/08/2023, patient was seen and examined: On examination he appeared in good health and spirits. Vital signs as documented. Skin warm and dry and without overt rashes. There is a surgical incision which is healing over the patient's right hip area and is open over one area with some serosanguineous drainage neck without JVD, neck was supple, trachea midline, thyroid was normal. Lungs clear bilaterally, normal air movement was noted. Heart exam notable for regular rhythm, normal sounds and absence of murmurs, rubs or gallops. Abdomen unremarkable and without evidence of organomegaly, masses, or abdominal aortic enlargement. Bowel sounds are present, abdomen is not distended. Extremities patient's right upper leg was edematous, there is a healing incision over the patient's right hip area, small opening is present and only serosanguineous material is able to be expressed from the area., no cyanosis was noted, no clubbing was noted. Neuro: Cranial nerves II through XII are grossly intact, no focal motor deficits were noted, sensation to light touch and pinprick intact, motor exam 5/5 throughout. Psych: Patient is alert and oriented x3, he does not appear anxious or depressed, he does not appear agitated. I had Dr. Meek look at the patient's right hip wound before I discharged him on 08/08/2023, he did not feel that the area was infected. Patient was discharged in stable condition on 08/08/2023, I elected to hold off full anticoagulation until 08/09/2023. 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 08/05/23 08:57 Blood Culture (Wb) - Anticubital Right Blood Culture - Preliminary No growth in 48 hours. Radiography Diagnostic Testing: Radiology Impression Venous Doppler Study 08/07/23 14:55 Interpretation Summary Acute deep vein thrombosis is noted in the right peroneal vein, soleus vein. Ordering Physician: Quinton Waller Performed By: Jonah Mercer RVT D/C Instructions Discharge Diet: No restrictions Weight Bearing Status: Full weight bearing Meaningful Use Info Meaningful Use Meaningful Use Diagnoses (Choose all that apply): VTE Ischemic Stroke Statin Dosing Therapy Reference: STATIN DOSE THERAPY REFERENCE: * Patients > 75 years receive moderate or high dose statin therapy. * Patients 75 years or YOUNGER should receive HIGH intensity statin dose unless contraindicated. You will be required to document reason for non-treatment if statin daily dose does not meet guidelines. HIGH DOSE STATIN THERAPY DAILY Atorvastatin > than or = to 40 mg Rosuvastatin > than or = to 20 mg Amlodipine + Atorvastatin > than or = to 2.5/40 mg Ezetimibe + Simvastatin 10/80 mg Simvastatin 80mg VTE Anticoag overlap given w/in hospital stay or rx'd at dc?: No Pt receive overlap for 5 days?: No Reason overlap not ordered, prescribed, or given for 5 days: Treatment Not Indicated Discharge Plan Admission Admit Date/Time: 08/05/23 15:28 Primary Reason for Your Visit: Urinary tract infection Attending Provider: Quinton Waller Primary Care Provider: Hesham Andrade Instructions Additional Instructions / Restrictions: Do not take any ibuprofen or Aleve for pain, take only Tylenol Discharge Orders/Prescriptions Prescriptions: New cefdinir 300 mg capsule 300 mg PO BID Qty: 10 0RF Xarelto DVT-PE Treat 30d Start 15 mg (42)- 20 mg (9) tablets,dose pack See Rx Instructions .ROUTE .COMPLEX Qty: 51 0RF Rx Instructions: take one-15 mg tablet twice daily for 21 days, then one-20 mg tablet once daily; must take with meal/food start on 08/08/23 Continued atorvastatin 10 mg tablet 10 mg PO DAILY Patient Comments: TAKE 1 TABLET (10 MG) BY MOUTH DAILY. carvedilol 3.125 mg tablet 3.125 mg PO BID Patient Comments: TAKE 1 TABLET BY MOUTH TWICE DIALY sennosides-docusate sodium [Stool Softener-Stimulant Laxat] 8.6-50 mg Tablet 2 tab PO BID PRN (Reason: constipation) Discontinued furosemide 20 mg tablet 20 mg PO DAILY Patient Comments: TAKE 1 TABLET BY MOUTH EVERY DAY Referrals / Follow Up: Hesham Andrade DO [Primary Care Provider] - Within 2 Weeks (For follow-up on your right leg blood clot) Tashi Anna MD [Med Staff - Active Staff] - See Referral Note (next week-call for an appointment) Disposition Disposition (needs filled in before D/C Order can be placed): Home, Self Care Charges/Coding Visit Charges Inpatient E&M: 48065 Disch Hosp >30min
--- NOTE | 2023-08-08 16:33 | CASEMGMT ---
Patient has order for discharge. Patient ambulating stand by assist with therapy. Patient denies needs for HHC at discharge. Patient's brother can assiste with dressing changes, nursing to teach, charge nurse updated. Patient denied needs or help in the home. Patient had no further questions or concerns.
[2023-08-08 18:00] VITALS: BP 125/76; PULSE 90; RESP 17; TEMP 36.8; O2SAT 95
[2023-08-08 18:30] VITALS: BP 137/69; PULSE 96; RESP 18; TEMP 36.8; O2SAT 95
== END 2023-08-08 19:01 | disposition home or self-care (01) | DRG 920 ==
LOC: ED 15:10 → PCU 15:25
PROVIDERS: Hospitalist; Internal Medicine; Admitting Provider Internal Medicine; Emergency Provider Emergency Medicine; PCP Family Medicine; Visit Provider Internal Medicine
DX: T81.31XA Disruption of external operation (surgical) wound, not elsewhere classified, initial encounter (principal); L76.34 Postprocedural seroma of skin and subcutaneous tissue following other procedure; I82.451 Acute embolism and thrombosis of right peroneal vein; L76.22 Postprocedural hemorrhage of skin and subcutaneous tissue following other procedure; T83.518A Infection and inflammatory reaction due to other urinary catheter, initial encounter; N30.00 Acute cystitis without hematuria; I11.0 Hypertensive heart disease with heart failure; I50.9 Heart failure, unspecified; I95.9 Hypotension, unspecified; E87.6 Hypokalemia; I82.461 Acute embolism and thrombosis of right calf muscular vein; E78.5 Hyperlipidemia, unspecified; B96.1 Klebsiella pneumoniae [K. pneumoniae] as the cause of diseases classified elsewhere; Y83.1 Surgical operation with implant of artificial internal device as the cause of abnormal reaction of the patient, or of later complication, without mention of misadventure at the time of the procedure; N31.2 Flaccid neuropathic bladder, not elsewhere classified
CPT/HCPCS: 36415; 71045; 73502; 80048; 81001; 83605; 83735; 85025; 85610; 85730; 87040; 87070; 87075; 87077; 87086; 87088; 87186; 87205; 93971; 97110; 97116; 97162; 97166; 97530; 97802; 99284; J7030; J7040; A4216

== ENCOUNTER 2023-08-13 08:16 | Inpatient (IN) | payer MEDICARE, SELFPAY ==
[2023-08-13] VITALS (22 sets, daily range): BP systolic 76–99; BP diastolic 50–62; PULSE 71–98; RESP 9–18; TEMP 36.5–37.1; O2SAT 95–99; BMI 25.4; BMI 24.3
--- NOTE | 2023-08-13 08:51 | EDS_ITS ---
HPI History of Present Illness HPI Narrative: Patient presents with bleeding from his wound on his right hip that recurred again today. Patient was seen here approximately 1 week ago for this. Patient was admitted to the hospital at that time. Patient was found to have a DVT. Patient was started on Lovenox. Patient was standing today and noted some bleeding going down his leg. Patient noticed it was coming from his hip wound. Patient denies any recent fevers or chills. Patient denies any trauma or in jury. Chief Complaint: Wound Check Informant: patient Onset/Context/Timing Onset: Today Context: Sudden Onset Timing: Continuous Location: Right hip Worsened by: Nothing Relieved by: Nothing Associated Symptoms Associated Symptoms: Negative for Parasthesia, Weakness or Loss of Funtion PFSH PFSH Medical History BPH (benign prostatic hyperplasia) Closed intertrochanteric fracture of right hip Heart failure HLD (hyperlipidemia) HTN (hypertension) Impaired wound healing Suprapubic catheter Home Medications atorvastatin 10 mg tablet 10 mg PO DAILY HLD 04/26/23 [History Last Taken 08/05/23 08:00] carvedilol 3.125 mg tablet 3.125 mg PO BID HTN, CHF 04/26/23 [History Last Taken 08/05/23 08:00] sennosides 8.6 mg-docusate sodium 50 mg tablet (Stool Softener-Stimulant Laxati ve) 2 tab PO BID PRN constipation 08/05/23 [History Last Taken Unknown] cefdinir 300 mg capsule 300 mg PO BID #10 caps 08/08/23 [Rx Last Taken Unknown] rivaroxaban 15 mg (42)-20 mg (9) tablets in a starter pack (Xarelto DVT-PE Treatment 30-Day Starter) See Rx Instructions PO .COMPLEX #51 tabs 08/08/23 [Rx Last Taken Unknown] Allergy/AdvReac Type Severity Reaction Status Date / Time No Known Allergies Allergy Verified 08/13/23 08:16 Family History Mother Heart disease Hypertension Heart failure Father Heart failure Hypertension Heart disease Surgical History History of suprapubic catheter S/P ORIF (open reduction internal fixation) fracture S/P TURP Social History household members: other details: Lives with his brother. Smoking Status: Never smoker alcohol intake: current alcohol intake frequency: holidays/special occasions only substance use type: does not use ROS ROS ED Constitutional Constitutional ED: Denies chills or fever(s) Eyes Eyes: Denies blurry vision or change in vision ENT ENT ED: Denies rhinorrhea or sore throat Cardiovascular Cardiovascular: Denies chest pain or palpitations Respiratory/Chest Respiratory/Chest: Denies cough or dyspnea Gastrointestinal Gastrointestinal: Denies nausea or vomiting Genitourinary Genitourinary ED: Denies dysuria or hematuria Musculoskeletal Musculoskeletal: Denies back pain or neck pain Integumentary Denies abscess or rash Neurologic Neurologic: Denies headache(s) or weakness Allergic/Immunologic Allergic/Immunologic ED: Denies mouth swelling or urticaria EXAM Physical Exam Const Vital Signs: 08/13/23 08:16 08/13/23 08:45 08/13/23 08:50 Temperature 98.2 F Temperature Source Temporal Pulse Rate 88 80 84 Respiratory Rate 15 11 L 12 Blood Pressure 76/62 L 90/61 Blood Pressure Mean 66 69 Pulse Ox 98 97 97 Oxygen Delivery Method Room Air 08/13/23 09:00 08/13/23 09:01 08/13/23 09:10 Temperature Temperature Source Pulse Rate 77 86 76 Respiratory Rate 10 L 15 13 Blood Pressure 94/54 L 93/53 L Blood Pressure Mean 67 66 Pulse Ox 99 99 Oxygen Delivery Method 08/13/23 09:15 08/13/23 09:20 08/13/23 09:30 Temperature Temperature Source Pulse Rate 77 74 76 Respiratory Rate 9 L 11 L 13 Blood Pressure 92/53 L Blood Pressure Mean 66 Pulse Ox 97 Oxygen Delivery Method 08/13/23 09:30 08/13/23 09:40 08/13/23 09:45 Temperature Temperature Source Pulse Rate 76 74 71 Respiratory Rate 13 11 L 13 Blood Pressure 94/60 92/61 Blood Pressure Mean 71 69 Pulse Ox 97 Oxygen Delivery Method 08/13/23 09:50 08/13/23 10:00 Temperature Temperature Source Pulse Rate 72 74 Respiratory Rate 16 13 Blood Pressure 89/60 L Blood Pressure Mean 69 Pulse Ox Oxygen Delivery Method Positive well nourished and well developed General Appearance ED: well developed and NAD HEENT Reports moist mucous membranes Resp normal respiratory effort and clear to auscultation bilaterally Cardio regular rate and regular rhythm GI non-tender and non-distended Palpation: soft Extremity Extremity Narrative: There are 2 open wounds over the proximal incision of the right hip. There is some bleeding coming from the proximal wound which is approximately 1.5 cm in length. There is a distal wound is approximate 1 cm in length. There is minimal bleeding from the distal wound. The bleeding from the proximal wound appears to be coming from a varicosity. There is no surrounding erythema or warmth noted. Neuro oriented x3, CN's II-XII intact bilaterally, moves all extremities and no sensory deficits noted Sensorium / Orientation: alert Motor Exam: strength 5/5 throughout Psych mental status grossly normal MDM MDM MDM Narrative Medical decision making narrative: Differential diagnosis includes postoperative bleeding, coagulopathy, anemia, and electrolyte abnormality. CBC will be obtained to assess for leukocytosis and anemia. Basic metabolic profile will be obtained to assess for electrolyte abnormality and renal function. PT with INR and PTT will be obtained to assess for coagulopathy. Type and screen will be obtained to assess for anemia. Urinalysis will be obtained to assess for urinary tract infection. Lab Data Attestation: I reviewed the patient's lab results. Lab results narrative: CBC was reviewed. There is a mild anemia with a hemoglobin of 9.0 and hematocrit 29.1. Platelets were slightly elevated at 613. Basic metabolic profile was reviewed and was essentially within normal limits. Glucose was mildly elevated at 189. PT was INR and PTT were reviewed. Pro time was 29.6 and INR is 2.8. PTT was 42.7. Urinalysis was reviewed. Occult blood was 250 with greater than 100 red blood cells. Type and screen was reviewed. Blood type was O+ and antibody screen was negative. Labs: Laboratory Results - last 24 hr 08/13/23 08/13/23 08/13/23 05:11 08:50 09:02 WBC 7.7 RBC 3.43 L Hgb 9.0 L Hct 29.1 L MCV 84.8 MCH 26.2 L MCHC 30.9 L RDW Std Deviation 48.5 H RDW Coeff of Vicente 16.0 H Plt Count 613 H MPV 9.1 Immature Gran % (Auto) 4.000 H Neut % (Auto) 61.7 Lymph % (Auto) 20.5 [place] % (Auto) 8.4 Eos % (Auto) 4.2 Baso % (Auto) 1.2 H Absolute Neuts (auto) 4.7 Absolute Lymphs (auto) 1.57 Nucleated RBC % 0 PT 29.6 H INR 2.8 APTT 42.7 H Sodium 136 Potassium 4.2 Chloride 105 Carbon Dioxide 26.0 Anion Gap 5 BUN 10 Creatinine 1.09 Estim Creat Clear Calc 60.36 Est GFR (MDRD) Af Amer 85 Est GFR (MDRD) Non-Af 70 BUN/Creatinine Ratio 9.2 L Glucose 189 H Calcium 8.2 L Urine Color Yellow Urine Clarity Cloudy Urine pH 6.0 Ur Specific [place] 1.015 Urine Protein 100 H Urine Glucose (UA) Normal Urine Ketones 5 H Urine Occult Blood 250 H Urine Nitrite Negative Urine Bilirubin Negative Urine Urobilinogen Normal Ur Leukocyte Esterase 25 H Urine RBC > 100 SEEN Urine WBC 0-5 SEEN Ur Squamous Epith Cells 0-5 SEEN Urine Bacteria 0 SEEN Urine Mucus 0 SEEN Blood Type O POSITIVE Antibody Screen NEGATIVE Treatment and Re-Evaluation Narrative: Patient was given IV fluids. I attempted to place a suture around the bleeding without success. I attempted cautery of the bleeding varicosity without success. Pressure dressing was applied. Patient's blood pressure improved after IV fluids. Patient was advised of his findings. Dr. Anna was in to evaluate the patient. He recommended admission to the hospitalist. Case was discussed with the hospitalist. He will admit the patient to his service. Patient understood and was agreeable with the plan. All questions were answered. Discharge Plan Triage Chief Complaint: Wound Check ED Provider: Maninder Mercedes Dx/Rx/DC Orders Clinical Impression: DVT (deep venous thrombosis), Postoperative bleeding from incision Prescriptions: No Action atorvastatin 10 mg tablet 10 mg PO DAILY Patient Comments: TAKE 1 TABLET (10 MG) BY MOUTH DAILY. carvedilol 3.125 mg tablet 3.125 mg PO BID Patient Comments: TAKE 1 TABLET BY MOUTH TWICE DIALY sennosides-docusate sodium [Stool Softener-Stimulant Laxat] 8.6-50 mg Tablet 2 tab PO BID PRN (Reason: constipation) cefdinir 300 mg capsule 300 mg PO BID Qty: 10 0RF Xarelto DVT-PE Treat 30d Start 15 mg (42)- 20 mg (9) tablets,dose pack See Rx Instructions .ROUTE .COMPLEX Qty: 51 0RF Rx Instructions: take one-15 mg tablet twice daily for 21 days, then one-20 mg tablet once daily; must take with meal/food start on 08/08/23 Primary Care Provider: Hesham Andrade Referrals: Hesham Andrade DO [Primary Care Provider] - Disposition Disposition: Acute Care Hospital [facility]
[2023-08-13] MEDS: 0.9% Normal Saline (1000mL) 1,000 ML 1000 ML IV (09:00)
[2023-08-13 09:10] LABS: Bacteria 0 SEEN /hpf (None Seen); Mucous, Urine 0 SEEN /hpf (<or=2+)
[2023-08-13 09:10] LABS: Absolute Lymphocyte Count 1.57 X10^3/uL (0.83-4.51); Absolute Neutrophil Count 4.7 X10^3/uL (2.0-7.7); Basophil# 0.09 X10^3/uL; Basophil% 1.2 % (0-1); Eosinophil# 0.32 X10^3/uL; Eosinophils% 4.2 % (0-5); Hematocrit 29.1 % (40-54); Lymphocyte # 1.57 X10^3/ul (0.83-4.51); Lymphocyte % 20.5 % (19-41); Mean Corp Hgb Conc 30.9 g/dL (32-36); Mean Corpuscular Hgb 26.2 pg (27.0-32.0); Mean Corpuscular Volume 84.8 fL (80-94); Mean Platelet Vol. 9.1 fl (6.2-12.0); Monocyte# 0.64 X10^3/uL; Monocyte% 8.4 % (0-10); NRBC Flagged by Analyzer 0 % (0-5); Neutrophil # 4.73 X10^3/uL (2.7-7.7); Neutrophil % 61.7 % (47-70); Platelet Count 613 K/mm3 (150-450); RBC Distribution Width SD 48.5 fl (35.1-43.9); Red Blood Count 3.43 M/mm3 (4.6-6.2); White Blood Count 7.7 K/mm3 (4.4-11.0)
--- NOTE | 2023-08-13 09:13 | CONS.ORTHO ---
HPI Consult Data Date of Consult: 08/13/23 HPI Narrative HPI Narrative: KAUSHIK MARINELLI, is a 73 M who presents with a repeat bleeding from the right hip. Patient had to be placed on anticoagulation due to a DVT in the leg now this morning he had some brisk bleeding from there. He was seen by the ED physician who did some cauterizing at the wound and applied a pressure dressing. Bleeding is stopped. [facility] Medical History BPH (benign prostatic hyperplasia) Closed intertrochanteric fracture of right hip Heart failure HLD (hyperlipidemia) HTN (hypertension) Impaired wound healing Suprapubic catheter Home Medications atorvastatin 10 mg tablet 10 mg PO DAILY HLD 04/26/23 [History Last Taken 08/05/23 08:00] carvedilol 3.125 mg tablet 3.125 mg PO BID HTN, CHF 04/26/23 [History Last Taken 08/05/23 08:00] sennosides 8.6 mg-docusate sodium 50 mg tablet (Stool Softener-Stimulant Laxative) 2 tab PO BID PRN constipation 08/05/23 [History Last Taken Unknown] cefdinir 300 mg capsule 300 mg PO BID #10 caps 08/08/23 [Rx Last Taken Unknown] rivaroxaban 15 mg (42)-20 mg (9) tablets in a starter pack (Xarelto DVT-PE Treatment 30-Day Starter) See Rx Instructions PO .COMPLEX #51 tabs 08/08/23 [Rx Last Taken Unknown] Allergy/AdvReac Type Severity Reaction Status Date / Time No Known Allergies Allergy Verified 08/13/23 08:16 Family History Mother Heart disease Hypertension Heart failure Father Heart failure Hypertension Heart disease Surgical History History of suprapubic catheter S/P ORIF (open reduction internal fixation) fracture S/P TURP Social History household members: other details: Lives with his brother. Smoking Status: Never smoker alcohol intake: current alcohol intake frequency: holidays/special occasions only substance use type: does not use Vital Signs Vital Signs Vital Signs: 08/13/23 08:16 Temperature 98.2 F Temperature Source Temporal Pulse Rate 88 Respiratory Rate 15 Blood Pressure 76/62 L Blood Pressure Mean 66 Pulse Ox 98 Oxygen Delivery Method Room Air Weight Weight: 172 lb 6.424 oz Body Mass Index (BMI) 25.4 Physical Exam Const alert and oriented x3 Extremity Extremity Narrative: Same exam as yesterday when I saw him small about a less than 1 cm area where there is site of ulceration and nonhealing area no active oozing now he has a pressure dressing on there when I saw him. Lab / Micro Data 08/13/23 05:11 08/13/23 05:11 Labs: Laboratory Results - last 24 hr 08/13/23 05:11: WBC 7.7, RBC 3.43 L, Hgb 9.0 L, Hct 29.1 L, MCV 84.8, MCH 26.2 L, MCHC 30.9 L, RDW Std Deviation 48.5 H, RDW Coeff of Vicente 16.0 H, Plt Count 613 H, MPV 9.1, Immature Gran % (Auto) 4.000 H, Neut % (Auto) 61.7, Lymph % (Auto) 20.5, [place] % (Auto) 8.4, Eos % (Auto) 4.2, Baso % (Auto) 1.2 H, Absolute Neuts (auto) 4.7, Absolute Lymphs (auto) 1.57, Nucleated RBC % 0 Assessment & Plan Assessment/Plan (1) Closed intertrochanteric fracture of right hip: PLAN: 73-year-old man over 3 months out from right hip intertrochanteric nailing with persistent reopening of the surgical site with some bleeding most likely again due to being on anticoagulation for the DVT. I would suggest and I have asked that ED physician to have the hospitalist admit the patient and I think the best course of action would be at this point holding the blood thinners pressure dressing to stop the bleeding and for that to completely close over and heal as it did look a healed and closed over 5 days ago and suggest considering putting in IVC filter. I will follow while the patient is admitted in hospital. (2) DVT (deep venous thrombosis):
[2023-08-13 09:14] LABS: Color, Urine Yellow (Yellow); Glucose, Dipstick Normal (Normal); Ketone-Dipstick 5 mg/dl (Negative); Leukocyte Esterase-Dipstick 25 /ul (Negative); Nitrite-Dipstick Negative (Negative); Occult Blood-Urine 250 /ul (Negative); Protein-Dipstick 100 mg/dl (Negative); Specific Gravity, Urine 1.015 (1.002-1.030); Urine Bilirubin Dipstick Negative (Negative); Urine Clarity Cloudy (Clear); Urine Urobilinogen Normal (Normal)
[2023-08-13 09:18] LABS: International Normalized Ratio 2.8; Partial Thromboplast Time 42.7 Seconds (24.1-36.2); Prothrombin Time (Protime)PT. 29.6 SECONDS (11.7-14.9)
[2023-08-13 09:23] LABS: Red Blood Cells-Urine > 100 SEEN /hpf (0-5); Squamous Epithelial Cells - UA 0-5 SEEN /hpf (0-5); White Blood Cells 0-5 SEEN /hpf (0-5)
[2023-08-13 09:30] LABS: Anion Gap 5 (5-15); BUN 10 mg/dL (7-18); BUN/Creat Ratio 9.2 RATIO (10-20); Calcium,Total 8.2 mg/dL (8.5-10.1); Chloride 105 mmol/L (98-107); Creatinine, Serum 1.09 mg/dL (0.70-1.30); EST Glomerular Filtration Rate 70 mL/min (>60); Est Glom Filt Rate - Afr Amer 85 mL/min (>60); Estimated Creatinine Clearance 60.36 ml/min; Glucose 189 mg/dL (74-106); Potassium 4.2 mmol/L (3.5-5.1); Sodium Level 136 mmol/L (136-145)
--- NOTE | 2023-08-13 09:57 | PCM.HP.STD ---
HPI - General General Date of Admission: 08/13/23 Date of Service: 08/13/23 Chief Complaint: Bleeding from surgical incision site HPI Narrative WASHINGTON MARINELLI, is a 73 M with history of hip fracture that was surgically repaired in April 2023 recently discharged from the hospital following admission for bleeding from his previous surgical incision site. Patient was also noted to have DVT during his hospital stay. Was discharged on Xarelto. Patient was apparently in his usual state of health till the morning of his presentation when he did notice blood squirting from his incision site. Presented to the emergency department as a result. Pressure dressing was applied Xarelto discontinued and patient admitted to regular nursing floor for further management. On further questioning patient denied any lightheadedness no chest pain no nausea no vomiting. [facility] Medical History BPH (benign prostatic hyperplasia) Closed intertrochanteric fracture of right hip Heart failure HLD (hyperlipidemia) HTN (hypertension) Impaired wound healing Suprapubic catheter Home Medications atorvastatin 10 mg tablet 10 mg PO DAILY HLD 04/26/23 [History Last Taken 08/05/23 08:00] carvedilol 3.125 mg tablet 3.125 mg PO BID HTN, CHF 04/26/23 [History Last Taken 08/05/23 08:00] sennosides 8.6 mg-docusate sodium 50 mg tablet (Stool Softener-Stimulant Laxative) 2 tab PO BID PRN constipation 08/05/23 [History Last Taken Unknown] cefdinir 300 mg capsule 300 mg PO BID #10 caps 08/08/23 [Rx Last Taken Unknown] rivaroxaban 15 mg (42)-20 mg (9) tablets in a starter pack (Xarelto DVT-PE Treatment 30-Day Starter) See Rx Instructions PO .COMPLEX #51 tabs 08/08/23 [Rx Last Taken Unknown] Allergy/AdvReac Type Severity Reaction Status Date / Time No Known Allergies Allergy Verified 08/13/23 08:16 Family History Mother Heart disease Hypertension Heart failure Father Heart failure Hypertension Heart disease Surgical History History of suprapubic catheter S/P ORIF (open reduction internal fixation) fracture S/P TURP Social History household members: other details: Lives with his brother. Smoking Status: Never smoker alcohol intake: current alcohol intake frequency: holidays/special occasions only substance use type: does not use ROS ROS Narrative GENERAL: denies fever, chills, night sweats, weight loss, anorexia HEENT: denies headache, sinus congestion, or drainage, dysphagia RESPIRATORY: denies cough, sputum production, shortness of breath, dyspnea on exertion CARDIAC: denies chest pain, palpitations, orthopnea, PND GASTROINTESTINAL: denies abdominal pain, nausea, vomiting, melena, GENITOURINARY: denies dysuria, urgency, frequency, heamaturia EXTREMITY: denies swelling MUSCULOSKELETAL: denies current joint pain or tenderness NEUROLOGIC: denies focal numbness, weakness, tingling HEMATOLOGIC: Bleeding from surgical incision site INTEGUMENT: denies rashes PSYCHIATRIC: denies suicidal or homicidal ideation Vital Signs Vital Signs Vital Signs: 08/13/23 08:16 08/13/23 08:45 08/13/23 08:50 Temperature 98.2 F Temperature Source Temporal Pulse Rate 88 80 84 Respiratory Rate 15 11 L 12 Blood Pressure 76/62 L 90/61 Blood Pressure Mean 66 69 Pulse Ox 98 97 97 Oxygen Delivery Method Room Air 08/13/23 09:00 08/13/23 09:01 08/13/23 09:10 Temperature Temperature Source Pulse Rate 77 86 76 Respiratory Rate 10 L 15 13 Blood Pressure 94/54 L 93/53 L Blood Pressure Mean 67 66 Pulse Ox 99 99 Oxygen Delivery Method 08/13/23 09:15 08/13/23 09:20 08/13/23 09:30 Temperature Temperature Source Pulse Rate 77 74 76 Respiratory Rate 9 L 11 L 13 Blood Pressure 92/53 L Blood Pressure Mean 66 Pulse Ox 97 Oxygen Delivery Method Weight Weight: 78.2 kg Body Mass Index (BMI) 25.4 Physical Exam Narrative GENERAL: cooperative HEENT: Atraumatic; normocephalic EYES; Anicteric, Normal Conjunctiva NECK; supple, normal thyroid, RESPIRATORY: Diminished to auscultation CARDIOVASCULAR: Regular S1 S2, GI: soft, normoactive bowel sounds, : No Renal angle tenderness; EXTREMITIES: No edema, no clubbing, MUSCULOSKELETAL: Bleeding from his right hip surgical incision site with dressing applied NEURO: Awake; no lateralizing signs. SKIN: No Rash PSYCH; Flat affect Results Lab / Micro Data 08/13/23 05:11 08/13/23 05:11 Labs: Laboratory Results - last 24 hr 08/13/23 05:11: WBC 7.7, RBC 3.43 L, Hgb 9.0 L, Hct 29.1 L, MCV 84.8, MCH 26.2 L, MCHC 30.9 L, RDW Std Deviation 48.5 H, RDW Coeff of Vicente 16.0 H, Plt Count 613 H, MPV 9.1, Immature Gran % (Auto) 4.000 H, Neut % (Auto) 61.7, Lymph % (Auto) 20.5, [place] % (Auto) 8.4, Eos % (Auto) 4.2, Baso % (Auto) 1.2 H, Absolute Neuts (auto) 4.7, Absolute Lymphs (auto) 1.57, Nucleated RBC % 0, PT 29.6 H, INR 2.8, APTT 42.7 H, Sodium 136, Potassium 4.2, Chloride 105, Carbon Dioxide 26.0, Anion Gap 5, BUN 10, Creatinine 1.09, Estim Creat Clear Calc 60.36, Est GFR (MDRD) Af Amer 85, Est GFR (MDRD) Non-Af 70, BUN/Creatinine Ratio 9.2 L, Glucose 189 H, Calcium 8.2 L 08/13/23 08:50: Blood Type O POSITIVE, Antibody Screen NEGATIVE 08/13/23 09:02: Urine Color Yellow, Urine Clarity Cloudy, Urine pH 6.0, Ur Specific [place] 1.015, Urine Protein 100 H, Urine Glucose (UA) Normal, Urine Ketones 5 H, Urine Occult Blood 250 H, Urine Nitrite Negative, Urine Bilirubin Negative, Urine Urobilinogen Normal, Ur Leukocyte Esterase 25 H, Urine RBC > 100 SEEN, Urine WBC 0-5 SEEN, Ur Squamous Epith Cells 0-5 SEEN, Urine Bacteria 0 SEEN, Urine Mucus 0 SEEN Assessment & Plan Assessment/Plan (1) Postoperative bleeding from incision: PLAN: Plan Patient is a 73-year-old gentleman presented with bleeding from a previous surgical incision site 1. Bleeding from previous surgical incision site (right hip) ? This is exacerbated by use of systemic anticoagulation Xarelto following patient recent diagnosis of DVT. Xarelto held pressure applied consult placed to Dr. Cheung and from the ED he did evaluate the patient in the emergency department prior to patient being admitted 2. Recent diagnosis of right lower extremity DVT ? Patient was discharged on rivaroxaban which is currently held consult placed to vascular surgery Dr. Felix for IVC filter since patient did not tolerate systemic anticoagulation 3. Anemia ? Secondary to acute blood loss anemia monitoring H&H with plans to transfuse if patient is deemed to be symptomatic or hemoglobin falls below 7 4. Hypertension - Blood pressure controlled, home medications continued with dose adjustment as needed 5. Dyslipidemia -Patient is on statin therapy, continued at home dose 6. DVT prophylaxis ? Patient is on Xarelto which has been held did order bilateral SCDs Time spent in the patient's overall evaluation,decision-making process, review of diagnostic data, adjustment of management, discussion with other providers, nursing nursing and ancillary staff involved in patient's care documentation, 55 minutes Advance planning; did discuss with the patient and family regarding advanced directives as well as CODE STATUS. Did explain the various scenarios involved ( FULL CODE, DNR CCA, DNR CCA with no intubation, and DNR CC and what each meant) patient elected to full code with CPR and intubation if needed. Order was placed. Time spent on discussion 18 minutes. Charges/Coding Visit Charges Inpatient E&M: 98825 Init Hosp L2 Procedures Hospitalists Procedures: 55506 Advncd Care Plan 30 Min
--- NOTE | 2023-08-13 13:45 | EX.PCM.CON.S ---
Assessment & Plan Assessment/Plan (1) DVT (deep venous thrombosis): (2) Postoperative bleeding from incision: (3) Closed intertrochanteric fracture of right hip: PLAN: Plan Patient is appropriate candidate for IVC filter insertion. I discussed the purpose of IVC filter placement with the patient. I discussed with him the procedure including risks (including but not limited to IVC filter occlusion, infection, bleeding), benefits, and recovery. We discussed that if appropriate the filter may be retrieved in the future. At his request, I did also call and discuss the above with his brother Thomas via telephone. Both are agreeable to proceed with IVC Filter placement. Patient has been eating today. He does wish for sedation with the procedure vs local anesthetic alone. Will make him NPO at midnight and plan for IVC filter placement with conscious sedation in the operations label clerk tomorrow late morning/early afternoon pending operations label clerk availability. HPI Consult Data Date of Consult: 08/13/23 HPI Narrative HPI Narrative: KAUSHIK MARINELLI, is a 73 M who presented to the [facility] ER today with significant bleeding from prior surgical site wound on his R hip. In the ER, they attempted suture and cautery to control bleeding without success so ultimately a pressure dressing with sandbag was applied. Patient reports this had to be changed 3 times but now well-controlled. He had been on Eliquis at home for treatment of R infrapopliteal DVT. He denies any trauma to the area. He reports he was standing at his closet to dress this morning and all of a sudden noticed blood running down his leg. He was transported to the ER via EMS. He report he lost a lot of blood and felt woozy but is feeling better now. His Hgb in the ER was 9.0. Had been 10.0 08/05. DOAC is held. We are consulted for IVC Filter placement. This is his second episode of bleeding. His R hip wound is the result of surgical repair of R femur fracture he sustained from a fall while roller skating in April. On 08/05/23, he had presented to the [facility] ER with persistent bleeding from R hip surgical site wound. At that time, he was not on any anticoagulation. It was felt the bleeding was from hematoma at the surgical site. He was noted to have RLE swelling and venous duplex was obtained on 08/05/23 which revealed acute R soleus DVT. He had a repeat duplex on 08/06 which showed acute DVT in the soleal AND peroneal. He was started on Lovenox and then transitioned to Eliis as an outpatient. He reports that he had not noticed any increase in RLE pain. He reports he had been fairly active around the home and no recent/recurrent injuries to provoked bleeding or DVT. He denies any prior episodes of VTE. No prior abdominal/pelvic radiation. [facility] Medical History BPH (benign prostatic hyperplasia) Closed intertrochanteric fracture of right hip Heart failure HLD (hyperlipidemia) HTN (hypertension) Impaired wound healing Suprapubic catheter Home Medications atorvastatin 10 mg tablet 10 mg PO DAILY HLD 04/26/23 [History Last Taken 08/05/23 08:00] carvedilol 3.125 mg tablet 3.125 mg PO BID HTN, CHF 04/26/23 [History Last Taken 08/05/23 08:00] sennosides 8.6 mg-docusate sodium 50 mg tablet (Stool Softener-Stimulant Laxative) 2 tab PO BID PRN constipation 08/05/23 [History Last Taken Unknown] rivaroxaban 15 mg (42)-20 mg (9) tablets in a starter pack (Xarelto DVT-PE Treatment 30-Day Starter) See Rx Instructions PO .COMPLEX #51 tabs 08/08/23 [Rx Last Taken Unknown] Allergy/AdvReac Type Severity Reaction Status Date / Time No Known Allergies Allergy Verified 08/13/23 08:16 Family History Mother Heart disease Hypertension Heart failure Father Heart failure Hypertension Heart disease Surgical History History of suprapubic catheter S/P ORIF (open reduction internal fixation) fracture S/P TURP Social History household members: other details: Lives with his brother. Smoking Status: Never smoker alcohol intake: current alcohol intake frequency: holidays/special occasions only substance use type: does not use Physical Exam Const alert, oriented x3 and no apparent distress General Appearance: cooperative and comfortable HEENT normocephalic, head/scalp atraumatic, hearing grossly normal bilaterally, external ears normal and external nose normal Eyes EOMs intact bilaterally General Eye: normal appearance of both eyes Neck General: normal visual inspection and trachea midline Resp normal respiratory effort, normal air movement, no retractions and no use of accessory muscles Effort and Inspection: able to speak in complete sentences; Negative for labored, stridor, retractions or audible wheezes Cardio regular rate and regular rhythm Extremity Extremity Narrative: RLE edema 1+. No tenderness to palpation, erythema, warmth. SCD in place on LLE only. Skin no rashes or lesions noted and no wounds Trauma: no lacerations or abrasions Neuro oriented x3, CN's II-XII intact bilaterally, moves all extremities, no focal motor deficits and no sensory deficits noted Speech: speech normal Psych mental status grossly normal Appearance: grossly normal Attitude: calm and engaged Activity / Motor Behavior: appropriate eye contact Speech: normal speech Mood & Affect: euthymic mood Judgement: judgement good Lab / Micro Data 08/13/23 05:11 08/13/23 05:11 Labs: Laboratory Results - last 24 hr 08/13/23 05:11: WBC 7.7, RBC 3.43 L, Hgb 9.0 L, Hct 29.1 L, MCV 84.8, MCH 26.2 L, MCHC 30.9 L, RDW Std Deviation 48.5 H, RDW Coeff of Vicente 16.0 H, Plt Count 613 H, MPV 9.1, Immature Gran % (Auto) 4.000 H, Neut % (Auto) 61.7, Lymph % (Auto) 20.5, [place] % (Auto) 8.4, Eos % (Auto) 4.2, Baso % (Auto) 1.2 H, Absolute Neuts (auto) 4.7, Absolute Lymphs (auto) 1.57, Nucleated RBC % 0, PT 29.6 H, INR 2.8, APTT 42.7 H, Sodium 136, Potassium 4.2, Chloride 105, Carbon Dioxide 26.0, Anion Gap 5, BUN 10, Creatinine 1.09, Estim Creat Clear Calc 60.36, Est GFR (MDRD) Af Amer 85, Est GFR (MDRD) Non-Af 70, BUN/Creatinine Ratio 9.2 L, Glucose 189 H, Calcium 8.2 L 08/13/23 08:50: Blood Type O POSITIVE, Antibody Screen NEGATIVE 08/13/23 09:02: Urine Color Yellow, Urine Clarity Cloudy, Urine pH 6.0, Ur Specific [place] 1.015, Urine Protein 100 H, Urine Glucose (UA) Normal, Urine Ketones 5 H, Urine Occult Blood 250 H, Urine Nitrite Negative, Urine Bilirubin Negative, Urine Urobilinogen Normal, Ur Leukocyte Esterase 25 H, Urine RBC > 100 SEEN, Urine WBC 0-5 SEEN, Ur Squamous Epith Cells 0-5 SEEN, Urine Bacteria 0 SEEN, Urine Mucus 0 SEEN
[2023-08-13] MEDS: 0.9% Normal Saline (250mL Bag) 250 ML 999 ML IV (15:19)
[2023-08-13 15:40] LABS: Hemoglobin 6.5 g/dL (13.0-16.5)
[2023-08-13 21:09] LABS: Hematocrit 22.7 % (40-54); Hemoglobin 7.2 g/dL (13.0-16.5)
[2023-08-13] MEDS: Atorvastatin Calcium 10 MG Tablet PO (21:57)
[2023-08-13] MEDS: MELATONIN 3 MG TABLET PO (21:57)
[2023-08-14] VITALS (16 sets, daily range): BP systolic 96–112; BP diastolic 43–69; PULSE 86–104; RESP 16–18; TEMP 36.4–37.1; O2SAT 94–99
[2023-08-14 04:35] LABS: Absolute Lymphocyte Count 2.14 X10^3/uL (0.83-4.51); Absolute Neutrophil Count 9.7 X10^3/uL (2.0-7.7); Basophil# 0.11 X10^3/uL; Basophil% 0.8 % (0-1); Eosinophil# 0.26 X10^3/uL; Eosinophils% 1.9 % (0-5); Hematocrit 23.1 % (40-54); Hemoglobin 7.5 g/dL (13.0-16.5); Lymphocyte # 2.14 X10^3/ul (0.83-4.51); Mean Corp Hgb Conc 32.5 g/dL (32-36); Mean Corpuscular Hgb 27.3 pg (27.0-32.0); Mean Platelet Vol. 8.7 fl (6.2-12.0); Monocyte# 0.93 X10^3/uL; NRBC Flagged by Analyzer 0 % (0-5); Neutrophil # 9.67 X10^3/uL (2.7-7.7); Neutrophil % 72.6 % (47-70); Platelet Count 424 K/mm3 (150-450); RBC Distribution Width CV 16.3 % (11.6-14.6); RBC Distribution Width SD 48.8 fl (35.1-43.9); Red Blood Count 2.75 M/mm3 (4.6-6.2); White Blood Count 13.3 K/mm3 (4.4-11.0)
[2023-08-14 04:57] LABS: Alanine Aminotransfer ALT/SGPT 27 U/L (16-61); Anion Gap 3 (5-15); BUN 10 mg/dL (7-18); BUN/Creat Ratio 10.8 RATIO (10-20); Calcium,Total 8.1 mg/dL (8.5-10.1); Chloride 109 mmol/L (98-107); Creatinine, Serum 0.93 mg/dL (0.70-1.30); EST Glomerular Filtration Rate 85 mL/min (>60); Est Glom Filt Rate - Afr Amer 103 mL/min (>60); Estimated Creatinine Clearance 70.74 ml/min; Glucose 112 mg/dL (74-106); Phosphorus 3.3 mg/dL (2.5-4.9); Potassium 3.9 mmol/L (3.5-5.1); Sodium Level 138 mmol/L (136-145)
[2023-08-14 05:06] LABS: International Normalized Ratio 1.4; Partial Thromboplast Time 32.8 Seconds (24.1-36.2)
[2023-08-14 05:11] LABS: AST(SGOT) 25 U/L (15-37)
--- NOTE | 2023-08-14 05:55 | EKG12_ITS ---
Test Reason : pre op Blood Pressure : / mmHG Vent. Rate : 089 BPM Atrial Rate : 089 BPM P-R Int : 146 ms QRS Dur : 116 ms QT Int : 404 ms P-R-T Axes : 039 -16 083 degrees QTc Int : 491 ms Sinus rhythm with occasional Premature ventricular complexes Abnormal ECG When compared with ECG of 27-APR-2023 07:39, No significant change was found Confirmed by NICOLÁS COOK, KAREN ([id number]), video news editor JERMAINE ZAVALA ([id number]) on 08/15/2023 9:40:58 AM Referred By: Confirmed By:KAREN MONZON MD
--- NOTE | 2023-08-14 09:53 | PN.HOSP_ITS ---
Reason for Visit Reason for Visit: Diagnoses Acute embolism and thrombosis of unspecified deep veins of unspecified lower ex tremity (08/13/23) Displaced intertrochanteric fracture of right femur, initial encounter for closed fracture (08/13/23) Subjective Subjective Patient was transfused 1 unit PRBC the day prior. He is scheduled to undergo IV C filter placement Objective Data Objective Data Vital Signs: Vital Signs Temp Pulse Resp BP Pulse Ox O2 Del Method 97.9 F 90 18 104/57 L 95 Room Air 08/14/23 09:14 08/14/23 09:14 08/14/23 09:14 08/14/23 09:14 08/14/23 09:14 08/14/23 09:15 Oxygen Delivery Method Room Air Weight: 74.7 kg Body Mass Index (BMI) 24.3 Intake & Output: Intake and Output for Last 24 Hours 08/12/23 08/13/23 08/14/23 23:59 23:59 23:59 Intake Total 1911 / 1911 Output Total 900 / 900 Balance 1011 / 1011 Lab / Micro Data 08/14/23 04:25 08/14/23 04:25 Labs: Laboratory Results - last 24 hr 08/13/23 08:22: Blood Type O POSITIVE, Antibody Screen NEGATIVE, Crossmatch See Detail 08/13/23 15:32: Hgb 6.5 L, Hct 21.0 L 08/13/23 20:55: Hgb 7.2 L, Hct 22.7 L 08/14/23 04:25: WBC 13.3 H, RBC 2.75 L, Hgb 7.5 L, Hct 23.1 L, MCV 84.0, MCH 27.3, MCHC 32.5 D, RDW Std Deviation 48.8 H, RDW Coeff of Vicente 16.3 H, Plt Count 424, MPV 8.7, Immature Gran % (Auto) 1.700 H, Neut % (Auto) 72.6 H, Lymph % (Auto) 16.0 L, [place] % (Auto) 7.0, Eos % (Auto) 1.9, Baso % (Auto) 0.8, Absolute Neuts (auto) 9.7 H, Absolute Lymphs (auto) 2.14, Nucleated RBC % 0, PT 17.0 H, INR 1.4, APTT 32.8, Sodium 138, Potassium 3.9, Chloride 109 H, Carbon Dioxide 26.0, Anion Gap 3 L, BUN 10, Creatinine 0.93, Estim Creat Clear Calc 70.74, Est GFR (MDRD) Af Amer 103, Est GFR (MDRD) Non-Af 85, BUN/Creatinine Ratio 10.8, Glucose 112 H, Calcium 8.1 L, Phosphorus 3.3, Magnesium 2.0, AST 25, ALT 27 Physical Exam Narrative GENERAL: cooperative HEENT: Atraumatic; normocephalic EYES; Anicteric, Normal Conjunctiva NECK; supple, normal thyroid, RESPIRATORY: Diminished to auscultation CARDIOVASCULAR: Regular S1 S2, GI: soft, normoactive bowel sounds, : No Renal angle tenderness; EXTREMITIES: No edema, no clubbing, MUSCULOSKELETAL: Bleeding from his right hip surgical incision site with dressing applied NEURO: Awake; no lateralizing signs. SKIN: No Rash PSYCH; Flat affect Assessment & Plan Assessment/Plan (1) Postoperative bleeding from incision: PLAN: Plan Patient is a 73-year-old gentleman presented with bleeding from a previous surgical incision site 1. Bleeding from previous surgical incision site (right hip) ? This is exacerbated by use of systemic anticoagulation Xarelto following patient recent diagnosis of DVT. Xarelto held pressure applied consult placed to Dr. Anna and from the ED he did evaluate the patient in the emergency department prior to patient being admitted ? 08/14/2023; patient bleeding appears to have stabilized 2. Acute right lower extremity DVT ? Patient was discharged on rivaroxaban which is currently held consult placed to vascular surgery Dr Sevilla for IVC filter since patient did not tolerate systemic anticoagulation ? 08/14/2023; patient scheduled to undergo IVC filter placement 3. Anemia ? Secondary to acute blood loss anemia monitoring H&H with plans to transfuse if patient is deemed to be symptomatic or hemoglobin falls below 7 ? 08/14/2023; hemoglobin came up to 7.5 following transfusion with 1 unit PRBC on 08/13/2023. Subsequent monitoring with H&H ordered 4. Hypertension - Blood pressure controlled, home medications continued with dose adjustment as needed 5. Dyslipidemia -Patient is on statin therapy, continued at home dose 6. DVT prophylaxis ? Patient is on Xarelto which has been held did order bilateral SCDs Time spent in the patient's overall evaluation,decision-making process, review of diagnostic data, adjustment of management, discussion with other providers, nursing nursing and ancillary staff involved in patient's care documentation, 50 minutes Charges/Coding Visit Charges Inpatient E&M: 93461 Subs Hosp L3
--- NOTE | 2023-08-14 11:29 | WOUNDNOTE ---
was consulted on patient for bleeding from incision. patient is currently off the unit.
[2023-08-14] MEDS: Acetaminophen 325 MG Tablet 650 MG PO (12:17)
--- NOTE | 2023-08-14 13:24 | PCM.OPRPT ---
Report of Operation Date of Procedure: 08/14/23 Pre-Operative Diagnosis: DVT and contraindication to anticoagulation Post-Operative Diagnosis: Same Surgery/Procedure Performed:: Insertion inferior vena cava filter Surgeon: Maninder Sevilla Type of Anesthesia: Local and Sedation,Conscious Estimated Blood Loss (mL): 3 Description of Procedure: HPI: Patient is a 73-year-old male with recent hip fracture and surgery was had persistent bleeding issues from the surgical site. She recently diagnosed with a deep venous thrombosis and placed on anticoagulation which has exacerbated his wound bleeding problems. He presents now for filter placement. Description of procedure: Upon obtaining informed consent and verification correct patient procedure site patient in the caliber he was positioned prepped and draped in usual fashion. Time was performed conscious sedation administered Versed and fentanyl. The right femoral vessels were inaccessible due to his compression dressing so skin overlying the left common femoral vein was anesthetized 1% lidocaine the vessel accessed under ultrasound guidance with a micropuncture needle wire. This then exchanged for micropuncture sheath which injection ilio caval venogram was performed revealing satisfactory positioning no extravasation dissection. This revealed patent left iliac vein system and normal caliber vena cava. The micropuncture sheath a J-wire was advanced micropuncture sheath exchanged out for the Cook filter delivery sheath. There is a fair amount of angulation at the confluence of the iliac vein into the vena cava filter delivery sheath displaced to the sidewall of the vena cava. We advanced the filter in an effort to hopefully straighten delivery system and provide a nontilted delivery location. Unfortunately, however, we are unable to get satisfactory filter positioning so the filter delivery sheath withdrawn and manual pressure held for 5 minutes after which satisfactory stasis was noted. The patient was then reprepped and draped for right IJ access and skin overlying the right IJ was anesthetized 1% lidocaine. Vessels then accessed with micropuncture needle wire under ultrasound guidance which then exchanged out for micropuncture sheath. Through this a J-wire was advanced traversing the superior vena cava and into the inferior vena cava and the micropuncture sheath exchanged for a Bard Luz Elena filter delivery system. There is advanced in the inferior vena cava and digital traction venacavogram performed to confirm positioning of the renal vein confluence this. A Bard Cabarrus filter was then deployed inferior to the lowest renal vein. Sheath was then withdrawn and pressure held for 5 minutes after which satisfactory stasis was noted. The patient was taken to recovery room plans turned to the PCU.
--- NOTE | 2023-08-14 14:45 | CASEMGMT ---
RN CM chart review: Patient was admitted 08/04-08/08/23 for UTI, hypotension, DVT and discharged on Xarelto, non healing incision for hip surgery. See Assessment from 08/06/23. Patient was discharged to home with family support and follow-up plans in place. Patient returned to [facility] ED on 08/13/23 for wound site bleeding. Hgb dropped to 6.5 and received transfusion. Patient has vascular consult and IVC filter placed on 08/14/23. ERIK CM in to discuss readmission and discharge needs. Patient states he was taking medications as prescribed. Patient followed with ortho on 08/12/23 and wound improving and appt was made to follow in the wound center. Patient states he was completing dressing changes without difficulty. Patient states he was getting ready on 08/13/23 to attend appt at wound center and wound started to spurt blood and came to the ED. Patient states he is ambulating well with walker. Patient denies needs at discharge. Patient to discharge home with follow-up plans at wound center. Patient had no further questions or concerns. CM will continue to follow this patient and plan for a safe discharge.
--- NOTE | 2023-08-14 15:30 | NURSING ---
This RN is taking over care at this time.
[2023-08-14] MEDS: MELATONIN 3 MG TABLET PO (21:37)
[2023-08-14] MEDS: Atorvastatin Calcium 10 MG Tablet PO (21:37)
[2023-08-14] MEDS: Carvedilol 3.125 MG TABLET PO (21:37)
[2023-08-15] VITALS (10 sets, daily range): BP systolic 95–113; BP diastolic 56–84; PULSE 85–94; RESP 16–18; TEMP 36.2–36.9; O2SAT 94–98
[2023-08-15 05:42] LABS: Absolute Lymphocyte Count 1.82 X10^3/uL (0.83-4.51); Absolute Neutrophil Count 8.7 X10^3/uL (2.0-7.7); Basophil# 0.07 X10^3/uL; Basophil% 0.6 % (0-1); Eosinophil# 0.28 X10^3/uL; Eosinophils% 2.3 % (0-5); Hematocrit 20.8 % (40-54); Hemoglobin 6.6 g/dL (13.0-16.5); Lymphocyte # 1.82 X10^3/ul (0.83-4.51); Lymphocyte % 15.1 % (19-41); Mean Corp Hgb Conc 31.7 g/dL (32-36); Mean Corpuscular Hgb 26.9 pg (27.0-32.0); Mean Corpuscular Volume 84.9 fL (80-94); Mean Platelet Vol. 9.3 fl (6.2-12.0); Monocyte# 1.04 X10^3/uL; Monocyte% 8.7 % (0-10); NRBC Flagged by Analyzer 0 % (0-5); Neutrophil # 8.67 X10^3/uL (2.7-7.7); Neutrophil % 72.1 % (47-70); Platelet Count 410 K/mm3 (150-450); RBC Distribution Width CV 17.2 % (11.6-14.6); RBC Distribution Width SD 51.9 fl (35.1-43.9); Red Blood Count 2.45 M/mm3 (4.6-6.2)
[2023-08-15 06:30] LABS: Anion Gap 6 (5-15); BUN 11 mg/dL (7-18); Calcium,Total 8.2 mg/dL (8.5-10.1); Chloride 107 mmol/L (98-107); Creatinine, Serum 0.85 mg/dL (0.70-1.30); EST Glomerular Filtration Rate 94 mL/min (>60); Est Glom Filt Rate - Afr Amer 114 mL/min (>60); Glucose 101 mg/dL (74-106); Potassium 4.3 mmol/L (3.5-5.1); Sodium Level 137 mmol/L (136-145)
--- NOTE | 2023-08-15 06:41 | PCM.HOSP.N ---
Hospitalist Note Hgb 6.6, will order 1 u PRBC and repeat HH following.
--- NOTE | 2023-08-15 07:28 | PCM.PN.HOSP ---
Reason for Visit Reason for Visit: Diagnoses Acute embolism and thrombosis of unspecified deep veins of unspecified lower extremity (08/13/23) Displaced intertrochanteric fracture of right femur, initial encounter for closed fracture (08/13/23) Subjective Subjective Patient underwent Insertion inferior vena cava filter. Hemoglobin down to 6.6 and order has been given for patient to be transfused with 1 unit PRBC Objective Data Objective Data Vital Signs: Vital Signs Temp Pulse Resp BP Pulse Ox O2 Del Method 97.2 F L 91 18 103/63 95 Room Air 08/15/23 07:22 08/15/23 07:22 08/15/23 07:22 08/15/23 07:22 08/15/23 07:22 08/15/23 07:22 Oxygen Delivery Method Room Air Weight: 74.7 kg Body Mass Index (BMI) 24.3 Intake & Output: Intake and Output for Last 24 Hours 08/13/23 08/14/23 08/15/23 23:59 23:59 23:59 Intake Total 1911 / 1911 440 / 740 550 / 550 Output Total 900 / 900 1850 / 2750 1050 / 1050 Balance 1011 / 1011 -1410 / -2010 -500 / -500 Lab / Micro Data 08/15/23 05:00 08/15/23 05:00 Labs: Laboratory Results - last 24 hr 08/13/23 08:22: Crossmatch See Detail 08/15/23 05:00: WBC 12.0 H, RBC 2.45 L, Hgb 6.6 L, Hct 20.8 L, MCV 84.9, MCH 26.9 L, MCHC 31.7 L, RDW Std Deviation 51.9 H, RDW Coeff of Vicente 17.2 H, Plt Count 410, MPV 9.3, Immature Gran % (Auto) 1.200 H, Neut % (Auto) 72.1 H, Lymph % (Auto) 15.1 L, [place] % (Auto) 8.7, Eos % (Auto) 2.3, Baso % (Auto) 0.6, Absolute Neuts (auto) 8.7 H, Absolute Lymphs (auto) 1.82, Nucleated RBC % 0, Sodium 137, Potassium 4.3, Chloride 107, Carbon Dioxide 24.0, Anion Gap 6, BUN 11, Creatinine 0.85, Estim Creat Clear Calc 77.40, Est GFR (MDRD) Af Amer 114, Est GFR (MDRD) Non-Af 94, BUN/Creatinine Ratio 13.0, Glucose 101, Calcium 8.2 L Physical Exam Narrative GENERAL: cooperative HEENT: Atraumatic; normocephalic EYES; Anicteric, Normal Conjunctiva NECK; supple, normal thyroid, RESPIRATORY: Diminished to auscultation CARDIOVASCULAR: Regular S1 S2, GI: soft, normoactive bowel sounds, : No Renal angle tenderness; EXTREMITIES: No edema, no clubbing, MUSCULOSKELETAL: Bleeding from his right hip surgical incision site with dressing applied NEURO: Awake; no lateralizing signs. SKIN: No Rash PSYCH; Flat affect Assessment & Plan Assessment/Plan (1) Postoperative bleeding from incision: PLAN: Plan Patient is a 73-year-old gentleman presented with bleeding from a previous surgical incision site 1. Bleeding from previous surgical incision site (right hip) ? This is exacerbated by use of systemic anticoagulation Xarelto following patient recent diagnosis of DVT. Xarelto held pressure applied consult placed to Dr. Anna and from the ED he did evaluate the patient in the emergency department prior to patient being admitted ? 08/14/2023; patient bleeding appears to have stabilized 2. Acute right lower extremity DVT ? Patient was discharged on rivaroxaban which is currently held consult placed to vascular surgery Dr Sevilla for IVC filter since patient did not tolerate systemic anticoagulation ? 08/14/2023; patient scheduled to undergo IVC filter placement ? 08/15/2023; patient underwent Insertion inferior vena cava filter by Dr. Maninder Peralta on 08/14/2023. 3. Anemia ? Secondary to acute blood loss anemia monitoring H&H with plans to transfuse if patient is deemed to be symptomatic or hemoglobin falls below 7 ? 08/14/2023; hemoglobin came up to 7.5 following transfusion with 1 unit PRBC on 08/13/2023. Subsequent monitoring with H&H ordered ? 08/15/2023; patient hemoglobin down to 6.6 an additional PRBC unit ordered 4. Hypertension - Blood pressure controlled, home medications continued with dose adjustment as needed 5. Dyslipidemia -Patient is on statin therapy, continued at home dose 6. DVT prophylaxis ? Patient is on Xarelto which has been held did order bilateral SCDs Time spent in the patient's overall evaluation,decision-making process, review of diagnostic data, adjustment of management, discussion with other providers, nursing nursing and ancillary staff involved in patient's care documentation, 50 minutes Charges/Coding Visit Charges Inpatient E&M: 07542 Subs Hosp L3
--- NOTE | 2023-08-15 08:00 | PN.SURG_ITS ---
Subjective Subjective Patient is seen resting comfortably in bed. He is receiving 1 unit PRBC this morning due to Hgb down to 6.6 from 7.5 yesterday. He denies any pain/swelling/bleeding from the access sites. He tolerated the procedure well yesterday. Objective Data Objective Data Vital Signs: Vital Signs Temp Pulse Resp BP Pulse Ox O2 Del Method 97.2 F L 91 18 103/63 95 Room Air 08/15/23 07:22 08/15/23 07:22 08/15/23 07:22 08/15/23 07:22 08/15/23 07:22 08/15/23 07:22 Oxygen Delivery Method Room Air Weight: 164 lb 10.965 oz Body Mass Index (BMI) 24.3 Intake & Output: Intake and Output for Last 24 Hours 08/13/23 08/14/23 08/15/23 23:59 23:59 23:59 Intake Total 1911 / 1911 440 / 740 550 / 550 Output Total 900 / 900 1850 / 2750 1050 / 1050 Balance 1011 / 1011 -1410 / -2010 -500 / -500 Lab / Micro Data 08/15/23 05:00 08/15/23 05:00 Labs: Laboratory Results - last 24 hr 08/13/23 08:22: Crossmatch See Detail 08/15/23 05:00: WBC 12.0 H, RBC 2.45 L, Hgb 6.6 L, Hct 20.8 L, MCV 84.9, MCH 26.9 L, MCHC 31.7 L, RDW Std Deviation 51.9 H, RDW Coeff of Vicente 17.2 H, Plt Count 410, MPV 9.3, Immature Gran % (Auto) 1.200 H, Neut % (Auto) 72.1 H, Lymph % (Auto) 15.1 L, [place] % (Auto) 8.7, Eos % (Auto) 2.3, Baso % (Auto) 0.6, Absolute Neuts (auto) 8.7 H, Absolute Lymphs (auto) 1.82, Nucleated RBC % 0, Sodium 137, Potassium 4.3, Chloride 107, Carbon Dioxide 24.0, Anion Gap 6, BUN 11, Creatinine 0.85, Estim Creat Clear Calc 77.40, Est GFR (MDRD) Af Amer 114, Est GFR (MDRD) Non-Af 94, BUN/Creatinine Ratio 13.0, Glucose 101, Calcium 8.2 L Physical Exam Const alert, oriented x3 and no apparent distress General Appearance: cooperative and comfortable HEENT normocephalic, head/scalp atraumatic, hearing grossly normal bilaterally, external ears normal and external nose normal Eyes EOMs intact bilaterally General Eye: normal appearance of both eyes Neck General: normal visual inspection and trachea midline Resp normal respiratory effort, normal air movement, no retractions and no use of accessory muscles Effort and Inspection: able to speak in complete sentences; Negative for la bored, stridor, retractions or audible wheezes Cardio regular rate and regular rhythm Extremity Extremity Narrative: R hip pressure dressing in place. RLE edema 1+. No tenderness to palpation, erythema, warmth. L groin access site with small pressure dressing C/D/I. No surrounding ecchymosis, erythema, focal swelling. No bleed through. R IJ access site with dry dressing in place. Small amount of dried blood noted on the dressing. No surrounding erythema. Minimal ecchymosis. No focal swelling. SCD in place on LLE only. Skin no rashes or lesions noted and no wounds Trauma: no lacerations or abrasions Neuro oriented x3, CN's II-XII intact bilaterally, moves all extremities, no focal motor deficits and no sensory deficits noted Speech: speech normal Psych mental status grossly normal Appearance: grossly normal Attitude: calm and engaged Activity / Motor Behavior: appropriate eye contact Speech: normal speech Mood & Affect: euthymic mood Judgement: judgement good Assessment & Plan Assessment/Plan (1) DVT (deep venous thrombosis): (2) Postoperative bleeding from incision: (3) S/P insertion of IVC (inferior vena caval) filter: PLAN: Plan He is s/p IVC filter insertion. Access sites are satisfactory in appearance without evidence of significant bleeding or hematoma. Leave the dressings in place for 24 hours post-op. After that, okay to leave open to air if no drainage or apply new dry dressing if drainage is noted. He should not lift greater than 20 pounds for 2 weeks. Otherwise activity as tolerated. Will have him follow-up in the office in about 4 weeks, sooner if any concerns arise. Will sign off.
[2023-08-15] MEDS: Carvedilol 3.125 MG TABLET PO ×2 (08:53→20:41)
[2023-08-15] MEDS: Acetaminophen 325 MG Tablet 650 MG PO (08:54)
[2023-08-15 11:30] LABS: Hematocrit 23.5 % (40-54); Hemoglobin 7.6 g/dL (13.0-16.5)
--- NOTE | 2023-08-15 13:52 | CASEMGMT ---
Discharge Planning A list of?HH providers including quality and resource use data and consistent with the patient's preferred geographic region, medical needs, and insurance network was created in [employer].? This list was provided to the RN KAYLIN. Pinky Wheat, Discharge Planning Asst.
--- NOTE | 2023-08-15 14:37 | WOUNDNOTE ---
wound photo: right hip
--- NOTE | 2023-08-15 14:48 | CASEMGMT ---
SW met with patient. Introduced self and role at [facility]. SW asked patient if he feels safe going home and if he would be interested in home health. Patient stated he would like to go home at discharge. SW explained home health and that patient would have to be homebound. Patient stated he is not homebound and does not feel he needs home health. Ale LAWRENCE
--- NOTE | 2023-08-15 14:56 | CHAPLAIN ---
Type of Pastoral Visit _x__ Initial Visit ___ Follow-up Visit ___ On-call Visit ___ General Patient Visit ___ Spiritual Assessment ___ Family Conference ___ Bereavement ___ Rapid Response ___ Code Blue ___ Other (describe below) Pastoral Care Referral From _x__ Patient ___ Family ___ Nurse ___ Physician ___ Voltage Inspector ___ Cytotechnologist Supervisor ___ Other (describe below) Sacrament/Intervention _x__ Active listening ___ Anointing ___ Voodoo ___ Bereavement ___ Communion ___ Kanchan exploration ___ ___ Life review _x__ Prayer ___ Reconciliation ___ Sacrament of Sick _x__ Supportive presence ___ Wedding ___ Other (describe below) Pastoral Comments patient gives updates on his ongoing wound; pt states he will need to make decision about going home or to SNF; pt wants to go home but has concerns about the healing of his wound; pt engages in casual conversation and welcomes a prayer for support
--- NOTE | 2023-08-15 15:35 | PN.ORTHO_ITS ---
Subjective Subjective min pain to the hip. back from ivc filter insertion Objective Data Objective Data Vital Signs: Vital Signs Temp Pulse Resp BP Pulse Ox O2 Del Method 97.7 F L 87 16 95/56 L 94 Room Air 08/15/23 10:23 08/15/23 10:23 08/15/23 10:23 08/15/23 10:23 08/15/23 10:23 08/15/23 10:23 Oxygen Delivery Method Room Air Weight: 164 lb 10.965 oz Body Mass Index (BMI) 24.3 Intake & Output: Intake and Output for Last 24 Hours 08/13/23 08/14/23 08/15/23 23:59 23:59 23:59 Intake Total 1911 / 1911 440 / 740 551 / 551 Output Total 900 / 900 1850 / 2750 1050 / 1050 Balance 1011 / 1011 -1410 / -2010 -499 / -499 Lab / Micro Data 08/15/23 11:22 08/15/23 05:00 Labs: Laboratory Results - last 24 hr 08/13/23 08:22: Crossmatch See Detail 08/13/23 08:22: Crossmatch See Detail 08/15/23 05:00: WBC 12.0 H, RBC 2.45 L, Hgb 6.6 L, Hct 20.8 L, MCV 84.9, MCH 26.9 L, MCHC 31.7 L, RDW Std Deviation 51.9 H, RDW Coeff of Vicente 17.2 H, Plt Count 410, MPV 9.3, Immature Gran % (Auto) 1.200 H, Neut % (Auto) 72.1 H, Lymph % (Auto) 15.1 L, [facility] % (Auto) 8.7, Eos % (Auto) 2.3, Baso % (Auto) 0.6, Absolute Neuts (auto) 8.7 H, Absolute Lymphs (auto) 1.82, Nucleated RBC % 0, Sodium 137, Potassium 4.3, Chloride 107, Carbon Dioxide 24.0, Anion Gap 6, BUN 11, Creatinine 0.85, Estim Creat Clear Calc 77.40, Est GFR (MDRD) Af Amer 114, Est GFR (MDRD) Non-Af 94, BUN/Creatinine Ratio 13.0, Glucose 101, Calcium 8.2 L 08/15/23 11:22: Hgb 7.6 L, Hct 23.5 L Physical Exam HEENT normocephalic Extremity Extremity Narrative: wound slowly closing right hip, scant bloody drainage. not red or warm Assessment & Plan Assessment/Plan (1) Closed intertrochanteric fracture of right hip: PLAN: 73 yr M. Will monitor. Should close on its own, but if not by friday will put some noemy in the 1cm open area. pressure dressing for now, and monitor hg. (2) Postoperative bleeding from incision:
[2023-08-15] MEDS: Atorvastatin Calcium 10 MG Tablet PO (20:41)
[2023-08-15] MEDS: MELATONIN 3 MG TABLET PO (22:11)
[2023-08-16 03:55] VITALS: BP 106/66; PULSE 82; RESP 18; TEMP 36.4; O2SAT 95
[2023-08-16 07:34] LABS: Absolute Lymphocyte Count 1.65 X10^3/uL (0.83-4.51); Absolute Neutrophil Count 4.6 X10^3/uL (2.0-7.7); Basophil# 0.11 X10^3/uL; Basophil% 1.4 % (0-1); Eosinophil# 0.46 X10^3/uL; Eosinophils% 5.9 % (0-5); Hematocrit 23.1 % (40-54); Hemoglobin 7.3 g/dL (13.0-16.5); Lymphocyte # 1.65 X10^3/ul (0.83-4.51); Lymphocyte % 21.3 % (19-41); Mean Corp Hgb Conc 31.6 g/dL (32-36); Mean Corpuscular Hgb 26.9 pg (27.0-32.0); Mean Corpuscular Volume 85.2 fL (80-94); Mean Platelet Vol. 9.3 fl (6.2-12.0); Monocyte# 0.86 X10^3/uL; Monocyte% 11.1 % (0-10); NRBC Flagged by Analyzer 0 % (0-5); Neutrophil # 4.57 X10^3/uL (2.7-7.7); Neutrophil % 59.1 % (47-70); Platelet Count 439 K/mm3 (150-450); RBC Distribution Width CV 17.2 % (11.6-14.6); RBC Distribution Width SD 52.6 fl (35.1-43.9); Red Blood Count 2.71 M/mm3 (4.6-6.2); White Blood Count 7.7 K/mm3 (4.4-11.0)
--- NOTE | 2023-08-16 07:34 | PN.HOSP_ITS ---
Reason for Visit Reason for Visit: Diagnoses Acute embolism and thrombosis of unspecified deep veins of unspecified lower ex tremity (08/13/23) Displaced intertrochanteric fracture of right femur, initial encounter for closed fracture (08/13/23) Presence of other vascular implants and grafts (08/13/23) Subjective Subjective Patient seen still complains of drainage from his incision site. Patient requested to be observed for 1 more day. Hemoglobin up to 7.3. Objective Data Objective Data Vital Signs: Vital Signs Temp Pulse Resp BP Pulse Ox O2 Del Method 97.5 F L 82 18 106/66 95 Room Air 08/16/23 03:55 08/16/23 03:55 08/16/23 03:55 08/16/23 03:55 08/16/23 03:55 08/16/23 04:54 Oxygen Delivery Method Room Air Weight: 74.7 kg Body Mass Index (BMI) 24.3 Intake & Output: Intake and Output for Last 24 Hours 08/14/23 08/15/23 08/16/23 23:59 23:59 23:59 Intake Total 440 / 740 1491 / 1990 1000 / 1000 Output Total 1850 / 2750 3850 / 4800 1750 / 1750 Balance -1410 / -2010 -2359 / -2809 -750 / -750 Lab / Micro Data 08/16/23 06:40 08/16/23 06:40 Labs: Laboratory Results - last 24 hr 08/13/23 08:22: Crossmatch See Detail 08/13/23 08:22: Crossmatch See Detail 08/15/23 11:22: Hgb 7.6 L, Hct 23.5 L Physical Exam Narrative GENERAL: cooperative HEENT: Atraumatic; normocephalic EYES; Anicteric, Normal Conjunctiva NECK; supple, normal thyroid, RESPIRATORY: Diminished to auscultation CARDIOVASCULAR: Regular S1 S2, GI: soft, normoactive bowel sounds, : No Renal angle tenderness; EXTREMITIES: No edema, no clubbing, MUSCULOSKELETAL: ight hip surgical incision site with dressing intact NEURO: Awake; no lateralizing signs. SKIN: No Rash PSYCH; Flat affect Assessment & Plan Assessment/Plan (1) Postoperative bleeding from incision: PLAN: Plan Patient is a 73-year-old gentleman presented with bleeding from a previous surgical incision site 1. Bleeding from previous surgical incision site (right hip) ? This is exacerbated by use of systemic anticoagulation Xarelto following mark ent recent diagnosis of DVT. Xarelto held pressure applied consult placed to Dr. Anna and from the ED he did evaluate the patient in the emergency department prior to patient being admitted ? 08/14/2023; patient bleeding appears to have stabilized ? 08/16/2023; patient continues to experience drainage from incision site. 2. Acute right lower extremity DVT ? Patient was discharged on rivaroxaban which is currently held consult placed to vascular surgery Dr Sevilla for IVC filter since patient did not tolerate systemic anticoagulation ? 08/14/2023; patient scheduled to undergo IVC filter placement ? 08/15/2023; patient underwent Insertion inferior vena cava filter by Dr. Maninder Sevilla on 08/14/2023. 3. Anemia ? Secondary to acute blood loss anemia monitoring H&H with plans to transfuse if patient is deemed to be symptomatic or hemoglobin falls below 7 ? 08/14/2023; hemoglobin came up to 7.5 following transfusion with 1 unit PRBC on 08/13/2023. Subsequent monitoring with H&H ordered ? 08/15/2023; patient hemoglobin down to 6.6 an additional PRBC unit ordered ? 08/16/2023; hemoglobin up to 7.3 4. Hypertension - Blood pressure controlled, home medications continued with dose adjustment as needed 5. Dyslipidemia -Patient is on statin therapy, continued at home dose 6. DVT prophylaxis ? Patient is on Xarelto which has been held did order bilateral SCDs 7. Physical deconditioning - Requested for PT OT eval and social science research assistant to assist with discharge planning Time spent in the patient's overall evaluation,decision-making process, review of diagnostic data, adjustment of management, discussion with other providers, nursing nursing and ancillary staff involved in patient's care documentation, 35 minutes Charges/Coding Visit Charges Inpatient E&M: 24923 Subs Hosp L2
[2023-08-16 07:51] LABS: Anion Gap 5 (5-15); BUN 12 mg/dL (7-18); BUN/Creat Ratio 15.5 RATIO (10-20); Chloride 105 mmol/L (98-107); Creatinine, Serum 0.77 mg/dL (0.70-1.30); EST Glomerular Filtration Rate 105 mL/min (>60); Est Glom Filt Rate - Afr Amer 127 mL/min (>60); Estimated Creatinine Clearance 82.24 ml/min; Glucose 98 mg/dL (74-106); Sodium Level 136 mmol/L (136-145)
[2023-08-16] MEDS: Carvedilol 3.125 MG TABLET PO ×2 (08:26→22:20)
[2023-08-16 09:55] VITALS: BP 104/58; PULSE 84; RESP 18; TEMP 36.9; O2SAT 96
[2023-08-16 16:00] VITALS: BP 103/67; PULSE 81; RESP 16; TEMP 36.8; O2SAT 97
[2023-08-16 22:17] VITALS: BP 112/65; PULSE 90; RESP 18; TEMP 36.2; O2SAT 96
[2023-08-16] MEDS: Atorvastatin Calcium 10 MG Tablet PO (22:20)
[2023-08-16] MEDS: MELATONIN 3 MG TABLET PO (22:20)
[2023-08-17 04:01] VITALS: BP 100/68; PULSE 83; RESP 16; TEMP 36.3; O2SAT 95
[2023-08-17 04:46] LABS: Absolute Lymphocyte Count 1.92 X10^3/uL (0.83-4.51); Absolute Neutrophil Count 3.7 X10^3/uL (2.0-7.7); Basophil% 1.4 % (0-1); Eosinophil# 0.36 X10^3/uL; Eosinophils% 5.2 % (0-5); Hematocrit 24.8 % (40-54); Hemoglobin 7.9 g/dL (13.0-16.5); Lymphocyte # 1.92 X10^3/ul (0.83-4.51); Lymphocyte % 27.8 % (19-41); Mean Corp Hgb Conc 31.9 g/dL (32-36); Mean Corpuscular Hgb 27.6 pg (27.0-32.0); Mean Corpuscular Volume 86.7 fL (80-94); Mean Platelet Vol. 9.1 fl (6.2-12.0); Monocyte% 11.6 % (0-10); NRBC Flagged by Analyzer 0 % (0-5); Neutrophil # 3.66 X10^3/uL (2.7-7.7); Neutrophil % 53.1 % (47-70); Platelet Count 487 K/mm3 (150-450); RBC Distribution Width CV 17.9 % (11.6-14.6); RBC Distribution Width SD 54.8 fl (35.1-43.9); Red Blood Count 2.86 M/mm3 (4.6-6.2); White Blood Count 6.9 K/mm3 (4.4-11.0)
[2023-08-17 05:17] LABS: Anion Gap 5 (5-15); BUN 16 mg/dL (7-18); BUN/Creat Ratio 18.7 RATIO (10-20); Calcium,Total 8.7 mg/dL (8.5-10.1); Chloride 106 mmol/L (98-107); Creatinine, Serum 0.86 mg/dL (0.70-1.30); EST Glomerular Filtration Rate 93 mL/min (>60); Est Glom Filt Rate - Afr Amer 113 mL/min (>60); Glucose 105 mg/dL (74-106); Potassium 3.9 mmol/L (3.5-5.1); Sodium Level 137 mmol/L (136-145)
--- NOTE | 2023-08-17 07:55 | PN.HOSP_ITS ---
Reason for Visit Reason for Visit: Diagnoses Acute embolism and thrombosis of unspecified deep veins of unspecified lower ex tremity (08/13/23) Displaced intertrochanteric fracture of right femur, initial encounter for closed fracture (08/13/23) Presence of other vascular implants and grafts (08/13/23) Subjective Subjective Patient seen had a relatively uneventful night. Plan is for patient to be assessed for possible discharge Objective Data Objective Data Vital Signs: Vital Signs Temp Pulse Resp BP Pulse Ox O2 Del Method 97.4 F L 83 16 100/68 95 Room Air 08/17/23 04:01 08/17/23 04:01 08/17/23 04:01 08/17/23 04:01 08/17/23 04:01 08/17/23 05:27 Oxygen Delivery Method Room Air Weight: 74.7 kg Body Mass Index (BMI) 24.3 Intake & Output: Intake and Output for Last 24 Hours 08/15/23 08/16/23 08/17/23 23:59 23:59 23:59 Intake Total 1491 / 1991 1000 / 1000 Output Total 3850 / 4800 3875 / 3875 500 / 500 Balance -2359 / -2809 -2875 / -2875 -500 / -500 Lab / Micro Data 08/17/23 04:29 08/17/23 04:29 Labs: Laboratory Results - last 24 hr 08/13/23 08:22: Crossmatch See Detail 08/17/23 04:29: WBC 6.9, RBC 2.86 L, Hgb 7.9 L, Hct 24.8 L, MCV 86.7, MCH 27.6, MCHC 31.9 L, RDW Std Deviation 54.8 H, RDW Coeff of Vicente 17.9 H, Plt Count 487 H, MPV 9.1, Immature Gran % (Auto) 0.900, Neut % (Auto) 53.1, Lymph % (Auto) 27.8, [place] % (Auto) 11.6 H, Eos % (Auto) 5.2 H, Baso % (Auto) 1.4 H, Absolute Neuts (auto) 3.7, Absolute Lymphs (auto) 1.92, Nucleated RBC % 0, Sodium 137, Potassium 3.9, Chloride 106, Carbon Dioxide 26.0, Anion Gap 5, BUN 16, Creatinine 0.86, Estim Creat Clear Calc 76.50, Est GFR (MDRD) Af Amer 113, Est GFR (MDRD) Non-Af 93, BUN/Creatinine Ratio 18.7, Glucose 105, Calcium 8.7 Physical Exam Narrative GENERAL: cooperative HEENT: Atraumatic; normocephalic EYES; Anicteric, Normal Conjunctiva NECK; supple, normal thyroid, RESPIRATORY: Diminished to auscultation CARDIOVASCULAR: Regular S1 S2, GI: soft, normoactive bowel sounds, : No Renal angle tenderness; EXTREMITIES: No edema, no clubbing, MUSCULOSKELETAL: ight hip surgical incision site with dressing intact NEURO: Awake; no lateralizing signs. SKIN: No Rash PSYCH; Flat affect Assessment & Plan Assessment/Plan (1) Postoperative bleeding from incision: PLAN: Plan Patient is a 73-year-old gentleman presented with bleeding from a previous surgical incision site 1. Bleeding from previous surgical incision site (right hip) ? This is exacerbated by use of systemic anticoagulation Xarelto following patient recent diagnosis of DVT. Xarelto held pressure applied consult placed to Dr. Anna and from the ED he did evaluate the patient in the emergency department prior to patient being admitted ? 08/14/2023; patient bleeding appears to have stabilized ? 08/16/2023; patient continues to experience drainage from incision site. 2. Acute right lower extremity DVT ? Patient was discharged on rivaroxaban which is currently held consult placed to vascular surgery Dr Sevilla for IVC filter since patient did not tolerate systemic anticoagulation ? 08/14/2023; patient scheduled to undergo IVC filter placement ? 08/15/2023; patient underwent Insertion inferior vena cava filter by Dr. Maninder Sevilla on 08/14/2023. 3. Anemia ? Secondary to acute blood loss anemia monitoring H&H with plans to transfuse if patient is deemed to be symptomatic or hemoglobin falls below 7 ? 08/14/2023; hemoglobin came up to 7.5 following transfusion with 1 unit PRBC on 08/13/2023. Subsequent monitoring with H&H ordered ? 08/15/2023; patient hemoglobin down to 6.6 an additional PRBC unit ordered ? 08/16/2023; hemoglobin up to 7.3 ? 08/17/2023; hemoglobin up to 7.9 4. Hypertension - Blood pressure controlled, home medications continued with dose adjustment as needed 5. Dyslipidemia -Patient is on statin therapy, continued at home dose 6. DVT prophylaxis ? Patient is on Xarelto which has been held did order bilateral SCDs 7. Physical deconditioning - Requested for PT OT eval and marriage and family social worker to assist with discharge planning Time spent in the patient's overall evaluation,decision-making process, review of diagnostic data, adjustment of management, discussion with other providers, nursing nursing and ancillary staff involved in patient's care documentation, 35 minutes
[2023-08-17 09:11] VITALS: BP 106/68; PULSE 89; RESP 12; TEMP 36.6; O2SAT 97
[2023-08-17] MEDS: Carvedilol 3.125 MG TABLET PO (09:13)
--- NOTE | 2023-08-17 10:10 | DS.PCM_ITS ---
Providers Date of Admission: 08/13/23 Date of Discharge: 08/17/23 Primary Care Physician: Dr. Hesham Andrade, Consultations 08/13/23 10:37 Consult: Onc/Wound/marketing operations associate Routine Comment: Reason for Consult:: right hip wound 08/13/23 10:37 Consult: Orthopedics Routine Consulting Provider: Tashi Anna Reason for Consult: bleeding from surgical incsion site EMERGENT Consult: No MD Notified: Yes Date Notified: 08/13/23 Time Notified: 10:24 Method of Notification: ED Physician Initiated Consult: Vascular Surgery Routine Consulting Provider: Maninder Sevilla Reason for Consult: for ivc filter EMERGENT Consult: No Notified: Yes Date Notified: 08/13/23 Time Notified: 10:22 Method of Notification: Text Reason For Visit: BLEEDING FROM WOUND SITES Diagnosis Discharge Diagnosis (1) Postoperative bleeding from incision: Status: Resolved Plan Patient is a 73-year-old gentleman presented with bleeding from a previous surgical incision site 1. Bleeding from previous surgical incision site (right hip) ? This is exacerbated by use of systemic anticoagulation Xarelto following pat ient recent diagnosis of DVT. Xarelto held pressure applied consult placed to Dr. Anna and from the ED he did evaluate the patient in the emergency department prior to patient being admitted ? 08/14/2023; patient bleeding appears to have stabilized ? 08/16/2023; patient continues to experience drainage from incision site. 2. Acute right lower extremity DVT ? Patient was discharged on rivaroxaban which is currently held consult placed to vascular surgery Dr Sevilla for IVC filter since patient did not tolerate systemic anticoagulation ? 08/14/2023; patient scheduled to undergo IVC filter placement ? 08/15/2023; patient underwent Insertion inferior vena cava filter by Dr. Maninder Sevilla on 08/14/2023. 3. Anemia ? Secondary to acute blood loss anemia monitoring H&H with plans to transfuse if patient is deemed to be symptomatic or hemoglobin falls below 7 ? 08/14/2023; hemoglobin came up to 7.5 following transfusion with 1 unit PRBC on 08/13/2023. Subsequent monitoring with H&H ordered ? 08/15/2023; patient hemoglobin down to 6.6 an additional PRBC unit ordered ? 08/16/2023; hemoglobin up to 7.3 ? 08/17/2023; hemoglobin up to 7.9 4. Hypertension - Blood pressure controlled, home medications continued with dose adjustment as needed 5. Dyslipidemia -Patient is on statin therapy, continued at home dose 6. DVT prophylaxis ? Patient is on Xarelto which has been held did order bilateral SCDs 7. Physical deconditioning - Requested for PT OT eval and school social worker to assist with discharge planning Time spent in the patient's overall evaluation,decision-making process, review of diagnostic data, adjustment of management, discussion with other providers, nursing nursing and ancillary staff involved in patient's care documentation, 35 minutes Medications at Discharge Home Medications atorvastatin 10 mg tablet 10 mg PO DAILY HLD 04/26/23 carvedilol 3.125 mg tablet 3.125 mg PO BID HTN, CHF 04/26/23 sennosides 8.6 mg-docusate sodium 50 mg tablet (Stool Softener-Stimulant Laxative) 2 tab PO BID PRN constipation 08/05/23 ferrous sulfate 325 mg (65 mg iron) tablet (Iron (ferrous sulfate)) 325 mg PO BID #60 tabs 08/17/23 Physical Exam Narrative GENERAL: cooperative HEENT: Atraumatic; normocephalic EYES; Anicteric, Normal Conjunctiva NECK; supple, normal thyroid, RESPIRATORY: Diminished to auscultation CARDIOVASCULAR: Regular S1 S2, GI: soft, normoactive bowel sounds, : No Renal angle tenderness; EXTREMITIES: No edema, no clubbing, MUSCULOSKELETAL: ight hip surgical incision site with dressing intact NEURO: Awake; no lateralizing signs. SKIN: No Rash PSYCH; Flat affect Weight / BMI Weight Weight: 74.7 kg Body Mass Index (BMI) 24.3 ABG / Lab / Microbiology Data 08/17/23 04:29 08/17/23 04:29 Laboratory: Laboratory Results - last 24 hr 08/13/23 08:22: Crossmatch See Detail 08/17/23 04:29: WBC 6.9, RBC 2.86 L, Hgb 7.9 L, Hct 24.8 L, MCV 86.7, MCH 27.6, MCHC 31.9 L, RDW Std Deviation 54.8 H, RDW Coeff of Vicente 17.9 H, Plt Count 487 H, MPV 9.1, Immature Gran % (Auto) 0.900, Neut % (Auto) 53.1, Lymph % (Auto) 27.8, [place] % (Auto) 11.6 H, Eos % (Auto) 5.2 H, Baso % (Auto) 1.4 H, Absolute Neuts (auto) 3.7, Absolute Lymphs (auto) 1.92, Nucleated RBC % 0, Sodium 137, Potassium 3.9, Chloride 106, Carbon Dioxide 26.0, Anion Gap 5, BUN 16, Creatinine 0.86, Estim Creat Clear Calc 76.50, Est GFR (MDRD) Af Amer 113, Est GFR (MDRD) Non-Af 93, BUN/Creatinine Ratio 18.7, Glucose 105, Calcium 8.7 D/C Instructions Discharge Diet: No restrictions Discharge Activity: Return to Normal Activity Call your doctor if you observe: Fever of 101 or Higher, Shortness of breath, Fainting spells and Chest pain Meaningful Use Info Meaningful Use Meaningful Use Diagnoses (Choose all that apply): None applicable Ischemic Stroke Statin Dosing Therapy Reference: STATIN DOSE THERAPY REFERENCE: * Patients > 75 years receive moderate or high dose statin therapy. * Patients 75 years or YOUNGER should receive HIGH intensity statin dose unless contraindicated. You will be required to document reason for non-treatment if statin daily dose does not meet guidelines. HIGH DOSE STATIN THERAPY DAILY Atorvastatin > than or = to 40 mg Rosuvastatin > than or = to 20 mg Amlodipine + Atorvastatin > than or = to 2.5/40 mg Ezetimibe + Simvastatin 10/80 mg Simvastatin 80mg Discharge Plan Admission Admit Date/Time: 08/13/23 09:55 Attending Provider: Washington Chaparro Primary Care Provider: Hesham Andrade Consulting Providers: Tashi Anna; Maninder Sevilla Discharge Orders/Prescriptions Prescriptions: New ferrous sulfate [Iron (ferrous sulfate)] 325 mg (65 mg iron) tablet 325 mg PO BID Qty: 60 0RF Continued atorvastatin 10 mg tablet 10 mg PO DAILY Patient Comments: TAKE 1 TABLET (10 MG) BY MOUTH DAILY. carvedilol 3.125 mg tablet 3.125 mg PO BID Patient Comments: TAKE 1 TABLET BY MOUTH TWICE DIALY sennosides-docusate sodium [Stool Softener-Stimulant Laxat] 8.6-50 mg Tablet 2 tab PO BID PRN (Reason: constipation) Discontinued Xarelto DVT-PE Treat 30d Start 15 mg (42)- 20 mg (9) tablets,dose pack See Rx Instructions .ROUTE .COMPLEX Qty: 51 0RF Rx Instructions: take one-15 mg tablet twice daily for 21 days, then one-20 mg tablet once daily; must take with meal/food start on 08/08/23 Referrals / Follow Up: Hesham Andrade DO [Primary Care Provider] - Within 1 Week Disposition Disposition (needs filled in before D/C Order can be placed): Home Health Service Charges/Coding Visit Charges Inpatient E&M: 29774 Disch Hosp >30min
== END 2023-08-17 12:42 | disposition home or self-care (01) | DRG 920 ==
LOC: ED 10:06 → PCU 10:15
PROVIDERS: Anesthesiology; Family Medicine; Admitting Provider Internal Medicine; Emergency Provider Emergency Medicine; PCP Family Medicine; Visit Provider Internal Medicine
DX: L76.22 Postprocedural hemorrhage of skin and subcutaneous tissue following other procedure (principal); T81.31XA Disruption of external operation (surgical) wound, not elsewhere classified, initial encounter; I82.431 Acute embolism and thrombosis of right popliteal vein; D68.32 Hemorrhagic disorder due to extrinsic circulating anticoagulants; I82.451 Acute embolism and thrombosis of right peroneal vein; D62 Acute posthemorrhagic anemia; I11.0 Hypertensive heart disease with heart failure; I82.461 Acute embolism and thrombosis of right calf muscular vein; I50.9 Heart failure, unspecified; E78.5 Hyperlipidemia, unspecified; Y83.1 Surgical operation with implant of artificial internal device as the cause of abnormal reaction of the patient, or of later complication, without mention of misadventure at the time of the procedure; T45.515A Adverse effect of anticoagulants, initial encounter
CPT/HCPCS: 36415; 37191; 76937; 80048; 81001; 83735; 84100; 84450; 84460; 85014; 85018; 85025; 85610; 85730; 86850; 86900; 86901; 86920; 86922; 93005; 97162; 97166; 97530; 99152; 99153; 99283; C1880; C1894; J7030; J7040; J7050; P9016; Q9967; C1769; C1773

== ENCOUNTER 2023-08-18 20:12 | Emergency (ER) | payer MEDICARE, SELFPAY ==
[2023-08-18 20:13] VITALS: BP 80/61; PULSE 91; RESP 16; TEMP 36.4; O2SAT 97
[2023-08-18] MEDS: 0.9% Normal Saline (1000mL) 1,000 ML 1000 ML IV (21:01)
[2023-08-18 21:07] LABS: Absolute Lymphocyte Count 1.75 X10^3/uL (0.83-4.51); Absolute Neutrophil Count 9.2 X10^3/uL (2.0-7.7); Basophil# 0.15 X10^3/uL; Basophil% 1.2 % (0-1); Eosinophil# 0.12 X10^3/uL; Hematocrit 27.1 % (40-54); Hemoglobin 8.3 g/dL (13.0-16.5); Lymphocyte # 1.75 X10^3/ul (0.83-4.51); Mean Corp Hgb Conc 30.6 g/dL (32-36); Mean Corpuscular Volume 88.3 fL (80-94); Mean Platelet Vol. 9.1 fl (6.2-12.0); Monocyte# 1.21 X10^3/uL; Monocyte% 9.7 % (0-10); NRBC Flagged by Analyzer 0 % (0-5); Neutrophil # 9.15 X10^3/uL (2.7-7.7); Neutrophil % 73.2 % (47-70); Platelet Count 638 K/mm3 (150-450); RBC Distribution Width CV 18.1 % (11.6-14.6); RBC Distribution Width SD 56.8 fl (35.1-43.9); Red Blood Count 3.07 M/mm3 (4.6-6.2); White Blood Count 12.5 K/mm3 (4.4-11.0)
[2023-08-18 21:12] VITALS: BP 99/59; PULSE 82; RESP 16; O2SAT 98
[2023-08-18 21:16] LABS: International Normalized Ratio 3.9; Prothrombin Time (Protime)PT. 37.5 SECONDS (11.7-14.9)
[2023-08-18 21:17] LABS: Anion Gap 7 (5-15); BUN 25 mg/dL (7-18); BUN/Creat Ratio 21.7 RATIO (10-20); Calcium,Total 8.8 mg/dL (8.5-10.1); Chloride 102 mmol/L (98-107); Creatinine, Serum 1.15 mg/dL (0.70-1.30); EST Glomerular Filtration Rate 66 mL/min (>60); Est Glom Filt Rate - Afr Amer 80 mL/min (>60); Glucose 126 mg/dL (74-106); Potassium 4.1 mmol/L (3.5-5.1); Sodium Level 134 mmol/L (136-145)
--- NOTE | 2023-08-18 21:40 | EX.ED.DYSGE1 ---
HPI <BARBARA Pike - Last Filed: 08/18/23 21:46> History of Present Illness Chief Complaint: Wound Narrative Narrative: Patient is a 73-year-old male with history of bleeding to the right hip. Patient is currently not on any anticoagulation medicine, Dr. Sevilla did place an IVC filter. Patient is currently following up with wound care as well as Dr. Barriga. Patient does have concern for oozing from the sites. Patient was admitted on August 13, 2023, was discharged on August 17, 2023. Patient noticed that his underwear was red and he was oozing, secondary to his history recently he is here for evaluation. Patient denies any dizziness. Patient dates he does have pain to the right hip however this is chronic. PFSH <BARBARA Pike - Last Filed: 08/18/23 21:46> [facility] Medical History BPH (benign prostatic hyperplasia) Closed intertrochanteric fracture of right hip Heart failure HLD (hyperlipidemia) HTN (hypertension) Impaired wound healing Suprapubic catheter Home Medications atorvastatin 10 mg tablet 10 mg PO DAILY HLD 04/26/23 [History Last Taken 08/05/23 08:00] carvedilol 3.125 mg tablet 3.125 mg PO BID HTN, CHF 04/26/23 [History Last Taken 08/05/23 08:00] sennosides 8.6 mg-docusate sodium 50 mg tablet (Stool Softener-Stimulant Laxative) 2 tab PO BID PRN constipation 08/05/23 [History Last Taken Unknown] ferrous sulfate 325 mg (65 mg iron) tablet (Iron (ferrous sulfate)) 325 mg PO BID #60 tabs 08/17/23 [Rx Last Taken Unknown] Allergy/AdvReac Type Severity Reaction Status Date / Time No Known Allergies Allergy Verified 08/13/23 08:16 Family History Mother Heart disease Hypertension Heart failure Father Heart failure Hypertension Heart disease Surgical History History of suprapubic catheter S/P ORIF (open reduction internal fixation) fracture S/P TURP Social History household members: other details: Lives with his brother. Smoking Status: Never smoker alcohol intake: current alcohol intake frequency: holidays/special occasions only substance use type: does not use ROS <BARBARA Pike - Last Filed: 08/18/23 21:46> ROS ED ROS Narrative Constitutional: Negative for fever, chills, weight loss, weakness Eyes: Negative for vision loss, vision change, double vision ENT: Negative for any sore throat, ear pain, congestion Cardiovascular: Negative for any chest pain, tightness, palpitations Respiratory: Negative for any cough, sputum production, hemoptysis, dyspnea, dyspnea on exertion, orthopnea Gastrointestinal: Negative for any abdominal pain, nausea, vomiting, diarrhea, constipation, blood in stool, blood in vomit : Negative for any urinary frequency, dysuria, retention, blood in urine Muscle skeletal: Negative for any neck pain, back pain. Positive for pain and bleeding to the right hip Neurological: Negative for any headache, syncope, dizziness Skin: Negative for any rashes, itching, abrasions, lacerations Psychiatric: Negative for any depression, anxiety, stress, suicidal ideation, homicidal ideation Hematologic: Negative for any excessive bruising, easy bleeding EXAM <BARBARA Pike - Last Filed: 08/18/23 21:46> Physical Exam Narrative Exam Narrative: Vital signs reviewed. Patient on repeat vital signs was within normal limits of his baseline. HEET: Head normocephalic atraumatic, TMs clear bilaterally. Posterior pharynx is clear, moist mucous membranes. Nares clear bilaterally. Neck: Supple with no lymphadenopathy or tenderness. No signs of meningismus. Cardiac: Regular rate and rhythm no murmurs gallops or rubs, equal peripheral pulses bilaterally. Respiratory: Lungs clear to auscultation bilaterally. No chest tenderness. Abdomen: Soft, nontender, nondistended. No abdominal bruit or pulsatile masses. No hepatosplenomegaly Extremities: No peripheral edema, no signs of gross trauma or deformity. Active full range of motion of all extremities. Patient has 2 circular areas that are bleeding. 1 is roughly 1 cm, the other 0.5 cm. There is only slight oozing, there is no evidence of any hemorrhage or continuous bleeding. Patient is neurovascularly intact. Neuro: Cranial nerves II through XII intact, no focal neurological deficits. Skin: Clean dry and intact with no rash, purpura, petechiae, vesicles or pustules. Backs/flank: No CVA tenderness, no midline spinal tenderness, no deformity. Psych: Normal mood and affect. No SI, HI or acute psychosis. Const Vital Signs: 08/18/23 20:13 08/18/23 21:12 08/18/23 22:00 Temperature 97.6 F L Temperature Source Temporal Pulse Rate 91 82 82 Respiratory Rate 16 16 16 Blood Pressure 80/61 L 99/59 L 108/60 Blood Pressure Mean 67 72 76 Pulse Ox 97 98 97 Oxygen Delivery Method Room Air Room Air Room Air 08/18/23 22:09 Temperature 98.1 F Temperature Source Pulse Rate 82 Respiratory Rate 16 Blood Pressure 108/60 Blood Pressure Mean 76 Pulse Ox 98 Oxygen Delivery Method <Dr. Negrito Lopez DO - Last Filed: 08/18/23 23:13> Physical Exam Const Vital Signs: 08/18/23 20:13 08/18/23 21:12 08/18/23 22:00 Temperature 97.6 F L Temperature Source Temporal Pulse Rate 91 82 82 Respiratory Rate 16 16 16 Blood Pressure 80/61 L 99/59 L 108/60 Blood Pressure Mean 67 72 76 Pulse Ox 97 98 97 Oxygen Delivery Method Room Air Room Air Room Air 08/18/23 22:09 Temperature 98.1 F Temperature Source Pulse Rate 82 Respiratory Rate 16 Blood Pressure 108/60 Blood Pressure Mean 76 Pulse Ox 98 Oxygen Delivery Method MDM <BARBARA Pike - Last Filed: 08/18/23 21:46> [facility] Lab Data Labs: Laboratory Results - last 24 hr 08/18/23 20:25 WBC 12.5 H RBC 3.07 L Hgb 8.3 L Hct 27.1 L MCV 88.3 MCH 27.0 MCHC 30.6 L RDW Std Deviation 56.8 H RDW Coeff of Vicente 18.1 H Plt Count 638 H MPV 9.1 Immature Gran % (Auto) 0.900 Neut % (Auto) 73.2 H Lymph % (Auto) 14.0 L Sullivan % (Auto) 9.7 Eos % (Auto) 1.0 Baso % (Auto) 1.2 H Absolute Neuts (auto) 9.2 H Absolute Lymphs (auto) 1.75 Nucleated RBC % 0 PT 37.5 H INR 3.9 Sodium 134 L Potassium 4.1 Chloride 102 Carbon Dioxide 25.0 Anion Gap 7 BUN 25 H Creatinine 1.15 Est GFR (MDRD) Af Amer 80 Est GFR (MDRD) Non-Af 66 BUN/Creatinine Ratio 21.7 H Glucose 126 H Calcium 8.8 Blood Type O POSITIVE Antibody Screen NEGATIVE Treatment and Re-Evaluation :: Differential diagnosis includes however is not limited to: Infection, anemia, hemorrhage, postop bleeding Patient appears generally well, patient appears nontoxic, vital signs are stable, patient does have lower blood pressure however patient's repeat blood pressures have been greater than 95 systolic. This is patient's baseline.At this time, patient is currently not on any anticoagulation medicine. Patient's CBC showed a leukocytosis white blood count 12.5, this could be reactive. Patient's hemoglobin is 8.3, this is up from 1 day ago which was 08/17/2023. Hematocrit 27.1. Platelet count slightly elevated 638. Patient's PT was elevated 37.5 with an INR 3.9 patient is not currently on any anticoagulation medicine. Patient's CMP shows normal kidney function, glucose 126. I did take the patient's dressing off, it was saturated. I placed multiple 2 x 2's, on reevaluation after 1 hour, there was minimal blood on the 2 x 2's. I then placed a large Surgifoam dressing on the area, patient will have this seen by wound care. I do believe that this will be adequate. Patient will return here for worsening symptoms. All questions were answered, patient struck to return for any worsening symptoms. Stable for discharge. <Dr. Negrito Lopez, DO - Last Filed: 08/18/23 23:13> [facility] Lab Data Labs: Laboratory Results - last 24 hr 08/18/23 20:25 WBC 12.5 H RBC 3.07 L Hgb 8.3 L Hct 27.1 L MCV 88.3 MCH 27.0 MCHC 30.6 L RDW Std Deviation 56.8 H RDW Coeff of Vicente 18.1 H Plt Count 638 H MPV 9.1 Immature Gran % (Auto) 0.900 Neut % (Auto) 73.2 H Lymph % (Auto) 14.0 L Sullivan % (Auto) 9.7 Eos % (Auto) 1.0 Baso % (Auto) 1.2 H Absolute Neuts (auto) 9.2 H Absolute Lymphs (auto) 1.75 Nucleated RBC % 0 PT 37.5 H INR 3.9 Sodium 134 L Potassium 4.1 Chloride 102 Carbon Dioxide 25.0 Anion Gap 7 BUN 25 H Creatinine 1.15 Est GFR (MDRD) Af Amer 80 Est GFR (MDRD) Non-Af 66 BUN/Creatinine Ratio 21.7 H Glucose 126 H Calcium 8.8 Blood Type O POSITIVE Antibody Screen NEGATIVE Treatment and Re-Evaluation :: Differential diagnosis includes however is not limited to: Infection, anemia, hemorrhage, postop bleeding Patient appears generally well, patient appears nontoxic, vital signs are stable, patient does have lower blood pressure however patient's repeat blood pressures have been greater than 95 systolic. This is patient's baseline.At this time, patient is currently not on any anticoagulation medicine. Patient's CBC showed a leukocytosis white blood count 12.5, this could be reactive. Patient's hemoglobin is 8.3, this is up from 1 day ago which was 08/17/2023. Hematocrit 27.1. Platelet count slightly elevated 638. Patient's PT was elevated 37.5 with an INR 3.9 patient is not currently on any anticoagulation medicine. Patient's CMP shows normal kidney function, glucose 126. I did take the patient's dressing off, it was saturated. I placed multiple 2 x 2's, on reevaluation after 1 hour, there was minimal blood on the 2 x 2's. I then placed a large Surgifoam dressing on the area, patient will have this seen by wound care. I do believe that this will be adequate. Patient will return here for worsening symptoms. All questions were answered, patient struck to return for any worsening symptoms. Stable for discharge. ED attending note: I evaluated the patient in conjunction with the SAVANNAH. I agree with his/her statements and above findings. I have personally performed a face to face assessment of the patient and have reviewed the SAVANNAH Note. I performed a substantive portion of the visit including all aspects of the following. I personally saw the patient performed chart review, physical exam, reviewed labs, imaging (if obtained), and formulated a treatment and management plan. This note was generated with [employer] software. It may contain incorrect words, spelling, and punctuation that were not noted in review of the chart prior to signing. Discharge Plan Triage Chief Complaint: Wound ED Midlevel Provider: Sander Maguire ED Provider: Negrito Lopez Dx/Rx/DC Orders Clinical Impression: DVT (deep venous thrombosis), Impaired wound healing, S/P insertion of IVC (inferior vena caval) filter Instructions: ED Post Op Wound Check, Bleeding Prescriptions: No Action atorvastatin 10 mg tablet 10 mg PO DAILY Patient Comments: TAKE 1 TABLET (10 MG) BY MOUTH DAILY. carvedilol 3.125 mg tablet 3.125 mg PO BID Patient Comments: TAKE 1 TABLET BY MOUTH TWICE DIALY sennosides-docusate sodium [Stool Softener-Stimulant Laxat] 8.6-50 mg Tablet 2 tab PO BID PRN (Reason: constipation) ferrous sulfate [Iron (ferrous sulfate)] 325 mg (65 mg iron) tablet 325 mg PO BID Qty: 60 0RF Primary Care Provider: Hesham Andrade Referrals: Hesham Andrade DO [Primary Care Provider] - Activity Restrictions/Additional Instructions: Please do not touch this dressing for 24 hours. Please follow-up outpatient. If bleeding is excessive, please return, ensure he follow-up with wound care. Disposition Disposition: Home, Self Care Discharge Date/Time: 08/18/23 22:10
[2023-08-18 22:00] VITALS: BP 108/60; PULSE 82; RESP 16; O2SAT 97
[2023-08-18 22:09] VITALS: BP 108/60; PULSE 82; RESP 16; TEMP 36.7; O2SAT 98
== END 2023-08-18 22:10 | disposition home or self-care (01) ==
PROVIDERS: Nurse Practitioner; Emergency Provider Emergency Medicine; PCP Family Medicine; Visit Provider Emergency Medicine
DX: I82.409 Acute embolism and thrombosis of unspecified deep veins of unspecified lower extremity (principal); I50.9 Heart failure, unspecified; I11.0 Hypertensive heart disease with heart failure; E78.5 Hyperlipidemia, unspecified; Z95.828 Presence of other vascular implants and grafts; T81.31XA Disruption of external operation (surgical) wound, not elsewhere classified, initial encounter; X58.XXXA Exposure to other specified factors, initial encounter
CPT/HCPCS: 80048; 85025; 85610; 86850; 86900; 86901; 96360; 99282; J7030; A4216

== ENCOUNTER 2023-09-10 09:00 | Outpatient (RCR) | payer MEDICARE, SELFPAY ==
[2023-08-20 09:09] VITALS: BP 102/38; PULSE 90; RESP 20; TEMP 36.8; BMI 22.2
--- NOTE | 2023-08-20 10:42 | WC ---
DISCUSSED W/ PT AND HIS BROTHER (IN ROOM W/ PROVIDER) POTENTIAL FOR HIGH COPAY W/ DEBRIDEMENT. PT AWARE AND AGREEABLE TO PROCEED W/ DEBRIDEMENT.
--- NOTE | 2023-08-20 10:46 | HP.PCM_ITS ---
History of Present Illness Date of Service: 08/20/23 Chief Complaint: Follow-up hematoma and a right lateral hip dehisced surgical wound. History of Wound: 73-year-old white male that was rollerskating and fell and broke his hip. Had surgery on April 26. And then approximately a month or 2 later it dehisced and developed a hematoma and has been bleeding ever since profusely. He has been to the emergency room x 2 for the bleeding. Patient appears with an open wound with blood clots dried inside wound base tried to take them out unable to at this time. Will try cleaning out with Aquacel extra and strips. Moistened and covered and will follow-up in 1 week [facility] Medical History BPH (benign prostatic hyperplasia) Closed intertrochanteric fracture of right hip Heart failure HLD (hyperlipidemia) HTN (hypertension) Impaired wound healing Suprapubic catheter Home Medications atorvastatin 10 mg tablet 10 mg PO DAILY HLD 04/26/23 [History Last Taken 08/05/23 08:00] carvedilol 3.125 mg tablet 3.125 mg PO BID HTN, CHF 04/26/23 [History Last Taken 08/05/23 08:00] sennosides 8.6 mg-docusate sodium 50 mg tablet (Stool Softener-Stimulant Lax ative) 2 tab PO BID PRN constipation 08/05/23 [History Last Taken Unknown] ferrous sulfate 325 mg (65 mg iron) tablet (Iron (ferrous sulfate)) 325 mg PO BID #60 tabs 08/17/23 [Rx Last Taken Unknown] Allergy/AdvReac Type Severity Reaction Status Date / Time No Known Allergies Allergy Verified 08/20/23 09:33 Family History Mother Heart disease Hypertension Heart failure Father Heart failure Hypertension Heart disease Surgical History History of suprapubic catheter S/P ORIF (open reduction internal fixation) fracture S/P TURP Social History household members: other details: Lives with his brother. Smoking Status: Former smoker alcohol intake: current alcohol intake frequency: holidays/special occasions only substance use type: does not use ROS ROS Narrative Patient is agreeable to plan we will get home health involved because it is impossible for him to pack his own dressings and his brother can help with maybe a day but they will only come 2 days a week so there is still 4 days a week that have to be taking care of. Constitutional Constitutional: Reports systems reviewed and no addt'l complaints, except as documented Eyes Eyes: Reports systems reviewed and no addt'l complaints, except as documented ENT HEENT: Reports systems reviewed and no addt'l complaints, except as documented Cardiovascular Cardiovascular: Reports systems reviewed and no addt'l complaints, except as documented Respiratory/Chest Respiratory/Chest: Reports systems reviewed and no addt'l complaints, except as documented Gastrointestinal Gastrointestinal: Reports systems reviewed and no addt'l complaints, except as documented Genitourinary Genitourinary: Reports systems reviewed and no addt'l complaints, except as documented Musculoskeletal Musculoskeletal: Reports systems reviewed and no addt'l complaints, except as d ocumented Integumentary Integumentary: Reports wounds and other Details: Open wound right lateral hip with blood clots inside bleeding under control at this time. Neurologic Neurologic: Reports systems reviewed and no addt'l complaints, except as documented Psychiatric Psychiatric: Reports systems reviewed and no addt'l complaints, except as documented Endocrine Endocrinology: Reports systems reviewed and no addt'l complaints, except as documented Hematologic/Lymphatic Hematologic/Lymphatic: Reports systems reviewed and no addt'l complaints, except as documented Allergic/Immunologic Allergic/Immunologic: Reports systems reviewed and no addt'l complaints, except as documented Vital Signs Vital Signs Vital Signs: 08/20/23 09:09 Temperature 98.3 F Temperature Source Temporal Pulse Rate 90 Respiratory Rate 20 H Blood Pressure 102/38 L Blood Pressure Mean 59 Blood Pressure Source Monitor Weight Weight: 150 lb 11.094 oz Body Mass Index (BMI) 22.2 Physical Exam Const oriented x3 General Appearance: cooperative Exam Limitations: no limitations HEENT normocephalic Resp normal respiratory effort Effort and Inspection: able to speak in complete sentences Auscultation: clear to auscultation bilaterally Cardio regular rate and regular rhythm Palpation: normal PMI Rate: regular rate Rhythm: regular rhythm Back/Spine Cervical Spine: cervical ROM normal Thoracic Spine / Upper Back: normal to inspection Lumbar Spine / Lower Back: normal to inspection Extremity normal to inspection Skin Wounds: wounds noted Wound Narrative: Open wound right lateral hip with hematoma inside debrided with #3 curette unable to get all of it out we will use Aquacel extra for debridement purposes. Bleeding under control at this time Neuro oriented x3 Psych Appearance: grossly normal Speech: normal speech Thought Content: normal thought content Judgement: judgement good Debridement Note Debridement Note Post-Debridement Measurements and Additional Note: Post-Debridement Measurements/Treatment - Nurse 1 - General Ulcer Assessment Start: 08/20/23 09:09 Freq: Status: Active Protocol: [email or web address] Activity Type Activity Date Activity User E-sign Co-sign Detail Recorded Client Recorded Date Recorded By Document 08/20/23 09:09 DL Desktop 08/20/23 09:30 DL 08/20/23 09:09 - Today's Visit Information Type of service Initial Visit Arrival Mode Ambulatory, Walker Transfer Assistance None Patient Identification Verified (Name & Yes ) Patient Requires Transmission-Based No Precautions Height and Weight Height 5 ft 9 in Weight 150 lb 11.094 oz Weight in Pounds 150.7 lbs Body Mass Index (BMI) 22.2 BMI Classification Normal BSA - Papo 1.83 Vital Signs Temperature (97.8 F-99.1 F) 98.3 F Temperature Source Temporal Pulse Rate (60-100) 90 Pulse Location Monitor Respiratory Rate (12-18) 20 H Respiratory rate source Observation Blood Pressure (90/60-120/80) 102/38 L Blood Pressure Mean 59 Source Monitor Pain Scale: 0-10 Numeric Is Patient Pain Free? Yes Communication Assessment Preferred language Kiswahili Able to Read Yes Able to Write Yes Communication Tools None Right Hearing Abillity Normal Left Hearing Abillity Normal Visual Assistive Devices Glasses Teaching Assessment Preferences Verbal,Written, Demonstration Barriers to Learning None Readiness To Learn Good Willingness to Engage in Self Management Med Activies Anxiety Level Calm Cooperation Cooperative Perception Coherent Interest in Health Problem Asks Questions Education Importance Acknowledges Need Does Patient Smoke tobacco or other No substances Smoking Status Former smoker Is Patient Diabetic No Functional Assessment Recent Decline in Ability to Perform Denies Any Declines Culture/Baptist/Monogram Operator Cultural/Baptist Needs that may affect No Treatment Plan Would you allow our hospital strategy director to No meet you for the purpose of spiritual/ emotional support? Monogram Operator to contact place of religion No Teaching: Wound Center Discharge Instructions -Person Taught Patient *Welcome to the Wound Center -Person Taught Patient WC - Nurse 1 - General Ulcer Measurement Start: 08/20/23 09:09 Freq: Status: Active Protocol: Activity Type Activity Date Activity User E-sign Co-sign Detail Recorded Client Recorded Date Recorded By Document 08/20/23 09:09 DL Desktop 08/20/23 09:30 DL 08/20/23 09:09 Wound Center Nurse 1 #1 R Hip CLUSTER -Current Size (cm) - Length 2.1 -Current Size (cm) - Width 0.8 -Current Size (cm) - Depth 1.9 -Total Square Cm 1.68 -Photo Taken Yes -Classification - Thickness Full Thickness without Exposed Support Structure -Exudate Amt Large -Exudate Type Sanguineous -Wound Margin Distinct, Outline Attached -Granulation Amt None Present (0 %) -Necrosis Amt None Present (0 %) -Structure Exposed N/A -Texture (Nyla-wound Skin Appearance) Localized Edema ,Scarring -Moisture (Nyla-wound Skin Appearance) No Abnormality -Color (Nyla-wound Skin Appearance) No Abnormality, Ecchymosis -Temperature (Nyla-wound Skin No Abnormality Appearance) (Pt Warm) -Tenderness on Palpation (Nyla-wound No Skin Appearance) -Ulcer Cleansing Soap and Water -Foul Odor after Cleansing No -Anesthetic Used 5% Lidocaine Gel DINAH - Nurse 2 - General Ulcer CM Notes Start: 08/20/23 09:09 Freq: Status: Active Protocol: Activity Type Activity Date Activity User E-sign Co-sign Detail Recorded Client Recorded Date Recorded By Document 08/20/23 09:53 [facility] Desktop 08/20/23 10:03 [facility] 08/20/23 09:53 Wound Center Nurse 2 -Time 09:53 -Correct Patient Yes -Correct Side, Site, Position Yes -Correct Procedure Yes -Procedure Performed Yes -Type of Procedure Debridement -Clinical Debridement Subcutaneous -Tissue Removed Subcutaneous -Post Debridement (cm) - Length 3.9 -Post Debridement (cm) - Width 0.6 -Post Debridement (cm) - Depth 3.2 -Total Square (Post) (cm) 2.34 -Area of Debridement (cm) - Length 3.9 -Area of Debridement (cm) - Width 0.6 -Total Square (Area) (cm) 2.34 -Wound/Ulcer Outcome Not Healed -Ulcer Cleansing Rinsed/ Irrigated with Saline -Foul Odor after Cleansing No -Bioengineered Tissue No -Bleeding Controlled with Pressure -Treatment Response Procedure Tolerated Well -Debridement - Subq, 1st 20sq cm Yes Pain Scale: 0-10 Numeric Is Patient Pain Free? Yes Assessment/Plan Assessment/Plan (1) Impaired wound healing: (2) Postoperative wound dehiscence: CODE(S): T81.31XA - Disruption of external operation (surgical) wound, not elsewhere classified, initial encounter QUALIFIERS: Encounter type: initial encounter Qualified Code(s): T81.31XA - Disruption of external operation (surgical) wound, not elsewhere classified, initial encounter PLAN: Wash right hip with antibacterial soap and water pat dry pack wound with Aquacel extra thin strip moistened with water cover with gauze and absorbent dressing. Follow-up in 1 week (3) Hematoma: CODE(S): T14.8XXA - Other injury of unspecified body region, initial encounter
[2023-08-27 09:08] VITALS: BP 122/71; PULSE 106; RESP 16; TEMP 37.7; BMI 22.2
--- NOTE | 2023-08-27 11:52 | PCM.WC.PN ---
History of Present Illness Date of Service: 08/27/23 Chief Complaint: Follow-up hematoma and a right lateral hip dehisced surgical wound. History of Wound: 73-year-old white male that was rollerskating and fell and broke his hip. Had surgery on April 26. And then approximately a month or 2 later it dehisced and developed a hematoma and has been bleeding ever since profusely. He has been to the emergency room x 2 for the bleeding. Patient appears with an open wound with blood clots dried inside wound base tried to take them out unable to at this time. Will try cleaning out with Aquacel extra and strips. Moistened and covered and will follow-up in 1 week Progress of Wound: The wound looks good the hematoma is out and cleaned out more junk of old skin and partial skin and blood. Cut the bridge out today has some undermining and a little bit of tunneling noted on the wound. But does measure smaller. Patient's brother that has been taking care of the wound dressing states that he started chilling 2 days ago and has lost his appetite and not doing as well running a temperature low-grade. Will obtain cultures today and start him on metronidazole and may be some ciprofloxacin till we get culture results back. Gave him Januvia and for eating and drinking since he is not taking it as much as he was. Subjective Subjective Running a low-grade temp and chilling having increasing pain and swelling in his left lower leg. Objective Data Objective Data The wound itself looks good there is no odor not bleeding does bleed easily with debridement cleaned out more stuff and he has wound base besides clots will continue packing with Aquacel extra and start him on Cipro and metronidazole to get the cultures back. Noted to have some additional swelling in the lower leg. Vital Signs: Vital Signs Temp Pulse Resp BP O2 Del Method 99.8 F H 106 H 16 122/71 H Room Air 08/27/23 09:08 08/27/23 09:08 08/27/23 09:08 08/27/23 09:08 08/27/23 09:08 Oxygen Delivery Method Room Air Weight: 150 lb 11.094 oz Body Mass Index (BMI) 22.2 Physical Exam Const oriented x3 General Appearance: cooperative Exam Limitations: no limitations HEENT normocephalic Resp normal respiratory effort Effort and Inspection: able to speak in complete sentences Auscultation: clear to auscultation bilaterally Cardio regular rate and regular rhythm Palpation: normal PMI Rate: regular rate Rhythm: regular rhythm Back/Spine Cervical Spine: cervical ROM normal Thoracic Spine / Upper Back: normal to inspection Lumbar Spine / Lower Back: normal to inspection Extremity normal to inspection Skin Wounds: wounds noted Wound Narrative: Open wound right lateral hip with hematoma inside debrided with #3 curette unable to get all of it out we will use Aquacel extra for debridement purposes. Bleeding under control at this time Neuro oriented x3 Psych Appearance: grossly normal Speech: normal speech Thought Content: normal thought content Judgement: judgement good Debridement Note Debridement Note Wound debrided: Left hip repair dehisced Laterality: Left Type of Debridement: Excisional debridement Anesthesia Used: 5% Lidocaine Gel Depth: Down to and including healthy tissue, in the subcutaneous layer and to muscle Percentage of wound debrided: 100 Instrument Used: 5mm curette Tissue Removed: Fibrin and devitalized tissue Severity: Fat Layer Exposed Amount of bleeding with debridement: Mild Bleeding Controlled with: Compression and gauze Patient tolerated procedure: Patient tolerated procedure well Post-Debridement Measurements and Additional Note: Post-Debridement Measurements/Treatment - Nurse 1 - General Ulcer Assessment Start: 08/20/23 09:09 Freq: Status: Active Protocol: FABIOLA Activity Type Activity Date Activity User E-sign Co-sign Detail Recorded Client Recorded Date Recorded By Document 08/20/23 09:09 DL Desktop 08/20/23 09:30 DL Document 08/27/23 09:08 [facility] wound center 08/27/23 09:15 [facility] 08/20/23 08/27/23 09:09 09:08 - Today's Visit Information Type of service Initial Visit Follow-up Visit (Physician/SUPERVISOR HOT DIP TINNING ) Arrival Mode Ambulatory, Ambulatory, Walker Walker Transfer Assistance None Other Transfer Assist (Other) stand by Accompanied by brother Patient Identification Verified (Name & Yes Yes ) Patient Requires Transmission-Based No No Precautions Height and Weight Height 5 ft 9 in Weight 150 lb 11.094 oz Weight in Pounds 150.7 lbs Body Mass Index (BMI) 22.2 22.2 BMI Classification Normal Normal BSA - Papo 1.83 Vital Signs Temperature (97.8 F-99.1 F) 98.3 F 99.8 F H Temperature Source Temporal Temporal Pulse Rate (60-100) 90 106 H Pulse Location Monitor Monitor Respiratory Rate (12-18) 20 H 16 Respiratory rate source Observation Observation Oxygen Delivery Method Room Air Blood Pressure (90/60-120/80) 102/38 L 122/71 H Blood Pressure Mean (mm Hg) 59 88 Source Monitor Monitor Position Sitting Blood Pressure Location Right Arm History Since Last Visit- (Skip if this is Patient's initial visit) Have you changed medications since your No last visit? Any new allergies or adverse reactions No Had a fall/change in ADL's that may No increase risk of falls Signs or symptoms of abuse and/or No neglect since last visit Have you been in the hospital since your No last visit? Has dressing in place as prescribed Yes Has compression in place as prescribed N/A Has offloadiing in place as prescribed N/A Experienced any changes in pain level or No management Left Footwear Regular Shoe Right Footwear Regular Shoe Pain Scale: 0-10 Numeric Is Patient Pain Free? Yes Yes Communication Assessment Preferred language Macedonian Able to Read Yes Able to Write Yes Communication Tools None Right Hearing Abillity Normal Left Hearing Abillity Normal Visual Assistive Devices Glasses Teaching Assessment Preferences Verbal,Written, Demonstration Barriers to Learning None Readiness To Learn Good Willingness to Engage in Self Management Med Activies Anxiety Level Calm Cooperation Cooperative Perception Coherent Interest in Health Problem Asks Questions Education Importance Acknowledges Need Does Patient Smoke tobacco or other No substances Smoking Status Former smoker Is Patient Diabetic No Functional Assessment Recent Decline in Ability to Perform Denies Any Declines Culture/Congregational/Diabetes Trainer Cultural/Congregational Needs that may affect No Treatment Plan Would you allow our hospital melt room operator to No meet you for the purpose of spiritual/ emotional support? Diabetes Trainer to contact place of rastafari No Teaching: Wound Center Discharge Instructions -Person Taught Patient *Welcome to the Wound Center -Person Taught Patient WC - Nurse 1 - General Ulcer Measurement Start: 08/20/23 09:09 Freq: Status: Active Protocol: Activity Type Activity Date Activity User E-sign Co-sign Detail Recorded Client Recorded Date Recorded By Document 08/20/23 09:09 DL Desktop 08/20/23 09:30 DL Document 08/27/23 09:08 [facility] wound center 08/27/23 09:15 [facility] 08/20/23 08/27/23 09:09 09:08 Wound Center Nurse 1 #1 R Hip CLUSTER -Combined with other wound No -Current Size (cm) - Length 2.1 2.7 -Current Size (cm) - Width 0.8 0.6 -Current Size (cm) - Depth 1.9 1.8 -Total Square Cm 1.68 1.62 -Photo Taken Yes -Tunneling Yes -Tunneling Position (O'clock) 12 -Tunneling Distance (cm) 2.1 -Tunneling Position #2 (O'clock) 6 -Tunneling Distance #2 (cm) 1.1 -Undermining/Tunneling No -Circular Undermining No -Classification - Thickness Full Thickness without Exposed Support Structure -Exudate Amt Large Large -Exudate Type Sanguineous Sanguineous -Wound Margin Distinct, Distinct, Outline Outline Attached Attached -Granulation Amt None Present (0 Medium (34-66%) %) -Granulation Quality Red -Slough/Fibrin Yes -Necrosis Amt None Present (0 Medium (34-66%) %) -Necrotic Tissue Type Adherent Slough -Structure Exposed N/A -Texture (Nyla-wound Skin Appearance) Localized Edema Assessed, ,Scarring Localized Edema ,Scarring -Moisture (Nyla-wound Skin Appearance) No Abnormality Assessed -Color (Nyla-wound Skin Appearance) No Abnormality, Assessed, Ecchymosis Erythema -Temperature (Nyla-wound Skin No Abnormality Hot Appearance) (Pt Warm) -Tenderness on Palpation (Nyla-wound No Yes Skin Appearance) -Ulcer Cleansing Soap and Water Rinsed/ Irrigated with Saline -Foul Odor after Cleansing No No -Anesthetic Used 5% Lidocaine 5% Lidocaine Gel Gel -Wound Comment(s) r hip distal to wound still swollen, warm and tender to touch. will update chief writer WC - Nurse 2 - General Ulcer CM Notes Start: 08/20/23 09:09 Freq: Status: Active Protocol: Activity Type Activity Date Activity User E-sign Co-sign Detail Recorded Client Recorded Date Recorded By Document 08/20/23 09:53 [facility] Desktop 08/20/23 10:03 [facility] Document 08/27/23 09:16 [facility] wound center 08/27/23 09:35 [facility] 08/20/23 08/27/23 09:53 09:16 Wound Center Nurse 2 #1 R Hip CLUSTER -Time 09:53 09:20 -Correct Patient Yes Yes -Correct Side, Site, Position Yes Yes -Correct Procedure Yes Yes -Procedure Performed Yes Yes -Type of Procedure Debridement Debridement -Clinical Debridement Subcutaneous Subcutaneous -Tissue Removed Subcutaneous Subcutaneous -Post Debridement (cm) - Length 3.9 3 -Post Debridement (cm) - Width 0.6 0.5 -Post Debridement (cm) - Depth 3.2 0.8 -Total Square (Post) (cm) 2.34 1.5 -Area of Debridement (cm) - Length 3.9 3 -Area of Debridement (cm) - Width 0.6 0.5 -Total Square (Area) (cm) 2.34 1.5 -Tunneling Yes -Tunneling Position (O'clock) 12 -Tunneling Distance (cm) 2.2 -Tunneling Position #2 (O'clock) 6 -Tunneling Distance #2 (cm) 1.0 -Undermining/Tunneling Yes -Undermining/Tunneling Starts (O'clock 6 ) -Undermining/Tunneling Ends (O'clock) 12 -Maximum Distance (cm) 1.4 -Circular Undermining No -Wound/Ulcer Outcome Not Healed Not Healed -Ulcer Cleansing Rinsed/ Rinsed/ Irrigated with Irrigated with Saline Saline -Foul Odor after Cleansing No No -Bioengineered Tissue No No -Bleeding Controlled with Pressure Pressure -Treatment Response Procedure Procedure Tolerated Well Tolerated Well -Debridement - Subq, 1st 20sq cm Yes Yes Pain Scale: 0-10 Numeric Is Patient Pain Free? Yes Yes - Nurse 3 - General Ulcer D/C NN Start: 08/20/23 09:09 Freq: Status: Active Protocol: Activity Type Activity Date Activity User E-sign Co-sign Detail Recorded Client Recorded Date Recorded By Document 08/20/23 11:39 RB Desktop 08/20/23 11:40 RB Document 08/27/23 09:57 DL [id number] 08/27/23 10:03 DL 08/20/23 08/27/23 11:39 09:57 Wound Care Center Nurse 3 #1 R Hip CLUSTER -Ulcer Cleansing Rinsed/ Rinsed/ Irrigated with Irrigated with Saline Saline -Foul Odor after Cleansing No -Primary Dressing Applied Aquacel Extra Aquacel Extra -Other Dressing abd -Primary Dressing Covered/Secured with Dry Gauze, Dry Gauze, Secured with Secured with Tape Tape -Aquacel Extra 3 2 Treatment Response Procedure Procedure Tolerated Well Tolerated Well Pain Scale: 0-10 Numeric Is Patient Pain Free? Yes Yes WC - Visit Discharge Discharge Condition Stable Stable Ambulatory Status Ambulatory Ambulatory Transportation Private Auto Private Auto Medication Reconcilliation completed & No provided to patient/care provider Clinical Summary of Care Provided Yes Facility Type Home Health Orders Sent Yes Assessment/Plan Assessment/Plan (1) Impaired wound healing: (2) Postoperative wound dehiscence: CODE(S): T81.31XA - Disruption of external operation (surgical) wound, not elsewhere classified, initial encounter QUALIFIERS: Encounter type: initial encounter Qualified Code(s): T81.31XA - Disruption of external operation (surgical) wound, not elsewhere classified, initial encounter PLAN: Wash right hip with antibacterial soap and water pat dry pack wound with Aquacel extra thin strip moistened with water cover with gauze and absorbent dressing. Follow-up in 1 week (3) Hematoma: CODE(S): T14.8XXA - Other injury of unspecified body region, initial encounter (4) Infection of wound without complication: CODE(S): T14.8XXA - Other injury of unspecified body region, initial encounter; L08.9 - Local infection of the skin and subcutaneous tissue, unspecified PLAN: Obtain cultures we will call with results Start ciprofloxacin 500 mg twice daily for 10 days Start metronidazole 250 mg 1 p.o. 3 times daily for 14 days #42 no refills
[2023-09-03 09:12] VITALS: BP 97/64; PULSE 98; RESP 18; TEMP 36.3; BMI 22.2
--- NOTE | 2023-09-03 11:24 | PCM.WC.PN ---
History of Present Illness Date of Service: 09/03/23 Chief Complaint: Follow-up hematoma and a right lateral hip dehisced surgical wound. History of Wound: 73-year-old white male that was rollerskating and fell and broke his hip. Had surgery on April 26. And then approximately a month or 2 later it dehisced and developed a hematoma and has been bleeding ever since profusely. He has been to the emergency room x 2 for the bleeding. Patient appears with an open wound with blood clots dried inside wound base tried to take them out unable to at this time. Will try cleaning out with Aquacel extra and strips. Moistened and covered and will follow-up in 1 week Progress of Wound: The wound looks good the hematoma is out and cleaned out more junk of old skin and partial skin and blood. Cut the bridge out today has some undermining and a little bit of tunneling noted on the wound. But does measure smaller. This week the chilling is gone fevers gone still has a lot of redness aligned going down from his wound but he feels much better. Patient has been started on ciprofloxacin and metronidazole. Suggested he go ahead and finish them. Cultures came back for a weird bug that has no sensitivity. He seems to be responding to the meds I put him on so we will just finished them Subjective Subjective Patient is pleased so far with the care Objective Data Objective Data Measurements are better patient is drinking Roverto every day twice a day and also taking food and better now proteins and feeling better. Will continue the packing with the Aquacel extra and will follow him up in a week the undermining is less tunneling is gone at the 6:00 just at the 12:00 Vital Signs: Vital Signs Temp Pulse Resp BP O2 Del Method 97.4 F L 98 18 97/64 Room Air 09/03/23 09:12 09/03/23 09:12 09/03/23 09:12 09/03/23 09:12 08/27/23 09:08 Oxygen Delivery Method Room Air Weight: 150 lb 11.094 oz Body Mass Index (BMI) 22.2 Lab / Micro Data Micro: Microbiology 08/27/23 09:20 Wound Abcess - Hip Gram Stain - Final 08/27/23 09:20 Wound Abcess - Hip Wound Culture - Final Corynebacterium striatum 08/27/23 09:20 Wound Abcess - Hip Anaerobic Culture - Final No anaerobic bacteria isolated. Physical Exam Const oriented x3 General Appearance: cooperative Exam Limitations: no limitations HEENT normocephalic Resp normal respiratory effort Effort and Inspection: able to speak in complete sentences Auscultation: clear to auscultation bilaterally Cardio regular rate and regular rhythm Palpation: normal PMI Rate: regular rate Rhythm: regular rhythm Back/Spine Cervical Spine: cervical ROM normal Thoracic Spine / Upper Back: normal to inspection Lumbar Spine / Lower Back: normal to inspection Extremity normal to inspection Skin Wounds: wounds noted Wound Narrative: Open wound right lateral hip with hematoma inside debrided with #3 curette unable to get all of it out we will use Aquacel extra for debridement purposes. Bleeding under control at this time Neuro oriented x3 Psych Appearance: grossly normal Speech: normal speech Thought Content: normal thought content Judgement: judgement good Debridement Note Debridement Note Wound debrided: Left hip repair dehisced Laterality: Left Type of Debridement: Excisional debridement Anesthesia Used: 5% Lidocaine Gel Depth: Down to and including healthy tissue, in the subcutaneous layer and to muscle Percentage of wound debrided: 100 Instrument Used: 5mm curette Tissue Removed: Fibrin and devitalized tissue Severity: Fat Layer Exposed Amount of bleeding with debridement: Mild Bleeding Controlled with: Compression and gauze Patient tolerated procedure: Patient tolerated procedure well Post-Debridement Measurements and Additional Note: Post-Debridement Measurements/Treatment - Nurse 1 - General Ulcer Assessment Start: 08/20/23 09:09 Freq: Status: Active Protocol: [email or web address].[email or web address] Activity Type Activity Date Activity User E-sign Co-sign Detail Recorded Client Recorded Date Recorded By Document 08/20/23 09:09 DL Desktop 08/20/23 09:30 DL Document 08/27/23 09:08 [facility] wound center 08/27/23 09:15 [facility] Document 09/03/23 09:12 DL [email or web address] 09/03/23 09:18 DL 08/20/23 08/27/23 09/03/23 09:09 09:08 09:12 - Today's Visit Information Type of service Initial Visit Follow-up Visit Follow-up Visit (Physician/VP PUBLIC RELATIONS (Physician/VP PUBLIC RELATIONS ) ) Arrival Mode Ambulatory, Ambulatory, Ambulatory, Walker Walker Walker Transfer Assistance None Other None Transfer Assist (Other) stand by Accompanied by brother Patient Identification Verified (Name & Yes Yes Yes ) Patient Requires Transmission-Based No No No Precautions Height and Weight Height 5 ft 9 in Weight 150 lb 11.094 oz Weight in Pounds 150.7 lbs Body Mass Index (BMI) 22.2 22.2 22.2 BMI Classification Normal Normal Normal BSA - Papo 1.83 Vital Signs Temperature (97.8 F-99.1 F) 98.3 F 99.8 F H 97.4 F L Temperature Source Temporal Temporal Temporal Pulse Rate (60-100) 90 106 H 98 Pulse Location Monitor Monitor Monitor Respiratory Rate (12-18) 20 H 16 18 Respiratory rate source Observation Observation Observation Oxygen Delivery Method Room Air Blood Pressure (90/60-120/80) 102/38 L 122/71 H 97/64 Blood Pressure Mean (mm Hg) 59 88 75 Source Monitor Monitor Monitor Position Sitting Blood Pressure Location Right Arm History Since Last Visit- (Skip if this is Patient's initial visit) Have you changed medications since your No No last visit? Any new allergies or adverse reactions No No Had a fall/change in ADL's that may No No increase risk of falls Signs or symptoms of abuse and/or No No neglect since last visit Have you been in the hospital since your No No last visit? Has dressing in place as prescribed Yes Yes Has compression in place as prescribed N/A N/A Has offloadiing in place as prescribed N/A Yes Experienced any changes in pain level or No No management Left Footwear Regular Shoe Right Footwear Regular Shoe Pain Scale: 0-10 Numeric Is Patient Pain Free? Yes Yes Yes Communication Assessment Preferred language Lithuanian Able to Read Yes Able to Write Yes Communication Tools None Right Hearing Abillity Normal Left Hearing Abillity Normal Visual Assistive Devices Glasses Teaching Assessment Preferences Verbal,Written, Demonstration Barriers to Learning None Readiness To Learn Good Willingness to Engage in Self Management Med Activies Anxiety Level Calm Cooperation Cooperative Perception Coherent Interest in Health Problem Asks Questions Education Importance Acknowledges Need Does Patient Smoke tobacco or other No substances Smoking Status Former smoker Is Patient Diabetic No Functional Assessment Recent Decline in Ability to Perform Denies Any Declines Culture/Yarsani/Corporate Tax Manager Cultural/Yarsani Needs that may affect No Treatment Plan Would you allow our hospital clinical implementation specialist to No meet you for the purpose of spiritual/ emotional support? Corporate Tax Manager to contact place of yarsani No Teaching: Wound Center Discharge Instructions -Person Taught Patient *Welcome to the Wound Center -Person Taught Patient WC - Nurse 1 - General Ulcer Measurement Start: 08/20/23 09:09 Freq: Status: Active Protocol: Activity Type Activity Date Activity User E-sign Co-sign Detail Recorded Client Recorded Date Recorded By Document 08/20/23 09:09 DL Desktop 08/20/23 09:30 DL Document 08/27/23 09:08 [facility] wound center 08/27/23 09:15 [facility] Document 09/03/23 09:12 DL [email or web address] 09/03/23 09:18 DL 08/20/23 08/27/23 09/03/23 09:09 09:08 09:12 Wound Center Nurse 1 #1 R Hip CLUSTER -Combined with other wound No -Current Size (cm) - Length 2.1 2.7 2 -Current Size (cm) - Width 0.8 0.6 0.4 -Current Size (cm) - Depth 1.9 1.8 1.1 -Total Square Cm 1.68 1.62 0.8 -Photo Taken Yes -Tunneling Yes -Tunneling Position (O'clock) 12 12 -Tunneling Distance (cm) 2.1 2.3 -Tunneling Position #2 (O'clock) 6 6 -Tunneling Distance #2 (cm) 1.1 1 -Undermining/Tunneling No -Circular Undermining No -Classification - Thickness Full Thickness without Exposed Support Structure -Exudate Amt Large Large Medium -Exudate Type Sanguineous Sanguineous Serosanguineous -Wound Margin Distinct, Distinct, Distinct, Outline Outline Outline Attached Attached Attached -Granulation Amt None Present (0 Medium (34-66%) Large (67-100%) %) -Granulation Quality Red Red -Slough/Fibrin Yes -Necrosis Amt None Present (0 Medium (34-66%) Small (1-33%) %) -Necrotic Tissue Type Adherent Slough Adherent Slough -Structure Exposed N/A N/A -Texture (Nyla-wound Skin Appearance) Localized Edema Assessed, Localized Edema ,Scarring Localized Edema ,Scarring ,Scarring -Moisture (Nyla-wound Skin Appearance) No Abnormality Assessed No Abnormality -Color (Nyla-wound Skin Appearance) No Abnormality, Assessed, No Abnormality Ecchymosis Erythema -Temperature (Nyla-wound Skin No Abnormality Hot No Abnormality Appearance) (Pt Warm) (Pt Warm) -Tenderness on Palpation (Nyla-wound No Yes Skin Appearance) -Ulcer Cleansing Soap and Water Rinsed/ Soap and Water Irrigated with Saline -Foul Odor after Cleansing No No No -Anesthetic Used 5% Lidocaine 5% Lidocaine 5% Lidocaine Gel Gel Gel -Wound Comment(s) r hip distal to wound still swollen, warm and tender to touch. will update registry np WC - Nurse 2 - General Ulcer CM Notes Start: 08/20/23 09:09 Freq: Status: Active Protocol: Activity Type Activity Date Activity User E-sign Co-sign Detail Recorded Client Recorded Date Recorded By Document 08/20/23 09:53 [facility] Desktop 08/20/23 10:03 [facility] Document 08/27/23 09:16 [facility] wound center 08/27/23 09:35 [facility] Document 09/03/23 09:22 [facility] [id number] 09/03/23 09:32 [facility] 08/20/23 08/27/23 09/03/23 09:53 09:16 09:22 Wound Center Nurse 2 #1 R Hip CLUSTER -Time 09:53 09:20 09:22 -Correct Patient Yes Yes Yes -Correct Side, Site, Position Yes Yes Yes -Correct Procedure Yes Yes Yes -Procedure Performed Yes Yes Yes -Type of Procedure Debridement Debridement Debridement -Clinical Debridement Subcutaneous Subcutaneous Subcutaneous -Tissue Removed Subcutaneous Subcutaneous Subcutaneous -Post Debridement (cm) - Length 3.9 3 2.3 -Post Debridement (cm) - Width 0.6 0.5 0.4 -Post Debridement (cm) - Depth 3.2 0.8 0.6 -Total Square (Post) (cm) 2.34 1.5 0.92 -Area of Debridement (cm) - Length 3.9 3 2.3 -Area of Debridement (cm) - Width 0.6 0.5 0.4 -Total Square (Area) (cm) 2.34 1.5 0.92 -Tunneling Yes Yes -Tunneling Position (O'clock) 12 12 -Tunneling Distance (cm) 2.2 1.9 -Tunneling Position #2 (O'clock) 6 6 -Tunneling Distance #2 (cm) 1.0 0.8 -Undermining/Tunneling Yes Yes -Undermining/Tunneling Starts (O'clock 6 6 ) -Undermining/Tunneling Ends (O'clock) 12 12 -Maximum Distance (cm) 1.4 1 -Circular Undermining No No -Wound/Ulcer Outcome Not Healed Not Healed Not Healed -Ulcer Cleansing Rinsed/ Rinsed/ Rinsed/ Irrigated with Irrigated with Irrigated with Saline Saline Saline -Foul Odor after Cleansing No No No -Bioengineered Tissue No No No -Bleeding Controlled with Pressure Pressure Pressure -Treatment Response Procedure Procedure Procedure Tolerated Well Tolerated Well Tolerated Well -Debridement - Subq, 1st 20sq cm Yes Yes Yes Pain Scale: 0-10 Numeric Is Patient Pain Free? Yes Yes Yes - Nurse 3 - General Ulcer D/C NN Start: 08/20/23 09:09 Freq: Status: Active Protocol: Activity Type Activity Date Activity User E-sign Co-sign Detail Recorded Client Recorded Date Recorded By Document 08/20/23 11:39 [facility] Desktop 08/20/23 11:40 [facility] Document 08/27/23 09:57 DL [email or web address] 08/27/23 10:03 DL Document 09/03/23 09:47 [facility] wound center 09/03/23 09:48 RB 08/20/23 08/27/23 09/03/23 11:39 09:57 09:47 Wound Care Center Nurse 3 #1 R Hip CLUSTER -Ulcer Cleansing Rinsed/ Rinsed/ Rinsed/ Irrigated with Irrigated with Irrigated with Saline Saline Saline -Foul Odor after Cleansing No -Primary Dressing Applied Aquacel Extra Aquacel Extra Aquacel Extra -Other Dressing abd abd pad -Primary Dressing Covered/Secured with Dry Gauze, Dry Gauze, Dry Gauze, Secured with Secured with Secured with Tape Tape Tape -Aquacel Extra 3 2 1 Treatment Response Procedure Procedure Procedure Tolerated Well Tolerated Well Tolerated Well Pain Scale: 0-10 Numeric Is Patient Pain Free? Yes Yes Yes - Visit Discharge Discharge Condition Stable Stable Stable Ambulatory Status Ambulatory Ambulatory Ambulatory, Walker Transportation Private Auto Private Auto Private Auto Medication Reconcilliation completed & No No provided to patient/care provider Clinical Summary of Care Provided Yes Yes Facility Type Home Health Orders Sent Yes Assessment/Plan Assessment/Plan (1) Impaired wound healing: (2) Postoperative wound dehiscence: CODE(S): T81.31XA - Disruption of external operation (surgical) wound, not elsewhere classified, initial encounter QUALIFIERS: Encounter type: initial encounter Qualified Code(s): T81.31XA - Disruption of external operation (surgical) wound, not elsewhere classified, initial encounter PLAN: Wash right hip with antibacterial soap and water pat dry pack wound with Aquacel extra thin strip moistened with water cover with gauze and absorbent dressing. Follow-up in 1 week (3) Hematoma: CODE(S): T14.8XXA - Other injury of unspecified body region, initial encounter (4) Infection of wound without complication: CODE(S): T14.8XXA - Other injury of unspecified body region, initial encounter; L08.9 - Local infection of the skin and subcutaneous tissue, unspecified PLAN: Finish ciprofloxacin 500 mg twice daily for 10 days Finish metronidazole 250 mg 1 p.o. 3 times daily for 14 days #42 no refills
[2023-09-10 09:04] VITALS: BP 112/66; PULSE 99; RESP 20; TEMP 36.8; BMI 22.2
--- NOTE | 2023-09-10 12:28 | PN.PCM_ITS ---
History of Present Illness Date of Service: 09/10/23 Chief Complaint: Follow-up hematoma and a right lateral hip dehisced surgical wound. History of Wound: 73-year-old white male that was roller-skating and fell and broke his hip. Had surgery on April 26. He received a rosalina put in his femur and then approximately a month or 2 later it dehisced and developed a hematoma and has been bleeding ever since profusely. He has been to the emergency room x 2 for the bleeding. Patient appears with an open wound with blood clots dried inside wound base tried to take them out unable to at this time. Will try cleaning out with Aquacel extra and strips. Moistened and covered and will follow-up in 1 week Progress of Wound: The wound looks good the hematoma is out and cleaned out more junk of old skin and partial skin and blood. Cut the bridge out today has some undermining and a little bit of tunneling noted on the wound. But does measure smaller. Still has tunneling at 6 and 12 that needs to be packed better. This week the chilling is gone fevers gone still has a lot of redness aligned going down from his wound but he feels much better. Patient then developed a another bubble of hematoma on top of his skin that burst in the reddened area that was giving him a lot of pain and fever. Cultures came back for a weird bug that has no sensitivity. He seems to be responding to the meds I put him on so we will just finished them. Brother states he had terrible pain over this last weekend and his leg said 1 out of 10 it was a 12 and then it got better. Subjective Subjective Patient is agreeable to plan of care again we cultured the second wound that has developed inferior to the other 1 and see if it grows anything. Objective Data Objective Data The original wound is healing well still has tunneling at 12 and 6 no undermining between.The second wound that is inferior to the regular wound has a bubbled hematoma that we were de-roofed and cultured. Area around the wound looks some erythema and darkened skin. Appears to be more painful also. Vital Signs: Vital Signs Temp Pulse Resp BP O2 Del Method 98.2 F 99 20 H 112/66 Room Air 09/10/23 09:04 09/10/23 09:04 09/10/23 09:04 09/10/23 09:04 08/27/23 09:08 Oxygen Delivery Method Room Air Weight: 150 lb 11.094 oz Body Mass Index (BMI) 22.2 Lab / Micro Data Attestation: I reviewed the patient's lab results. Micro: Microbiology 08/27/23 09:20 Wound Abcess - Hip Gram Stain - Final 08/27/23 09:20 Wound Abcess - Hip Wound Culture - Final Corynebacterium striatum 08/27/23 09:20 Wound Abcess - Hip Anaerobic Culture - Final No anaerobic bacteria isolated. Physical Exam Const oriented x3 General Appearance: cooperative Exam Limitations: no limitations HEENT normocephalic Resp normal respiratory effort Effort and Inspection: able to speak in complete sentences Auscultation: clear to auscultation bilaterally Cardio regular rate and regular rhythm Palpation: normal PMI Rate: regular rate Rhythm: regular rhythm Back/Spine Cervical Spine: cervical ROM normal Thoracic Spine / Upper Back: normal to inspection Lumbar Spine / Lower Back: normal to inspection Extremity normal to inspection Skin Wounds: wounds noted Wound Narrative: Open wound right lateral hip with hematoma inside debrided with #3 curette unable to get all of it out we will use Aquacel extra for debridement purposes. Bleeding under control at this time Neuro oriented x3 Psych Appearance: grossly normal Speech: normal speech Thought Content: normal thought content Judgement: judgement good Debridement Note Debridement Note Wound debrided: Left hip repair dehisced Laterality: Left Type of Debridement: Excisional debridement Anesthesia Used: 5% Lidocaine Gel Depth: Down to and including healthy tissue, in the subcutaneous layer and to muscle Percentage of wound debrided: 100 Instrument Used: 5mm curette Tissue Removed: Fibrin and devitalized tissue Severity: Fat Layer Exposed Amount of bleeding with debridement: Mild Bleeding Controlled with: Compression and gauze Patient tolerated procedure: Patient tolerated procedure well Post-Debridement Measurements and Additional Note: Post-Debridement Measurements/Treatment WC - Nurse 1 - General Ulcer Assessment Start: 08/20/23 09:09 Freq: Status: Active Protocol: FABIOLA Activity Type Activity Date Activity User E-sign Co-sign Detail Recorded Client Recorded Date Recorded By Document 08/20/23 09:09 DL Desktop 08/20/23 09:30 DL Document 08/27/23 09:08 [facility] wound center 08/27/23 09:15 [facility] Document 09/03/23 09:12 DL [id number] 09/03/23 09:18 DL Document 09/10/23 09:04 DL [id number] 09/10/23 09:14 DL 08/20/23 08/27/23 09/03/23 09:09 09:08 09:12 WC - Today's Visit Information Type of service Initial Visit Follow-up Visit Follow-up Visit (Physician/WAREHOUSE LOGISTICS COORDINATOR (Physician/WAREHOUSE LOGISTICS COORDINATOR ) ) Arrival Mode Ambulatory, Ambulatory, Ambulatory, Walker Walker Walker Transfer Assistance None Other None Transfer Assist (Other) stand by Accompanied by brother Patient Identification Verified (Name & Yes Yes Yes ) Patient Requires Transmission-Based No No No Precautions Height and Weight Height 5 ft 9 in Weight 150 lb 11.094 oz Weight in Pounds 150.7 lbs Body Mass Index (BMI) 22.2 22.2 22.2 BMI Classification Normal Normal Normal BSA - Papo 1.83 Vital Signs Temperature (97.8 F-99.1 F) 98.3 F 99.8 F H 97.4 F L Temperature Source Temporal Temporal Temporal Pulse Rate (60-100) 90 106 H 98 Pulse Location Monitor Monitor Monitor Respiratory Rate (12-18) 20 H 16 18 Respiratory rate source Observation Observation Observation Oxygen Delivery Method Room Air Blood Pressure (90/60-120/80) 102/38 L 122/71 H 97/64 Blood Pressure Mean (mm Hg) 59 88 75 Source Monitor Monitor Monitor Position Sitting Blood Pressure Location Right Arm History Since Last Visit- (Skip if this is Patient's initial visit) Have you changed medications since your No No last visit? Any new allergies or adverse reactions No No Had a fall/change in ADL's that may No No increase risk of falls Signs or symptoms of abuse and/or No No neglect since last visit Have you been in the hospital since your No No last visit? Has dressing in place as prescribed Yes Yes Has compression in place as prescribed N/A N/A Has offloadiing in place as prescribed N/A Yes Experienced any changes in pain level or No No management Left Footwear Regular Shoe Right Footwear Regular Shoe Pain Scale: 0-10 Numeric Is Patient Pain Free? Yes Yes Yes Communication Assessment Preferred language Bengali Able to Read Yes Able to Write Yes Communication Tools None Right Hearing Abillity Normal Left Hearing Abillity Normal Visual Assistive Devices Glasses Teaching Assessment Preferences Verbal,Written, Demonstration Barriers to Learning None Readiness To Learn Good Willingness to Engage in Self Management Med Activies Anxiety Level Calm Cooperation Cooperative Perception Coherent Interest in Health Problem Asks Questions Education Importance Acknowledges Need Does Patient Smoke tobacco or other No substances Smoking Status Former smoker Is Patient Diabetic No Functional Assessment Recent Decline in Ability to Perform Denies Any Declines Culture/Tenriism/Podiatric Physician Cultural/Tenriism Needs that may affect No Treatment Plan Would you allow our hospital [facility] to No meet you for the purpose of spiritual/ emotional support? Podiatric Physician to contact place of denominational No Teaching: Wound Center Discharge Instructions -Person Taught Patient *Welcome to the Wound Center -Person Taught Patient 09/10/23 09:04 WC - Today's Visit Information Type of service Follow-up Visit (Physician/WAREHOUSE LOGISTICS COORDINATOR ) Arrival Mode Ambulatory Transfer Assistance None Transfer Assist (Other) Accompanied by Patient Identification Verified (Name & Yes ) Patient Requires Transmission-Based No Precautions Height and Weight Height Weight Weight in Pounds Body Mass Index (BMI) 22.2 BMI Classification Normal BSA - Papo Vital Signs Temperature (97.8 F-99.1 F) 98.2 F Temperature Source Temporal Pulse Rate (60-100) 99 Pulse Location Monitor Respiratory Rate (12-18) 20 H Respiratory rate source Observation Oxygen Delivery Method Blood Pressure (90/60-120/80) 112/66 Blood Pressure Mean (mm Hg) 81 Source Monitor Position Blood Pressure Location History Since Last Visit- (Skip if this is Patient's initial visit) Have you changed medications since your No last visit? Any new allergies or adverse reactions No Had a fall/change in ADL's that may No increase risk of falls Signs or symptoms of abuse and/or No neglect since last visit Have you been in the hospital since your No last visit? Has dressing in place as prescribed Yes Has compression in place as prescribed Yes Has offloadiing in place as prescribed Yes Experienced any changes in pain level or No management Left Footwear Right Footwear Pain Scale: 0-10 Numeric Is Patient Pain Free? Yes Communication Assessment Preferred language Able to Read Able to Write Communication Tools Right Hearing Abillity Left Hearing Abillity Visual Assistive Devices Teaching Assessment Preferences Barriers to Learning Readiness To Learn Willingness to Engage in Self Management Activies Anxiety Level Cooperation Perception Interest in Health Problem Education Importance Does Patient Smoke tobacco or other substances Smoking Status Is Patient Diabetic Functional Assessment Recent Decline in Ability to Perform Culture/Tenriism/Podiatric Physician Cultural/Tenriism Needs that may affect Treatment Plan Would you allow our hospital ore smel[facility] to meet you for the purpose of spiritual/ emotional support? Podiatric Physician to contact place of denominational Teaching: Wound Center Discharge Instructions -Person Taught *Welcome to the Wound Center -Person Taught WC - Nurse 1 - General Ulcer Measurement Start: 08/20/23 09:09 Freq: Status: Active Protocol: Activity Type Activity Date Activity User E-sign Co-sign Detail Recorded Client Recorded Date Recorded By Document 08/20/23 09:09 DL Desktop 08/20/23 09:30 DL Document 08/27/23 09:08 [facility] wound center 08/27/23 09:15 [facility] Document 09/03/23 09:12 DL [email or web address] 09/03/23 09:18 DL Document 09/10/23 09:04 DL [email or web address] 09/10/23 09:14 DL 08/20/23 08/27/23 09/03/23 09:09 09:08 09:12 Wound Center Nurse 1 #2 R Hip DISTAL -Current Size (cm) - Length -Current Size (cm) - Width -Current Size (cm) - Depth -Total Square Cm -Photo Taken -Exudate Amt -Exudate Type -Wound Margin -Granulation Amt -Necrosis Amt -Necrotic Tissue Type -Structure Exposed -Texture (Nyla-wound Skin Appearance) -Moisture (Nyla-wound Skin Appearance) -Color (Nyla-wound Skin Appearance) -Temperature (Nyla-wound Skin Appearance) -Tenderness on Palpation (Nyla-wound Skin Appearance) -Ulcer Cleansing -Foul Odor after Cleansing -Anesthetic Used #1 R Hip CLUSTER -Combined with other wound No -Current Size (cm) - Length 2.1 2.7 2 -Current Size (cm) - Width 0.8 0.6 0.4 -Current Size (cm) - Depth 1.9 1.8 1.1 -Total Square Cm 1.68 1.62 0.8 -Photo Taken Yes -Tunneling Yes -Tunneling Position (O'clock) 12 12 -Tunneling Distance (cm) 2.1 2.3 -Tunneling Position #2 (O'clock) 6 6 -Tunneling Distance #2 (cm) 1.1 1 -Undermining/Tunneling No -Circular Undermining No -Classification - Thickness Full Thickness without Exposed Support Structure -Exudate Amt Large Large Medium -Exudate Type Sanguineous Sanguineous Serosanguineous -Wound Margin Distinct, Distinct, Distinct, Outline Outline Outline Attached Attached Attached -Granulation Amt None Present (0 Medium (34-66%) Large (67-100%) %) -Granulation Quality Red Red -Slough/Fibrin Yes -Necrosis Amt None Present (0 Medium (34-66%) Small (1-33%) %) -Necrotic Tissue Type Adherent Slough Adherent Slough -Structure Exposed N/A N/A -Texture (Nyla-wound Skin Appearance) Localized Edema Assessed, Localized Edema ,Scarring Localized Edema ,Scarring ,Scarring -Moisture (Nyla-wound Skin Appearance) No Abnormality Assessed No Abnormality -Color (Nyla-wound Skin Appearance) No Abnormality, Assessed, No Abnormality Ecchymosis Erythema -Temperature (Nyla-wound Skin No Abnormality Hot No Abnormality Appearance) (Pt Warm) (Pt Warm) -Tenderness on Palpation (Nyla-wound No Yes Skin Appearance) -Ulcer Cleansing Soap and Water Rinsed/ Soap and Water Irrigated with Saline -Foul Odor after Cleansing No No No -Anesthetic Used 5% Lidocaine 5% Lidocaine 5% Lidocaine Gel Gel Gel -Wound Comment(s) r hip distal to wound still swollen, warm and tender to touch. will update first aid nurse 09/10/23 09:04 Wound Center Nurse 1 #2 R Hip DISTAL -Current Size (cm) - Length 1.5 -Current Size (cm) - Width 0.5 -Current Size (cm) - Depth 0.2 -Total Square Cm 0.75 -Photo Taken Yes -Exudate Amt Large -Exudate Type Serosanguineous -Wound Margin Distinct, Outline Attached -Granulation Amt None Present (0 %) -Necrosis Amt Large (67-100%) -Necrotic Tissue Type Eschar -Structure Exposed N/A -Texture (Nyla-wound Skin Appearance) Localized Edema ,Scarring -Moisture (Nyla-wound Skin Appearance) No Abnormality -Color (Nyla-wound Skin Appearance) No Abnormality -Temperature (Nyla-wound Skin No Abnormality Appearance) (Pt Warm) -Tenderness on Palpation (Nyla-wound No Skin Appearance) -Ulcer Cleansing Soap and Water -Foul Odor after Cleansing No -Anesthetic Used 5% Lidocaine Gel #1 R Hip CLUSTER -Combined with other wound -Current Size (cm) - Length 1.8 -Current Size (cm) - Width 0.4 -Current Size (cm) - Depth 1.4 -Total Square Cm 0.72 -Photo Taken Yes -Tunneling -Tunneling Position (O'clock) 12 -Tunneling Distance (cm) 1.8 -Tunneling Position #2 (O'clock) 6 -Tunneling Distance #2 (cm) 0.8 -Undermining/Tunneling -Circular Undermining -Classification - Thickness -Exudate Amt Medium -Exudate Type Serosanguineous -Wound Margin Distinct, Outline Attached -Granulation Amt Small (1-33%) -Granulation Quality Red -Slough/Fibrin -Necrosis Amt None Present (0 %) -Necrotic Tissue Type -Structure Exposed N/A -Texture (Nyla-wound Skin Appearance) Localized Edema ,Scarring -Moisture (Nyla-wound Skin Appearance) No Abnormality -Color (Nyla-wound Skin Appearance) No Abnormality -Temperature (Nyla-wound Skin No Abnormality Appearance) (Pt Warm) -Tenderness on Palpation (Nyla-wound No Skin Appearance) -Ulcer Cleansing Soap and Water -Foul Odor after Cleansing No -Anesthetic Used 5% Lidocaine Gel -Wound Comment(s) WC - Nurse 2 - General Ulcer CM Notes Start: 08/20/23 09:09 Freq: Status: Active Protocol: Activity Type Activity Date Activity User E-sign Co-sign Detail Recorded Client Recorded Date Recorded By Document 08/20/23 09:53 [facility] Desktop 08/20/23 10:03 [facility] Document 08/27/23 09:16 [facility] wound center 08/27/23 09:35 [facility] Document 09/03/23 09:22 [facility] [id number] 09/03/23 09:32 [facility] Document 09/10/23 09:[place] [id number] 09/10/23 09:36 DS 08/20/23 08/27/23 09/03/23 09:53 09:16 09:22 Wound Center Nurse 2 #2 R Hip DISTAL -Time -Correct Patient -Correct Side, Site, Position -Correct Procedure -Procedure Performed -Type of Procedure -Clinical Debridement -Tissue Removed -Post Debridement (cm) - Length -Post Debridement (cm) - Width -Post Debridement (cm) - Depth -Total Square (Post) (cm) -Area of Debridement (cm) - Length -Area of Debridement (cm) - Width -Total Square (Area) (cm) -Tunneling -Undermining/Tunneling -Circular Undermining -Wound/Ulcer Outcome -Ulcer Cleansing -Bleeding Controlled with -Treatment Response -Debridement - Subq, 1st 20sq cm #1 R Hip CLUSTER -Time 09:53 09:20 09:22 -Correct Patient Yes Yes Yes -Correct Side, Site, Position Yes Yes Yes -Correct Procedure Yes Yes Yes -Procedure Performed Yes Yes Yes -Type of Procedure Debridement Debridement Debridement -Clinical Debridement Subcutaneous Subcutaneous Subcutaneous -Tissue Removed Subcutaneous Subcutaneous Subcutaneous -Post Debridement (cm) - Length 3.9 3 2.3 -Post Debridement (cm) - Width 0.6 0.5 0.4 -Post Debridement (cm) - Depth 3.2 0.8 0.6 -Total Square (Post) (cm) 2.34 1.5 0.92 -Area of Debridement (cm) - Length 3.9 3 2.3 -Area of Debridement (cm) - Width 0.6 0.5 0.4 -Total Square (Area) (cm) 2.34 1.5 0.92 -Tunneling Yes Yes -Tunneling Position (O'clock) 12 12 -Tunneling Distance (cm) 2.2 1.9 -Tunneling Position #2 (O'clock) 6 6 -Tunneling Distance #2 (cm) 1.0 0.8 -Undermining/Tunneling Yes Yes -Undermining/Tunneling Starts (O'clock 6 6 ) -Undermining/Tunneling Ends (O'clock) 12 12 -Maximum Distance (cm) 1.4 1 -Circular Undermining No No -Wound/Ulcer Outcome Not Healed Not Healed Not Healed -Ulcer Cleansing Rinsed/ Rinsed/ Rinsed/ Irrigated with Irrigated with Irrigated with Saline Saline Saline -Foul Odor after Cleansing No No No -Bioengineered Tissue No No No -Bleeding Controlled with Pressure Pressure Pressure -Treatment Response Procedure Procedure Procedure Tolerated Well Tolerated Well Tolerated Well -Debridement - Subq, 1st 20sq cm Yes Yes Yes Pain Scale: 0-10 Numeric Is Patient Pain Free? Yes Yes Yes 09/10/23 09:31 Wound Center Nurse 2 #2 R Hip DISTAL -Time 09:31 -Correct Patient Yes -Correct Side, Site, Position Yes -Correct Procedure Yes -Procedure Performed Yes -Type of Procedure Debridement -Clinical Debridement Subcutaneous -Tissue Removed Subcutaneous -Post Debridement (cm) - Length 1.5 -Post Debridement (cm) - Width 1.0 -Post Debridement (cm) - Depth 0.3 -Total Square (Post) (cm) 1.50 -Area of Debridement (cm) - Length 1.5 -Area of Debridement (cm) - Width 1.0 -Total Square (Area) (cm) 1.50 -Tunneling No -Undermining/Tunneling No -Circular Undermining No -Wound/Ulcer Outcome Not Healed -Ulcer Cleansing Rinsed/ Irrigated with Saline -Bleeding Controlled with Pressure -Treatment Response Procedure Tolerated Well -Debridement - Subq, 1st 20sq cm No #1 R Hip CLUSTER -Time 09:31 -Correct Patient Yes -Correct Side, Site, Position Yes -Correct Procedure Yes -Procedure Performed Yes -Type of Procedure Debridement -Clinical Debridement Subcutaneous -Tissue Removed Subcutaneous -Post Debridement (cm) - Length 2.0 -Post Debridement (cm) - Width 0.2 -Post Debridement (cm) - Depth 1.4 -Total Square (Post) (cm) 0.40 -Area of Debridement (cm) - Length 2.0 -Area of Debridement (cm) - Width 0.2 -Total Square (Area) (cm) 0.40 -Tunneling Yes -Tunneling Position (O'clock) 12 -Tunneling Distance (cm) 2.2 -Tunneling Position #2 (O'clock) 6 -Tunneling Distance #2 (cm) 1.0 -Undermining/Tunneling No -Undermining/Tunneling Starts (O'clock ) -Undermining/Tunneling Ends (O'clock) -Maximum Distance (cm) -Circular Undermining No -Wound/Ulcer Outcome Not Healed -Ulcer Cleansing Rinsed/ Irrigated with Saline -Foul Odor after Cleansing -Bioengineered Tissue -Bleeding Controlled with Pressure -Treatment Response Procedure Tolerated Well -Debridement - Subq, 1st 20sq cm Yes Pain Scale: 0-10 Numeric Is Patient Pain Free? Yes WC - Nurse 3 - General Ulcer D/C NN Start: 08/20/23 09:09 Freq: Status: Active Protocol: Activity Type Activity Date Activity User E-sign Co-sign Detail Recorded Client Recorded Date Recorded By Document 08/20/23 11:39 RB Desktop 08/20/23 11:40 RB Document 08/27/23 09:57 DL 10.10.25.7 08/27/23 10:03 DL Document 09/03/23 09:47 [facility] wound center 09/03/23 09:48 RB Document 09/10/23 09:49 DL [email or web address] 09/10/23 09:51 DL 08/20/23 08/27/23 09/03/23 11:39 09:57 09:47 Wound Care Center Nurse 3 #2 R Hip DISTAL -Ulcer Cleansing -Foul Odor after Cleansing -Primary Dressing Applied -Primary Dressing Covered/Secured with -Aquacel Extra #1 R Hip CLUSTER -Ulcer Cleansing Rinsed/ Rinsed/ Rinsed/ Irrigated with Irrigated with Irrigated with Saline Saline Saline -Foul Odor after Cleansing No -Primary Dressing Applied Aquacel Extra Aquacel Extra Aquacel Extra -Other Dressing abd abd pad -Primary Dressing Covered/Secured with Dry Gauze, Dry Gauze, Dry Gauze, Secured with Secured with Secured with Tape Tape Tape -Other Covering -Aquacel Extra 3 2 1 Treatment Response Procedure Procedure Procedure Tolerated Well Tolerated Well Tolerated Well Pain Scale: 0-10 Numeric Is Patient Pain Free? Yes Yes Yes WC - Visit Discharge Discharge Condition Stable Stable Stable Ambulatory Status Ambulatory Ambulatory Ambulatory, Walker Transportation Private Auto Private Auto Private Auto Medication Reconcilliation completed & No No provided to patient/care provider Clinical Summary of Care Provided Yes Yes Facility Type Home Health Orders Sent Yes 09/10/23 09:49 Wound Care Center Nurse 3 #2 R Hip DISTAL -Ulcer Cleansing Rinsed/ Irrigated with Saline -Foul Odor after Cleansing No -Primary Dressing Applied Aquacel Extra -Primary Dressing Covered/Secured with Dry Gauze & Roll Gauze, Secured with Tape -Aquacel Extra 1 #1 R Hip CLUSTER -Ulcer Cleansing Soap and Water -Foul Odor after Cleansing No -Primary Dressing Applied -Other Dressing aquacel ex -Primary Dressing Covered/Secured with Dry Gauze, Secured with Tape -Other Covering ABD -Aquacel Extra Treatment Response Procedure Tolerated Well Pain Scale: 0-10 Numeric Is Patient Pain Free? Yes WC - Visit Discharge Discharge Condition Stable Ambulatory Status Ambulatory Transportation Private Auto Medication Reconcilliation completed & provided to patient/care provider Clinical Summary of Care Provided Facility Type Home Health Orders Sent Yes Additional Wound Wound debrided: Inferior wound right hip hematoma open Type of Debridement: Excisional debridement Anesthesia Used: 5% Lidocaine Gel Depth: Down to and including healthy tissue Percentage of wound debrided: 100 Instrument Used: 5mm curette Tissue Removed: Blood Severity: Fat Layer Exposed Amount of bleeding with debridement: Mild Bleeding Controlled with: Compression and gauze Patient tolerated procedure: Patient tolerated procedure well Assessment/Plan Assessment/Plan (1) Impaired wound healing: (2) Postoperative wound dehiscence: CODE(S): T81.31XA - Disruption of external operation (surgical) wound, not elsewhere classified, initial encounter QUALIFIERS: Encounter type: initial encounter Qualified Code(s): T81.31XA - Disruption of external operation (surgical) wound, not elsewhere classified, initial encounter PLAN: Wash right hip with antibacterial soap and water pat dry pack wound with Aquacel extra thin strip moistened with water cover with gauze and absorbent dressing. Follow-up in 1 week (3) Hematoma: CODE(S): T14.8XXA - Other injury of unspecified body region, initial encounter PLAN: Inferior wound cover with Aquacel extra moistened and cover with absorbent dressing every day (4) Infection of wound without complication: CODE(S): T14.8XXA - Other injury of unspecified body region, initial encounter; L08.9 - Local infection of the skin and subcutaneous tissue, unspecified PLAN: Wound cultures obtained Will call with lab results
== END 2023-09-12 23:59 | disposition home or self-care (01) ==
LOC: WC 09:00
PROVIDERS: PCP Family Medicine; Referring Provider Family Medicine; Visit Provider Nurse Practitioner
DX: T81.31XA Disruption of external operation (surgical) wound, not elsewhere classified, initial encounter (principal); Z87.891 Personal history of nicotine dependence; M79.662 Pain in left lower leg; T14.8XXA Other injury of unspecified body region, initial encounter; L08.9 Local infection of the skin and subcutaneous tissue, unspecified; I10 Essential (primary) hypertension; E78.5 Hyperlipidemia, unspecified
CPT/HCPCS: 11042; 87070; 87075; 87077; 87205; 99213; G0463

== ENCOUNTER 2023-09-27 14:45 | Emergency (ER) | payer MEDICARE, SELFPAY ==
[2023-09-27 14:46] VITALS: BP 103/65; PULSE 98; RESP 16; TEMP 36.4; O2SAT 97; BMI 21.8
--- NOTE | 2023-09-27 15:24 | EX.ED.DYSGE1 ---
HPI <GELY Parada - Last Filed: 09/27/23 16:51> History of Present Illness Chief Complaint: Wound Narrative Narrative: 73-year-old male with had right hip surgery by Dr. Anna on 04/27/2023 had bleeding issues from the surgical site and required blood transfusion. The hip incision is healing but he then developed swelling and discoloration below the site with an opening that oozes blood. He was told it was a hematoma. This was complicated by a diagnosis of DVT on anticoagulation and he Dr. Sevilla placed an IVC filter on 08/14/2023 and he stopped blood thinners over a month ago. He goes to the wound center every Friday and was replaces the bandage once a day but it has been bleeding more heavily over the last few days requiring bandage changes 2-3 times a day. He packs the wound and covers it with 2x2 gauze and and ABD pad. It is not soaking through the bandage. [facility] <GELY Parada - Last Filed: 09/27/23 16:51> [facility] Medical History Impaired wound healing BPH (benign prostatic hyperplasia) Heart failure HLD (hyperlipidemia) HTN (hypertension) Closed intertrochanteric fracture of right hip Suprapubic catheter Home Medications ?Medication ?Instructions ?Recorded ?Last Taken ?Type atorvastatin 10 mg tablet 10 mg PO DAILY HLD 04/26/23 08/05/23 08:00 History carvedilol 3.125 mg tablet 3.125 mg PO BID HTN, CHF 04/26/23 08/05/23 08:00 History sennosides 8.6 mg-docusate sodium 2 tab PO BID PRN constipation 08/05/23 Unknown History 50 mg tablet (Stool Softener-Stimulant Laxative) ferrous sulfate 325 mg (65 mg 325 mg PO BID #60 tabs 08/17/23 Unknown Rx iron) tablet (Iron (ferrous sulfate)) Allergy/AdvReac Type Severity Reaction Status Date / Time No Known Allergies Allergy Verified 09/27/23 14:46 Family History Mother Heart disease Hypertension Heart failure Father Heart failure Hypertension Heart disease Surgical History S/P ORIF (open reduction internal fixation) fracture History of suprapubic catheter S/P TURP Social History household members: other details: Lives with his brother. Smoking Status: Former smoker alcohol intake: current alcohol intake frequency: holidays/special occasions only substance use type: does not use ROS <GELY Parada - Last Filed: 09/27/23 16:51> ROS ED ROS Narrative Constitutional: Negative for fever, chills, malaise. Neuro: Negative for motor/sensory dysfunction. Skin: Positive for chronic wound. Musc: Negative for joint pain, swelling, trauma. EXAM <GELY Parada Last Filed: 09/27/23 16:51> Physical Exam Narrative Exam Narrative: CONST: Patient sitting in no acute distress. EYES: Normal inspection. NECK: Normal inspection. RESP: No respiratory distress, CTAB. CVS: Regular rate and rhythm, no murmur, no gallop. EXTREMITIES: Lower extremities: No peripheral edema, no signs of gross trauma or deformity. Right lateral hip incision has a 1 cm opening with packing in with no bleeding or purulent drainage and it appears to be healing well. There is a second 1 cm opening distal to this along the lateral thigh with slow oozing blood. No continuous hemorrhage. The anterior lateral thigh is mildy red and warm to touch. Patient states this is chronic and improving from the hematoma. He has full range of motion of the hip knee and ankle. 2+ DP pulse. NEURO: Alert and answering questions appropriately. PSYCH: Normal affect. Const Vital Signs: 09/27/23 14:46 09/27/23 16:43 Temperature 97.6 F L 97.2 F L Temperature Source Temporal Pulse Rate 98 81 Respiratory Rate 16 16 Blood Pressure 103/65 95/61 Blood Pressure Mean 77 72 Pulse Ox 97 99 Oxygen Delivery Method Room Air <Dr. Maninder Mercedes, DO - Last Filed: 09/27/23 23:32> Physical Exam Const Vital Signs: 09/27/23 14:46 09/27/23 16:43 Temperature 97.6 F L 97.2 F L Temperature Source Temporal Pulse Rate 98 81 Respiratory Rate 16 16 Blood Pressure 103/65 95/61 Blood Pressure Mean 77 72 Pulse Ox 97 99 Oxygen Delivery Method Room Air [facility] <GELY Parada - Last Filed: 09/27/23 16:51> [facility] Narrative Medical decision making narrative: History gathered from: Patient and family member Differential diagnosis: Postop bleeding/hematoma, infection, anemia Patient developed a right leg hematoma after a right hip surgery and presents with persistent bleeding from the small opening in his right lateral thigh. He is not on anticoagulation. He appears well and nontoxic with stable vital signs. There are 1 cm opening on the mid thigh slow oozing blood but no active hemorrhage. Hemoglobin is 11.4 up from 8.3 previously. BMP unremarkable. His wound was dressed with Surgicel, gauze and ABD pad. I do not think there is an infectious process regarding the slight redness of his leg. He has a normal white blood cell count, no fevers and chills, and states it has been significantly red and swollen from the hematoma and this is improving. I recommended close follow-up with the wound center and he was discharged in stable condition. Lab Data Attestation: I reviewed the patient's lab results. Labs: Laboratory Results - last 24 hr 09/27/23 15:20 WBC 8.4 RBC 4.16 L Hgb 11.4 L Hct 35.9 L MCV 86.3 MCH 27.4 MCHC 31.8 L RDW Std Deviation 51.4 H RDW Coeff of Vicente 16.1 H Plt Count 269 MPV 10.0 Immature Gran % (Auto) 0.400 Neut % (Auto) 68.9 Lymph % (Auto) 15.1 L Foard % (Auto) 14.6 H Eos % (Auto) 0.5 Baso % (Auto) 0.5 Absolute Neuts (auto) 5.8 Absolute Lymphs (auto) 1.27 Nucleated RBC % 0 Sodium 134 L Potassium 3.4 L Chloride 100 Carbon Dioxide 26.0 Anion Gap 8 BUN 27 H Creatinine 0.85 Estim Creat Clear Calc 73.49 Est GFR (MDRD) Af Amer 113 Est GFR (MDRD) Non-Af 94 BUN/Creatinine Ratio 31.7 H Glucose 111 H Calcium 9.0 <Dr. Maninder Mercedes, - Last Filed: 09/27/23 23:32> [facility] Lab Data Labs: Laboratory Results - last 24 hr 09/27/23 15:20 WBC 8.4 RBC 4.16 L Hgb 11.4 L Hct 35.9 L MCV 86.3 MCH 27.4 MCHC 31.8 L RDW Std Deviation 51.4 H RDW Coeff of Vicente 16.1 H Plt Count 269 MPV 10.0 Immature Gran % (Auto) 0.400 Neut % (Auto) 68.9 Lymph % (Auto) 15.1 L Foard % (Auto) 14.6 H Eos % (Auto) 0.5 Baso % (Auto) 0.5 Absolute Neuts (auto) 5.8 Absolute Lymphs (auto) 1.27 Nucleated RBC % 0 Sodium 134 L Potassium 3.4 L Chloride 100 Carbon Dioxide 26.0 Anion Gap 8 BUN 27 H Creatinine 0.85 Estim Creat Clear Calc 73.49 Est GFR (MDRD) Af Amer 113 Est GFR (MDRD) Non-Af 94 BUN/Creatinine Ratio 31.7 H Glucose 111 H Calcium 9.0 Treatment and Re-Evaluation :: I have personally performed a face to face assessment of the patient and have reviewed the SAVANNAH Note. I performed a substantive portion of the visit including all aspects of the following. My sharpe findings include: History: Patient presents with bleeding from a surgical wound that became worse today. Patient states he has had a chronic open wound after his surgery. Patient had a hematoma which caused his surgical incision to open up. Patient has been following at the wound care center for this. Patient states that he has had to change his dressing multiple times today due to the bleeding. Patient denies any fevers or chills. Patient admits to some redness over the right anterior and lateral thigh. Exam: Vital signs are stable. Patient is afebrile. Patient is in no acute distress. Skin is warm and dry. There is a small approximately 6 mm opening at the distal part of the incision of his right hip. There is mild bleeding noted. There is no purulent discharge or drainage noted. There is some erythema and warmth of the anterior and lateral thigh. There is full range of motion. Pedal pulses are equal bilateral. Sensation was intact to light touch bilaterally in the lower extremities. Strength is 5/5 bilaterally in the lower extremities. Medical Decision Making: Differential diagnosis includes anemia, cellulitis, and postoperative bleeding. CBC will be obtained to assess for leukocytosis and anemia. Basic metabolic profile will be obtained to assess for electrolyte abnormality and renal function. CBC was reviewed. There is a mild anemia with a hemoglobin of 11.4 and hematocrit 35.9. Basic metabolic profile was reviewed and was essentially within normal limits. BUN was slightly elevated at 27. Please the wound was cleaned and dressed with Gelfoam and gauze dressing. Bleeding seemed to stop with this. Patient was instructed to follow-up with his primary care physician and wound care center in 3 to 5 days. Patient and family understood and were agreeable with the plan. All questions were answered. Discharge Plan Triage Chief Complaint: Wound ED Midlevel Provider: Jannet Patel ED Provider: Maninder Mercedes Dx/Rx/DC Orders Clinical Impression: Bleeding from right hip wound, Impaired wound healing, Chronic anemia Instructions: Caring for Your Incision Prescriptions: No Action atorvastatin 10 mg tablet 10 mg PO DAILY Patient Comments: TAKE 1 TABLET (10 MG) BY MOUTH DAILY. carvedilol 3.125 mg tablet 3.125 mg PO BID Patient Comments: TAKE 1 TABLET BY MOUTH TWICE DIALY sennosides-docusate sodium [Stool Softener-Stimulant Laxat] 8.6-50 mg Tablet 2 tab PO BID PRN (Reason: constipation) ferrous sulfate [Iron (ferrous sulfate)] 325 mg (65 mg iron) tablet 325 mg PO BID Qty: 60 0RF Primary Care Provider: Hesham Andrade Referrals: Hesham Andrade DO [Primary Care Provider] - Activity Restrictions/Additional Instructions: Leave the Surgicel foam on for 24 to 48 hours as this will help stop the bleeding. Please call the wound center on Friday. If you cannot get the bleeding to stop with direct pressure return to the emergency room. Print Language: Latvian Disposition Disposition: Home, Self Care Discharge Date/Time: 09/27/23 16:44
[2023-09-27 15:43] LABS: Absolute Lymphocyte Count 1.27 X10^3/uL (0.83-4.51); Absolute Neutrophil Count 5.8 X10^3/uL (2.0-7.7); Basophil# 0.04 X10^3/uL; Basophil% 0.5 % (0-1); Eosinophil# 0.04 X10^3/uL; Eosinophils% 0.5 % (0-5); Hematocrit 35.9 % (40-54); Hemoglobin 11.4 g/dL (13.0-16.5); Lymphocyte # 1.27 X10^3/ul (0.83-4.51); Lymphocyte % 15.1 % (19-41); Mean Corp Hgb Conc 31.8 g/dL (32-36); Mean Corpuscular Hgb 27.4 pg (27.0-32.0); Mean Corpuscular Volume 86.3 fL (80-94); Monocyte# 1.23 X10^3/uL; Monocyte% 14.6 % (0-10); NRBC Flagged by Analyzer 0 % (0-5); Neutrophil % 68.9 % (47-70); Platelet Count 269 K/mm3 (150-450); RBC Distribution Width CV 16.1 % (11.6-14.6); RBC Distribution Width SD 51.4 fl (35.1-43.9); Red Blood Count 4.16 M/mm3 (4.6-6.2); White Blood Count 8.4 K/mm3 (4.4-11.0)
[2023-09-27 15:58] LABS: Anion Gap 8 (5-15); BUN 27 mg/dL (7-18); BUN/Creat Ratio 31.7 RATIO (10-20); Chloride 100 mmol/L (98-107); Creatinine, Serum 0.85 mg/dL (0.70-1.30); EST Glomerular Filtration Rate 94 mL/min (>60); Est Glom Filt Rate - Afr Amer 113 mL/min (>60); Estimated Creatinine Clearance 73.49 ml/min; Glucose 111 mg/dL (74-106); Potassium 3.4 mmol/L (3.5-5.1); Sodium Level 134 mmol/L (136-145)
[2023-09-27 16:43] VITALS: BP 95/61; PULSE 81; RESP 16; TEMP 36.2; O2SAT 99
== END 2023-09-27 16:44 | disposition home or self-care (01) ==
PROVIDERS: Physician Assistant; Emergency Provider Emergency Medicine; PCP Family Medicine; Visit Provider Emergency Medicine
DX: M96.830 Postprocedural hemorrhage of a musculoskeletal structure following a musculoskeletal system procedure (principal); I50.9 Heart failure, unspecified; I11.0 Hypertensive heart disease with heart failure; D64.9 Anemia, unspecified; Z87.891 Personal history of nicotine dependence; E78.5 Hyperlipidemia, unspecified; Z98.890 Other specified postprocedural states
CPT/HCPCS: 80048; 85025; 99284; A4216

== ENCOUNTER 2023-10-08 09:00 | Outpatient (RCR) | payer MEDICARE, SELFPAY ==
[2023-09-13 00:23] VITALS: BP 112/66; PULSE 99; RESP 20; TEMP 36.8; BMI 22.2
[2023-09-17 09:03] VITALS: BP 106/54; PULSE 94; RESP 20; TEMP 36.3; BMI 22.2
--- NOTE | 2023-09-17 11:19 | PCM.WC.PN ---
History of Present Illness Date of Service: 09/17/23 Chief Complaint: Follow-up hematoma and a right lateral hip dehisced surgical wound. History of Wound: 73-year-old white male that was roller-skating and fell and broke his hip. Had surgery on April 26. He received a rosalina put in his femur and then approximately a month or 2 later it dehisced and developed a hematoma and has been bleeding ever since profusely. He has been to the emergency room x 2 for the bleeding. Patient appears with an open wound with blood clots dried inside wound base tried to take them out unable to at this time. Will try cleaning out with Aquacel extra and strips. Moistened and covered and will follow-up in 1 week Progress of Wound: Right hip wound is healing nicely still has some undermining from 12-6 and tunneling at about 12-1 o'clock much improved slit is getting small smaller at the top for him to get in there. The distal right hip wound that opened last week with a hematoma again bled a lot this last week and we cleaned it out and again it has tunneling at around 12:00 and undermining to. We will pack both of them continue with the Aquacel extra it seems to work really well for the for the wounds. Patient states he not having a lot of pain this week with that just a lot of drainage Subjective Subjective Patient is agreeable to plan Objective Data Objective Data Cultures came back negative with a new opening we will continue to pack them with Aquacel extra. Vital Signs: Vital Signs Temp Pulse Resp BP 97.3 F L 94 20 H 106/54 L 09/17/23 09:03 09/17/23 09:03 09/17/23 09:03 09/17/23 09:03 Weight: 150 lb 11.094 oz Body Mass Index (BMI) 22.2 Physical Exam Const oriented x3 General Appearance: cooperative Exam Limitations: no limitations HEENT normocephalic Resp normal respiratory effort Effort and Inspection: able to speak in complete sentences Auscultation: clear to auscultation bilaterally Cardio regular rate and regular rhythm Palpation: normal PMI Rate: regular rate Rhythm: regular rhythm Back/Spine Cervical Spine: cervical ROM normal Thoracic Spine / Upper Back: normal to inspection Lumbar Spine / Lower Back: normal to inspection Extremity normal to inspection Skin Wounds: wounds noted Wound Narrative: Open wound right lateral hip with hematoma inside debrided with #3 curette unable to get all of it out we will use Aquacel extra for debridement purposes. Bleeding under control at this time. New open wound on distal right hip started as a hematoma again and blood well but is under control Neuro oriented x3 Psych Appearance: grossly normal Speech: normal speech Thought Content: normal thought content Judgement: judgement good Debridement Note Debridement Note Wound debrided: Right hip repair dehisced Laterality: Right Type of Debridement: Excisional debridement Anesthesia Used: 5% Lidocaine Gel Depth: Down to and including healthy tissue, in the subcutaneous layer and to muscle Percentage of wound debrided: 100 Instrument Used: 5mm curette Tissue Removed: Fibrin and devitalized tissue Severity: Fat Layer Exposed Amount of bleeding with debridement: Mild Bleeding Controlled with: Compression and gauze Patient tolerated procedure: Patient tolerated procedure well Post-Debridement Measurements and Additional Note: Post-Debridement Measurements/Treatment WC - Nurse 1 - General Ulcer Assessment Start: 09/17/23 09:01 Freq: Status: Active Protocol: FABIOLA Activity Type Activity Date Activity User E-sign Co-sign Detail Recorded Client Recorded Date Recorded By Document 09/17/23 09:03 DL [email or web address] 09/17/23 09:12 DL 09/17/23 09:03 WC - Today's Visit Information Type of service Follow-up Visit (Physician/[facility] CONTR[employer] SPECIALIST ) Arrival Mode Ambulatory Transfer Assistance None Patient Identification Verified (Name & Yes ) Patient Requires Transmission-Based No Precautions Height and Weight Body Mass Index (BMI) 22.2 BMI Classification Normal Vital Signs Temperature (97.8 F-99.1 F) 97.3 F L Temperature Source Temporal Pulse Rate (60-100) 94 Pulse Location Monitor Respiratory Rate (12-18) 20 H Respiratory rate source Observation Blood Pressure (90/60-120/80) 106/54 L Blood Pressure Mean (mm Hg) 71 Source Monitor History Since Last Visit- (Skip if this is Patient's initial visit) Have you changed medications since your No last visit? Any new allergies or adverse reactions No Had a fall/change in ADL's that may No increase risk of falls Signs or symptoms of abuse and/or No neglect since last visit Have you been in the hospital since your No last visit? Has dressing in place as prescribed Yes Has compression in place as prescribed N/A Has offloadiing in place as prescribed Yes Experienced any changes in pain level or No management Pain Scale: 0-10 Numeric Is Patient Pain Free? Yes WC - Nurse 1 - General Ulcer Measurement Start: 09/17/23 09:01 Freq: Status: Active Protocol: Activity Type Activity Date Activity User E-sign Co-sign Detail Recorded Client Recorded Date Recorded By Document 09/17/23 09:03 DL [email or web address] 09/17/23 09:12 DL 09/17/23 09:03 Wound Center Nurse 1 #2 R Hip DISTAL -Current Size (cm) - Length 0.9 -Current Size (cm) - Width 0.7 -Current Size (cm) - Depth 1.4 -Total Square Cm 0.63 -Tunneling Position (O'clock) 11 -Tunneling Distance (cm) 3.5 -Exudate Amt Large -Exudate Type Serosanguineous -Wound Margin Distinct, Outline Attached -Granulation Amt Large (67-100%) -Granulation Quality Red -Necrosis Amt None Present (0 %) -Structure Exposed N/A -Texture (Nyla-wound Skin Appearance) Localized Edema ,Scarring -Moisture (Nyla-wound Skin Appearance) No Abnormality -Color (Nyla-wound Skin Appearance) No Abnormality -Temperature (Nyla-wound Skin No Abnormality Appearance) (Pt Warm) -Tenderness on Palpation (Nyla-wound No Skin Appearance) -Ulcer Cleansing Soap and Water -Foul Odor after Cleansing No -Anesthetic Used 5% Lidocaine Gel #1 R Hip CLUSTER -Current Size (cm) - Length 0.9 -Current Size (cm) - Width 0.7 -Current Size (cm) - Depth 1.4 -Total Square Cm 0.63 -Exudate Amt Medium -Exudate Type Serosanguineous -Wound Margin Distinct, Outline Attached -Granulation Amt Medium (34-66%) -Granulation Quality Red -Necrosis Amt Small (1-33%) -Necrotic Tissue Type Adherent Slough -Structure Exposed N/A -Texture (Nyla-wound Skin Appearance) Localized Edema ,Scarring -Moisture (Nyla-wound Skin Appearance) No Abnormality -Color (Nyla-wound Skin Appearance) No Abnormality -Temperature (Nyla-wound Skin No Abnormality Appearance) (Pt Warm) -Tenderness on Palpation (Nyla-wound No Skin Appearance) -Ulcer Cleansing Soap and Water -Foul Odor after Cleansing No -Anesthetic Used 5% Lidocaine Gel WC - Nurse 2 - General Ulcer CM Notes Start: 09/17/23 09:01 Freq: Status: Active Protocol: Activity Type Activity Date Activity User E-sign Co-sign Detail Recorded Client Recorded Date Recorded By Document 09/17/23 09:20 [facility] [id number] 09/17/23 09:27 [facility] 09/17/23 09:20 Wound Center Nurse 2 #2 R Hip DISTAL -Time 09:20 -Correct Patient Yes -Correct Side, Site, Position Yes -Correct Procedure Yes -Procedure Performed Yes -Type of Procedure Debridement -Clinical Debridement Subcutaneous -Tissue Removed Subcutaneous -Post Debridement (cm) - Length 1 -Post Debridement (cm) - Width 0.6 -Post Debridement (cm) - Depth 1.7 -Total Square (Post) (cm) 0.6 -Area of Debridement (cm) - Length 1 -Area of Debridement (cm) - Width 0.6 -Total Square (Area) (cm) 0.6 -Tunneling Yes -Tunneling Position (O'clock) 11 -Tunneling Distance (cm) 2.4 -Undermining/Tunneling No -Wound/Ulcer Outcome Not Healed -Ulcer Cleansing Rinsed/ Irrigated with Saline -Foul Odor after Cleansing No -Bioengineered Tissue No -Bleeding Controlled with Pressure -Treatment Response Procedure Tolerated Well -Debridement - Subq, 1st 20sq cm No #1 R Hip CLUSTER -Time 09:21 -Correct Patient Yes -Correct Side, Site, Position Yes -Correct Procedure Yes -Procedure Performed Yes -Type of Procedure Debridement -Clinical Debridement Subcutaneous -Tissue Removed Subcutaneous -Post Debridement (cm) - Length 1.4 -Post Debridement (cm) - Width 0.2 -Post Debridement (cm) - Depth 0.7 -Total Square (Post) (cm) 0.28 -Area of Debridement (cm) - Length 1.4 -Area of Debridement (cm) - Width 0.2 -Total Square (Area) (cm) 0.28 -Tunneling Yes -Tunneling Position (O'clock) 12 -Tunneling Distance (cm) 1.4 -Undermining/Tunneling Yes -Undermining/Tunneling Starts (O'clock 6 ) -Undermining/Tunneling Ends (O'clock) 12 -Maximum Distance (cm) 0.7 -Circular Undermining No -Wound/Ulcer Outcome Not Healed -Ulcer Cleansing Rinsed/ Irrigated with Saline -Foul Odor after Cleansing No -Bioengineered Tissue No -Bleeding Controlled with Pressure -Treatment Response Procedure Tolerated Well -Debridement - Subq, 1st 20sq cm Yes Pain Scale: 0-10 Numeric Is Patient Pain Free? Yes - Nurse 3 - General Ulcer D/C NN Start: 09/17/23 09:01 Freq: Status: Active Protocol: Activity Type Activity Date Activity User E-sign Co-sign Detail Recorded Client Recorded Date Recorded By Document 09/17/23 09:31 [facility] [id number] 09/17/23 09:32 [facility] 09/17/23 09:31 Wound Care Center Nurse 3 #2 R Hip DISTAL -Ulcer Cleansing Rinsed/ Irrigated with Saline -Foul Odor after Cleansing No -Primary Dressing Applied Aquacel Extra -Other Dressing PER DL WORT EXTRACTOR -Primary Dressing Covered/Secured with Dry Gauze, Secured with Tape -Other Covering ABD -Aquacel Extra 1 #1 R Hip CLUSTER -Ulcer Cleansing Rinsed/ Irrigated with Saline -Foul Odor after Cleansing No -Primary Dressing Applied Aquacel Extra -Other Dressing PER DL WORT EXTRACTOR -Primary Dressing Covered/Secured with Dry Gauze, Secured with Tape -Other Covering ABD -Aquacel Extra 0 Treatment Response Procedure Tolerated Well Pain Scale: 0-10 Numeric Is Patient Pain Free? Yes - Visit Discharge Discharge Condition Stable Ambulatory Status Ambulatory Transportation Private Auto Additional Wound Wound debrided: Inferior wound right hip hematoma open Type of Debridement: Excisional debridement Anesthesia Used: 5% Lidocaine Gel Depth: Down to and including healthy tissue Percentage of wound debrided: 100 Instrument Used: 5mm curette Tissue Removed: Blood Severity: Fat Layer Exposed Amount of bleeding with debridement: Mild Bleeding Controlled with: Compression and gauze Patient tolerated procedure: Patient tolerated procedure well Assessment/Plan Assessment/Plan (1) Impaired wound healing: (2) Postoperative wound dehiscence: CODE(S): T81.31XA - Disruption of external operation (surgical) wound, not elsewhere classified, initial encounter QUALIFIERS: Encounter type: initial encounter Qualified Code(s): T81.31XA - Disruption of external operation (surgical) wound, not elsewhere classified, initial encounter PLAN: Wash right hip with antibacterial soap and water pat dry pack wound with Aquacel extra thin strip moistened with water cover with gauze and absorbent dressing. Follow-up in 1 week (3) Hematoma: CODE(S): T14.8XXA - Other injury of unspecified body region, initial encounter PLAN: Inferior wound pack with Aquacel extra moistened and cover with absorbent dressing every day (4) Infection of wound without complication: CODE(S): T14.8XXA - Other injury of unspecified body region, initial encounter; L08.9 - Local infection of the skin and subcutaneous tissue, unspecified PLAN: Wound cultures obtained all negative
[2023-09-24 09:16] VITALS: BP 136/64; PULSE 94; RESP 16; TEMP 36.4; BMI 22.2
--- NOTE | 2023-09-24 10:53 | PN.PCM_ITS ---
History of Present Illness Date of Service: 09/24/23 Chief Complaint: Follow-up hematoma and a right lateral hip dehisced surgical wound. History of Wound: 73-year-old white male that was roller-skating and fell and broke his hip. Had surgery on April 26. He received a rosalina put in his femur and then approximately a month or 2 later it dehisced and developed a hematoma and has been bleeding ever since profusely. He has been to the emergency room x 2 for the bleeding. Patient appears with an open wound with blood clots dried inside wound base tried to take them out unable to at this time. Will try cleaning out with Aquacel extra and strips. Moistened and covered and will follow-up in 1 week Progress of Wound: Right hip wound is healing nicely still has some tunneling only at about 12-1 o'clock much improved slit is getting small at the top for him to get in there. The distal right hip wound that opened last week with a hematoma again bled a lot this last week and we cleaned it out and again it has tunneling at around 12:00 and undermining to. We will pack both of them continue with the Aquacel extra it seems to work really well for the for the wounds. Patient states he not having a lot of pain this week with that just a lot of drainage Subjective Subjective Patient is pleased with outcome so far I wound care Objective Data Objective Data The superior wound the original wound is healing well still has some tunneling at 12 but it is about half the size it was it was improving on the bottom 1 as tunneling also at 12:00 and needs to be addressed also with the packing plus it has a quite a depth to it but patient is tolerating treatment well. Vital Signs: Vital Signs Temp Pulse Resp BP O2 Del Method 97.6 F L 94 16 136/64 H Room Air 09/24/23 09:16 09/24/23 09:16 09/24/23 09:16 09/24/23 09:16 09/24/23 09:16 Oxygen Delivery Method Room Air Weight: 150 lb 11.094 oz Body Mass Index (BMI) 22.2 Physical Exam Const oriented x3 General Appearance: cooperative Exam Limitations: no limitations HEENT normocephalic Resp normal respiratory effort Effort and Inspection: able to speak in complete sentences Auscultation: clear to auscultation bilaterally Cardio regular rate and regular rhythm Palpation: normal PMI Rate: regular rate Rhythm: regular rhythm Back/Spine Cervical Spine: cervical ROM normal Thoracic Spine / Upper Back: normal to inspection Lumbar Spine / Lower Back: normal to inspection Extremity normal to inspection Skin Wounds: wounds noted Wound Narrative: Open wound right lateral hip with hematoma inside debrided with #3 curette unable to get all of it out we will use Aquacel extra for debridement purposes. Bleeding under control at this time. New open wound on distal right hip started as a hematoma again and blood well but is under control Neuro oriented x3 Psych Appearance: grossly normal Speech: normal speech Thought Content: normal thought content Judgement: judgement good Debridement Note Debridement Note Wound debrided: Right hip repair dehisced Laterality: Right Type of Debridement: Excisional debridement Anesthesia Used: 5% Lidocaine Gel Depth: Down to and including healthy tissue, in the subcutaneous layer and to muscle Percentage of wound debrided: 100 Instrument Used: 5mm curette Tissue Removed: Fibrin and devitalized tissue Severity: Fat Layer Exposed Amount of bleeding with debridement: Mild Bleeding Controlled with: Compression and gauze Patient tolerated procedure: Patient tolerated procedure well Post-Debridement Measurements and Additional Note: Post-Debridement Measurements/Treatment - Nurse 1 - General Ulcer Assessment Start: 09/17/23 09:01 Freq: Status: Active Protocol: FABIOLA Activity Type Activity Date Activity User E-sign Co-sign Detail Recorded Client Recorded Date Recorded By Document 09/17/23 09:03 DL [email or web address] 09/17/23 09:12 DL Document 09/24/23 09:16 KW wound center 09/24/23 09:28 KW 09/17/23 09/24/23 09:03 09:16 - Today's Visit Information Type of service Follow-up Visit Follow-up Visit (Physician/ECONOMETRICIAN (Physician/ECONOMETRICIAN ) ) Arrival Mode Ambulatory Ambulatory Transfer Assistance None Patient Identification Verified (Name & Yes Yes ) Patient Requires Transmission-Based No Precautions Height and Weight Body Mass Index (BMI) 22.2 22.2 BMI Classification Normal Normal Vital Signs Temperature (97.8 F-99.1 F) 97.3 F L 97.6 F L Temperature Source Temporal Temporal Pulse Rate (60-100) 94 94 Pulse Location Monitor Monitor Respiratory Rate (12-18) 20 H 16 Respiratory rate source Observation Observation Oxygen Delivery Method Room Air Blood Pressure (90/60-120/80) 106/54 L 136/64 H Blood Pressure Mean (mm Hg) 71 88 Source Monitor Monitor Position Semi-Fowlers Blood Pressure Location Left Arm History Since Last Visit- (Skip if this is Patient's initial visit) Have you changed medications since your No No last visit? Any new allergies or adverse reactions No No Had a fall/change in ADL's that may No No increase risk of falls Signs or symptoms of abuse and/or No No neglect since last visit Have you been in the hospital since your No No last visit? Has dressing in place as prescribed Yes Yes Has compression in place as prescribed N/A N/A Has offloadiing in place as prescribed Yes N/A Experienced any changes in pain level or No No management Left Footwear Regular Shoe Right Footwear Regular Shoe Pain Scale: 0-10 Numeric Is Patient Pain Free? Yes Yes WC - Nurse 1 - General Ulcer Measurement Start: 09/17/23 09:01 Freq: Status: Active Protocol: Activity Type Activity Date Activity User E-sign Co-sign Detail Recorded Client Recorded Date Recorded By Document 09/17/23 09:03 DL [email or web address] 09/17/23 09:12 DL Document 09/24/23 09:16 KW wound center 09/24/23 09:28 KW 09/17/23 09/24/23 09:03 09:16 Wound Center Nurse 1 #2 R Hip DISTAL -Current Size (cm) - Length 0.9 0.8 -Current Size (cm) - Width 0.7 0.6 -Current Size (cm) - Depth 1.4 1.2 -Total Square Cm 0.63 0.48 -Date of Last Picture (Recall this 09/24/23 field) -Tunneling Yes -Tunneling Position (O'clock) 11 9 -Tunneling Distance (cm) 3.5 1.9 -Exudate Amt Large Medium -Exudate Type Serosanguineous Serosanguineous -Wound Margin Distinct, Distinct, Outline Outline Attached Attached -Granulation Amt Large (67-100%) Large (67-100%) -Granulation Quality Red Red -Necrosis Amt None Present (0 %) -Structure Exposed N/A -Texture (Nyla-wound Skin Appearance) Localized Edema Assessed ,Scarring -Moisture (Nyla-wound Skin Appearance) No Abnormality Assessed -Color (Nyla-wound Skin Appearance) No Abnormality Assessed -Temperature (Nyla-wound Skin No Abnormality No Abnormality Appearance) (Pt Warm) (Pt Warm) -Tenderness on Palpation (Nyla-wound No No Skin Appearance) -Ulcer Cleansing Soap and Water Rinsed/ Irrigated with Saline -Foul Odor after Cleansing No No -Anesthetic Used 5% Lidocaine 4% Lidocaine Gel Solution #1 R Hip CLUSTER -Current Size (cm) - Length 0.9 1.3 -Current Size (cm) - Width 0.7 0.1 -Current Size (cm) - Depth 1.4 0.4 -Total Square Cm 0.63 0.13 -Date of Last Picture (Recall this 09/24/23 field) -Exudate Amt Medium Small -Exudate Type Serosanguineous Serosanguineous -Wound Margin Distinct, Distinct, Outline Outline Attached Attached -Granulation Amt Medium (34-66%) Large (67-100%) -Granulation Quality Red Pale,[place] -Necrosis Amt Small (1-33%) -Necrotic Tissue Type Adherent Slough -Structure Exposed N/A -Texture (Nyla-wound Skin Appearance) Localized Edema Assessed ,Scarring -Moisture (Nyla-wound Skin Appearance) No Abnormality Maceration -Color (Nyla-wound Skin Appearance) No Abnormality Assessed -Temperature (Nyla-wound Skin No Abnormality No Abnormality Appearance) (Pt Warm) (Pt Warm) -Tenderness on Palpation (Nyla-wound No No Skin Appearance) -Ulcer Cleansing Soap and Water Rinsed/ Irrigated with Saline -Foul Odor after Cleansing No No -Anesthetic Used 5% Lidocaine 4% Lidocaine Gel Solution WC - Nurse 2 - General Ulcer CM Notes Start: 09/17/23 09:01 Freq: Status: Active Protocol: Activity Type Activity Date Activity User E-sign Co-sign Detail Recorded Client Recorded Date Recorded By Document 09/17/23 09:20 [facility] 1606-03-23 09/17/23 09:27 [facility] Document 09/24/23 09:32 [facility] 1606-01-21 09/24/23 09:38 [facility] 09/17/23 09/24/23 09:20 09:32 Wound Center Nurse 2 #2 R Hip DISTAL -Time 09:20 09:32 -Correct Patient Yes Yes -Correct Side, Site, Position Yes Yes -Correct Procedure Yes Yes -Procedure Performed Yes Yes -Type of Procedure Debridement Debridement -Clinical Debridement Subcutaneous Subcutaneous -Tissue Removed Subcutaneous Subcutaneous -Post Debridement (cm) - Length 1 0.7 -Post Debridement (cm) - Width 0.6 0.4 -Post Debridement (cm) - Depth 1.7 1 -Total Square (Post) (cm) 0.6 0.28 -Area of Debridement (cm) - Length 1 0.7 -Area of Debridement (cm) - Width 0.6 0.4 -Total Square (Area) (cm) 0.6 0.28 -Tunneling Yes Yes -Tunneling Position (O'clock) 11 11 -Tunneling Distance (cm) 2.4 3 -Undermining/Tunneling No No -Circular Undermining No -Wound/Ulcer Outcome Not Healed Not Healed -Ulcer Cleansing Rinsed/ Rinsed/ Irrigated with Irrigated with Saline Saline -Foul Odor after Cleansing No No -Bioengineered Tissue No No -Bleeding Controlled with Pressure Pressure -Treatment Response Procedure Procedure Tolerated Well Tolerated Well -Debridement - Subq, 1st 20sq cm No Yes #1 R Hip CLUSTER -Time 09:21 09:32 -Correct Patient Yes Yes -Correct Side, Site, Position Yes Yes -Correct Procedure Yes Yes -Procedure Performed Yes Yes -Type of Procedure Debridement Debridement -Clinical Debridement Subcutaneous Subcutaneous -Tissue Removed Subcutaneous Subcutaneous -Post Debridement (cm) - Length 1.4 1.4 -Post Debridement (cm) - Width 0.2 0.1 -Post Debridement (cm) - Depth 0.7 0.7 -Total Square (Post) (cm) 0.28 0.14 -Area of Debridement (cm) - Length 1.4 0.1 -Area of Debridement (cm) - Width 0.2 -Total Square (Area) (cm) 0.28 -Tunneling Yes Yes -Tunneling Position (O'clock) 12 12 -Tunneling Distance (cm) 1.4 1.4 -Undermining/Tunneling Yes No -Undermining/Tunneling Starts (O'clock 6 ) -Undermining/Tunneling Ends (O'clock) 12 -Maximum Distance (cm) 0.7 -Circular Undermining No No -Wound/Ulcer Outcome Not Healed Not Healed -Ulcer Cleansing Rinsed/ Rinsed/ Irrigated with Irrigated with Saline Saline -Foul Odor after Cleansing No No -Bioengineered Tissue No No -Bleeding Controlled with Pressure Pressure -Treatment Response Procedure Procedure Tolerated Well Tolerated Well -Debridement - Subq, 1st 20sq cm Yes No Pain Scale: 0-10 Numeric Is Patient Pain Free? Yes Yes - Nurse 3 - General Ulcer D/C NN Start: 09/17/23 09:01 Freq: Status: Active Protocol: Activity Type Activity Date Activity User E-sign Co-sign Detail Recorded Client Recorded Date Recorded By Document 09/17/23 09:31 [facility] 1606-03-23 09/17/23 09:32 [facility] Document 09/24/23 09:47 [facility] 1606-01-21 09/24/23 09:48 [facility] 09/17/23 09/24/23 09:31 09:47 Wound Care Center Nurse 3 #2 R Hip DISTAL -Ulcer Cleansing Rinsed/ Rinsed/ Irrigated with Irrigated with Saline Saline -Foul Odor after Cleansing No No -Primary Dressing Applied Aquacel Extra Aquacel Extra -Other Dressing PER DL HOST/HOSTESS ABD -Primary Dressing Covered/Secured with Dry Gauze, Dry Gauze, Secured with Secured with Tape Tape -Other Covering ABD DRSG PER GM RN -Aquacel Extra 1 1 #1 R Hip CLUSTER -Ulcer Cleansing Rinsed/ Rinsed/ Irrigated with Irrigated with Saline Saline -Foul Odor after Cleansing No No -Primary Dressing Applied Aquacel Extra Aquacel Extra -Other Dressing PER DL HOST/HOSTESS ABD'; DRSG PER GM RN -Primary Dressing Covered/Secured with Dry Gauze, Dry Gauze, Secured with Secured with Tape Tape -Other Covering ABD -Aquacel Extra 0 0 Treatment Response Procedure Procedure Tolerated Well Tolerated Well Pain Scale: 0-10 Numeric Is Patient Pain Free? Yes Yes - Visit Discharge Discharge Condition Stable Stable Ambulatory Status Ambulatory Ambulatory Transportation Private Auto Private Auto Facility Type Home Health Additional Wound Wound debrided: Inferior wound right hip hematoma open Type of Debridement: Excisional debridement Anesthesia Used: 5% Lidocaine Gel Depth: Down to and including healthy tissue Percentage of wound debrided: 100 Instrument Used: 5mm curette Tissue Removed: Blood Severity: Fat Layer Exposed Amount of bleeding with debridement: Mild Bleeding Controlled with: Compression and gauze Patient tolerated procedure: Patient tolerated procedure well Assessment/Plan Assessment/Plan (1) Impaired wound healing: (2) Postoperative wound dehiscence: CODE(S): T81.31XA - Disruption of external operation (surgical) wound, not elsewhere classified, initial encounter QUALIFIERS: Encounter type: initial encounter Qualified Code(s): T81.31XA - Disruption of external operation (surgical) wound, not elsewhere classified, initial encounter PLAN: Wash right hip with antibacterial soap and water pat dry pack wound with Aquacel extra thin strip moistened with water cover with gauze and absorbent dressing. Follow-up in 1 week (3) Hematoma: CODE(S): T14.8XXA - Other injury of unspecified body region, initial encounter PLAN: Inferior wound pack with Aquacel extra moistened and cover with absorbent dressing every day (4) Infection of wound without complication: CODE(S): T14.8XXA - Other injury of unspecified body region, initial encounter; L08.9 - Local infection of the skin and subcutaneous tissue, unspecified PLAN: Wound cultures obtained all negative
--- NOTE | 2023-09-24 11:42 | WC ---
09/24/2023 RIGHT DISTAL HIP
[2023-10-01 08:54] VITALS: BP 112/68; PULSE 99; RESP 16; TEMP 36.4; BMI 22.2
--- NOTE | 2023-10-01 09:42 | PCM.WC.PN ---
History of Present Illness Date of Service: 10/01/23 Chief Complaint: Follow-up hematoma and a right lateral hip dehisced surgical wound. History of Wound: 73-year-old white male that was roller-skating and fell and broke his hip. Had surgery on April 26. He received a rosalina put in his femur and then approximately a month or 2 later it dehisced and developed a hematoma and has been bleeding ever since profusely. He has been to the emergency room x 2 for the bleeding. Patient appears with an open wound with blood clots dried inside wound base tried to take them out unable to at this time. Will try cleaning out with Aquacel extra and strips. Moistened and covered and will follow-up in 1 week Progress of Wound: Right hip wound is healing nicely still has some tunneling only at about 12-1 o'clock much improved slit is getting small at the top for him to get in there. The distal right hip wound that opened a couple of weeks ago from a hematoma again bled a lot this last week and he ended up in the hospital and they had to pack it with stop bleeding packing. He still has tunneling at around 12:00 and undermining to. We will pack both of them continue with the Aquacel extra it seems to work really well for the for the wounds. The drainage is been so bad he is been packing it twice a day. The drainage we pulled today was copious amounts of bright red blood. Still has a reddened area distal to the second wound also and he still has swelling in that leg. I suggested he buy biker pants that are really tight and the thigh but were going to try wrapping him with a 6 inch Delano wrap. Subjective Subjective Patient is okay with treatments Objective Data Objective Data No odor to the discharge still bleeding heavily on the second wound the first wound is healing nicely. Will continue packing with Aquacel extra and trying to wear compression Vital Signs: Vital Signs Temp Pulse Resp BP O2 Del Method 97.5 F L 99 16 112/68 Room Air 10/01/23 08:54 10/01/23 08:54 10/01/23 08:54 10/01/23 08:54 10/01/23 08:54 Oxygen Delivery Method Room Air Weight: 150 lb 11.094 oz Body Mass Index (BMI) 22.2 Physical Exam Const oriented x3 General Appearance: cooperative Exam Limitations: no limitations HEENT normocephalic Resp normal respiratory effort Effort and Inspection: able to speak in complete sentences Auscultation: clear to auscultation bilaterally Cardio regular rate and regular rhythm Palpation: normal PMI Rate: regular rate Rhythm: regular rhythm Back/Spine Cervical Spine: cervical ROM normal Thoracic Spine / Upper Back: normal to inspection Lumbar Spine / Lower Back: normal to inspection Extremity normal to inspection Skin Wounds: wounds noted Wound Narrative: Open wound right lateral hip with hematoma inside debrided with #3 curette unable to get all of it out we will use Aquacel extra for debridement purposes. Bleeding under control at this time. New open wound on distal right hip started as a hematoma again and blood well but is under control Neuro oriented x3 Psych Appearance: grossly normal Speech: normal speech Thought Content: normal thought content Judgement: judgement good Debridement Note Debridement Note Wound debrided: Right hip repair dehisced Laterality: Right Type of Debridement: Excisional debridement Anesthesia Used: 5% Lidocaine Gel Depth: Down to and including healthy tissue, in the subcutaneous layer and to muscle Percentage of wound debrided: 100 Instrument Used: 5mm curette Tissue Removed: Fibrin and devitalized tissue Severity: Fat Layer Exposed Amount of bleeding with debridement: Mild Bleeding Controlled with: Compression and gauze Patient tolerated procedure: Patient tolerated procedure well Post-Debridement Measurements and Additional Note: Post-Debridement Measurements/Treatment - Nurse 1 - General Ulcer Assessment Start: 09/17/23 09:01 Freq: Status: Active Protocol: DINAH.MICHELE Activity Type Activity Date Activity User E-sign Co-sign Detail Recorded Client Recorded Date Recorded By Document 09/17/23 09:03 DL [email or web address] 09/17/23 09:12 DL Document 09/24/23 09:16 KW wound center 09/24/23 09:28 KW Document 10/01/23 08:54 [facility] 1606-03-23 10/01/23 09:02 [facility] 09/17/23 09/24/23 10/01/23 09:03 09:16 08:54 - Today's Visit Information Type of service Follow-up Visit Follow-up Visit Follow-up Visit (Physician/SUPERVISOR MET[employer] (Physician/SUPERVISOR [employer] REPAIR [employer] (Physician/SUPERVISOR [employer] ) ) ) Arrival Mode Ambulatory Ambulatory Ambulatory Transfer Assistance None None Patient Identification Verified (Name & Yes Yes Yes ) Patient Requires Transmission-Based No No Precautions Height and Weight Body Mass Index (BMI) 22.2 22.2 22.2 BMI Classification Normal Normal Normal Vital Signs Temperature (97.8 F-99.1 F) 97.3 F L 97.6 F L 97.5 F L Temperature Source Temporal Temporal Temporal Pulse Rate (60-100) 94 94 99 Pulse Location Monitor Monitor Monitor Respiratory Rate (12-18) 20 H 16 16 Respiratory rate source Observation Observation Observation Oxygen Delivery Method Room Air Room Air Blood Pressure (90/60-120/80) 106/54 L 136/64 H 112/68 Blood Pressure Mean (mm Hg) 71 88 82 Source Monitor Monitor Monitor Position Semi-Fowlers Sitting Blood Pressure Location Left Arm Right Arm History Since Last Visit- (Skip if this is Patient's initial visit) Have you changed medications since your No No No last visit? Any new allergies or adverse reactions No No No Had a fall/change in ADL's that may No No No increase risk of falls Signs or symptoms of abuse and/or No No No neglect since last visit Have you been in the hospital since your No No Yes last visit? Has dressing in place as prescribed Yes Yes Yes Has compression in place as prescribed N/A N/A N/A Has offloadiing in place as prescribed Yes N/A N/A Experienced any changes in pain level or No No No management Left Footwear Regular Shoe Regular Shoe Right Footwear Regular Shoe Regular Shoe Pain Scale: 0-10 Numeric Is Patient Pain Free? Yes Yes Yes WC - Nurse 1 - General Ulcer Measurement Start: 09/17/23 09:01 Freq: Status: Active Protocol: Activity Type Activity Date Activity User E-sign Co-sign Detail Recorded Client Recorded Date Recorded By Document 09/17/23 09:03 DL [email or web address] 09/17/23 09:12 DL Document 09/24/23 09:16 KW wound center 09/24/23 09:28 KW Document 10/01/23 08:54 [facility] 1606-03-23 10/01/23 09:02 BMF 09/17/23 09/24/23 10/01/23 09:03 09:16 08:54 Wound Center Nurse 1 #2 R Hip DISTAL -Combined with other wound No -Current Size (cm) - Length 0.9 0.8 0.4 -Current Size (cm) - Width 0.7 0.6 0.2 -Current Size (cm) - Depth 1.4 1.2 0.5 -Total Square Cm 0.63 0.48 0.08 -Date of Last Picture (Recall this 09/24/23 10/01/23 field) -Photo Taken Yes -Epithelialization Small 1-33% -Tunneling Yes Yes -Tunneling Position (O'clock) 11 9 12 -Tunneling Distance (cm) 3.5 1.9 1 -Undermining/Tunneling No -Circular Undermining No -Exudate Amt Large Medium Large -Exudate Type Serosanguineous Serosanguineous Sanguineous -Wound Margin Distinct, Distinct, Distinct, Outline Outline Outline Attached Attached Attached -Granulation Amt Large (67-100%) Large (67-100%) -Granulation Quality Red Red -Necrosis Amt None Present (0 %) -Structure Exposed N/A -Texture (Nyla-wound Skin Appearance) Localized Edema Assessed Assessed, ,Scarring Localized Edema -Moisture (Nyla-wound Skin Appearance) No Abnormality Assessed Assessed,Dry/ Scaly -Color (Nyla-wound Skin Appearance) No Abnormality Assessed Assessed -Temperature (Nyla-wound Skin No Abnormality No Abnormality No Abnormality Appearance) (Pt Warm) (Pt Warm) (Pt Warm) -Tenderness on Palpation (Nyla-wound No No No Skin Appearance) -Ulcer Cleansing Soap and Water Rinsed/ Soap and Water Irrigated with Saline -Foul Odor after Cleansing No No No -Anesthetic Used 5% Lidocaine 4% Lidocaine 5% Lidocaine Gel Solution Gel #1 R Hip CLUSTER -Combined with other wound No -Current Size (cm) - Length 0.9 1.3 0.8 -Current Size (cm) - Width 0.7 0.1 0.2 -Current Size (cm) - Depth 1.4 0.4 1 -Total Square Cm 0.63 0.13 0.16 -Date of Last Picture (Recall this 09/24/23 10/01/23 field) -Photo Taken Yes -Epithelialization None Present -Tunneling Yes -Tunneling Position (O'clock) 12 -Tunneling Distance (cm) 1.3 -Tunneling Position #2 (O'clock) 6 -Tunneling Distance #2 (cm) 0.4 -Undermining/Tunneling No -Circular Undermining No -Exudate Amt Medium Small Medium -Exudate Type Serosanguineous Serosanguineous Serosanguineous -Wound Margin Distinct, Distinct, Distinct, Outline Outline Outline Attached Attached Attached -Granulation Amt Medium (34-66%) Large (67-100%) Large (67-100%) -Granulation Quality Red Pale,[place] Red -Necrosis Amt Small (1-33%) -Necrotic Tissue Type Adherent Slough -Structure Exposed N/A -Texture (Nyla-wound Skin Appearance) Localized Edema Assessed Assessed, ,Scarring Scarring -Moisture (Nyla-wound Skin Appearance) No Abnormality Maceration Assessed -Color (Nyla-wound Skin Appearance) No Abnormality Assessed Assessed -Temperature (Nyla-wound Skin No Abnormality No Abnormality No Abnormality Appearance) (Pt Warm) (Pt Warm) (Pt Warm) -Tenderness on Palpation (Nyla-wound No No No Skin Appearance) -Ulcer Cleansing Soap and Water Rinsed/ Soap and Water Irrigated with Saline -Foul Odor after Cleansing No No No -Anesthetic Used 5% Lidocaine 4% Lidocaine 5% Lidocaine Gel Solution Gel WC - Nurse 2 - General Ulcer CM Notes Start: 09/17/23 09:01 Freq: Status: Active Protocol: Activity Type Activity Date Activity User E-sign Co-sign Detail Recorded Client Recorded Date Recorded By Document 09/17/23 09:20 [facility] 1606-03-23 09/17/23 09:27 [facility] Document 09/24/23 09:32 [facility] 1606-01-21 09/24/23 09:38 [facility] Document 10/01/23 09:04 [facility] 1606-03-23 10/01/23 09:18 [facility] 09/17/23 09/24/23 10/01/23 09:20 09:32 09:04 Wound Center Nurse 2 #2 R Hip DISTAL -Time 09:20 09:32 09:06 -Correct Patient Yes Yes Yes -Correct Side, Site, Position Yes Yes Yes -Correct Procedure Yes Yes Yes -Procedure Performed Yes Yes Yes -Type of Procedure Debridement Debridement Debridement -Clinical Debridement Subcutaneous Subcutaneous Subcutaneous -Tissue Removed Subcutaneous Subcutaneous Subcutaneous -Post Debridement (cm) - Length 1 0.7 0.4 -Post Debridement (cm) - Width 0.6 0.4 0.1 -Post Debridement (cm) - Depth 1.7 1 0.6 -Total Square (Post) (cm) 0.6 0.28 0.04 -Area of Debridement (cm) - Length 1 0.7 0.4 -Area of Debridement (cm) - Width 0.6 0.4 0.1 -Total Square (Area) (cm) 0.6 0.28 0.04 -Tunneling Yes Yes Yes -Tunneling Position (O'clock) 11 11 12 -Tunneling Distance (cm) 2.4 3 2.5 -Undermining/Tunneling No No No -Circular Undermining No No -Wound/Ulcer Outcome Not Healed Not Healed Not Healed -Ulcer Cleansing Rinsed/ Rinsed/ Rinsed/ Irrigated with Irrigated with Irrigated with Saline Saline Saline -Foul Odor after Cleansing No No No -Bioengineered Tissue No No No -Bleeding Controlled with Pressure Pressure Pressure -Treatment Response Procedure Procedure Procedure Tolerated Well Tolerated Well Tolerated Well -Debridement - Subq, 1st 20sq cm No Yes Yes #1 R Hip CLUSTER -Time 09:21 09:32 09:07 -Correct Patient Yes Yes Yes -Correct Side, Site, Position Yes Yes Yes -Correct Procedure Yes Yes Yes -Procedure Performed Yes Yes Yes -Type of Procedure Debridement Debridement Debridement -Clinical Debridement Subcutaneous Subcutaneous Subcutaneous -Tissue Removed Subcutaneous Subcutaneous Subcutaneous -Post Debridement (cm) - Length 1.4 1.4 1 -Post Debridement (cm) - Width 0.2 0.1 0.1 -Post Debridement (cm) - Depth 0.7 0.7 0.5 -Total Square (Post) (cm) 0.28 0.14 0.1 -Area of Debridement (cm) - Length 1.4 0.1 1 -Area of Debridement (cm) - Width 0.2 0.1 -Total Square (Area) (cm) 0.28 0.1 -Tunneling Yes Yes Yes -Tunneling Position (O'clock) 12 12 12 -Tunneling Distance (cm) 1.4 1.4 1 -Undermining/Tunneling Yes No -Undermining/Tunneling Starts (O'clock 6 ) -Undermining/Tunneling Ends (O'clock) 12 -Maximum Distance (cm) 0.7 -Circular Undermining No No -Wound/Ulcer Outcome Not Healed Not Healed Not Healed -Ulcer Cleansing Rinsed/ Rinsed/ Rinsed/ Irrigated with Irrigated with Irrigated with Saline Saline Saline -Foul Odor after Cleansing No No No -Bioengineered Tissue No No No -Bleeding Controlled with Pressure Pressure Pressure -Treatment Response Procedure Procedure Procedure Tolerated Well Tolerated Well Tolerated Well -Debridement - Subq, 1st 20sq cm Yes No No Pain Scale: 0-10 Numeric Is Patient Pain Free? Yes Yes Yes - Nurse 3 - General Ulcer D/C NN Start: 09/17/23 09:01 Freq: Status: Active Protocol: Activity Type Activity Date Activity User E-sign Co-sign Detail Recorded Client Recorded Date Recorded By Document 09/17/23 09:31 [facility] 1606-03-23 09/17/23 09:32 [facility] Document 09/24/23 09:47 [facility] 1606-01-21 09/24/23 09:48 [facility] Document 10/01/23 09:18 [facility] 1606-03-23 10/01/23 09:20 [facility] 09/17/23 09/24/23 10/01/23 09:31 09:47 09:18 Wound Care Center Nurse 3 #2 R Hip DISTAL -Ulcer Cleansing Rinsed/ Rinsed/ Rinsed/ Irrigated with Irrigated with Irrigated with Saline Saline Saline -Foul Odor after Cleansing No No No -Primary Dressing Applied Aquacel Extra Aquacel Extra Aquacel Extra, Optilok 6.5x10 -Other Dressing PER DL [facility] COORDINATOR ABD per dl automotive refinisher -Primary Dressing Covered/Secured with Dry Gauze, Dry Gauze, Secured with Secured with Secured with Tape Tape Tape -Other Covering ABD DRSG PER GM RN -Aquacel Extra 1 1 1 -Optilok 6.5x10 1 #1 R Hip CLUSTER -Ulcer Cleansing Rinsed/ Rinsed/ Rinsed/ Irrigated with Irrigated with Irrigated with Saline Saline Saline -Foul Odor after Cleansing No No No -Primary Dressing Applied Aquacel Extra Aquacel Extra Aquacel Extra -Other Dressing PER DL [facility]FER[facility] COORDINATOR ABD'; DRSG PER abd; per dl automotive refinisher GM RN -Primary Dressing Covered/Secured with Dry Gauze, Dry Gauze, Secured with Secured with Tape Tape -Other Covering ABD -Aquacel Extra 0 0 0 Treatment Response Procedure Procedure Procedure Tolerated Well Tolerated Well Tolerated Well Pain Scale: 0-10 Numeric Is Patient Pain Free? Yes Yes Yes - Visit Discharge Discharge Condition Stable Stable Stable Ambulatory Status Ambulatory Ambulatory Ambulatory Transportation Private Auto Private Auto Private Auto Facility Type Home Health Home Health Additional Wound Wound debrided: Inferior wound right hip hematoma open Type of Debridement: Excisional debridement Anesthesia Used: 5% Lidocaine Gel Depth: Down to and including healthy tissue Percentage of wound debrided: 100 Instrument Used: 5mm curette Tissue Removed: Blood Severity: Fat Layer Exposed Amount of bleeding with debridement: Mild Bleeding Controlled with: Compression and gauze Patient tolerated procedure: Patient tolerated procedure well Assessment/Plan Assessment/Plan (1) Impaired wound healing: (2) Postoperative wound dehiscence: CODE(S): T81.31XA - Disruption of external operation (surgical) wound, not elsewhere classified, initial encounter QUALIFIERS: Encounter type: initial encounter Qualified Code(s): T81.31XA - Disruption of external operation (surgical) wound, not elsewhere classified, initial encounter PLAN: Wash right hip with antibacterial soap and water pat dry pack wound with Aquacel extra thin strip moistened with water cover with gauze and absorbent dressing. Follow-up in 1 week (3) Hematoma: CODE(S): T14.8XXA - Other injury of unspecified body region, initial encounter PLAN: Inferior wound pack with Aquacel extra moistened and cover with absorbent dressing every day (4) Infection of wound without complication: CODE(S): T14.8XXA - Other injury of unspecified body region, initial encounter; L08.9 - Local infection of the skin and subcutaneous tissue, unspecified
--- NOTE | 2023-10-03 11:49 | WC ---
10/01/2023 RIGHT HIP/R DISTAL
[2023-10-08 09:03] VITALS: BP 105/64; PULSE 89; RESP 18; TEMP 36; BMI 22.2
--- NOTE | 2023-10-08 12:32 | PN.PCM_ITS ---
History of Present Illness Date of Service: 10/08/23 Chief Complaint: Follow-up hematoma and a right lateral hip dehisced surgical wound. History of Wound: 73-year-old white male that was roller-skating and fell and broke his hip. Had surgery on April 26. He received a rosalina put in his femur and then approximately a month or 2 later it dehisced and developed a hematoma and has been bleeding ever since profusely. He has been to the emergency room x 2 for the bleeding. Patient appears with an open wound with blood clots dried inside wound base tried to take them out unable to at this time. Will try cleaning out with Aquacel extra and strips. Moistened and covered and will follow-up in 1 week Progress of Wound: Right hip wound is healing nicely still has some tunneling only at about 12-1 o'clock much improved slit is getting small at the top for him to get in there. The distal right hip wound that opened a couple of weeks ago from a hematoma .He still has tunneling at around 12:00 and undermining to. We will pack both of them continue with the Aquacel extra it seems to work really well for the for the wounds. I suggested he buy biker pants that are really tight and the thigh but were going to try wrapping him with a 6 inch [place] wrap. Patient's cultures came back positive and patient has been started on antibiotic therapy. Subjective Subjective Patient approves of our plan and he will be able to buy the biker shorts October 12 because he has that not much money. Objective Data Objective Data Both wounds are healing is just taking its time the skin surrounding is not reddened and looks better I think the antibiotics will help with all that healing. Will continue packing with the Aquacel Vital Signs: Vital Signs Temp Pulse Resp BP O2 Del Method 96.8 F L 89 18 105/64 Room Air 10/08/23 09:03 10/08/23 09:03 10/08/23 09:03 10/08/23 09:03 10/01/23 08:54 Oxygen Delivery Method Room Air Weight: 150 lb 11.094 oz Body Mass Index (BMI) 22.2 Lab / Micro Data Attestation: I reviewed the patient's lab results. Micro: Microbiology 10/01/23 09:15 Wound - Hip Gram Stain - Final 10/01/23 09:15 Wound - Hip Wound Culture - Final Klebsiella pneumoniae sp pneum 10/01/23 09:15 Wound - Hip Anaerobic Culture - Final No anaerobic bacteria isolated. Physical Exam Const oriented x3 General Appearance: cooperative Exam Limitations: no limitations HEENT normocephalic Resp normal respiratory effort Effort and Inspection: able to speak in complete sentences Auscultation: clear to auscultation bilaterally Cardio regular rate and regular rhythm Palpation: normal PMI Rate: regular rate Rhythm: regular rhythm Back/Spine Cervical Spine: cervical ROM normal Thoracic Spine / Upper Back: normal to inspection Lumbar Spine / Lower Back: normal to inspection Extremity normal to inspection Skin Wounds: wounds noted Wound Narrative: Open wound right lateral hip with hematoma inside debrided with #3 curette unable to get all of it out we will use Aquacel extra for debridement purposes. Bleeding under control at this time. New open wound on distal right hip started as a hematoma again and blood well but is under control Neuro oriented x3 Psych Appearance: grossly normal Speech: normal speech Thought Content: normal thought content Judgement: judgement good Debridement Note Debridement Note Post-Debridement Measurements and Additional Note: Post-Debridement Measurements/Treatment - Nurse 1 - General Ulcer Assessment Start: 09/17/23 09:01 Freq: Status: Active Protocol: DINAH.MICHELE Activity Type Activity Date Activity User E-sign Co-sign Detail Recorded Client Recorded Date Recorded By Document 09/17/23 09:03 DL 10.10.25.7 09/17/23 09:12 DL Document 09/24/23 09:16 wound center 09/24/23 09:28 KW Document 10/01/23 08:54 [facility] 1606-03-23 10/01/23 09:02 [facility] Document 10/08/23 09:03 DL [id number] 10/08/23 09:12 DL 09/17/23 09/24/23 10/01/23 09:03 09:16 08:54 - Today's Visit Information Type of service Follow-up Visit Follow-up Visit Follow-up Visit (Physician/DONOR PROCESSOR (Physician/DONOR PROCESSOR (Physician/DONOR PROCESSOR ) ) ) Arrival Mode Ambulatory Ambulatory Ambulatory Transfer Assistance None None Patient Identification Verified (Name & Yes Yes Yes ) Patient Requires Transmission-Based No No Precautions Height and Weight Body Mass Index (BMI) 22.2 22.2 22.2 BMI Classification Normal Normal Normal Vital Signs Temperature (97.8 F-99.1 F) 97.3 F L 97.6 F L 97.5 F L Temperature Source Temporal Temporal Temporal Pulse Rate (60-100) 94 94 99 Pulse Location Monitor Monitor Monitor Respiratory Rate (12-18) 20 H 16 16 Respiratory rate source Observation Observation Observation Oxygen Delivery Method Room Air Room Air Blood Pressure (90/60-120/80) 106/54 L 136/64 H 112/68 Blood Pressure Mean (mm Hg) 71 88 82 Source Monitor Monitor Monitor Position Semi-Fowlers Sitting Blood Pressure Location Left Arm Right Arm History Since Last Visit- (Skip if this is Patient's initial visit) Have you changed medications since your No No No last visit? Any new allergies or adverse reactions No No No Had a fall/change in ADL's that may No No No increase risk of falls Signs or symptoms of abuse and/or No No No neglect since last visit Have you been in the hospital since your No No Yes last visit? Has dressing in place as prescribed Yes Yes Yes Has compression in place as prescribed N/A N/A N/A Has offloadiing in place as prescribed Yes N/A N/A Experienced any changes in pain level or No No No management Left Footwear Regular Shoe Regular Shoe Right Footwear Regular Shoe Regular Shoe Pain Scale: 0-10 Numeric Is Patient Pain Free? Yes Yes Yes 10/08/23 09:03 - Today's Visit Information Type of service Follow-up Visit (Physician/DONOR PROCESSOR ) Arrival Mode Ambulatory Transfer Assistance None Patient Identification Verified (Name & Yes ) Patient Requires Transmission-Based No Precautions Height and Weight Body Mass Index (BMI) 22.2 BMI Classification Normal Vital Signs Temperature (97.8 F-99.1 F) 96.8 F L Temperature Source Temporal Pulse Rate (60-100) 89 Pulse Location Monitor Respiratory Rate (12-18) 18 Respiratory rate source Observation Oxygen Delivery Method Blood Pressure (90/60-120/80) 105/64 Blood Pressure Mean (mm Hg) 77 Source Monitor Position Blood Pressure Location History Since Last Visit- (Skip if this is Patient's initial visit) Have you changed medications since your No last visit? Any new allergies or adverse reactions No Had a fall/change in ADL's that may No increase risk of falls Signs or symptoms of abuse and/or No neglect since last visit Have you been in the hospital since your No last visit? Has dressing in place as prescribed Yes Has compression in place as prescribed Yes Has offloadiing in place as prescribed Yes Experienced any changes in pain level or No management Left Footwear Right Footwear Pain Scale: 0-10 Numeric Is Patient Pain Free? Yes WC - Nurse 1 - General Ulcer Measurement Start: 09/17/23 09:01 Freq: Status: Active Protocol: Activity Type Activity Date Activity User E-sign Co-sign Detail Recorded Client Recorded Date Recorded By Document 09/17/23 09:03 DL ..25.7 09/17/23 09:12 DL Document 09/24/23 09:16 KW wound center 09/24/23 09:28 KW Document 10/01/23 08:54 [facility] 1606-03-23 10/01/23 09:02 [facility] Document 10/08/23 09:03 DL ..25.7 10/08/23 09:12 DL 09/17/23 09/24/23 10/01/23 09:03 09:16 08:54 Wound Center Nurse 1 #2 R Hip DISTAL -Combined with other wound No -Current Size (cm) - Length 0.9 0.8 0.4 -Current Size (cm) - Width 0.7 0.6 0.2 -Current Size (cm) - Depth 1.4 1.2 0.5 -Total Square Cm 0.63 0.48 0.08 -Date of Last Picture (Recall this 09/24/23 10/01/23 field) -Photo Taken Yes -Epithelialization Small 1-33% -Tunneling Yes Yes -Tunneling Position (O'clock) 11 9 12 -Tunneling Distance (cm) 3.5 1.9 1 -Undermining/Tunneling No -Circular Undermining No -Exudate Amt Large Medium Large -Exudate Type Serosanguineous Serosanguineous Sanguineous -Wound Margin Distinct, Distinct, Distinct, Outline Outline Outline Attached Attached Attached -Granulation Amt Large (67-100%) Large (67-100%) -Granulation Quality Red Red -Necrosis Amt None Present (0 %) -Structure Exposed N/A -Texture (Nyla-wound Skin Appearance) Localized Edema Assessed Assessed, ,Scarring Localized Edema -Moisture (Nyla-wound Skin Appearance) No Abnormality Assessed Assessed,Dry/ Scaly -Color (Nyla-wound Skin Appearance) No Abnormality Assessed Assessed -Temperature (Nyla-wound Skin No Abnormality No Abnormality No Abnormality Appearance) (Pt Warm) (Pt Warm) (Pt Warm) -Tenderness on Palpation (Nyla-wound No No No Skin Appearance) -Ulcer Cleansing Soap and Water Rinsed/ Soap and Water Irrigated with Saline -Foul Odor after Cleansing No No No -Anesthetic Used 5% Lidocaine 4% Lidocaine 5% Lidocaine Gel Solution Gel #1 R Hip CLUSTER -Combined with other wound No -Current Size (cm) - Length 0.9 1.3 0.8 -Current Size (cm) - Width 0.7 0.1 0.2 -Current Size (cm) - Depth 1.4 0.4 1 -Total Square Cm 0.63 0.13 0.16 -Date of Last Picture (Recall this 09/24/23 10/01/23 field) -Photo Taken Yes -Epithelialization None Present -Tunneling Yes -Tunneling Position (O'clock) 12 -Tunneling Distance (cm) 1.3 -Tunneling Position #2 (O'clock) 6 -Tunneling Distance #2 (cm) 0.4 -Undermining/Tunneling No -Undermining/Tunneling Starts (O'clock ) -Undermining/Tunneling Ends (O'clock) -Maximum Distance (cm) -Circular Undermining No -Exudate Amt Medium Small Medium -Exudate Type Serosanguineous Serosanguineous Serosanguineous -Wound Margin Distinct, Distinct, Distinct, Outline Outline Outline Attached Attached Attached -Granulation Amt Medium (34-66%) Large (67-100%) Large (67-100%) -Granulation Quality Red Pale,Lucky Red -Necrosis Amt Small (1-33%) -Necrotic Tissue Type Adherent Slough -Structure Exposed N/A -Texture (Nyla-wound Skin Appearance) Localized Edema Assessed Assessed, ,Scarring Scarring -Moisture (Nyla-wound Skin Appearance) No Abnormality Maceration Assessed -Color (Nyla-wound Skin Appearance) No Abnormality Assessed Assessed -Temperature (Nyla-wound Skin No Abnormality No Abnormality No Abnormality Appearance) (Pt Warm) (Pt Warm) (Pt Warm) -Tenderness on Palpation (Nyla-wound No No No Skin Appearance) -Ulcer Cleansing Soap and Water Rinsed/ Soap and Water Irrigated with Saline -Foul Odor after Cleansing No No No -Anesthetic Used 5% Lidocaine 4% Lidocaine 5% Lidocaine Gel Solution Gel 10/08/23 09:03 Wound Center Nurse 1 #2 R Hip DISTAL -Combined with other wound -Current Size (cm) - Length 0.7 -Current Size (cm) - Width 0.5 -Current Size (cm) - Depth 0.6 -Total Square Cm 0.35 -Date of Last Picture (Recall this field) -Photo Taken -Epithelialization -Tunneling -Tunneling Position (O'clock) 11 -Tunneling Distance (cm) 3.3 -Undermining/Tunneling -Circular Undermining -Exudate Amt Medium -Exudate Type Sanguineous -Wound Margin Distinct, Outline Attached -Granulation Amt Large (67-100%) -Granulation Quality Red -Necrosis Amt None Present (0 %) -Structure Exposed N/A -Texture (Nyla-wound Skin Appearance) Localized Edema ,Scarring -Moisture (Nyla-wound Skin Appearance) No Abnormality -Color (Nyla-wound Skin Appearance) No Abnormality -Temperature (Nyla-wound Skin No Abnormality Appearance) (Pt Warm) -Tenderness on Palpation (Nyla-wound No Skin Appearance) -Ulcer Cleansing Soap and Water -Foul Odor after Cleansing No -Anesthetic Used 5% Lidocaine Gel #1 R Hip CLUSTER -Combined with other wound -Current Size (cm) - Length 0.8 -Current Size (cm) - Width 0.2 -Current Size (cm) - Depth 0.9 -Total Square Cm 0.16 -Date of Last Picture (Recall this field) -Photo Taken -Epithelialization -Tunneling -Tunneling Position (O'clock) -Tunneling Distance (cm) -Tunneling Position #2 (O'clock) -Tunneling Distance #2 (cm) -Undermining/Tunneling -Undermining/Tunneling Starts (O'clock 6 ) -Undermining/Tunneling Ends (O'clock) 12 -Maximum Distance (cm) 1.3 -Circular Undermining -Exudate Amt Medium -Exudate Type Serosanguineous -Wound Margin Distinct, Outline Attached -Granulation Amt Medium (34-66%) -Granulation Quality Lucky -Necrosis Amt Small (1-33%) -Necrotic Tissue Type -Structure Exposed N/A -Texture (Nyla-wound Skin Appearance) Localized Edema ,Scarring -Moisture (Nyla-wound Skin Appearance) No Abnormality -Color (Nyla-wound Skin Appearance) No Abnormality -Temperature (Nyla-wound Skin No Abnormality Appearance) (Pt Warm) -Tenderness on Palpation (Nyla-wound No Skin Appearance) -Ulcer Cleansing Soap and Water -Foul Odor after Cleansing No -Anesthetic Used 5% Lidocaine Gel WC - Nurse 2 - General Ulcer CM Notes Start: 09/17/23 09:01 Freq: Status: Active Protocol: Activity Type Activity Date Activity User E-sign Co-sign Detail Recorded Client Recorded Date Recorded By Document 09/17/23 09:20 [facility] 1606-03-23 09/17/23 09:27 BMF Document 09/24/23 09:32 [facility] 1606-01-21 09/24/23 09:38 BM Document 10/01/23 09:04 [facility] 1606-03-23 10/01/23 09:18 BMF Document 10/08/23 09:19 BM 10.10.25.7 10/08/23 09:24 BMF 09/17/23 09/24/23 10/01/23 09:20 09:32 09:04 Wound Center Nurse 2 #2 R Hip DISTAL -Time 09:20 09:32 09:06 -Correct Patient Yes Yes Yes -Correct Side, Site, Position Yes Yes Yes -Correct Procedure Yes Yes Yes -Procedure Performed Yes Yes Yes -Type of Procedure Debridement Debridement Debridement -Clinical Debridement Subcutaneous Subcutaneous Subcutaneous -Tissue Removed Subcutaneous Subcutaneous Subcutaneous -Post Debridement (cm) - Length 1 0.7 0.4 -Post Debridement (cm) - Width 0.6 0.4 0.1 -Post Debridement (cm) - Depth 1.7 1 0.6 -Total Square (Post) (cm) 0.6 0.28 0.04 -Area of Debridement (cm) - Length 1 0.7 0.4 -Area of Debridement (cm) - Width 0.6 0.4 0.1 -Total Square (Area) (cm) 0.6 0.28 0.04 -Tunneling Yes Yes Yes -Tunneling Position (O'clock) 11 11 12 -Tunneling Distance (cm) 2.4 3 2.5 -Undermining/Tunneling No No No -Circular Undermining No No -Wound/Ulcer Outcome Not Healed Not Healed Not Healed -Ulcer Cleansing Rinsed/ Rinsed/ Rinsed/ Irrigated with Irrigated with Irrigated with Saline Saline Saline -Foul Odor after Cleansing No No No -Bioengineered Tissue No No No -Bleeding Controlled with Pressure Pressure Pressure -Treatment Response Procedure Procedure Procedure Tolerated Well Tolerated Well Tolerated Well -Debridement - Subq, 1st 20sq cm No Yes Yes #1 R Hip CLUSTER -Time 09:21 09:32 09:07 -Correct Patient Yes Yes Yes -Correct Side, Site, Position Yes Yes Yes -Correct Procedure Yes Yes Yes -Procedure Performed Yes Yes Yes -Type of Procedure Debridement Debridement Debridement -Clinical Debridement Subcutaneous Subcutaneous Subcutaneous -Tissue Removed Subcutaneous Subcutaneous Subcutaneous -Post Debridement (cm) - Length 1.4 1.4 1 -Post Debridement (cm) - Width 0.2 0.1 0.1 -Post Debridement (cm) - Depth 0.7 0.7 0.5 -Total Square (Post) (cm) 0.28 0.14 0.1 -Area of Debridement (cm) - Length 1.4 0.1 1 -Area of Debridement (cm) - Width 0.2 0.1 -Total Square (Area) (cm) 0.28 0.1 -Tunneling Yes Yes Yes -Tunneling Position (O'clock) 12 12 12 -Tunneling Distance (cm) 1.4 1.4 1 -Undermining/Tunneling Yes No -Undermining/Tunneling Starts (O'clock 6 ) -Undermining/Tunneling Ends (O'clock) 12 -Maximum Distance (cm) 0.7 -Circular Undermining No No -Wound/Ulcer Outcome Not Healed Not Healed Not Healed -Ulcer Cleansing Rinsed/ Rinsed/ Rinsed/ Irrigated with Irrigated with Irrigated with Saline Saline Saline -Foul Odor after Cleansing No No No -Bioengineered Tissue No No No -Bleeding Controlled with Pressure Pressure Pressure -Treatment Response Procedure Procedure Procedure Tolerated Well Tolerated Well Tolerated Well -Debridement - Subq, 1st 20sq cm Yes No No Pain Scale: 0-10 Numeric Is Patient Pain Free? Yes Yes Yes 10/08/23 09:19 Wound Center Nurse 2 #2 R Hip DISTAL -Time 09:19 -Correct Patient Yes -Correct Side, Site, Position Yes -Correct Procedure Yes -Procedure Performed Yes -Type of Procedure Debridement -Clinical Debridement Subcutaneous -Tissue Removed Subcutaneous -Post Debridement (cm) - Length 0.8 -Post Debridement (cm) - Width 0.3 -Post Debridement (cm) - Depth 0.5 -Total Square (Post) (cm) 0.24 -Area of Debridement (cm) - Length 0.8 -Area of Debridement (cm) - Width 0.3 -Total Square (Area) (cm) 0.24 -Tunneling Yes -Tunneling Position (O'clock) 12 -Tunneling Distance (cm) 3 -Undermining/Tunneling No -Circular Undermining No -Wound/Ulcer Outcome Not Healed -Ulcer Cleansing Rinsed/ Irrigated with Saline -Foul Odor after Cleansing No -Bioengineered Tissue No -Bleeding Controlled with Pressure -Treatment Response Procedure Tolerated Well -Debridement - Subq, 1st 20sq cm No #1 R Hip CLUSTER -Time 09:20 -Correct Patient Yes -Correct Side, Site, Position Yes -Correct Procedure Yes -Procedure Performed Yes -Type of Procedure Debridement -Clinical Debridement Subcutaneous -Tissue Removed Subcutaneous -Post Debridement (cm) - Length 0.9 -Post Debridement (cm) - Width 0.1 -Post Debridement (cm) - Depth 0.8 -Total Square (Post) (cm) 0.09 -Area of Debridement (cm) - Length 0.8 -Area of Debridement (cm) - Width 0.1 -Total Square (Area) (cm) 0.08 -Tunneling Yes -Tunneling Position (O'clock) 12 -Tunneling Distance (cm) 1.2 -Undermining/Tunneling No -Undermining/Tunneling Starts (O'clock ) -Undermining/Tunneling Ends (O'clock) -Maximum Distance (cm) -Circular Undermining No -Wound/Ulcer Outcome Not Healed -Ulcer Cleansing Rinsed/ Irrigated with Saline -Foul Odor after Cleansing No -Bioengineered Tissue No -Bleeding Controlled with Pressure -Treatment Response Procedure Tolerated Well -Debridement - Subq, 1st 20sq cm Yes Pain Scale: 0-10 Numeric Is Patient Pain Free? Yes WC - Nurse 3 - General Ulcer D/C NN Start: 09/17/23 09:01 Freq: Status: Active Protocol: Activity Type Activity Date Activity User E-sign Co-sign Detail Recorded Client Recorded Date Recorded By Document 09/17/23 09:31 [facility] 1606-03-23 09/17/23 09:32 [facility] Document 09/24/23 09:47 [facility] 1606-01-21 09/24/23 09:48 [facility] Document 10/01/23 09:18 [facility] 1606-03-23 10/01/23 09:20 [facility] Document 10/08/23 09:32 [facility] 10.10.25.7 10/08/23 09:34 [facility] 09/17/23 09/24/23 10/01/23 09:31 09:47 09:18 Wound Care Center Nurse 3 #2 R Hip DISTAL -Ulcer Cleansing Rinsed/ Rinsed/ Rinsed/ Irrigated with Irrigated with Irrigated with Saline Saline Saline -Foul Odor after Cleansing No No No -Primary Dressing Applied Aquacel Extra Aquacel Extra Aquacel Extra, Optilok 6.5x10 -Other Dressing PER DL MINING DETAIL DRAFTSPERSON ABD per dl land classifier -Primary Dressing Covered/Secured with Dry Gauze, Dry Gauze, Secured with Secured with Secured with Tape Tape Tape -Other Covering ABD DRSG PER GM RN -Aquacel Extra 1 1 1 -Optilok 6.5x10 1 #1 R Hip CLUSTER -Ulcer Cleansing Rinsed/ Rinsed/ Rinsed/ Irrigated with Irrigated with Irrigated with Saline Saline Saline -Foul Odor after Cleansing No No No -Primary Dressing Applied Aquacel Extra Aquacel Extra Aquacel Extra -Other Dressing PER DL MINING DETAIL DRAFTSPERSON ABD'; DRSG PER abd; per dl land classifier GM RN -Primary Dressing Covered/Secured with Dry Gauze, Dry Gauze, Secured with Secured with Tape Tape -Other Covering ABD -Aquacel Extra 0 0 0 Right -Compression Wrap -Other Treatment Response Procedure Procedure Procedure Tolerated Well Tolerated Well Tolerated Well Pain Scale: 0-10 Numeric Is Patient Pain Free? Yes Yes Yes WC - Visit Discharge Discharge Condition Stable Stable Stable Ambulatory Status Ambulatory Ambulatory Ambulatory Transportation Private Auto Private Auto Private Auto Facility Type Home Health Home Health 10/08/23 09:32 Wound Care Center Nurse 3 #2 R Hip DISTAL -Ulcer Cleansing Rinsed/ Irrigated with Saline -Foul Odor after Cleansing No -Primary Dressing Applied Aquacel Extra -Other Dressing abd -Primary Dressing Covered/Secured with Secured with Tape -Other Covering -Aquacel Extra 1 -Optilok 6.5x10 #1 R Hip CLUSTER -Ulcer Cleansing Rinsed/ Irrigated with Saline -Foul Odor after Cleansing No -Primary Dressing Applied Aquacel Extra -Other Dressing abd -Primary Dressing Covered/Secured with Secured with Tape -Other Covering -Aquacel Extra 0 Right -Compression Wrap [place] Wrap -Other from knee to groin Treatment Response Procedure Tolerated Well Pain Scale: 0-10 Numeric Is Patient Pain Free? Yes WC - Visit Discharge Discharge Condition Ambulatory Status Transportation Facility Type Assessment/Plan Assessment/Plan (1) Impaired wound healing: (2) Postoperative wound dehiscence: CODE(S): T81.31XA - Disruption of external operation (surgical) wound, not elsewhere classified, initial encounter QUALIFIERS: Encounter type: initial encounter Qualified Code(s): T81.31XA - Disruption of external operation (surgical) wound, not elsewhere classified, initial encounter PLAN: Wash right hip with antibacterial soap and water pat dry pack wound with Aquacel extra thin strip moistened with water cover with gauze and absorbent dressing. Follow-up in 1 week (3) Hematoma: CODE(S): T14.8XXA - Other injury of unspecified body region, initial encounter PLAN: Inferior wound pack with Aquacel extra moistened and cover with absorbent dressing every day (4) Infection of wound without complication: CODE(S): T14.8XXA - Other injury of unspecified body region, initial encounter; L08.9 - Local infection of the skin and subcutaneous tissue, unspecified PLAN: Positive for cultures patient was started on Levaquin 500 mg daily for 14 days
== END 2023-10-12 23:59 | disposition home or self-care (01) ==
LOC: WC 09:00
PROVIDERS: PCP Family Medicine; Referring Provider Family Medicine; Visit Provider Nurse Practitioner
DX: T81.31XA Disruption of external operation (surgical) wound, not elsewhere classified, initial encounter (principal); W19.XXXA Unspecified fall, initial encounter; S70.01XA Contusion of right hip, initial encounter; Y83.8 Other surgical procedures as the cause of abnormal reaction of the patient, or of later complication, without mention of misadventure at the time of the procedure
CPT/HCPCS: 11042; 87070; 87075; 87077; 87186; 87205

== ENCOUNTER 2023-10-22 08:58 | Outpatient (RCR) | payer MEDICARE, SELFPAY ==
[2023-10-13 00:31] VITALS: BP 112/66; PULSE 99; RESP 20; TEMP 36.8; BMI 22.2
[2023-10-22 09:01] VITALS: BP 111/64; PULSE 95; RESP 16; TEMP 36.4; BMI 22.2
--- NOTE | 2023-10-22 11:49 | PCM.WC.PN ---
History of Present Illness Date of Service: 10/22/23 Chief Complaint: Follow-up hematoma and a right lateral hip dehisced surgical wound. History of Wound: 73-year-old white male that was roller-skating and fell and broke his hip. Had surgery on April 26. He received a rosalina put in his femur and then approximately a month or 2 later it dehisced and developed a hematoma and has been bleeding ever since profusely. He has been to the emergency room x 2 for the bleeding. Patient appears with an open wound with blood clots dried inside wound base tried to take them out unable to at this time. Will try cleaning out with Aquacel extra and strips. Moistened and covered and will follow-up in 1 week Progress of Wound: Both wounds are healed and patient will be discharged from the wound center. Still see some swelling in the right lower leg but not pitting and I suggested he just wear can compression stockings Subjective Subjective Patient is very happy does not have to come back and was happy with treatment Objective Data Objective Data Bilateral wounds on right lateral leg from dehiscence of a hip replacement are healed. Patient will be discharged from the wound center Vital Signs: Vital Signs Temp Pulse Resp BP O2 Del Method 97.5 F L 95 16 111/64 Room Air 10/22/23 09:01 10/22/23 09:01 10/22/23 09:01 10/22/23 09:01 10/22/23 09:01 Oxygen Delivery Method Room Air Weight: 150 lb 11.094 oz Body Mass Index (BMI) 22.2 Physical Exam Const oriented x3 General Appearance: cooperative Exam Limitations: no limitations HEENT normocephalic Resp normal respiratory effort Effort and Inspection: able to speak in complete sentences Auscultation: clear to auscultation bilaterally Cardio regular rate and regular rhythm Palpation: normal PMI Rate: regular rate Rhythm: regular rhythm Back/Spine Cervical Spine: cervical ROM normal Thoracic Spine / Upper Back: normal to inspection Lumbar Spine / Lower Back: normal to inspection Extremity normal to inspection Skin Wounds: wounds noted Wound Narrative: Open wound right lateral hip with hematoma inside debrided with #3 curette unable to get all of it out we will use Aquacel extra for debridement purposes. Bleeding under control at this time. New open wound on distal right hip started as a hematoma again and blood well but is under control Neuro oriented x3 Psych Appearance: grossly normal Speech: normal speech Thought Content: normal thought content Judgement: judgement good Debridement Note Debridement Note No debridement was completed: No debridement was completed today Post-Debridement Measurements and Additional Note: Post-Debridement Measurements/Treatment - Nurse 1 - General Ulcer Assessment Start: 10/22/23 09:01 Freq: Status: Active Protocol: DINAH.LOWJENAT Activity Type Activity Date Activity User E-sign Co-sign Detail Recorded Client Recorded Date Recorded By Document 10/22/23 09:01 [facility] [id number] 10/22/23 09:05 [facility] 10/22/23 09:01 - Today's Visit Information Type of service 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 ) Arrival Mode Ambulatory Transfer Assistance None Patient Identification Verified (Name & Yes ) Patient Requires Transmission-Based No Precautions Height and Weight Body Mass Index (BMI) 22.2 BMI Classification Normal Vital Signs Temperature (97.8 F-99.1 F) 97.5 F L Temperature Source Temporal Pulse Rate (60-100) 95 Pulse Location Monitor Respiratory Rate (12-18) 16 Respiratory rate source Observation Oxygen Delivery Method Room Air Blood Pressure (90/60-120/80) 111/64 Blood Pressure Mean (mm Hg) 79 Source Monitor Position Sitting Blood Pressure Location Left Arm History Since Last Visit- (Skip if this is Patient's initial visit) Have you changed medications since your No last visit? Any new allergies or adverse reactions No Had a fall/change in ADL's that may No increase risk of falls Signs or symptoms of abuse and/or No neglect since last visit Have you been in the hospital since your No last visit? Has dressing in place as prescribed Yes Has compression in place as prescribed N/A Has offloadiing in place as prescribed N/A Experienced any changes in pain level or No management Left Footwear Regular Shoe Right Footwear Regular Shoe Pain Scale: 0-10 Numeric Is Patient Pain Free? Yes - Nurse 1 - General Ulcer Measurement Start: 10/22/23 09:01 Freq: Status: Active Protocol: Activity Type Activity Date Activity User E-sign Co-sign Detail Recorded Client Recorded Date Recorded By Document 10/22/23 09:01 [facility] [id number] 10/22/23 09:05 [facility] 10/22/23 09:01 Wound Center Nurse 1 #2 R Hip DISTAL -Combined with other wound No -Current Size (cm) - Length 0.1 -Current Size (cm) - Width 0.1 -Current Size (cm) - Depth 0.1 -Total Square Cm 0.01 -Date of Last Picture (Recall this 10/22/23 field) -Photo Taken Yes -Epithelialization Large 67-100% -Texture (Nyla-wound Skin Appearance) Assessed -Moisture (Nyla-wound Skin Appearance) Assessed -Color (Nyla-wound Skin Appearance) Assessed -Temperature (Nyla-wound Skin No Abnormality Appearance) (Pt Warm) -Tenderness on Palpation (Nyla-wound No Skin Appearance) -Ulcer Cleansing Rinsed/ Irrigated with Saline -Foul Odor after Cleansing No -Anesthetic Used 5% Lidocaine Gel #1 R Hip CLUSTER -Combined with other wound No -Current Size (cm) - Length 0.1 -Current Size (cm) - Width 0.1 -Current Size (cm) - Depth 0.1 -Total Square Cm 0.01 -Date of Last Picture (Recall this 10/22/23 field) -Photo Taken Yes -Epithelialization Large 67-100% -Tunneling No -Undermining/Tunneling No -Circular Undermining No -Texture (Nyla-wound Skin Appearance) Assessed -Moisture (Nyla-wound Skin Appearance) Assessed -Color (Nyla-wound Skin Appearance) Assessed -Temperature (Nyla-wound Skin No Abnormality Appearance) (Pt Warm) -Tenderness on Palpation (Nyla-wound No Skin Appearance) -Ulcer Cleansing Rinsed/ Irrigated with Saline -Foul Odor after Cleansing No -Anesthetic Used 5% Lidocaine Gel WC - Nurse 2 - General Ulcer CM Notes Start: 10/22/23 09:01 Freq: Status: Active Protocol: Activity Type Activity Date Activity User E-sign Co-sign Detail Recorded Client Recorded Date Recorded By Document 10/22/23 09:07 [facility] [id number] 10/22/23 09:12 [facility] 10/22/23 09:07 Wound Center Nurse 2 #2 R Hip DISTAL -Post Debridement (cm) - Length 0 -Post Debridement (cm) - Width 0 -Post Debridement (cm) - Depth 0 -Total Square (Post) (cm) 0 -Area of Debridement (cm) - Length 0 -Area of Debridement (cm) - Width 0 -Total Square (Area) (cm) 0 -Wound/Ulcer Outcome Healed- Epithelialized -Bleeding Controlled with NA #1 R Hip CLUSTER -Post Debridement (cm) - Length 0 -Post Debridement (cm) - Width 0 -Post Debridement (cm) - Depth 0 -Total Square (Post) (cm) 0 -Area of Debridement (cm) - Length 0 -Area of Debridement (cm) - Width 0 -Total Square (Area) (cm) 0 -Wound/Ulcer Outcome Healed- Epithelialized -Bleeding Controlled with NA Pain Scale: 0-10 Numeric Is Patient Pain Free? Yes - Nurse 3 - General Ulcer D/C NN Start: 10/22/23 09:01 Freq: Status: Active Protocol: Activity Type Activity Date Activity User E-sign Co-sign Detail Recorded Client Recorded Date Recorded By Document 10/22/23 09:26 DL ..25.7 10/22/23 09:27 DL 10/22/23 09:26 Wound Care Center Nurse 3 #2 R Hip DISTAL -Ulcer Cleansing Rinsed/ Irrigated with Saline -Other Dressing ABD -Primary Dressing Covered/Secured with Dry Gauze, Secured with Tape #1 R Hip CLUSTER -Ulcer Cleansing Rinsed/ Irrigated with Saline -Foul Odor after Cleansing No -Other Dressing ABD -Primary Dressing Covered/Secured with Secured with Tape -Wound Comment(s) Healed, discharged Right -Tubular Bandage Double Layer -Size of Tubigrip Used Size E -Size E ($) 2 Treatment Response Procedure Tolerated Well Pain Scale: 0-10 Numeric Is Patient Pain Free? Yes - Visit Discharge Discharge Condition Stable Ambulatory Status Ambulatory Transportation Private Auto Assessment/Plan Assessment/Plan (1) Impaired wound healing: PLAN: Patient will be discharged from the wound center can follow-up as needed (2) Postoperative wound dehiscence: CODE(S): T81.31XA - Disruption of external operation (surgical) wound, not elsewhere classified, initial encounter QUALIFIERS: Encounter type: initial encounter Qualified Code(s): T81.31XA - Disruption of external operation (surgical) wound, not elsewhere classified, initial encounter (3) Hematoma: CODE(S): T14.8XXA - Other injury of unspecified body region, initial encounter (4) Infection of wound without complication: CODE(S): T14.8XXA - Other injury of unspecified body region, initial encounter; L08.9 - Local infection of the skin and subcutaneous tissue, unspecified
== END 2023-11-12 23:59 | disposition home or self-care (01) ==
LOC: WC 08:58
PROVIDERS: PCP Family Medicine; Referring Provider Family Medicine; Visit Provider Nurse Practitioner
DX: T81.31XA Disruption of external operation (surgical) wound, not elsewhere classified, initial encounter (principal); T14.8XXA Other injury of unspecified body region, initial encounter; L08.9 Local infection of the skin and subcutaneous tissue, unspecified
CPT/HCPCS: 99213; G0463

== ENCOUNTER 2023-12-25 08:27 | Day surgery (SDC) | payer MEDICARE, SELFPAY ==
[2023-12-24 07:23] VITALS: BMI 21.8
[2023-12-25 08:48] LABS: Hematocrit 45.4 % (40-54); Hemoglobin 14.5 g/dL (13.0-16.5); Mean Corp Hgb Conc 31.9 g/dL (32-36); Mean Corpuscular Hgb 26.9 pg (27.0-32.0); Mean Corpuscular Volume 84.1 fL (80-94); Mean Platelet Vol. 10.2 fl (6.2-12.0); Platelet Count 273 K/mm3 (150-450); RBC Distribution Width SD 49.1 fl (35.1-43.9); White Blood Count 5.3 K/mm3 (4.4-11.0)
[2023-12-25 09:08] LABS: Anion Gap 5 (5-15); BUN 13 mg/dL (7-18); BUN/Creat Ratio 12.4 RATIO (10-20); Calcium,Total 9.4 mg/dL (8.5-10.1); Chloride 102 mmol/L (98-107); Creatinine, Serum 1.05 mg/dL (0.70-1.30); EST Glomerular Filtration Rate 74 mL/min (>60); Est Glom Filt Rate - Afr Amer 89 mL/min (>60); Glucose 108 mg/dL (74-106); Potassium 3.8 mmol/L (3.5-5.1); Sodium Level 135 mmol/L (136-145)
--- NOTE | 2023-12-25 10:20 | PCM.OPRPT ---
Report of Operation Date of Procedure: 12/25/23 Pre-Operative Diagnosis: Prior IVC filter placement Post-Operative Diagnosis: Same Surgery/Procedure Performed:: Retrieval IVC filter Surgeon: Maninder Sevilla Type of Anesthesia: Local and Sedation,Conscious Estimated Blood Loss (mL): 3 Description of Procedure: HPI: Patient is a 73-year-old male with prior placement of an inferior vena cava filter due to acute hemorrhage in setting of recent DVT. His bleeding issues have since resolved and he has had no further thrombotic events. He presents now for filter retrieval. Description of procedure: Upon obtaining form consent and verification correct patient procedure site patient taken to the Manager Policy he was positioned prepped and draped in usual sterile fashion. Timeouts performed conscious sedation administered Versed and fentanyl. Skin overlying the right IJ was anesthetized 1% lidocaine the vessel accessed with micropuncture needle and wire and ultrasound guidance. This then exchanged for micropuncture sheath through which a Bentson wire was advanced navigating into the inferior vena cava. The micropuncture sheath was exchanged for a straight flush catheter which is advanced into the inferior vena cava adjacent to the filter. Hand-injection subtraction angiography was then performed which revealed patent inferior vena cava filter with no presence of thrombus and no significant tilt. The patient was in heparinized allowed to circulate for 3 minutes. Bentson wire was then readvanced and the catheter exchanged for the Bard filter retrieval system advanced in position superior to the vena cava filter. The snare was then used to grasp the hook and the sheath and guide advanced to collapse the filter. The snare, filter, and guide were then withdrawn in their entirety. Completion venacavogram was performed which revealed no extravasation or dissection. The sheath was then withdrawn manage pressure held for 5 minutes until hemostasis was obtained. Patient was taken the recovery area for discharge to home.
== END 2023-12-25 13:20 | disposition home or self-care (01) ==
PROVIDERS: PCP Family Medicine; Referring Provider Surgery Trauma Surgery; Visit Provider Surgery Trauma Surgery
DX: Z45.2 Encounter for adjustment and management of vascular access device (principal); I11.0 Hypertensive heart disease with heart failure; I50.9 Heart failure, unspecified; Z86.718 Personal history of other venous thrombosis and embolism; Z79.899 Other long term (current) drug therapy; Z79.890 Hormone replacement therapy; R60.0 Localized edema; E78.5 Hyperlipidemia, unspecified; Z87.891 Personal history of nicotine dependence; Z95.828 Presence of other vascular implants and grafts; R06.09 Other forms of dyspnea
CPT/HCPCS: 36415; 37193; 76937; 80048; 85027; 99152; 99153; C1769; C1773; C1894; J7040; Q9967

== ENCOUNTER → 2024-01-29 | Outpatient (CLI) | payer MEDICARE, SELFPAY ==
--- NOTE | 2024-01-29 12:23 | VDLE_ITS ---
Reason For Study: RLE Swelling RIGHT LEFT GSV is normal. CFV is compressible, spontaneous, phasic, CFV is compressible, spontaneous, competent competent, and demonstrates normal and demonstrates pulsatile venous flow. augmentation. FV is compressible, spontaneous, competent and demonstrates pulsatile venous flow. POP V is compressible, spontaneous, competent and demonstrates pulsatile venous flow. T/P Trunk is compressible. PTV is compressible. RT PerV is compressible. Procedure This is a venous duplex using B-mode, color flow and spectral Doppler. Exam performed in department. The exam was diagnostic. A preliminary report was called and/or faxed to [facility]. VL/Venous Duplex US, Unilateral Interpretation Summary Deep veins of the right lower extremity are patent and compressible segmentally . There is no evidence of right lower extremity deep vein thrombosis. The right great sapheno us vein appears patent and compressible segmentally. Ordering Physician: Elsa Zapata Referring Physician: Hesham Andrade Performed By: Josesito Whitt RVT
== END | disposition home or self-care (01) ==
LOC: CVS 12:22
PROVIDERS: PCP Family Medicine; Referring Provider Physician Assistant; Visit Provider Physician Assistant
DX: R22.41 Localized swelling, mass and lump, right lower limb (principal)
CPT/HCPCS: 93971

== ENCOUNTER → 2024-03-10 | Outpatient (CLI) | payer MEDICARE, SELFPAY ==
--- NOTE | 2024-03-10 12:49 | CT_ITS ---
STUDY: CT CHESTWITHOUT CONTRAST REASON FOR EXAM: Male, 73 years old. CHF RADIATION DOSAGE (If Supplied By Facility): CTDIvol = ( 27.84 ) mGy, DLP = ( 1248.73 ) mGycm TECHNIQUE: Transaxial imaging was performed without the administration of intravenous contrast material. Cardiac over read examination. Individualized dose optimization techniques were used for this CT. COMPARISON: No relevant priors. FINDINGS: CHEST The lungs are normal. There is no demonstrated pleural abnormality. No significant coronary artery calcification is seen. Normal mediastinum. Normal hilar regions. Normal unenhanced pulmonary arteries. Normal aorta arch and descending thoracic aorta. There are degenerative changes of the thoracic spine. There is no demonstrated abnormality of the visualized upper abdomen. CT/Limited Chest CT Cardiac Only IMPRESSION: No significant coronary artery calcification is seen. Electronically Signed: Alvaro Sim MD at 9:01 EST ,
[2024-03-10 12:59] VITALS: BP 93/63; PULSE 80; RESP 18; O2SAT 100; BMI 21.5
[2024-03-10 13:23] LABS: CREATININE FINGERSTICK < 1.0 mg/dL (0.70-1.30); EGFR FINGERSTICK > 60.0000 mL/min (>60)
[2024-03-10 13:25] VITALS: BP 93/48; PULSE 87
[2024-03-10] MEDS: Nitroglycerin SL (ED/IMG/CATH) 0.4 MG TABLET SL (13:25)
[2024-03-10] MEDS: 0.9% Saline Lock 10 ML Syringe IV (13:30)
[2024-03-10 13:32] VITALS: BP 93/48; PULSE 80; RESP 18; O2SAT 97
--- NOTE | 2024-03-19 10:00 | CCTA.WCONT ---
CCTA w/Cont Coronary Arteries Date of Study:: 04/09/24 Congestive heart failure Coronary Calcium Scoring: High-resolution Computed Tomographic imaging of the chest was performed on [03/10/2024], with particular attention paid to the coronary arteries. Intravenous contrast agent was administered per protocol and images reconstructed and displayed. LEFT MAIN CORONARY ARTERY: This arises from the left coronary cusp and bifurcates to left anterior descending artery and left circumflex artery. No significant stenosis is present. Coronary calcium score is 0 [] LEFT ANTERIOR DESCENDING CORONARY ARTERY: This vessel arises from the left main coronary artery and courses to the apex with no significant atherosclerotic plaquing noted in this vessel. Coronary calcium score is 0 [] LEFT CIRCUMFLEX CORONARY ARTERY: There is a nondominant vessel with no significant atherosclerotic plaquing noted. Coronary calcium score is 0 [] RIGHT CORONARY ARTERY: Dominant large right coronary artery with no significant atherosclerotic plaquing present. Coronary calcium score is 0 [] THORACIC AORTA: Normal [] PULMONARY ARTERY: Normal [] LEFT ATRIUM/APPENDAGE: [] MITRAL VALVE: Structurally normal [] AORTIC VALVE: [] LEFT VENTRICLE: [] CORONARY CALCIUM SCORE: 0 CT angiogram and coronary calcium score demonstrating no significant atherosclerotic plaquing and a total coronary calcium score of 0. []
== END | disposition home or self-care (01) ==
PROVIDERS: PCP Family Medicine; Referring Provider Internal Medicine Cardiovascular Disease; Visit Provider Internal Medicine Cardiovascular Disease
DX: I50.22 Chronic systolic (congestive) heart failure (principal); I42.8 Other cardiomyopathies; I34.0 Nonrheumatic mitral (valve) insufficiency
CPT/HCPCS: 75571; 75574; 76380; Q9967

== ENCOUNTER 2024-04-24 16:18 | Emergency (ER) | payer MEDICARE, SELFPAY ==
[2024-04-24 16:19] VITALS: BP 113/88; PULSE 85; RESP 18; TEMP 36.2; O2SAT 100; BMI 22.4
--- NOTE | 2024-04-24 16:40 | EDS_ITS ---
HPI History of Present Illness Chief Complaint: Complaint Narrative Narrative: Patient is a 73-year-old male with past medical history of neurogenic bladder with a suprapubic catheter, hypertension, hyperlipidemia, heart failure who presents to the emergency department the chief complaint of having clots clogging his suprapubic catheter. He states that this has been going off and on since few days before [place] and states that he did not call his urologist or his primary care physician about this. He states that he can usually use water after several attempts and then it begins to work again. Patient denies any other complaints at this point time. He states that he wanted to come here to have it further evaluated since it was still occurring. [facility] Medical History Urinary retention Elevated PSA History of DVT (deep vein thrombosis) Neurogenic bladder Impaired wound healing BPH (benign prostatic hyperplasia) Heart failure HLD (hyperlipidemia) HTN (hypertension) Closed intertrochanteric fracture of right hip Suprapubic catheter Home Medications ?Medication ?Instructions ?Recorded ?Last Taken ?Type atorvastatin 10 mg tablet 10 mg PO DAILY HLD 04/26/23 08/05/23 08:00 History carvedilol 3.125 mg tablet 3.125 mg PO BID HTN, CHF 04/26/23 12/25/23 History furosemide 20 mg tablet (Lasix) 20 mg PO QAM 12/17/23 Unknown History aspirin 81 mg capsule 81 mg PO QDAY 01/29/24 Unknown History therapeutic multivitamin 1 tab PO QDAY 02/02/24 Unknown History empagliflozin 10 mg tablet 10 mg PO QDAY #90 tabs 02/09/24 Unknown Rx (Jardiance) sennosides 8.6 mg capsule (senna) 17.2 mg PO BID PRN 02/09/24 Unknown History sacubitril 24 mg-valsartan 26 mg 1 tab PO BID #180 tabs 03/15/24 Unknown Rx tablet (Entresto) cephalexin 500 mg capsule 500 mg PO BID 5 days #10 caps 04/24/24 Unknown Rx Allergy/AdvReac Type Severity Reaction Status Date / Time No Known Allergies Allergy Verified 04/24/24 16:18 Family History Mother Heart disease Hypertension Heart failure Father Heart failure Hypertension Heart disease Cancer Lymphoma Sister COPD (chronic obstructive pulmonary disease) Brother COPD (chronic obstructive pulmonary disease) A-fib Surgical History History of colonoscopy S/P ORIF (open reduction internal fixation) fracture History of suprapubic catheter S/P TURP Social History household members: other details: Lives with his brother. Smoking Status: Former smoker how long ago did patient quit smokin.7 alcohol intake: current alcohol intake frequency: a few times a week details: 10.0 standard drinks/wk substance use type: does not use ROS ROS ED ROS Narrative Constitutional: Denies any fevers, chills, headaches, lightness, dizziness Eyes: Denies change in vision double vision blurry vision Abdomen: Denies abdominal pain nausea vomit diarrhea : Complains of urinary symptoms as noted above Neurological: Denies any numbness, wheeze, tingling Musculoskeletal: Denies back pain Skin: Denies rashes or lesions EXAM Physical Exam Narrative Exam Narrative: General: Patient lying in bed rest comfortably did not appear to be acute distress Head: Atraumatic, normocephalic Eyes: PERRL bilaterally, EOMI bilateral, no conjunctival injection noted Neck: Soft, supple, trachea midline Cardiovascular: Regular in rhythm no murmurs gallops rubs noted Abdomen: Soft, nondistended, no tenderness palpation, suprapubic catheter in place, no concern for surrounding infection Extremities: +5/5 strength noted in the bilateral upper and lower extremities, radial pulses +2/4 in the bilateral per extremities Neurological: Patient follow commands knew that he was at [facility] year is 2024 Skin: Warm, dry, intact Const Vital Signs: 04/24/24 16:19 04/24/24 18:18 Temperature 97.2 F L Temperature Source Temporal Pulse Rate 85 74 Respiratory Rate 18 16 Blood Pressure 113/88 H 110/88 H Blood Pressure Mean 96 95 Pulse Ox 100 98 Oxygen Delivery Method Room Air MDM MDM MDM Narrative Medical decision making narrative: Patient is a 73-year-old male who presents to the emergency department the chief complaint of suprapubic catheter having blood clots in it. Once again this has been going on since before . On the differential diagnose includes Yumiko morrison to clogged suprapubic catheter, UTI. Once workup is obtained reviewed he will be reevaluated. Patient is not on any blood thinning medications. Patient otherwise asymptomatic.Patient will be bladder scanned here in the emergency department and then be reevaluated. Patient is urinalysis was reviewed showed 250 occult blood, positive nitrates, 100 leukocyte esterase, 0-5 white cells with 1+ bacteria given that he is having blood clots in his bladder with this we will give him a antibiotic Keflex. His urine was sent for culture. We irrigated the suprapubic catheter multiple times here and there were clots expressed however this did not appear to be clogged at this point in time. Patient was advised to follow-up with his urologist in outpatient setting and return with worsening symptoms or any concerns. He is agreeable this plan he would like to go home at this point time all question concerns answered he is discharged home in stable condition. Lab Data Labs: Laboratory Results - last 24 hr 04/24/24 18:10 Urine Color Florecita Urine Clarity Sl. Cloudy Urine pH 8.0 Ur Specific [place]idan 1.010 Urine Protein 100 H Urine Glucose (UA) 1000 H Urine Ketones Negative Urine Occult Blood 250 H Urine Nitrite Positive H Urine Bilirubin Negative Urine Urobilinogen Normal Ur Leukocyte Esterase 100 H Urine RBC > 100 SEEN Urine WBC 0-5 SEEN Ur Squamous Epith Cells 0 SEEN Urine Bacteria 1+ Urine Mucus 0 SEEN Discharge Plan Triage Chief Complaint: Complaint ED Provider: Jonnathan Durand Dx/Rx/DC Orders Clinical Impression: UTI (urinary tract infection), Chronic suprapubic catheter Prescriptions: New cephalexin 500 mg capsule 500 mg PO BID 5 Days Qty: 10 0RF No Action furosemide [Lasix] 20 mg tablet 20 mg PO QAM therapeutic multivitamin Tablet 1 tab PO QDAY senna 8.6 mg capsule 17.2 mg PO BID PRN Jardiance 10 mg tablet 10 mg PO QDAY Qty: 90 3RF aspirin 81 mg capsule 81 mg PO QDAY atorvastatin 10 mg tablet 10 mg PO DAILY Patient Comments: TAKE 1 TABLET (10 MG) BY MOUTH DAILY. carvedilol 3.125 mg tablet 3.125 mg PO BID Patient Comments: TAKE 1 TABLET BY MOUTH TWICE DIALY Entresto 24-26 mg tablet 1 tab PO BID Qty: 180 3RF Primary Care Provider: Hesham Andrade Referrals: Hesham Andrade DO [Primary Care Provider] - Activity Restrictions/Additional Instructions: Follow-up on urine culture. Take antibiotics as prescribed. Follow-up with your urologist at your scheduled appointment to have this exchanged. Return with worsening symptoms or concerns as we discussed. Print Language: Kosovan Disposition Disposition: Home, Self Care
[2024-04-24 18:18] VITALS: BP 110/88; PULSE 74; RESP 16; O2SAT 98
[2024-04-24 18:19] LABS: Mucous, Urine 0 SEEN /hpf (<or=2+); Squamous Epithelial Cells - UA 0 SEEN /hpf (0-5)
[2024-04-24 18:38] LABS: Color, Urine Amber (Yellow); Glucose, Dipstick 1000 mg/dl (Normal); Ketone-Dipstick Negative (Negative); Leukocyte Esterase-Dipstick 100 /ul (Negative); Nitrite-Dipstick Positive (Negative); Occult Blood-Urine 250 /ul (Negative); Protein-Dipstick 100 mg/dl (Negative); Urine Bilirubin Dipstick Negative (Negative); Urine Clarity Sl. Cloudy (Clear); Urine Urobilinogen Normal (Normal)
[2024-04-24 18:41] LABS: Bacteria 1+ /hpf (None Seen); White Blood Cells 0-5 SEEN /hpf (0-5)
[2024-04-24 18:42] LABS: Red Blood Cells-Urine > 100 SEEN /hpf (0-5)
[2024-04-24 19:50] VITALS: BP 106/66; PULSE 92; RESP 16; TEMP 36.7; O2SAT 100
[2024-04-24] MEDS: Cephalexin 250 MG Capsule 500 MG PO (19:53)
== END 2024-04-24 19:54 | disposition home or self-care (01) ==
PROVIDERS: Emergency Provider Emergency Medicine; PCP Family Medicine; Visit Provider Emergency Medicine
DX: T83.511A Infection and inflammatory reaction due to indwelling urethral catheter, initial encounter (principal); I50.9 Heart failure, unspecified; I11.0 Hypertensive heart disease with heart failure; N39.0 Urinary tract infection, site not specified; Z87.891 Personal history of nicotine dependence; E78.5 Hyperlipidemia, unspecified; N31.9 Neuromuscular dysfunction of bladder, unspecified; Y73.8 Miscellaneous gastroenterology and urology devices associated with adverse incidents, not elsewhere classified
CPT/HCPCS: 81001; 87077; 87086; 87088; 87186; 99282

== ENCOUNTER 2024-05-07 13:58 | Emergency (ER) | payer MEDICARE, SELFPAY ==
[2024-05-07 13:58] VITALS: BP 114/85; PULSE 88; RESP 15; TEMP 36.6; O2SAT 99; BMI 19.1
[2024-05-07 15:25] LABS: Bacteria 0 SEEN /hpf (None Seen); Mucous, Urine 0 SEEN /hpf (<or=2+); Squamous Epithelial Cells - UA 0 SEEN /hpf (0-5)
[2024-05-07 15:31] LABS: Color, Urine Red (Yellow); Glucose, Dipstick 250 mg/dl (Normal); Ketone-Dipstick Negative (Negative); Leukocyte Esterase-Dipstick 500 /ul (Negative); Nitrite-Dipstick Positive (Negative); Occult Blood-Urine 250 /ul (Negative); Protein-Dipstick 100 mg/dl (Negative); Urine Bilirubin Dipstick Negative (Negative); Urine Clarity Cloudy (Clear); Urine Urobilinogen Normal (Normal)
[2024-05-07 15:51] LABS: Red Blood Cells-Urine > 100 SEEN /hpf (0-5); White Blood Cells 10-25 SEEN /hpf (0-5)
--- NOTE | 2024-05-07 16:25 | EDS_ITS ---
HPI History of Present Illness Chief Complaint: Complaint Informant: patient Narrative Narrative: Patient is a 73-year-old male with history of neurogenic bladder and subsequent suprapubic catheter presenting with decreased urine output and hematuria. Patient states has not had urine drainage since around noon today. He has some fullness in his lower abdomen as if he needs to urinate. He normally clamped his catheter throughout the day and just empties it periodically and then wears a bag at night. He does that he had blood coming from his catheter starting yesterday. Patient was seen in our ER about 2 weeks ago for the same presentation. At that time the catheter was flushed and he was placed on a course of Keflex. Patient follows with Dr. Sepulveda for urology. He denies any systemic symptoms such as fever or chills. He is on aspirin but not on any other anticoagulation. [facility] Medical History Urinary retention Elevated PSA History of DVT (deep vein thrombosis) Neurogenic bladder Impaired wound healing BPH (benign prostatic hyperplasia) Heart failure HLD (hyperlipidemia) HTN (hypertension) Closed intertrochanteric fracture of right hip Suprapubic catheter Home Medications ?Medication ?Instructions ?Recorded ?Last Taken ?Type atorvastatin 10 mg tablet 10 mg PO DAILY HLD 04/26/23 08/05/23 08:00 History carvedilol 3.125 mg tablet 3.125 mg PO BID HTN, CHF 04/26/23 12/25/23 History furosemide 20 mg tablet (Lasix) 20 mg PO QAM 12/17/23 Unknown History aspirin 81 mg capsule 81 mg PO QDAY 01/29/24 Unknown History therapeutic multivitamin 1 tab PO QDAY 02/02/24 Unknown History empagliflozin 10 mg tablet 10 mg PO QDAY #90 tabs 02/09/24 Unknown Rx (Jardiance) sennosides 8.6 mg capsule (senna) 17.2 mg PO BID PRN 02/09/24 Unknown History sacubitril 24 mg-valsartan 26 mg 1 tab PO BID #180 tabs 03/15/24 Unknown Rx tablet (Entresto) cephalexin 500 mg capsule 500 mg PO BID 5 days #10 caps 04/24/24 Unknown Rx cefdinir 300 mg capsule 300 mg PO BID #14 caps 05/07/24 Unknown Rx Allergy/AdvReac Type Severity Reaction Status Date / Time No Known Allergies Allergy Verified 05/07/24 13:58 Family History Mother Heart disease Hypertension Heart failure Father Heart failure Hypertension Heart disease Cancer Lymphoma Sister COPD (chronic obstructive pulmonary disease) Brother COPD (chronic obstructive pulmonary disease) A-fib Surgical History History of colonoscopy S/P ORIF (open reduction internal fixation) fracture History of suprapubic catheter S/P TURP Social History household members: other details: Lives with his brother. Smoking Status: Former smoker how long ago did patient quit smokin.7 alcohol intake: current alcohol intake frequency: a few times a week details: 10.0 standard drinks/wk substance use type: does not use ROS ROS ED Constitutional Constitutional ED: Denies chills or fever(s) Gastrointestinal Gastrointestinal: Reports abdominal pain; Denies nausea or vomiting Genitourinary Genitourinary ED: Reports hematuria and other Details: Suprapubic catheter dysfunction Neurologic Neurologic: Denies weakness Hematologic/Lymphatic Hematologic/Lymphatic: Denies easy bleeding or easy bruising EXAM Physical Exam Const Vital Signs: 05/07/24 13:58 05/07/24 16:35 Temperature 97.8 F 97.8 F Temperature Source Temporal Pulse Rate 88 88 Respiratory Rate 15 15 Blood Pressure 114/85 H 112/78 Blood Pressure Mean 94 89 Pulse Ox 99 99 Oxygen Delivery Method Room Air Positive well nourished and well developed General Appearance ED: well developed; Negative for pallor Neck supple Resp normal respiratory effort Cardio regular rhythm GI non-tender and non-distended GI Narrative: Mild tenderness in the suprapubic region. Suprapubic catheter in place with a small amount of bloodstained urine in the dressing around it. No drainage comin g from the catheter. Auscultation: normoactive bowel sounds Palpation: soft Extremity normal to inspection General Extremety ED: Negative for edema General Extremity: Negative for edema Neuro oriented x3 Sensorium / Orientation: alert Psych mental status grossly normal Skin General Skin Exam: Negative for pallor MDM MDM MDM Narrative Medical decision making narrative: Patient evaluated for blood and decreased drainage from his suprapubic catheter. He has a pressure in his pelvic region consistent with a full bladder. He states he is not on any blood thinners and it appears that patient was on Xarelto last year (he states he had a blood clot in his leg after femur fracture) but he does not believe that he is currently on any blood thinner and I do not see any recent fill history. Catheter is flushed and there are some clots. It then started draining blood- tinged urine. Culture will be sent and urinalysis does show positive nitrites but no bacteria and greater than 100 red blood cells with 10-25 white blood cells. I spoke with urology on-call for sameera (Dr. Gaspar) who recommends starting the patient on cefdinir based on the patient's prior cultures (we reviewed) and starting the patient on Omnicef 300 mg twice daily. He also recommended having the patient have continuous drainage of his catheter for the time being to help prevent clotting/retention. Patient is agreeable with this plan. He is given a leg bag. He remains hemodynamically stable in the emergency room and overall is well-appearing. He does not think that he is on the Xarelto. I did recommend he call the ER for further recommendations if he is still on a blood thinner and we can come up with a plan potentially hold it. Patient given return precautions. Discharged home in stable condition. Lab Data Attestation: I reviewed the patient's lab results. Labs: Laboratory Results - last 24 hr 05/07/24 15:21 Urine Color Red Urine Clarity Cloudy Urine pH 7.0 Ur Specific [place] 1.010 Urine Protein 100 H Urine Glucose (UA) 250 H Urine Ketones Negative Urine Occult Blood 250 H Urine Nitrite Positive H Urine Bilirubin Negative Urine Urobilinogen Normal Ur Leukocyte Esterase 500 H Urine RBC > 100 SEEN Urine WBC 10-25 SEEN Ur Squamous Epith Cells 0 SEEN Urine Bacteria 0 SEEN Urine Mucus 0 SEEN Discharge Plan Triage Chief Complaint: Complaint ED Provider: Jemma Hernandez Dx/Rx/DC Orders Clinical Impression: Hematuria, Blocked suprapubic catheter Instructions: ED Hematuria, ED Bladder Infection, Male (Adult) Prescriptions: New cefdinir 300 mg capsule 300 mg PO BID Qty: 14 0RF No Action furosemide [Lasix] 20 mg tablet 20 mg PO QAM therapeutic multivitamin Tablet 1 tab PO QDAY senna 8.6 mg capsule 17.2 mg PO BID PRN Jardiance 10 mg tablet 10 mg PO QDAY Qty: 90 3RF aspirin 81 mg capsule 81 mg PO QDAY atorvastatin 10 mg tablet 10 mg PO DAILY Patient Comments: TAKE 1 TABLET (10 MG) BY MOUTH DAILY. carvedilol 3.125 mg tablet 3.125 mg PO BID Patient Comments: TAKE 1 TABLET BY MOUTH TWICE DIALY cephalexin 500 mg capsule 500 mg PO BID 5 Days Qty: 10 0RF Entresto 24-26 mg tablet 1 tab PO BID Qty: 180 3RF Primary Care Provider: Hesham Andrade Referrals: Hesham Andrade DO [Primary Care Provider] - Dale Sepulveda MD [Non-Staff] - 3-5 Days Activity Restrictions/Additional Instructions: Please keep bag connected with your suprapubic catheter at all times for the next few days to have it continuously drain. Take antibiotics as prescribed. Please call the ER back if you realize that you are on a blood thinner (potentially Xarelto/rivaroxaban). You might need to hold it. Make sure you are drinking plenty of fluids to keep flushing out your bladder. Print Language: American Disposition Disposition: Home, Self Care Discharge Date/Time: 05/07/24 16:42
[2024-05-07 16:35] VITALS: BP 112/78; PULSE 88; RESP 15; TEMP 36.6; O2SAT 99
[2024-05-07] MEDS: Cefdinir 300 MG Capsule PO (16:38)
== END 2024-05-07 16:42 | disposition home or self-care (01) ==
PROVIDERS: Emergency Provider Emergency Medicine; PCP Family Medicine; Visit Provider Emergency Medicine
DX: T83.091A Other mechanical complication of indwelling urethral catheter, initial encounter (principal); I11.0 Hypertensive heart disease with heart failure; I50.9 Heart failure, unspecified; Z87.891 Personal history of nicotine dependence; E78.5 Hyperlipidemia, unspecified; Z79.82 Long term (current) use of aspirin; R31.9 Hematuria, unspecified; T83.83XA Hemorrhage due to genitourinary prosthetic devices, implants and grafts, initial encounter; Y73.8 Miscellaneous gastroenterology and urology devices associated with adverse incidents, not elsewhere classified
CPT/HCPCS: 81001; 87077; 87086; 87088; 87186; 99282

== ENCOUNTER 2024-06-27 08:38 | Emergency (ER) | payer OTHER, SELFPAY ==
[2024-06-27 08:39] VITALS: BP 106/69; PULSE 88; RESP 16; TEMP 36.1; O2SAT 99; BMI 23.0
--- NOTE | 2024-06-27 08:56 | EDS_ITS ---
HPI History of Present Illness Chief Complaint: Complaint Narrative Narrative: Chief complaint and HPI: Hematuria and urinary retention. 73-year-old male with history of neurogenic bladder and subsequent suprapubic catheter presents for evaluation of urinary retention and hematuria. Upon chart review, patient has been seen in our emergency department multiple times for this complaint. Patient states that he has not had urine drainage since yesterday evening. He states he has been having some hematuria over the last several days. Flushing intermittently. He has some fullness to the suprapubic region as if he needs to urinate. He keeps his catheter clamped throughout the day and just empties it periodically. He follows with Dr. Sepulveda for urology. Patient is not on anticoagulation. He denies any fever, chills, nausea, vomiting, back pain. In April, catheter was flushed and urine began to drain. Patient was started on Omnicef for UTI. Recommendation was for continuous drainage of the catheter. Patient states that he has not had continuous drainage of the catheter as he is still clamping. He cannot tell me if this is because of his follow-up with urology or not. He states that he did have a cystoscopy a couple months ago but does not know if this was in April or May. He states the cystoscopy was unremarkable and they attribute it the intermittent hematuria to sliding of the tube at the skin. Review of systems: See HPI Medications: As listed on the chart Allergies: As listed on the chart PFSH: Per chart Vital signs: As listed on the chart. Reviewed. Physical exam: Gen: A&O x3, NAD Head: Normocephalic, atraumatic Eyes: No sclera icterus, conjunctiva clear ENT: Moist mucous membranes Neck: Trachea midline, No JVD CV: RRR, no murmurs, no peripheral edema Resp: Lungs CTA BL, no w/r/c GI: Abd soft, non-distended, minimal tenderness to palpation in the suprapubic region, no r/r/g, suprapubic catheter in place and clamped. No Gerardo bag attached. : No CVA tenderness. Circumcised male. Penis and testicles nontender Musc: Full ROM, no deformity Skin: Warm, dry Neuro: Alert, oriented, grossly intact, sensation intact Psych: Cooperative, appropriate mood and affect [facility] Medical History Urinary retention Elevated PSA History of DVT (deep vein thrombosis) Neurogenic bladder Impaired wound healing BPH (benign prostatic hyperplasia) Heart failure HLD (hyperlipidemia) HTN (hypertension) Closed intertrochanteric fracture of right hip Suprapubic catheter Home Medications ?Medication ?Instructions ?Recorded ?Last Taken ?Type atorvastatin 10 mg tablet 10 mg PO DAILY HLD 04/26/23 08/05/23 08:00 History carvedilol 3.125 mg tablet 3.125 mg PO BID HTN, CHF 12/25/23 History furosemide 20 mg tablet (Lasix) 20 mg PO QAM 12/17/23 Unknown History aspirin 81 mg capsule 81 mg PO QDAY 01/29/24 Unkno wn History therapeutic multivitamin 1 tab PO QDAY 02/02/24 Unkno wn History empagliflozin 10 mg tablet 10 mg PO QDAY #90 tabs 01/13 12/05 Unknown Rx (Jardiance) sennosides 8.6 mg capsule (senna) 17.2 mg PO BID PRN 1 Unknown History cephalexin 500 mg capsule 500 mg PO BID 5 days #10 cap s 04/24/24 Unknown Rx cefdinir 300 mg capsule 300 mg PO BID #14 caps 05/07 Unknown Rx sacubitril 24 mg-valsartan 26 mg 1 tab PO BID #180 tab s 06/11/24 Unknown Rx tablet (Entresto) Allergy/AdvReac Type Severity Reaction Status Date / Time No Known Allergies Allergy Verified 06/27/24 08:39 Family History Mother Heart disease Hypertension Heart failure Father Heart failure Hypertension Heart disease Cancer Lymphoma Sister COPD (chronic obstructive pulmonary disease) Brother COPD (chronic obstructive pulmonary disease) A-fib Surgical History History of colonoscopy S/P ORIF (open reduction internal fixation) fracture History of suprapubic catheter S/P TURP Social History household members: other details: Lives with his brother. Smoking Status: Former smoker how long ago did patient quit smokin.7 alcohol intake: current alcohol intake frequency: a few times a week details: 10.0 standard drinks/wk substance use type: does not use EXAM Physical Exam Const Vital Signs: 06/27/24 08:39 06/27/24 10:39 Temperature 96.9 F L Temperature Source Temporal Pulse Rate 88 71 Respiratory Rate 16 16 Blood Pressure 106/69 96/71 Blood Pressure Mean 81 79 Pulse Ox 99 98 Oxygen Delivery Method Room Air Room Air MDM MDM MDM Narrative Medical decision making narrative: 73-year-old male with history of neurogenic bladder and subsequent suprapubic catheter presents for evaluation of urinary retention and hematuria. Patient has been seen multiple times for same complaint. Follows with [facility] urology. Keeps his suprapubic catheter mostly clamped. Patient is nontoxic-appearing. Vital signs stable. Will irrigate his suprapubic pubic catheter. Will obtain basic labs and urine. I do not think any imaging is needed at this time. Differential diagnosis includes but is not limited to hematuria, clogged suprapubic catheter, urinary retention, electrolyte abnormality, MIGUEL, UTI. Patient's previous urine cultures were reviewed and grew out multiple bacteria. CBC without leukocytosis or anemia. BMP with renal insufficiency with a creatinine of 1.33. NS bolus ordered. UA is positive for blood but negative for infection. At baseline, patient has soft blood pressures on chart review. His baseline is in the low 100s and upper 90s. Patient confirmed this as well. Patient had a inappropriate sized cuff that was reading in the 80s. Appropriate cuff was placed and patient's blood pressure improved to the low 100s which is his baseline. Patient's urine was grossly bloody after flushing, urine is now draining. On reevaluation, urine is clearing. I spoke with [facility] urology, Dr. Cabezas. He agrees with discharge home as long as urine is clearing in color. He will reach out to the office to get a close follow-up appointment. On reevaluation, patient's urine is more clear. It is continued to drain. Patient vitals are stable and at baseline blood pressure. Patient is stable to discharge home. Strict return precautions given such as urinary retention, worsening bleeding, inability to eat or drink, nausea, vomiting, fevers. He confirmed understanding. Patient was educated to leave his Gerardo to drainage until seen by urology. Flush as needed. He is to call their office tomorrow to make an appointment. Impression: 1. Recurrent hematuria 2. Urinary retention secondary to #1 3. Chronic suprapubic catheter 4. Mild dehydration/renal insufficiency Lab Data Labs: Laboratory Results - last 24 hr 06/27/24 06/27/24 06/27/24 08:53 09:10 09:10 WBC 5.9 Cancelled Corrected WBC Cancelled RBC 4.55 L Cancelled Hgb 13.3 Cancelled Hct 40.0 Cancelled MCV 87.9 Cancelled MCH 29.2 Cancelled MCHC 33.3 Cancelled RDW Std Deviation 44.6 H Cancelled RDW Coeff of Vicente 13.8 Cancelled Plt Count 235 Cancelled MPV 10.0 Cancelled Immature Gran % (Auto) 0.200 Cancelled Neut % (Auto) 69.9 Cancelled Lymph % (Auto) 14.0 L Cancelled [place] % (Auto) 11.6 H Cancelled Eos % (Auto) 3.5 Cancelled Baso % (Auto) 0.8 Cancelled Absolute Neuts (auto) 4.2 Cancelled Absolute Lymphs (auto) 0.83 Cancelled Total Counted Cancelled Neutrophils % (Manual) Cancelled Band Neutrophils % Cancelled Lymphocytes % (Manual) Cancelled Monocytes % (Manual) Cancelled Eosinophils % (Manual) Cancelled Basophils % (Manual) Cancelled Metamyelocytes % Cancelled Myelocytes % Cancelled Promyelocytes % Cancelled Blast Cells % Cancelled Plasma Cell % (Manual) Cancelled Other Cells % Cancelled Nucleated RBC % 0 Cancelled Nucleated RBCs/100 WBC Cancelled Differential Comment Cancelled Diff Path Review Cancelled Hypersegmented Neuts Cancelled Atypical Lymphocytes Cancelled Reactive Lymphocytes Cancelled Smudge Cells Cancelled Toxic Granulation Cancelled Toxic Vacuolation Cancelled Dohle Bodies Cancelled Jay Jay Rods Cancelled Platelet Estimate Cancelled Plt Morphology Comment Cancelled RBC Morphology Cancelled Cancelled Polychromasia Cancelled Hypochromasia Cancelled Basophilic Stippling Cancelled Anisocytosis Cancelled Microcytosis Cancelled Macrocytosis Cancelled Spherocytes Cancelled Sickle Cells Cancelled Target Cells Cancelled Tear Drop Cells Cancelled Ovalocytes Cancelled Stomatocytes Cancelled Avila-Emsworth Bodies Cancelled Tommy Cells Cancelled Bite Cells Cancelled Crenated Cell Cancelled Acanthocytes (Spur) Cancelled Rouleaux Cancelled Schistocytes Cancelled Sodium 137 Potassium 4.0 Chloride 102 Carbon Dioxide 23.6 Anion Gap 12 BUN 25 H Creatinine 1.33 H Estim Creat Clear Calc 47.14 L Est GFR (MDRD) Non-Af 56 L BUN/Creatinine Ratio 18.6 Glucose 90 Calcium 9.4 Urine Color Urine Clarity Urine pH Ur Specific [place] Urine Protein Urine Glucose (UA) Urine Ketones Urine Occult Blood Urine Nitrite Urine Bilirubin Urine Urobilinogen Ur Leukocyte Esterase Urine RBC Urine WBC Ur Squamous Epith Cells Urine Bacteria Urine Mucus 06/27/24 09:15 WBC Corrected WBC RBC Hgb Hct MCV MCH MCHC RDW Std Deviation RDW Coeff of Vicente Plt Count MPV Immature Gran % (Auto) Neut % (Auto) Lymph % (Auto) [place] % (Auto) Eos % (Auto) Baso % (Auto) Absolute Neuts (auto) Absolute Lymphs (auto) Total Counted Neutrophils % (Manual) Band Neutrophils % Lymphocytes % (Manual) Monocytes % (Manual) Eosinophils % (Manual) Basophils % (Manual) Metamyelocytes % Myelocytes % Promyelocytes % Blast Cells % Plasma Cell % (Manual) Other Cells % Nucleated RBC % Nucleated RBCs/100 WBC Differential Comment Diff Path Review Hypersegmented Neuts Atypical Lymphocytes Reactive Lymphocytes Smudge Cells Toxic Granulation Toxic Vacuolation Dohle Bodies Jay Jay Rods Platelet Estimate Plt Morphology Comment RBC Morphology Polychromasia Hypochromasia Basophilic Stippling Anisocytosis Microcytosis Macrocytosis Spherocytes Sickle Cells Target Cells Tear Drop Cells Ovalocytes Stomatocytes Avila-Emsworth Bodies Tommy Cells Bite Cells Crenated Cell Acanthocytes (Spur) Rouleaux Schistocytes Sodium Potassium Chloride Carbon Dioxide Anion Gap BUN Creatinine Estim Creat Clear Calc Est GFR (MDRD) Non-Af BUN/Creatinine Ratio Glucose Calcium Urine Color Red Urine Clarity Turbid Urine pH 7.0 Ur Specific [place] 1.010 Urine Protein 500 H Urine Glucose (UA) Normal Urine Ketones Negative Urine Occult Blood 250 H Urine Nitrite Negative Urine Bilirubin Negative Urine Urobilinogen Normal Ur Leukocyte Esterase Negative Urine RBC > 100 SEEN Urine WBC 10-25 SEEN Ur Squamous Epith Cells 0 SEEN Urine Bacteria RARE Urine Mucus 0 SEEN Discharge Plan Triage Chief Complaint: Complaint ED Provider: Tavon Hester Dx/Rx/DC Orders Clinical Impression: Hematuria, Complication of Gerardo catheter Instructions: ED Hematuria Prescriptions: No Action furosemide [Lasix] 20 mg tablet 20 mg PO QAM therapeutic multivitamin Tablet 1 tab PO QDAY senna 8.6 mg capsule 17.2 mg PO BID PRN Jardiance 10 mg tablet 10 mg PO QDAY Qty: 90 3RF aspirin 81 mg capsule 81 mg PO QDAY atorvastatin 10 mg tablet 10 mg PO DAILY Patient Comments: TAKE 1 TABLET (10 MG) BY MOUTH DAILY. carvedilol 3.125 mg tablet 3.125 mg PO BID Patient Comments: TAKE 1 TABLET BY MOUTH TWICE DIALY cephalexin 500 mg capsule 500 mg PO BID 5 Days Qty: 10 0RF cefdinir 300 mg capsule 300 mg PO BID Qty: 14 0RF Entresto 24-26 mg tablet 1 tab PO BID Qty: 180 3RF Primary Care Provider: Hesham Andrade Referrals: Hesham Andrade DO [Primary Care Provider] - 3-5 Days Activity Restrictions/Additional Instructions: Irrigate your Gerardo as needed. Keep Gerardo to drainage and do not cap. Follow- up with your urologist. Call them tomorrow to make an appointment. Drink plenty of fluids over the next several days. Return back to the ED if symptoms change or worsen Print Language: Romansh Disposition Disposition: Home, Self Care
[2024-06-27 09:19] LABS: Mucous, Urine 0 SEEN /hpf (<or=2+); Squamous Epithelial Cells - UA 0 SEEN /hpf (0-5)
[2024-06-27 09:23] LABS: Color, Urine Red (Yellow); Glucose, Dipstick Normal (Normal); Ketone-Dipstick Negative (Negative); Leukocyte Esterase-Dipstick Negative /ul (Negative); Nitrite-Dipstick Negative (Negative); Occult Blood-Urine 250 /ul (Negative); Protein-Dipstick 500 mg/dl (Negative); Urine Bilirubin Dipstick Negative (Negative); Urine Clarity Turbid (Clear); Urine Urobilinogen Normal (Normal)
[2024-06-27 09:36] LABS: Red Blood Cells-Urine > 100 SEEN /hpf (0-5); White Blood Cells 10-25 SEEN /hpf (0-5)
[2024-06-27 09:37] LABS: Bacteria RARE /hpf (None Seen)
--- NOTE | 2024-06-27 09:37 | ED.RN ---
PT HAS BEEN IRRIGATED HIS SUPRAPUBIC EDEN AT HOME. C/O IRRIGATED IT BUT NOT GETTING ANY OF THE URINE OR FLUSHED FLUIDS OUT. PT HAS BEEN PLACING A PLUG AND OCCLUDING THE EDEN CATHETER. THIS NURSE ADVISED PT HE CANNOT DO THAT WHEN HE IS GOING OUT TO THE STORES OR LEAVES THE HOUSE BECAUSE HE NEEDS TO ALLOW THE EDEN TO CONTINUOUSLY DRAIN. THIS NURSE WENT OVER EDUCATION OF COMPLICATION WITH DOING SO, AND GAVE PT A LEG BAG WITH PROPER TEACHING AND SHOWING OF HOW TO APPLY IT. PT UNDERSTOOD HE NEEDS TO STOP PLUGGING HIS EDEN OFF INSTEAD OF WEARING THE BAG.
[2024-06-27 09:40] LABS: Anion Gap 12 (5-15); BUN 25 mg/dL (4-19); BUN/Creat Ratio 18.6 RATIO (10-20); Calcium,Total 9.4 mg/dL (7.6-11.0); Carbon Dioxide 23.6 mmol/L (21.0-32.0); Chloride 102 mmol/L (98-108); Creatinine, Serum 1.33 mg/dL (0.70-1.20); EST Glomerular Filtration Rate 56 (>60); Estimated Creatinine Clearance 47.14 ml/min (50-250); Glucose 90 mg/dL (70-99); Sodium Level 137 mmol/L (133-145)
[2024-06-27 09:40] LABS: Absolute Lymphocyte Count 0.83 X10^3/uL (0.83-4.51); Absolute Neutrophil Count 4.2 X10^3/uL (2.0-7.7); Basophil# 0.05 X10^3/uL; Basophil% 0.8 % (0-1); Eosinophil# 0.21 X10^3/uL; Eosinophils% 3.5 % (0-5); Hemoglobin 13.3 g/dL (13.0-16.5); Lymphocyte # 0.83 X10^3/ul (0.83-4.51); Mean Corp Hgb Conc 33.3 g/dL (32-36); Mean Corpuscular Hgb 29.2 pg (27.0-32.0); Mean Corpuscular Volume 87.9 fL (80-94); Monocyte# 0.69 X10^3/uL; Monocyte% 11.6 % (0-10); NRBC Flagged by Analyzer 0 % (0-5); Neutrophil # 4.15 X10^3/uL (2.7-7.7); Neutrophil % 69.9 % (47-70); Platelet Count 235 K/mm3 (150-450); RBC Distribution Width CV 13.8 % (11.6-14.6); RBC Distribution Width SD 44.6 fl (35.1-43.9); Red Blood Count 4.55 M/mm3 (4.6-6.2); White Blood Count 5.9 K/mm3 (4.4-11.0)
[2024-06-27] MEDS: 0.9% Normal Saline (1000mL) 1,000 ML 1000 ML IV (10:36)
[2024-06-27 10:39] VITALS: BP 96/71; PULSE 71; RESP 16; O2SAT 98
[2024-06-27 12:08] VITALS: BP 108/77; PULSE 79; RESP 17; TEMP 36.5; O2SAT 100
== END 2024-06-27 12:12 | disposition home or self-care (01) ==
PROVIDERS: Emergency Provider Surgery; PCP Family Medicine; Visit Provider Surgery
DX: N02.9 Recurrent and persistent hematuria with unspecified morphologic changes (principal); I11.0 Hypertensive heart disease with heart failure; I50.9 Heart failure, unspecified; E78.5 Hyperlipidemia, unspecified; R33.9 Retention of urine, unspecified; T83.091A Other mechanical complication of indwelling urethral catheter, initial encounter; E86.0 Dehydration; Z87.891 Personal history of nicotine dependence; N31.9 Neuromuscular dysfunction of bladder, unspecified; Y73.8 Miscellaneous gastroenterology and urology devices associated with adverse incidents, not elsewhere classified
CPT/HCPCS: 80048; 81001; 85025; 87077; 87086; 87088; 87186; 96360; 99283; A4216

== ENCOUNTER → 2024-08-13 | Outpatient (CLI) | payer MEDICARE, SELFPAY | END | disposition home or self-care (01) | LOC: PSN 08:55 | PROVIDERS: PCP Family Medicine; Referring Provider Physician Assistant Medical; Visit Provider Physician Assistant Medical | DX: R00.2 Palpitations (principal); I42.9 Cardiomyopathy, unspecified | CPT/HCPCS: 93225; 93226 ==

== ENCOUNTER → 2024-08-17 | Outpatient (CLI) | payer MEDICARE, SELFPAY ==
--- NOTE | 2024-08-17 07:37 | ECHOD_ITS ---
Reason For Study Reason For Study: CHF Procedure This was a 2D Doppler, Color Flow transthoracic echocardiogram. Exam performed in department. Left Ventricle Normal left ventricular thickness. Severely dilated left ventricle. Severe generalized LV hypokinesis. Estimated LVEF 20%. Stage I diastolic dysfunction. Right Ventricle Normal right ventricle. Atria The left atrium is mildly enlarged. Normal right atrium. Mitral Valve Moderate (2+) mitral valve insufficiency. Tricuspid Valve Mild tricuspid valve insufficiency. Normal pulmonary artery pressure. Aortic Valve Trisinus/trileaflet aortic valve. Mild-Moderate (1-2+) aortic valve insufficiency. Pulmonic Valve The pulmonic valve is not well visualized. Great Vessels Mildly dilated aortic root. Pericardium/Pleural No pericardial effusion. MMode/2D Measurements & Calculations LVIDd: 6.6 cm IVSd: 0.86 cm Ao root diam: 4.0 cm LVIDs: 5.7 cm LVPWd: 0.87 cm RVDd: 3.4 cm FS: 14.7 % LAV(MOD-bp): 72.9 ml LVAd ap4: 48.6 cm2 SV(MOD-sp4): 50.9 ml LAV(MOD-bp) Indexed: 39.6 ml/m2 LVLd ap4: 8.3 cm SI(MOD-sp4): 27.7 ml/m2 LAV(MOD-sp2): 68.7 ml EDV(MOD-sp4): 234.3 ml LAV(MOD-sp4): 55.2 ml EDV(sp4-el): 242.8 ml LVAs ap4: 40.4 cm2 LVLs ap4: 7.4 cm ESV(MOD-sp4): 183.5 ml ESV(sp4-el): 187.6 ml EF(MOD-sp4): 21.7 % EF(sp4-el): 22.7 % SV(sp4-el): 55.1 ml LA A4 area: 21.2 cm2 LA dimension(2D): 3.7 cm RA A4 area: 13.6 cm2 TAPSE: 2.2 cm Time Measurements MV dec time: 0.16 sec Doppler Measurements & Calculations MV E max john paul: 37.9 cm/sec Lat Peak E' John Paul: 4.0 cm/sec Med Peak E' John Paul: 4.3 cm/sec MV A max john paul: 91.9 cm/sec E/E' lat: 9.4 E/E' med: 8.7 MV E/A: 0.41 Ao V2 max: 104.6 cm/sec AI max john paul: 297.1 cm/sec MV dec slope: 240.9 cm/sec2 Ao max P.4 mmHg AI max P.3 mmHg Ao V2 mean: 79.0 cm/sec Ao mean P.6 mmHg AI dec slope: 207.4 cm/sec2 Ao V2 VTI: 20.5 cm AI P1/2t: 419.5 msec AV (velocity ratio): 0.82 LV V1 max: 83.8 cm/sec PA V2 max: 74.2 cm/sec TR max john paul: 232.3 cm/sec LV V1 max P.8 mmHg TR max P.6 mmHg LV V1 mean P.8 mmHg LV V1 mean: 64.5 cm/sec LV V1 VTI: 16.8 cm ECHO/Echo Complete Interpretation Summary Severely dilated left ventricle. Severe generalized LV hypokinesis. Estimated LVEF 20%. Stage I diastolic dysfun ction. The left atrium is mildly enlarged. Moderate (2+) mitral valve insufficiency. Mild tricuspid valve insufficiency. Mild-Moderate (1-2+) aortic valve insufficiency. Mildly dilated aortic root. Ordering Physician: Elis Kidd Referring Physician: Hesham Andrade Performed By: Caitlin Ramos, SAMRA, RVT
== END | disposition home or self-care (01) ==
LOC: CVS 07:37
PROVIDERS: PCP Family Medicine; Referring Provider Physician Assistant Medical; Visit Provider Physician Assistant Medical
DX: I42.8 Other cardiomyopathies (principal); I50.9 Heart failure, unspecified
CPT/HCPCS: 93306

== ENCOUNTER 2024-11-04 10:41 | Observation (INO) | payer MEDICARE, SELFPAY ==
[2024-10-25 14:22] LABS: Mucous, Urine 0 SEEN /hpf (<or=2+); Squamous Epithelial Cells - UA 0 SEEN /hpf (0-5)
--- NOTE | 2024-10-25 14:33 | RAD_ITS ---
PROCEDURE: CHEST PA AND LATERAL 10/25/2024 REASON FOR EXAM: FOR DICD IMPLANT TECHNIQUE: CHEST PA AND LATERAL COMPARISON: CT chest cardiac study dated 03/10/2024 and chest x-ray dated 08/05/2023 FINDINGS: Hardware: None Heart: Heart size and configuration are within normal limits. Mediastinum: Pulmonary vasculature and hilar structures are unremarkable. Arteriosclerotic vascular disease of the aorta is noted. Trachea is midline. Mediastinal silhouette is unremarkable. Lungs: There is elevation of the left hemidiaphragm which may be due to phrenic nerve paralysis or eventration. This is a stable finding. There is a loop of bowel under the left hemidiaphragm. Lungs are expanded and clear without evidence of atelectasis, consolidation, effusion or pneumonic infiltrate. There are no pneumothoraces. Bones: Diffuse osteopenia of the bony thorax is seen. Mild degenerative changes of the thoracic spine are noted. There appears to be a slight decrease in height of 2 of the mid to lower thoracic vertebral bodies by approximately 3%. These could be related to osteoporotic compression fractures. The age of which is indeterminate. RAD/Chest PA and Lateral IMPRESSION: No acute cardiopulmonary process identified radiographically. Diffuse osteopenia of the bony thorax is seen. Mild degenerative changes of the thoracic spine are noted. There appears to be a slight decrease in height of 2 of the mid to lower thorac ic vertebral bodies by approximately 3%. These could be related to osteoporotic compression fractures. The age of which is in determinate. Reading Location: [id number]
[2024-10-25 15:15] LABS: Color, Urine Yellow (Yellow); Glucose, Dipstick Normal (Normal); Ketone-Dipstick Negative (Negative); Leukocyte Esterase-Dipstick 500 /ul (Negative); Nitrite-Dipstick Positive (Negative); Occult Blood-Urine 150 /ul (Negative); Protein-Dipstick 15 mg/dl (Negative); Specific Gravity, Urine 1.010 (1.002-1.030); Urine Bilirubin Dipstick Negative (Negative)
[2024-10-25 15:16] LABS: Hematocrit 38.4 % (40-54); Hemoglobin 12.2 g/dL (13.0-16.5); Mean Corp Hgb Conc 31.8 g/dL (32-36); Mean Corpuscular Volume 82.4 fL (80-94); Mean Platelet Vol. 9.7 fl (6.2-12.0); Platelet Count 364 K/mm3 (150-450); RBC Distribution Width CV 14.8 % (11.6-14.6); RBC Distribution Width SD 44.3 fl (35.1-43.9); Red Blood Count 4.66 M/mm3 (4.6-6.2); White Blood Count 8.2 K/mm3 (4.4-11.0)
[2024-10-25 15:22] LABS: Red Blood Cells-Urine 0-5 SEEN /hpf (0-5)
[2024-10-25 16:17] LABS: Anion Gap 11 (5-15); BUN 16 mg/dL (4-19); BUN/Creat Ratio 13.7 RATIO (10-20); Calcium,Total 9.4 mg/dL (7.6-11.0); Carbon Dioxide 24.5 mmol/L (21.0-32.0); Chloride 99 mmol/L (98-108); Glucose 96 mg/dL (70-99); Potassium 4.5 mmol/L (3.3-5.1)
[2024-11-03 07:29] VITALS: BMI 23.6
[2024-11-04] VITALS (15 sets, daily range): BP systolic 67–96; BP diastolic 46–66; PULSE 74–96; RESP 11–21; TEMP 36.7–36.9; O2SAT 94–98
--- NOTE | 2024-11-04 10:57 | PCM.OPRPT ---
Operative Report (Standard) Operative Information Date of Procedure: 11/04/24 Pre-Operative Diagnosis: Procedure: Successful dual chamber ICD implantation. Indication: Primary Prevention Nonischemic Cardiomyopathy NYHA Class II LVEF 20% Post-Operative Diagnosis: Primary Prevention Nonischemic Cardiomyopathy NYHA Class II LVEF 20% Surgery/Procedure Performed: Procedure: Successful dual chamber ICD implantation. 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 Type of Anesthesia: Sedation,Conscious Procedure Start Time: 10:00 Procedure Stop Time: 10:35 Select all DRAINS/GRAFTS/IMPLANTS that apply: Implanted device (Dual Chamber ICD) Implanted device details: 11/04/2024 [employer] D233: VIGILANT EL ICD DF4 - DR D233 [id number] - Subcutaneous 11/04/2024 [employer] 7841: INGEVITY+ IS-1 Bi Positive Fix RA/RV 52cm Bi [id number] RA 11/04/2024 [employer] 0673: RELIANCE 4-FRONT S Active Fix Single Coil 64cmBi [id number] RV Septum Estimated Blood Loss: 10 cc Specimen collected: No Description of surgery: Findings: The patient was brought to the EP LAB in the fasting well-hydrated state and prepped and draped in the usual sterile fashion. Local anesthesia with 2% lidocaine was used to achieve a numbing effect in the LEFT pectoral region. In addition, iv anesthesia was administered by anesthesia personnel present throughout the case. An incision was made 2 fingerbreadths below the left clavicle and a pocket was made by blunt dissection. Bleeding vessels were coagulated using electrocautery. Using modified Seldinger technique, two guidewires was placed into the left axillary vein down to the low RA. Through a venous sheath the RV lead was passed into the RV apex. The active screw mechanism was extended. Adequate pacing and sensing thresholds were measured. Diaphragmatic stimulation was excluded with high output pacing. The introducer sheath was peeled away. Next using the second guidewire a introducer sheath was placed into the central circulation. Through the venous sheath an active-fixation right atrial lead was passed in the right atrium the active screw mechanism was deployed and the lead was attached to the myocardium. Adequate pacing and sensing thresholds were measured. Diaphragmatic stimulation was excluded with high output pacing. The introducer sheath was peeled away. The leads were secured in the pocket using 2-0 Silk with initial suture tie made to the pectoralis muscle and fascia, followed by wrapping around and tying securely to the lead sleeves. In addition, a purse string suture was tied around the leads entry site with 2-0 Vicryl for hemostasis. The leads were connected to the dual chamber ICD pulse generator. The pocket was irrigated with antibiotic solution. The pulse generator was placed into the pocket with redundant lead allowed to form a nikky coil behind the pulse generator. The device header was secured in place with a leash using a nonabsorbable suture. The pocket was closed in 2 layers with 2-0 and 3-0 Vicryl for the subcutaneous and subcuticular layers respectively. Hemostasis was achieved with manual pressure. Upon closure no bleeding was noted. A sterile dressing was applied. The patient was recovered and sent to their room in stable condition. Complications: none. Specimens: none. Estimated blood loss: 10mL. 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 Model Serial No. Location 11/04/2024 [employer] D233: VIGILANT EL ICD DF4 - DR D233 [id number] L - Subcutaneous 11/04/2024 [employer] 7841: INGEVITY+ IS-1 Bi Positive Fix RA/RV 52cm Bi [id number] RA 11/04/2024 [employer] 0673: RELIANCE 4-FRONT S Active Fix Single Coil 64cmBi [id number] [id number] RV Septum Measured Data Device Measurements Lead Intrinsic Threshold Imp. Shock Imp. Current RA 2.6 mV 0.7V @ 0.4ms 675 ? 1.0 mA RV 25.0 mV 0.6V @ 0.4ms 551 ? 72 ? 1.1 mA DFT Testing Information DFT Testing not Performed. Programmed Parameters Mode: DDD RYTHMIQ: OFF LRL / MTR : 60 ppm / 130 ppm PAV Delay: 200ms - 300ms ALEKSANDAR Delay: 200ms - 300ms AV Search + : On - 360ms Sensitivity Output RA 0.25 mV 3.5V @ 0.4ms RV 0.6 mV 3.5V @ 0.4ms PVARP: 240ms - 300ms ATR Mode Switch: On - 170 bpm Atrial Flutter Response: On VRR: Off Rate Smoothing: Off Rate Hysteresis: Off HeartLogic: On ICD Therapy Parameters Zone Rate Duration Detection Enhancements Therapy VF 210 bpm 2.5 sec. Quick Convert, 41J x 1, 41J x 1, 41J x 6 VT 185 bpm 5 sec. Rhythm ID 41J x 1, 41J x 1, 41J x 4 Lead Polarity: Initial Shock Vector: Distal Coil to Can Surgical Findings: Same Complications Complications: No Admit VTE Documentation VTE Present on Admission: No VTE Mechan Device Prophylaxis: None VTE Pharm Prophylaxis ordered?: No Reason prophylaxis not ordered: Treatment Not Indicated
--- NOTE | 2024-11-04 13:12 | RAD_ITS ---
EXAM: XR Chest, 1 View CLINICAL INDICATION: DO WITHIN 2-4 HOURS OF PROCEDURE TECHNIQUE: Frontal view of the chest. COMPARISON: No relevant prior studies available. FINDINGS: LUNGS AND PLEURAL SPACES: Left basilar atelectasis or pneumonia. No pneumothorax. HEART: Unremarkable. No cardiomegaly. MEDIASTINUM: Unremarkable. Normal mediastinal contour. BONES/JOINTS: Unremarkable. No acute fracture. TUBES, LINES AND DEVICES: Left-sided cardiac pacemaker. RAD/Chest 1 View (Portable) IMPRESSION: Left basilar atelectasis or pneumonia. Reading [facility]
[2024-11-04] MEDS: 0.9% Normal Saline (1000mL) 1,000 ML 75 ML IV (15:34)
[2024-11-04] MEDS: Cefazolin 2 GM in 0.9% Normal Saline (100mL Bag) 100 ML IV (17:24)
[2024-11-04] MEDS: MELATONIN 3 MG TABLET PO (23:47)
[2024-11-05] MEDS: Cefazolin 2 GM in 0.9% Normal Saline (100mL Bag) 100 ML IV (01:21)
[2024-11-05 03:00] VITALS: PULSE 80
[2024-11-05 03:48] VITALS: BP 95/60; PULSE 81; RESP 12; TEMP 36.7; O2SAT 97
--- NOTE | 2024-11-05 04:50 | RAD_ITS ---
PROCEDURE: CHEST PA AND LATERAL 11/05/2024 REASON FOR EXAM: POST PERMANENT ICD/PACEMAKER TECHNIQUE: CHEST PA AND LATERAL COMPARISON: 11/04/2024 FINDINGS: Scoliosis. Borderline cardiac enlargement. Unremarkable cardiac device. Elevated left hemidiaphragm. Persistent left basilar opacity, atelectasis/consolidation. Decreasing right lung aeration and faint right mid and lower lung zone opacity developing possibly airspace disease. Blunted left angle without large effusion. No pneumothorax. RAD/Chest PA and Lateral IMPRESSION: Elevated left hemidiaphragm with adjacent airspace disease favoring atelectasis . Possible small left effusion. Faint opacity developing at the right lung base. Attention on follow up exam. [facility]
[2024-11-05 08:00] VITALS: BP 99/52; PULSE 81
[2024-11-05 09:00] VITALS: BP 113/98; PULSE 88; RESP 20; TEMP 36.6; O2SAT 94
[2024-11-05] MEDS: SACUBITRIL/VALSARTAN 24/26 MG TABLET 1 EACH PO (09:28)
--- NOTE | 2024-11-05 09:55 | PCM.DC ---
Discharge Instructions DC O2, CPAP, BIPAP needs Home O2 Discharge instructions: No Dressing / Incision Additional Activity Instructions:: Follow the instructions that you gave to you for post ICD implant. Dressing / Incision Call your doctor if your incision/area has: Continuous Slow Oozing, Sudden Increased Bleeding and Increased Redness Additional Dressing/Incision Instructions:: Follow the instructions that Brittany gave to you for post ICD implant. Follow Up Care Test Results: Test results from this visit will be discussed in further detail at your follow-up appointment, if applicable. Discharge Plan Admission Admit Date/Time: 11/04/24 10:41 Attending Provider: Reynaldo Doyle Primary Care Provider: Hesham Andrade Instructions Additional Instructions / Restrictions: Keep your appointment with Brittany Brayan on 11/11/2024 at 1 PM. Discharge Orders/Prescriptions Prescriptions: Continued furosemide [Lasix] 20 mg tablet 20 mg PO QAM therapeutic multivitamin Tablet 1 tab PO QDAY Jardiance 10 mg tablet 10 mg PO QDAY Qty: 90 3RF aspirin 81 mg capsule 81 mg PO QDAY omega-3 fatty acids 1,000 mg capsule 1,000 mg PO QDAY atorvastatin 10 mg tablet 10 mg PO DAILY Patient Comments: TAKE 1 TABLET (10 MG) BY MOUTH DAILY. carvedilol 3.125 mg tablet 3.125 mg PO BID Patient Comments: TAKE 1 TABLET BY MOUTH TWICE DIALY cephalexin 500 mg capsule 500 mg PO 4X/DAY Entresto 24-26 mg tablet 1 tab PO BID Qty: 180 3RF Referrals / Follow Up: Hesham Andrade DO [Primary Care Provider] - Disposition Disposition (needs filled in before D/C Order can be placed): Home, Self Care
[2024-11-05 10:00] VITALS: BP 105/63; PULSE 87
--- NOTE | 2024-11-05 11:06 | PHA.DC.MR.R ---
Pharmacy [place] Med Reconciliation Pharmacy Service has performed discharge medication reconciliation for this patient. The patient's discharge medication list was reviewed for discrepancies and discrepancies were resolved. Medications at Discharge Home Medications atorvastatin 10 mg tablet 10 mg PO DAILY HLD 04/26/23 carvedilol 3.125 mg tablet 3.125 mg PO BID HTN, CHF 04/26/23 furosemide 20 mg tablet (Lasix) 20 mg PO QAM 12/17/23 aspirin 81 mg capsule 81 mg PO QDAY 01/29/24 therapeutic multivitamin 1 tab PO QDAY 02/02/24 empagliflozin 10 mg tablet (Jardiance) 10 mg PO QDAY #90 tabs 02/09/24 sacubitril 24 mg-valsartan 26 mg tablet (Entresto) 1 tab PO BID #180 tabs 06/11/24 omega-3 fatty acids 1,000 mg capsule 1,000 mg PO QDAY 07/27/24 cephalexin 500 mg capsule 500 mg PO 4X/DAY 11/04/24
[2024-11-05 13:24] VITALS: BP 100/61; PULSE 91
== END 2024-11-05 10:04 | disposition home or self-care (01) ==
LOC: PCU 11:13
PROVIDERS: Admitting Provider Internal Medicine Clinical Cardiac Electrophysiology; PCP Family Medicine; Referring Provider Internal Medicine Clinical Cardiac Electrophysiology; Visit Provider Internal Medicine Clinical Cardiac Electrophysiology
DX: Z45.02 Encounter for adjustment and management of automatic implantable cardiac defibrillator (principal); I50.22 Chronic systolic (congestive) heart failure; I11.0 Hypertensive heart disease with heart failure; I42.8 Other cardiomyopathies; E78.5 Hyperlipidemia, unspecified; Z86.718 Personal history of other venous thrombosis and embolism; Z79.899 Other long term (current) drug therapy; Z79.82 Long term (current) use of aspirin; Z87.891 Personal history of nicotine dependence; I34.0 Nonrheumatic mitral (valve) insufficiency
CPT/HCPCS: 33249; 36415; 71045; 71046; 80048; 81001; 85027; 96361; 96365; 96366; 99152; 99153; 99221; C1894; G0378